=== PATIENT | female | born 1990 | race Caucasian/White ===

== ENCOUNTER 2017-09-17 16:31 | Emergency (ER) | payer OTHER, SELFPAY ==
[2017-09-17 16:32] VITALS: BP 126/78; PULSE 76; RESP 16; TEMP 36.3; O2SAT 98; BMI 23.8
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
[2017-09-17] MEDS: HYDROcodone Bitartrate/Apap 5/325 Tablet PO (17:02)
[2017-09-17] MEDS: Ketorolac 60 MG/2 ML Vial IM (17:02)
[2017-09-17] MEDS: Ondansetron ODT 4 MG Tablet PO (17:02)
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
--- NOTE | 2017-09-17 17:06 | DCINST.ED_ITS ---
ED Disposition - Plan for ED Patient: Chief Complaint: Headache Instructions: ED Cephalgia Unspecified Prescriptions: Hydrocodone Bitart/Apap 5-325 [[place] 5/325] 1 tab PO Q4H PRN PRN #7 tab PRN Reason: Pain Naproxen [Naprosyn] 500 mg PO BID PRN #20 tab Referrals: Manda Figueroa MD [Primary Care Provider] -
[2017-09-17 17:28] VITALS: PULSE 66; RESP 12; O2SAT 98
== END 2017-09-17 17:41 | disposition home or self-care (01) ==
LOC: ED 17:32
PROVIDERS: Emergency Provider Emergency Medicine; Family Provider Family Medicine; PCP Family Medicine
DX: R51 Headache (principal); Z79.899 Other long term (current) drug therapy; V43.52XA Car driver injured in collision with other type car in traffic accident, initial encounter; Y93.I9 Activity, other involving external motion; Y92.410 Unspecified street and highway as the place of occurrence of the external cause; Y99.8 Other external cause status
CPT/HCPCS: 96372; 99283

== ENCOUNTER → 2017-09-29 15:15 | Outpatient (CLI) | payer OTHER, SELFPAY ==
[2017-09-29 16:24] LABS: Absolute Lymphocyte Count 1.93 X10^3/ul (0.83-4.51); Absolute Neutrophil Count 7.8 X10^3/uL (2.0-7.7); Basophil# 0.01 X10^3/uL; Basophil% 0.1 % (0-1); Eosinophil# 0.19 X10^3/uL; Eosinophils% 1.8 % (0-5); Hematocrit 37.7 % (37-47); Hemoglobin 12.8 g/dl (12.0-15.0); Lymphocyte # 1.93 X10^3/ul (4.0); Lymphocyte % 18.1 % (19-41); Mean Corpuscular Hgb 30.1 pg (27.0-32.0); Mean Corpuscular Volume 88.7 fL (81-99); Mean Platelet Vol. 10.5 fl (6.2-12.0); Monocyte# 0.71 X10^3/uL; Monocyte% 6.7 % (0-10); Neutrophil # 7.79 X10^3/uL (2.7-7.7); Neutrophil % 73.1 % (47-70); Platelet Count 293 K/mm3 (150-450); RBC Distribution Width CV 12.2 % (11.6-14.6); RBC Distribution Width SD 39.2 fl (35.1-43.9); Red Blood Count 4.25 M/mm3 (4.2-5.4); White Blood Count 10.7 K/mm3 (4.4-11.0)
[2017-09-29 16:26] LABS: POSITIVE COUNT NO; POSITIVE DIFFERENTIAL NO; POSITIVE MORPHOLOGY NO
[2017-09-29 17:25] LABS: ALB/GLOB Ratio 1.2 RATIO (0.9-2.4); AST(SGOT) 21 U/L (15-37); Alanine Aminotransfer ALT/SGPT 18 U/L (13-56); Albumin, Serum 3.8 g/dL (3.2-5.0); Alkaline Phosphatase 50 U/L (45-117); Anion Gap 10 (5-15); BUN 11 mg/dL (7-18); Calcium,Total 8.7 mg/dL (8.5-10.1); Chloride 104 mmol/L (98-107); Creatinine, Serum 0.91 mg/dL (0.55-1.02); EST Glomerular Filtration Rate 79 mL/min (>60); Est Glom Filt Rate - Afr Amer 95 mL/min (>60); Free T3 2.8 pg/mL (2.18-3.98); Globulin 3.1 g/dL (2.2-4.2); Glucose 72 mg/dL (74-106); Protein, Total 6.9 g/dL (6.4-8.2); Sodium Level 138 mmol/L (136-145); T4 Free Direct 1.22 ng/dL (0.76-1.46)
[2017-09-30 08:28] LABS: Vitamin B12 281 pg/mL (211-911); Vitamin D,25 Hydroxy 15.8 ng/mL (29.95-100.01)
== END ==
PROVIDERS: Family Provider Family Medicine; PCP Family Medicine
DX: E88.81 Metabolic syndrome and other insulin resistance (principal); F32.9 Major depressive disorder, single episode, unspecified; R53.83 Other fatigue; Z51.81 Encounter for therapeutic drug level monitoring
CPT/HCPCS: 36415; 80053; 82306; 82607; 84439; 84443; 84481; 85025

== ENCOUNTER → 2018-12-10 | Outpatient (CLI) | payer OTHER, SELFPAY ==
[2018-12-17 15:45] LABS: HPV Reflexed? NOT INDICATED
== END | disposition home or self-care (01) ==
PROVIDERS: Family Provider Family Medicine; PCP Family Medicine; Referring Provider Family Medicine; Visit Provider Family Medicine
DX: Z01.419 Encounter for gynecological examination (general) (routine) without abnormal findings (principal)
CPT/HCPCS: 88175; G0145

== ENCOUNTER → 2018-12-28 | Outpatient (CLI) | payer OTHER, SELFPAY ==
--- NOTE | 2018-12-28 11:52 | BI_ITS ---
MAMMOGRAPHY - BILATERAL SCREENING REASON FOR EXAM: Female, 28 years old. Routine annual screening examination. PERTINENT HISTORY: Grandmother with breast cancer. Aunt with breast cancer. TECHNIQUE: Digital bilateral breast seb (3D mammographic acquisition) in the CC and MLO projections. 2-D mediolateral oblique (MLO) and craniocaudad (CC) views of both breasts were obtained. CAD: Full Field Digital Mammography with Computer Added Detection was performed. COMPARISON: None. Baseline examination. FINDINGS: Breast Composition: The breasts are extremely dense, which lowers the sensitivity of mammography. There are no dominant masses or suspicious calcifications. No other significant abnormalities are identified. BI/SCREEN MAMM (CAD) W/SEB BILAT IMPRESSION: Negative screening mammogram. Yearly followup mammogram recommended. (A) ASSESSMENT CATEGORY: BIRADS Category 1: Negative. A letter regarding these results will be sent to the patient by the facility within 30 days. Approximately 10% of breast cancers are not detected by mammography. A normal mammogram should not delay biopsy of a clinically suspicious abnormality. [id number] Electronically Signed: Anant Aguiar, at 13:23 EDT , Service support ,
== END | disposition home or self-care (01) ==
LOC: OPBI 11:49
PROVIDERS: Family Provider Family Medicine; PCP Family Medicine; Referring Provider Family Medicine; Visit Provider Family Medicine
DX: Z12.31 Encounter for screening mammogram for malignant neoplasm of breast (principal); Z80.3 Family history of malignant neoplasm of breast
CPT/HCPCS: 77063; 77067

== ENCOUNTER 2019-11-09 01:22 | Emergency (ER) | payer OTHER, SELFPAY ==
[2019-05-31 15:49] VITALS: BMI 25.9
[2019-11-09 01:23] VITALS: BP 133/88; PULSE 120; RESP 16; TEMP 36.7; O2SAT 99; BMI 29.1
--- NOTE | 2019-11-09 01:24 | ED.RN ---
CALLED FOR EKG PER RN REQUEST, NO OLD EKGS IN MUSE
--- NOTE | 2019-11-09 01:36 | RAD_ITS ---
STUDY: X-RAY CHEST REASON FOR EXAM: Female, 28 years old. intermittent cp today TECHNIQUE: Frontal and lateral views of the chest. COMPARISON: CT scan abdomen and pelvis 12/08/2016. FINDINGS: The lungs are clear and expanded. There is a calcified granuloma in the right lower lobe. There is no demonstrated pleural abnormality. Normal size heart. Normal mediastinum and nathalia. Normal visualized pulmonary arteries. Normal visualized aortic arch and descending thoracic aorta. Normal visualized thoracic spine. Normal visualized ribs, clavicles, and shoulders. There is no demonstrated abnormality of the visualized soft tissue structures of the upper abdomen. RAD/Chest PA and Lateral IMPRESSION: No evidence for acute cardiopulmonary pathology. Electronically Signed: Mauricio Nicole MD at 2:19 EDT , Service support ,
--- NOTE | 2019-11-09 01:36 | EKG12_ITS ---
Test Reason : CP Blood Pressure : / mmHG Vent. Rate : 124 BPM Atrial Rate : 124 BPM P-R Int : 174 ms QRS Dur : 076 ms QT Int : 288 ms P-R-T Axes : 058 064 047 degrees QTc Int : 413 ms Sinus tachycardia Otherwise normal ECG Confirmed by CHYNA WRIGHT [id number]), multimedia editor TISHA TURNER ([id number]) on 11/10/2019 2:17:05 PM Referred By: CONRAD Confirmed By:CHYNA WRIGHT
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
[2019-11-09 01:41] LABS: Absolute Lymphocyte Count 3.53 X10^3/uL (0.83-4.51); Absolute Neutrophil Count 8.7 X10^3/uL (2.0-7.7); Basophil# 0.06 X10^3/uL; Basophil% 0.4 % (0-1); Eosinophil# 0.37 X10^3/uL; Eosinophils% 2.7 % (0-5); Hematocrit 42.8 % (37-47); Hemoglobin 14.7 g/dL (12.0-15.0); Lymphocyte # 3.53 X10^3/ul (4.0); Lymphocyte % 25.8 % (19-41); Mean Corp Hgb Conc 34.3 g/dL (32-36); Mean Corpuscular Hgb 30.6 pg (27.0-32.0); Mean Corpuscular Volume 89.2 fL (81-99); Mean Platelet Vol. 10.3 fl (6.2-12.0); Monocyte# 0.94 X10^3/uL; Monocyte% 6.9 % (0-10); NRBC Flagged by Analyzer 0 % (0-5); Neutrophil # 8.73 X10^3/uL (2.7-7.7); Neutrophil % 63.8 % (47-70); Platelet Count 352 K/mm3 (150-450); RBC Distribution Width CV 11.9 % (11.6-14.6); RBC Distribution Width SD 38.6 fl (35.1-43.9); White Blood Count 13.7 K/mm3 (4.4-11.0)
[2019-11-09 01:51] LABS: D-Dimer Quantitative (DVT/PE) <= 0.27 FEU/ug/m (0.27-0.49)
[2019-11-09 01:56] LABS: Anion Gap 10 (5-15); BUN 8 mg/dL (7-18); BUN/Creat Ratio 9.5 RATIO (10-20); Calcium,Total 9.3 mg/dL (8.5-10.1); Chloride 105 mmol/L (98-107); Creatinine, Serum 0.85 mg/dL (0.55-1.02); EST Glomerular Filtration Rate 85 mL/min (>60); Est Glom Filt Rate - Afr Amer 102 mL/min (>60); Estimated Creatinine Clearance 85.09 ml/min; Glucose 115 mg/dL (74-106); Potassium 3.8 mmol/L (3.5-5.1); Sodium Level 142 mmol/L (136-145)
[2019-11-09 02:35] VITALS: BP 112/84; PULSE 102; RESP 25; O2SAT 98
--- OUTSIDE RECORDS SUMMARY | 2020-03-27 17:32 | XMS RPT_ITS | CCD ---
:1990 External Reference #:[id number] Author Organization [facility] Care Team Providers Name Role Phone Langford Unavailable Unavailable Allergies Reported Allergen Reaction(s) Severity Date of Onset Location CATEPILLARS Critical, Critical 11-17-2014 - [place] [facility] Translations: [ Group ([id number] ) CATEPILLARS] Penicillins Critical, [facility] 11-17-2014 - [facility] (Antibiotic) Group ([id number]) Medications Medication Name Sig Date Prescriber Location buPROPion WELLBUTRIN SR 150 10-21-2016 [place] [facility] [id number] One Group ([id number]) tablet by mouth daily BUPROPION HCL [id number] Anabelle Langford desogestrel / APRI 0.15-30 MG-MCG 11-17-2014 [facility] ethinyl estradiol TABS One tablet by Jacinto montelongo ([id number]) mouth daily DESOGESTREL-ETHINYL ESTRADIOL [id number] Jennifer Benson RN dilTIAZem DILTIAZEM HCL 60 MG 04-02-2015 - [facility] TABS One tablet by 09-24-2015 RN Group ([id number]) mouth twice daily DILTIAZEM HCL [id number] Sri Wilhelm PA-C CARDIZEM CD 120 MG 01-03-2015 - 04-02-2015 [facility] [id number] One tablet by ([id number]) mouth daily DILTIAZEM HCL COATED BEADS [id number] Jennifer Benson RN CARDIZEM CD 120 MG 01-03-2015 Jane Brown RN [facility] [id number] One tablet by ([id number]) mouth daily DILTIAZEM HCL COATED BEADS [id number] Calos Nava MD DULoxetine CYMBALTA 20 MG CPEP One 09-24-2015 - 10-21-2016 [facility] tablet by mouth daily ([id number] ) DULOXETINE HCL [id number] Calos Nava MD escitalopram ESCITALOPRAM OXALATE 10 MG 11-17-2014 [facility] TABS One tablet by mouth (44 691) daily ESCITALOPRAM OXALATE [id number] Jennifer Benson RN LEXAPRO 20 MG TABS One tablet by 11-17-2014 - 12-18-2014 [facility] ([id number]) mouth daily ESCITALOPRAM OXALATE [id number] Calos Nava MD fexofenadine / BRETT-D ALLERGY & CONGESTION 11-17-2014 [facility] pseudoephedrine 60-120 MG [id number] as directed Group ([id number]) FEXOFENADINE-PSEUDOEPHEDRINE [id number] Jennifer Benson RN BRETT-D ALLERGY & CONGESTION 60-120 MG 11-17-2014 - 12-18-2014 [facility] [id number] as directed ([id number]) FEXOFENADINE-PSEUDOEPHEDRINE [id number] Calos Nava MD metoprolol TOPROL XL 25 MG [id number] 09-24-2015 Jennifer Jackson r, [facility] One tablet by mouth daily [facility] ([id number]) METOPROLOL SUCCINATE [id number] Sri Wilhelm PA-Jomar spironolactone ALDACTONE 50 MG TABS 1 10-21-2016 [facility] 1/2 tablets by mouth Group ( 15303) daily SPIRONOLACTONE [id number] Anabelle Langford triamcinolone NASACORT AQ 55 MCG/ACT 11-20-[address] [facility] AERS Take as directed Group ([id number]) TRIAMCINOLONE ACETONIDE(NASAL) [id number] Calos Nava MD Problems Category Problem Name Status Date Location Cardiac dysrhythmias Tachycardia Completed 11-17-2014 - [facility] ([id number]) Nonspecific chest pain Chest pain, Completed 11-20-2014 - [facility] unspecified Group ([id number]) Results Result Name Value Range Unit Interpretation Flag Date Location progress on 2019-01 PROGRESS HNO ID: [id number] Normal 02-03-2019 [id number] Service: ? Author Type: Nurse Practitioner Type: Progress Notes Filed: 02/03/2019 3:44 PM Note Text: Subjective HPI Andrea IVAN is a 28 year old female who presents wi th sinus congestion, sinus pain and headaches for the past month. She was seen here 3 weeks ago and diagnosed with viral URI. LMP: current Review of Systems Constitutional: Negative. Negative for fever. HENT: Positive for congestion and sinus pain. Negative for s ore throat. Respiratory: Negative. Negative for cough. Neurological: Positive for headaches. BP 110/68 Pulse 84 Temp 36.8 ?C (98.3 ?F) (Left Tympanic ) Resp 16 Wt 69.2 kg (152 lb 9.6 oz) LMP 01/04/2019 No past medical history on file. No past surgical history on file. ALLERGIES Penicillins MEDICATIONS Desogestrel-Ethinyl Estradiol 0.15-0.03 mg per tablet desoge strel / ethinyl estradiol Desogestrel-Ethinyl Estradiol 1 TAB PO NEFTALY LY December 08, 2016 Active 12-08-2016 [facility] ([id number]) No family history on file. Social History Tobacco Use - Smoking status: Never Smoker - Smokeless tobacco: Never Used Substance Use Topics - Alcohol use: Not on file - Drug use: Not on file Objective Physical Exam Constitutional: She is well-developed, well-nourished, and i n no distress. HENT: Right Ear: Tympanic membrane, external ear and ear canal nor mal. Left Ear: Tympanic membrane, external ear and ear canal norm al. Nose: Mucosal edema, rhinorrhea and sinus tenderness present . Mouth/Throat: Uvula is midline, oropharynx is clear and mois t and mucous membranes are normal. No posterior oropharyngeal edema or po sterior oropharyngeal erythema. Eyes: Conjunctivae are normal. Neck: Neck supple. Cardiovascular: Normal rate and regular rhythm. Pulmonary/Chest: Effort normal and breath sounds normal. Lymphadenopathy: She has no cervical adenopathy. Neurological: She is alert. Skin: Skin is warm and dry. Nursing note and vitals reviewed. ASSESSMENT/PLAN: 1. Bacterial sinusitis - ICD9: 473.9, 041.9, ICD10: J32.9, B 96.89 - Will begin treatment with Doxycline - Supportive care with plenty of fluids, rest, and analgesia prn. - DOXYCYCLINE HYCLATE 100 MG CAPSULE - Follow-up with your PCP in 3-5 days if symptoms have not i mproved or sooner if symptoms worsen - Discussed red flags and need for immediate medical evaluat ion if any occur. - Discussed supportive care treatment with fluids, rest and analgesia. - Discussed expected course of illness Sarah Fernandez APRN.CNP cnjanine on 2019-02-03 CNOV Office Visit ([facility]) Normal 02-04-[address] [place] [address] Quinten ANDREA IVAN ([id number]) 1990 [facility] Date Time Provider Department ([id number]) 02/03/19 3:30 PM SARAH FERNANDEZ ([employer]) [facility] During your visit today, we recorded the following informati on about you: Temperature Pulse Respiration Blood pressure 98.3 degrees 84/minute 16/minute 110/68 Weight 69.2 kg Sarah Fernandez APRN.CNP 02/03/2019 3:44 PM Signed Subjective HPI Andrea IVAN is a 28 year old female who presents wi th sinus congestion, sinus pain and headaches for the past laine h. She was seen here 3 weeks ago and diagnosed with viral URI. LMP: current Review of Systems Constitutional: Negative. Negative for fever. HENT: Positive for congestion and sinus pain. Negative for s ore throat. Respiratory: Negative. Negative for cough. Neurological: Positive for headaches. BP 110/68 Pulse 84 Temp 36.8 ?C (98.3 ?F) (Left Tympanic ) Resp 16 Wt 69.2 kg (152 lb 9.6 oz) LMP 01/04/2019 No past medical history on file. No past surgical history on file. ALLERGIES Penicillins MEDICATIONS Desogestrel-Ethinyl Estradiol 0.15-0.03 mg per tablet deso gestrel / ethinyl estradiol Desogestrel-Ethinyl Estradiol 1 TAB PO DAILY Nov Active 12-08-2016 [facility] ([id number]) No family history on file. Social History Tobacco Use - Smoking status: Never Smoker - Smokeless tobacco: Never Used Substance Use Topics - Alcohol use: Not on file - Drug use: Not on file Objective Physical Exam Constitutional: She is well-developed, well-nourished, and i n no distress. HENT: Right Ear: Tympanic membrane, external ear and ear canal nor mal. Left Ear: Tympanic membrane, external ear and ear canal norm al. Nose: Mucosal edema, rhinorrhea and sinus tenderness present . Mouth/Throat: Uvula is midline, oropharynx is clear and mois t and mucous membranes are normal. No posterior oropharyngeal edema or po sterior oropharyngeal erythema. Eyes: Conjunctivae are normal. Neck: Neck supple. Cardiovascular: Normal rate and regular rhythm. Pulmonary/Chest: Effort normal and breath sounds normal. Lymphadenopathy: She has no cervical adenopathy. Neurological: She is alert. Skin: Skin is warm and dry. Nursing note and vitals reviewed. ASSESSMENT/PLAN: 1. Bacterial sinusitis - ICD9: 473.9, 041.9, ICD10: J32.9, B 96.89 - Will begin treatment with Doxycline - Supportive care with plenty of fluids, rest, and analgesia prn. - DOXYCYCLINE HYCLATE 100 MG CAPSULE - Follow-up with your PCP in 3-5 days if symptom s have not improved or sooner if symptoms worsen - Discussed red flags and need for immediate med ical evaluation if any occur. - Discussed supportive care treatment with fluids, rest and analgesia. - Discussed expected course of illness TWIN Trujillo APRN.CNP 02/03/2019 3:40 PM Signed ASSESSMENT/PLAN: 1. Bacterial sinusitis - ICD9: 473.9, 041.9, ICD10: J32.9, B 96.89 - Will begin treatment with Doxycline - Supportive care with plenty of fluids, rest, and analgesia prn. - DOXYCYCLINE HYCLATE 100 MG CAPSULE - Follow-up with your PCP in 3-5 days if symptom s have not improved or sooner if symptoms worsen - Discussed red flags and need for immediate med ical evaluation if any occur. - Discussed supportive care treatment with fluids, rest and analgesia. - Discussed expected course of illness Sarah Fernandez APRN.[employer] [facility] PATIENT INFO ACUTE SINUSITIS OVERVIEW Rhinosinusitis, or more commonly sinusitis, is the medical t erm for inflammation (swelling) of the lining of the sinuses and nose. The sinuses are the hollow areas within the facial bones that are connected to the nasal openings. The sinuses are lined with mucous membranes, similar to the inside of the nose. There are two main types of sinusitis: acute and chron ic. Acute sinusitis is inflammation that lasts for less than fo ur weeks while chronic sinusitis lasts for more than 12 weeks. Acute sinusitis is common, affecting approximately one million people per year in the [place]. ACUTE SINUSITIS CAUSES The most common cause of acute sinusitis is a vi ral infection associated with the common cold. Bacterial sinusitis occ urs much less commonly, in only 0.5 to 2 percent of cases, usually as a complication of viral sinus itis. Because antibiotics are effective only against bacterial, an d not viral, infections, most people do not need antibiotics for acute si nusitis. ACUTE SINUSITIS SYMPTOMS Symptoms of acute sinusitis include: ? Nasal congestion or blockage ? Thick, yellow to green discharge from the nose ? Pain in the teeth ? Pain or pressure in the face that is worse when bending fo rwards Other acute sinusitis symptoms can include fever (temperatur e greater than 100.4?F or 38?C), fatigue, cough, difficulty or inability to smell, ear pressure or fullness, headache, and bad breath. In most cases, these symptoms develop over the c ourse of one day and begin to improve within seven to 10 days. DO I NEED TO BE EXAMINED? It is difficult to know if you have a viral or bacterial sin us infection initially. However, most people with a viral infection impro ve without treatment within seven to 10 days after symptoms begin. Ba cterial sinusitis also sometimes improves without treatment, although it can a lso worsen and require treatment. If one or more of the following botherso me symptoms last more than seven days, an examination by a healthcare provider is recommended: ? Thick, yellow to green discharge from the nose ? Face or tooth pain, especially if it is only on one side ? Tenderness over the maxillary sinuses (located on the left and right side of the nose, inside the cheekbones) ? Symptoms that initially improve and then worsen When to seek immediate help ? If you have one or more of the following symptoms, you should seek medical attent ion immediately (even if symptoms have been present for less than seven days): ? High fever (>102.5? F or 39.2? C) ? Sudden, severe pain in the face or head ? Double vision or difficulty seeing ? Confusion or difficulty thinking clearly ? Swelling or redness around one or both eyes ? Stiff neck, shortness of breath ACUTE SINUSITIS TREATMENT Initial treatment of a sinus infection aims to relieve symptoms since almost everyone will improve within the first seven to 10 days. Exp erts recommend avoiding antibiotics during this time unless there is clear evidence of a severe bacterial infection. Initial treatment Pain relief ? Non-prescription pain medications, such as a cetaminophen (eg, Tylenol?) or ibuprofen (eg, Motrin?, Advil?) are recommended for pain. Nasal irrigation and saline sprays ? Rinsing the nose with a salt-water (saline) solution is called nasal irrigation or nasal lavage. Saline is also available in a standard nasa l spray, although this is not as effective as using larger amounts of water in an irrigation. Nasal irrigation is particularly useful for treating drainage down the back of the throat, sneezing, nasal dryness, and congestion. The t reatment helps by rinsing out allergens and ir ritants from the nose. Saline rinses also clean the nasal lining and can be used before appl pee sprays containing medications, to get a better effect from the medication. Nasal lavage with warmed saline can be performed as ne eded, once per day, or twice daily for increased symptoms. Nasal lavage carries few risks when performed correctly. Saline nasal sprays and irr igation kits can be purchased [id number]. Saline mix es can also be purchased or patients can make their own solution. A variety of devices, including bulb syr inges, Neti pots, and bottle sprayers, may be used to perform nasal lavage; instructions for nasal lavage are provided in the table. At least 200 mL (about 3/4 cup) of fluid is recommended for each nostril. Nasal decongestants ? Nasal decongestant sprays, including o xymetazoline (Afrin?) and phenylephrine (Pj-synephrine?) can be used to temporarily treat congestion. However, these s prays should not be used for more than two to three days due to the risk of rebound congestion (when the nose is congested constantly unless the medication is used repeatedly). Other treatments ? Other evelin atments for congestion, such as oral antihistamines (such as diphenhydramine/Benadryl?) or zinc supplements are not proven to improve symptoms of sinusitis and can have unwan zac side effects. Medications to thin secretions (such as guaifenesin) may help to clear m ucus. Secondline treatment ? If symptoms have not improved in seven to ten days, you should arrange for medical evaluation. You may need further treatment. Nasal glucocorticoids ? Nasal glucocorticoids (steroid s delivered by a nasal spray) can help to reduce sw elling inside the nose, usually within two to three days. These drugs have few side effects and dramatical ly relieve symptoms in most people. There are a number of nasal glucocorticoids available by prescription. These drugs are all effective, but differ in how frequently they must be used and how much they cost. You may need to use a nasal decongestant for a few days before starting a nasal glucocorticoid to reduce nasal swelling; this will allow the nasal glucocorticoid to reach more areas of the nasal passages Do I need an antibiotic? ? If bothersome symptom s of sinusitis persist for 10 or more days, it is possible that you have bacterial s inusitis. The need for antibiotics depends upon the severity of your symptoms. Mild symptoms ? There are two possible treatment options if you have mild sinusitis symptoms: treat with antibiotics or continue to watch and wait for one week. Watching and waiting is a reasonable opt ion because up to 75 percent of people with bacterial sinusitis improve within one laine h without antibiotics. During the watch and wait period, treatments to improve symptoms ar e recommended. If symptoms worsen or do not improve after watching and waiting, treatment with an antibiotic is usually recommended. Treatments to relieve symptoms are recommended while using antibiotics. Moderate or severe symptoms ? Most healthcare providers will prescribe an antibiotic for moderate to severe symptoms (temperature >38. 3? C or 101? F and/or severe pain that interferes with usual activities). Treatments to relieve symptoms are also recommended during a ntibiotic treatment. One of the least expensive and most effective antibiotics fo r sinusitis is amoxicillin. An alternate antibiotic shania l be prescribed if you are allergic to penicillin. Regardless of which antibiotic is prescrib ed, it is important to follow the dosing instructions carefully and to finish the entire course of treatment. Taking the medication less often than prescribe d or stopping the medication early can lead to complications, such as a recurr ent infection. What if I do not improve with treatment? ? If you do not imp rove or worsen after a course of antibiotics, you should be re-examined. In some cases, symptoms of sinusitis improve but then recur. This is usually because the infection was not completely eliminated by the a ntibiotic. An alternate antibiotic, extend ed antibiotic treatment, and/or further testing may be recommended, depending upon your individual situation. Referring Provider: SELF [[id number]] Allergies As of Date: 02/03/2019 Noted Allergy Reaction PENICILLINS 01/07/2019 4 - Hives Date Reviewed: 02/03/2019 Reviewed by: Sarah ([facility]) Rebecca - Fully Assessed Reason for Visit: Sinusitis [127] Cmt: x 1 month Reason For Visit History Recorded Primary Visit Diagnosis:Bacterial sinusitis [J32.9, B96.89] Order(s):doxycycline hyclate (VIBRAMYCIN) 100 mg capsuleTake 1 capsule by mouth twice daily for 10 days.Disp: 20 capsuleRfl: 0 Prescriptions as of 02/03/2019 Sig: DOXYCYCLINE HYCLATE 100 MG CA* Take 1 capsule by mouth twice * Problem List As Of Date: 02/03/2019 (None) Other instructions from your clinician: ASSESSMENT/PLAN: 1. Bacterial sinusitis - ICD9: 473.9, 041.9, ICD10: J32.9, B 96.89 - Will begin treatment with Doxycline - Supportive care with plenty of fluids, rest, and analgesia prn. - DOXYCYCLINE HYCLATE 100 MG CAPSULE - Follow-up with your PCP in 3-5 days if symptoms have not i mproved or sooner if symptoms worsen - Discussed red flags and need for immediate medical evaluat ion if any occur. - Discussed supportive care treatment with fluids, rest and analgesia. - Discussed expected course of illness Sarah Fernandez APRN.[employer] [facility] PATIENT INFO ACUTE SINUSITIS OVERVIEW Rhinosinusitis, or more commonly sinusitis, is the medical t erm for inflammation (swelling) of the lining of the sinuses and nos e. The sinuses are the hollow areas within the facial bones that are connec zac to the nasal openings. The sinuses are lined with mucous membranes, similar to the inside of the nose. There are two main types of sinusitis: acute and chronic. Ac mireille sinusitis is inflammation that lasts for less than four weeks while ch ronic sinusitis lasts for more than 12 weeks. Acute sinusitis is c ommon, affecting approximately one million people per year in the [facility]. ACUTE SINUSITIS CAUSES The most common cause of acute sinusitis is a viral infectio n associated with the common cold. Bacterial sinusitis occurs much less c ommonly, in only 0.5 to 2 percent of cases, usually as a complication of viral sinusitis. Because antibiotics are effective only against bacterial, an d not viral, infections, most people do not need antibiotics for acute si nusitis. ACUTE SINUSITIS SYMPTOMS Symptoms of acute sinusitis include: ? Nasal congestion or blockage ? Thick, yellow to green discharge from the nose ? Pain in the teeth ? Pain or pressure in the face that is worse when bending fo rwards Other acute sinusitis symptoms can include fever (temperatur e greater than 100.4?F or 38?C), fatigue, cough, difficulty or inability to smell, ear pressure or fullness, headache, and bad breath. In most cases, these symptoms develop over the course of one day and begin to improve within seven to 10 days. DO I NEED TO BE EXAMINED? It is difficult to know if you have a viral or bacterial sin us infection initially. However, most people with a viral infection impro ve without treatment within seven to 10 days after symptoms begin. Bact erial sinusitis also sometimes improves without treatment, althoug h it can also worsen and require treatment. If one or more of the following bothersome symptoms last mor e than seven days, an examination by a healthcare provider is recommended : ? Thick, yellow to green discharge from the nose ? Face or tooth pain, especially if it is only on one side ? Tenderness over the maxillary sinuses (located on the left and right side of the nose, inside the cheekbones) ? Symptoms that initially improve and then worsen When to seek immediate help ? If you have one or more of the following symptoms, you should seek medical attention immediately (sharron n if symptoms have been present for less than seven days): ? High fever (>102.5? F or 39.2? C) ? Sudden, severe pain in the face or head ? Double vision or difficulty seeing ? Confusion or difficulty thinking clearly ? Swelling or redness around one or both eyes ? Stiff neck, shortness of breath ACUTE SINUSITIS TREATMENT Initial treatment of a sinus infection aims to relieve sympt oms since almost everyone will improve within the first seven to 10 da ys. Experts recommend avoiding antibiotics during this time unless there is clear evidence of a severe bacterial infection. Initial treatment Pain relief ? Non-prescription pain medications, such as eloise taminophen (eg, Tylenol?) or ibuprofen (eg, Motrin?, Advil?) are recomm ended for pain. Nasal irrigation and saline sprays ? Rinsing the nose with a salt-water (saline) solution is called nasal irrigation or nasal lavage . Saline is also available in a standard nasal spray, although this is n ot as effective as using larger amounts of water in an irrigation. Nasal irrigation is particularly useful for treating drainag e down the back of the throat, sneezing, nasal dryness, and congestion. The treatment helps by rinsing out allergens and irritants from the nose. Saline rinses also clean the nasal lining and can be used before applying sprays containing medications, to get a better effect from the medi cation. Nasal lavage with warmed saline can be performed as needed, once per day, or twice daily for increased symptoms. Nasal lavage carries few risks when performed correctly. Saline nasal sprays and irrigation kits can be purchased [id number]. Saline mixes can also be purchas ed or patients can make their own solution. A variety of devices, including bulb syringes, Neti pots, an d bottle sprayers, may be used to perform nasal lavage; instructions for nasal lavage are provided in the table. At least 200 mL (about 3/4 cup) of fluid is recommended for each nostril. Nasal decongestants ? Nasal decongestant sprays, including o xymetazoline (Afrin?) and phenylephrine (Pj-synephrine?) can be used to temporarily treat congestion. However, these sprays should not be used f or more than two to three days due to the risk of rebound congestion (whe n the nose is congested constantly unless the medication is used repeatedl y). Other treatments ? Other treatments for congestion, such as oral antihistamines (such as diphenhydramine/Benadryl?) or zinc s upplements are not proven to improve symptoms of sinusitis and can have unw anted side effects. Medications to thin secretions (such as guaifenesin ) may help to clear mucus. Secondline treatment ? If symptoms have not improved in kaci n to ten days, you should arrange for medical evaluation. You may need furt her treatment. Nasal glucocorticoids ? Nasal glucocorticoids (steroids deli tiffany by a nasal spray) can help to reduce swelling inside the nose, us ually within two to three days. These drugs have few side effects and vianca matically relieve symptoms in most people. There are a number of nasal glucocorticoids available by pre scription. These drugs are all effective, but differ in how frequently they must be used and how much they cost. You may need to use a nasal decongestant for a few days befo re starting a nasal glucocorticoid to reduce nasal swelling; this will all ow the nasal glucocorticoid to reach more areas of the nasal passages Do I need an antibiotic? ? If bothersome symptoms of sinusit is persist for 10 or more days, it is possible that you have bacterial sinu sitis. The need for antibiotics depends upon the severity of your sympt oms. Mild symptoms ? There are two possible treatment options if you have mild sinusitis symptoms: treat with antibiotics or continue to wa [facility] and wait for one week. Watching and waiting is a reasonable option because up to 75 percent of people with bacterial sinusitis improve within one month wit hout antibiotics. During the watch and wait period, treatments to improve symptoms are recommended. If symptoms worsen or do not improve after watching and wait ing, treatment with an antibiotic is usually recommended. Treatments to rel ieve symptoms are recommended while using antibiotics. Moderate or severe symptoms ? Most healthcare providers will prescribe an antibiotic for moderate to severe symptoms (temperature >38. 3? C or 101? F and/or severe pain that interferes with usual activities). Treatments to relieve symptoms are also recommended during a ntibiotic treatment. One of the least expensive and most effective antibiotics fo r sinusitis is amoxicillin. An alternate antibiotic will be prescribed if y ou are allergic to penicillin. Regardless of which antibiotic is pr escribed, it is important to follow the dosing instructions carefully and to finish the entire course of treatment. Taking the medication less often than prescribed or stopping the medication early can lead to comp lications, such as a recurrent infection. What if I do not improve with treatment? ? If you do not imp rove or worsen after a course of antibiotics, you should be re-examined. In some cases, symptoms of sinusitis improve but then recur. This is usually because the infection was not completely eliminated by the antibiotic. An alternate antibiotic, extended antibiotic evelin atment, and/or further testing may be recommended, depending upon your gris vidual situation. Prescriptions ordered this encounter Disp Refills Start End DOXYCYCLINE HYCLATE 100 MG CAPSULE 20 c* 0 02/03/20192018 Route: ORAL Sig: Take 1 capsule by mouth twice daily for 10 days. Medications Discontinued During This Encounter Desogestrel-Ethinyl Estradiol 0.15-0* 11/17/2014 02/03/2019 Class: Historical Med Sig: desogestrel / ethinyl e stradiol Desogestrel-Ethinyl Estradiol 1 TAB PO DAILY December 08, 2016 Active 12-08-2016 [facility] ([id number]) Disc: Reason for discontinue is not on file. Encounter Status:Closed by SARAH FERNANDEZ on 02/03/19 progress on 2018-12 PROGRESS HNO ID: [id number] Normal 01-07-2019 [facility] Author: Jonny Vines [place] ([id number]) Service: ? Author Type: Physician Type: Progress Notes Filed: 01/07/2019 7:35 PM Note Text: Patient presents with: Sore Throat: x 3 days Rash: on abdomen and back x 2 days HPI: Feeling sick for 10 days, sore throat for the initial 3 days . is sick now also. Positive symptoms: gross throat, rash, Cough, Nasal [place] on, Post nasal drainage, Negative symptoms: Shortness of breath, Wheezing, Chest pain , Sinus pressure, Fever, Chills, Body Aches, OTC: Cold Medicine MEDICATIONS: Current Outpatient Medications: Desogestrel-Ethinyl Estradiol 0.15-0.03 mg per tablet desoge strel / ethinyl estradiol Desogestrel-Ethinyl Estradiol 1 TAB PO NEFTALY LY December 08, 2016 Active 12-08-2016 [facility] ([id number]) No current facility-administered medications for this visit. ALLERGIES: ALLERGIES Allergen Reactions - Penicillins Hives VITALS: BP 126/82 Pulse 89 Temp 37.1 ?C (98.7 ?F) (Tympanic) R irina 16 Wt 68.5 kg (151 lb) LMP 01/04/2019 SpO2 99% PHYSICAL EXAM: GEN: Pleasant, in no acute distress. HEENT: PERRL, EOMI, conjunctiva clear Ears: canals clear. TMs without erythema, bulge, or effusion Sinuses: non-tender frontal sinus, non-tender maxillary sinu ses Throat: moist mucous membranes, mild erythema, no exudate Neck: supple, no thyromegaly, no lymphadenopathy HEART: regular rate and rhythm, no murmurs LUNGS: clear to auscultation, no wheezes or crackles, no inc reased WOB SKIN: <5mm hive-like papular rash on the anterior and vascular technologist ior torso ASSESSMENT/PLAN: 1. Rash - ICD9: 782.1, ICD10: R21 (primary diagnosis) 2. Sore throat - ICD9: 462, ICD10: J02.9 - RAPID STREP TEST B/O - negeative - suspect viral URI with exanthem Rash does not appear contagious Continue supportive care. MD carolin Boyceov on 2019-01-07 CNOV Office Visit ([id number]) Normal 01-08-20 19 [place] ANDREA Musa ([id number]) 1990 [facility] Date Time Provider Department ([id number]) 01/07/19 6:30 PM JONNY VINES [facility] During your visit today, we recorded the following informati on about you: Temperature Pulse Respiration Blood pressure 98.7 degrees 89/minute 16/minute 126/82 Weight Last Period 68.5 kg 01/04/19 Jonny Vines MD 01/07/2019 7:35 PM Signed Patient presents with: Sore Throat: x 3 days Rash: on abdomen and back x 2 days HPI: Feeling sick for 10 days, sore throat for the in itial 3 days. is sick now also. Positive symptoms: gross throat, rash, Cough, Nasal [place] on, Post nasal drainage, Negative symptoms: Shortness of breath, Wheezing , Chest pain, Sinus pressure, Fever, Chills, Body Aches, OTC: Cold Medicine MEDICATIONS: Current Outpatient Medications: Desogestrel-Ethinyl Estradiol 0.15-0.03 mg per tablet deso gestrel / ethinyl estradiol Desogestrel-Ethinyl Estradiol 1 TAB PO DAILY Nov Active 12-08-2016 [facility] ([id number]) No current facility-administered medications for this visit. ALLERGIES: ALLERGIES Allergen Reactions - Penicillins Hives VITALS: BP 126/82 Pulse 89 Temp 37.1 ?C (98.7 ?F) (Tympanic) R irina 16 Wt 68.5 kg (151 lb) LMP 01/04/2019 SpO2 99% PHYSICAL EXAM: GEN: Pleasant, in no acute distress. HEENT: PERRL, EOMI, conjunctiva clear Ears: canals clear. TMs without erythema, bulge, or effusion Sinuses: non-tender frontal sinus, non-tender maxillary sinu ses Throat: moist mucous membranes, mild erythema, no exudate Neck: supple, no thyromegaly, no lymphadenopathy HEART: regular rate and rhythm, no murmurs LUNGS: clear to auscultation, no wheezes or crackles, no inc reased WOB SKIN: <5mm hive-like papular rash on the anterior and vascular technologist ior torso ASSESSMENT/PLAN: 1. Rash - ICD9: 782.1, ICD10: R21 (primary diagnosis) 2. Sore throat - ICD9: 462, ICD10: J02.9 - RAPID STREP TEST B/O - negeative - suspect viral URI with exanthem Rash does not appear contagious Continue supportive care. Jonny Vines MD Referring Provider: SELF [[id number]] Allergies As of Date: 01/07/2019 Noted Allergy Reaction PENICILLINS 01/07/2019 4 - Hives Date Reviewed: 01/07/2019 Reviewed by: Anca Arnold Housekeeper/Custodian/Laundry Worker - Fully Assessed Reason for Visit: Sore Throat [200] Cmt: x 3 days Rash [1087] Cmt: on abdomen and back x 2 days Primary Visit Diagnosis:Rash [R21] Other Visit Diagnosis:Sore throat [J02.9] Order(s):RAPID STREP TEST B/O [3730925] Order #: [id number] Prescriptions as of 01/07/2019 Sig: DESOGESTREL 0.15 MG-ETHINYL E* desogestrel / ethinyl estradi * Problem List As Of Date: 01/07/2019 (None) Encounter Status:Closed by JONNY VINES MD on 01/07/19 office visit on 12-17-08 Documentation of Done Invalid Interpretation 10-21-2016 - [facility] current medications Code 10-21-2016 Group ([id number]) (procedure) office visit on 10-22-04 Tobacco use Never smoker Invalid Interpretation - [facility] CPHS Code 03-19-2015 Group ([id number]) office visit on 10-19-07 cardiac risk group A Invalid 11-20-2014 - [facility] Interpretation Code 11-20-2014 [facility] ([id number]) General Not enough Invalid 11-20-2014 - [facility] cardiovascular information Interpretation Code [facility] disease 10Y risk (44 301) [#] Callao.D'Agosti no external other: preferred method of cont act on 2014-11-20 Patient's prefered secmsg Invalid Interpretatio n 11-20-2014 - [facility] method of contact Code 11-20-2014 Eneida garcia ([id number]) clinical lists update: preload on 2014-10-27 Alanine 18 U/L Invalid 10-27-2014 - [place] aminotransferase (ALT) Interpretation Co de 10-27-2014 [facility] ([id number]) Alkaline phosphatase 53 U/L Invalid (ALP) Interpretation Code 10-27-2014 [facility] ([id number]) Anion gap 6 mmol/L Invalid 10-27-2014 - [facility] Interpretation Code 10-27-2014 [facility] ([id number]) Aspartate 17 U/L Invalid 10-27-2014 - [facility] aminotransferase (AST) Interpretation Co de 10-27-2014 [facility] ([id number]) BUN/Creatinine Ratio 12.5 mg/mg Invalid 5 - [facility] Interpretation Code 10-27-2014 [facility] ([id number]) Calcium 8.8 mg/dL Invalid 10-27-2014 - [place] Interpretation Code 10-27-2014 [facility] ([id number]) Chloride 105 mmol/L Invalid 10-27-2014 - [facility] Interpretation Code 10-27-2014 [facility] ([id number]) CO2 27 mmol/L Invalid 10-27-2014 - [facility] Interpretation Code 10-27-2014 [facility] ([id number]) Creatinine 0.8 mg/dL Invalid 10-27-2014 - [place] Interpretation Code 10-27-2014 [facility] ([id number]) Glucose 92 mg/dL Invalid 10-27-2014 - [place] Interpretation Code 10-27-2014 [facility] ([id number]) Hematocrit (HCT) 40.1 % Invalid 10-27-2014 - [place] Interpretation Code 10-27-2014 [facility] ([id number]) Hemoglobin (HGB) 13.5 g/dL Invalid 10-27-2014 - [place] Interpretation Code 10-27-2014 [facility] ([id number]) Platelets 282 10*3/mm3 Invalid 10-27-2014 [facility] Interpretation Code 10-27-2014 [facility] ([id number]) Potassium 4.1 mmol/L Invalid 10-27-2014 [facility] Interpretation Code 10-27-2014 [facility] ([id number]) Sodium 138 mmol/L Invalid 10-27-2014 - [facility] Interpretation Code 10-27-2014 [facility] ([id number]) Thyroid stimulating 1.26 u[iU]/mL Invalid 10-27-2014 - [place] hormone (TSH) Interpretation Code 2014 [facility] ([id number]) Urea nitrogen 10 mg/dL Invalid 10-27-2014 - [facility] Interpretation Code 10-27-2014 [facility] ([id number]) WBC (Leukocytes) 10.5 10*9/L Invalid 10-27-2014 - [facility] Interpretation Code 10-27-2014 [facility] ([id number]) Vital Signs Vital Sign Description Value / Unit Date Location The following section is limited to 5 en tries per type and includes entries from the following time range: 20161021 - 9. BMI (Body Mass Index) 26.57 kg/m2 10-21-2016 - 10-21-2016 [facility] ([id number]) BP Diastolic 50 mm[Hg] 10-21-2016 - 10-21-2016 [facility] ([id number]) BP Systolic 100 mm[Hg] 10-21-2016 - 10-21-2016 [facility] ([id number]) BSA (Body Surface Area) 1.62 m2 09-24-2015 - 09-24-2015 [facility] ([id number]) Height 160.02 cm 10-21-2016 - 10-21-2016 [facility] ([id number]) Pulse (Heart Rate) 84 /min 10-21-2016 - 10-21-2016 [facility] ([id number]) Pulse Oximetry 97 % 09-24-2015 - 09-24-2015 [facility] ([id number]) Respiratory Rate 18 /min 10-21-2016 - 10-21-2016 [facility] ([id number]) Weight 68.04 kg 10-21-2016 - 10-21-2016 [facility] ([id number]) Procedures Procedure Name Date Provider Location [facility] 10-21-2016 - Cal[facility] Nava [facility] 10-21-2016 ([id number]) Follow Up Appt 1 year 10-21-2016 - Calos Nava MD [facility] 10-21-2016 ([id number]) DJN 09-24-2015 - Calos Nava [facility] 09-24-2015 ([id number]) Follow Up Appt 1 year 09-24-2015 - Calos Nava MD [facility] 09-24-2015 ([id number]) Follow Up BP Check 09-24-2015 - Calos Nava MD [facility] 09-24-2015 ([id number]) DJN 03-19-2015 - Calos Nava [facility] 03-19-2015 ([id number]) Documentation of current 03-19-2015 - Calos Nava MD [facility] medications 03-20-2015 ([id number]) Follow Up Appt 6 months 03-19-2015 - Calos Nava MD [facility] 03-19-2015 ([id number]) DJN 12-18-2014 - Calos Nava [facility] 12-18-2014 ([id number]) Documentation of current 12-18-2014 - Calos Nava MD [facility] medications 12-19-2014 ([id number]) Follow Up Appt 3 months 12-18-2014 - Calos Nava MD [facility] 12-18-2014 ([id number]) DANA 11-20-2014 - Calos Nava MD [facility] 11-20-2014 ([id number]) Documentation of current 11-20-2014 - Calos Nava MD [facility] medications 11-21-2014 ([id number]) Echocardiography 11-20-2014 - [facility] 12-05-2014 ([id number]) Follow Up Appt 1 month 11-20-2014 - Calos Nava MD [facility] 11-20-2014 ([id number]) Remote 30 day ecg rev/report 11-20-2014 - Calos Nava MD [facility] 12-13-2014 ([id number]) Plan of Treatment Plan Description Date Location Appointment Appointment 11-16-2017 - [facility] 11-16-2017 ([id number]) Appointment Appointment 10-21-2016 - [facility] 10-21-2016 ([id number]) DANA CORTEZ 10-21-2016 - [facility] 10-21-2016 ([id number]) Follow Up Appt 1 year Follow Up Appt 1 year 10-21-2016 - [facility] 10-21-2016 ([id number]) DANA CORTEZ 09-24-2015 - [facility] 09-24-2015 ([id number]) Follow Up Appt 1 year Follow Up Appt 1 year 09-24-2015 - [facility] 09-24-2015 ([id number]) Follow Up BP Check Follow Up BP Check 09-24-2015 - [facility] 09-24-2015 ([id number]) DANA CORTEZ 03-19-2015 - [facility] 03-19-2015 ([id number]) Follow Up Appt 6 months Follow Up Appt 6 months 03-19-2015 - [facility] 03-19-2015 ([id number]) DJN DJN 12-18-2014 - [facility] 12-18-2014 ([id number]) Follow Up Appt 3 months Follow Up Appt 3 months 12-18-2014 - [facility] 12-18-2014 ([id number]) DJN DJN 11-20-2014 - [facility] 11-20-2014 ([id number]) Echocardiogram (complete) Echocardiogram (complete) 11-20-2014 - [facility] 11-21-2014 ([id number]) Follow Up Appt 1 month Follow Up Appt 1 month 11-20-2014 - [facility] 11-20-2014 ([id number]) 30 Day Holter Monitor 30 Day Holter Monitor 11-20-2014 - [facility] 11-21-2014 ([id number]) Summary Purpose Family History No Family History Records Found Advance Directives No Advanced Directives Records Found Additional Source Comments FOR RECORDS PERTAINING TO PATIENTS WHO ARE OR HAVE BEEN ENROLLED IN A CHEMICAL DEPENDENCY/SUBSTANCE ABUSE PROGRAM, SOME INFORMATION MAY BE OMITTED. This clinical summary was aggregated from multiple sources. Caution should be exercised in using it in the provision of clinical care. This summary normalizes information from multiple sources, and as a consequence, information in this document may materially changethe coding, format and clinical context of patient data. In addition, data may be omittedin some cases. CLINICAL DECISIONS SHOULD BE BASED ON THE PRIMARY CLINICAL RECORDS. [facility] provides no warranty or guarantee of the accuracy or completeness of information in this document. UNRECOGNIZED CONTENT PROVIDED BELOW FOR UNRECOGNIZED SECTION INFORMATION SOURCE DATE CREATED AUTHOR AUTHOR'S ORGANIZATIO N 02/03/2019 [facility]
--- OUTSIDE RECORDS SUMMARY | 2020-03-27 17:32 | XMS RPT_ITS | CCD ---
:1990 External Reference #:[id number] Author Organization [facility] Care Team Providers Name Role Phone Langford Unavailable Unavailable Allergies Reported Allergen Reaction(s) Severity Date of Onset Location CATEPILLARS Critical, Critical 11-17-2014 - [place] [facility] Translations: [ Group ([id number] ) CATEPILLARS] Penicillins Critical, [facility] 11-17-2014 - [facility] (Antibiotic) Group ([id number]) Medications Medication Name Sig Date Prescriber Location buPROPion WELLBUTRIN SR 150 10-21-2016 [place] [facility] [id number] One Group ([id number]) tablet by mouth daily BUPROPION HCL [id number] Anabelle Langford desogestrel / APRI 0.15-30 MG-MCG 11-17-2014 [facility] ethinyl estradiol TABS One tablet by Jacinto montelongo ([id number]) mouth daily DESOGESTREL-ETHINYL ESTRADIOL [id number] Jennifer Benson RN dilTIAZem DILTIAZEM HCL 60 MG 04-02-2015 - Sri Vanegas [facility] TABS One tablet by 09-24-2015 RN Group (44 [id number]) mouth twice daily DILTIAZEM HCL [id number] Sri Wilhelm PA-C CARDIZEM CD 120 MG 01-03-2015 - 04-02-2015 [facility] [id number] One tablet by ([id number]) mouth daily DILTIAZEM HCL COATED BEADS [id number] Jennifer Benson RN CARDIZEM CD 120 MG 01-03-2015 Jane Brown RN [facility] [id number] One tablet by (23252) mouth daily DILTIAZEM HCL COATED BEADS [id number] Calos Nava MD DULoxetine CYMBALTA 20 MG CPEP One 09-24-2015 - 10-21-2016 [facility] tablet by mouth daily (18251 ) DULOXETINE HCL [id number] Calos Nava MD escitalopram ESCITALOPRAM OXALATE 10 MG 11-17-2014 [facility] TABS One tablet by mouth (44 691) daily ESCITALOPRAM OXALATE [id number] Jennifer Benson RN LEXAPRO 20 MG TABS One tablet by 11-17-2014 - 12-18-2014 [facility] ([id number]) mouth daily ESCITALOPRAM OXALATE [id number] Calos Nava MD fexofenadine / BRETT-D ALLERGY & CONGESTION 11-17-2014 [facility] pseudoephedrine 60-120 MG [id number] as directed Group ([id number]) FEXOFENADINE-PSEUDOEPHEDRINE [id number] Jennifer Benson RN BRETT-D ALLERGY & CONGESTION 60-120 MG 11-17-2014 - 12-18-2014 [facility] [id number] as directed ([id number]) FEXOFENADINE-PSEUDOEPHEDRINE [id number] Calos Nava MD metoprolol TOPROL XL 25 MG [id number] 09-24-2015 Jennifer Jackson r, [facility] One tablet by mouth daily [facility] (97723) METOPROLOL SUCCINATE [id number] Sri Wilhelm PA-Jomar spironolactone ALDACTONE 50 MG TABS 1 10-21-2016 [facility] 1/2 tablets by mouth Group ( 85194) daily SPIRONOLACTONE [id number] Anabelle Langford triamcinolone NASACORT AQ 55 MCG/ACT 11-20-[address] [facility] AERS Take as directed Group ([id number]) TRIAMCINOLONE ACETONIDE(NASAL) [id number] Calos Nava MD Problems Category Problem Name Status Date Location Cardiac dysrhythmias Tachycardia Completed 11-17-2014 - [facility] ([id number]) Nonspecific chest pain Chest pain, Completed 11-20-2014 - [facility] unspecified Group ([id number]) Results Result Name Value Range Unit Interpretation Flag Date Location progress on 2019-01 PROGRESS HNO ID: [id number] Normal 02-03-2019 [facility] ([id number] Service: ? Author Type: Nurse Practitioner Type: [...] NEFTALY LY December 08, 2016 Active 12-08-2016 [facility] ([id number]) No family history on file. Social History [...] 2019-02-03 CNOV Office Visit (UCWSTR) Normal 02-04-[address] [place] [address] Quinten ANDREA IVAN ([id number]) 1990 [facility] Date Time Provider Department ([id number]) 02/03/19 3:30 PM SARAH FERNANDEZ ([facility]) WSTR During your visit today, we recorded [...] DAILY Nov Active 12-08-2016 [facility] ([id number]) No family history on file. Social History [...] Discussed expected course of illness Sarah Fernandez APRN.[facility] PATIENT INFO ACUTE SINUSITIS OVERVIEW [...] and irr igation kits can be purchased [id number]. Saline mix es can also be purchased [...] Hives Date Reviewed: 02/03/2019 Reviewed by: Sarah ([facility]) Rebecca - Fully Assessed Reason for Visit: [...] Discussed expected course of illness Sarah Fernandez APRN.[facility] PATIENT INFO ACUTE SINUSITIS OVERVIEW [...] one million people per year in the [facility]. ACUTE SINUSITIS CAUSES The most common cause [...] sprays and irrigation kits can be purchased [id number]. Saline mixes can also be purchas ed [...] treat with antibiotics or continue to wa [facility] and wait for one week. Watching and [...] PO DAILY December 08, 2016 Active 12-08-2016 [facility] ([id number]) Disc: Reason for discontinue is not on file. Encounter Status:Closed by SARAH FERNANDEZ on 02/03/19 progress on 2018-12 PROGRESS HNO ID: [id number] Normal 01-07-2019 [facility] Author: Jonny Vines [place] ([id number]) Service: ? Author Type: Physician Type: Progress [...] NEFTALY LY December 08, 2016 Active 12-08-2016 [facility] ([id number]) No current facility-administered medications for this visit. [...] hive-like papular rash on the anterior and emergency dept tech ior torso ASSESSMENT/PLAN: 1. Rash - ICD9: 782.1, ICD10: R21 (primary diagnosis) 2. Sore throat - ICD9: 462, ICD10: J02.9 - RAPID STREP TEST B/O - negeative - suspect viral URI with exanthem Rash does not appear contagious Continue supportive care. MD carolin Boyceov on 2019-01-07 CNOV Office Visit (UCWSTR) Normal 01-08-20 19 [place] ANDREA Musa ([id number]) 1990 [facility] Date Time Provider Department ([id number]) 01/07/19 6:30 PM [facility]NY VINES [facility] During your visit today, we recorded the [...] 1 TAB PO DAILY Nov Active 12-08-2016 [facility] ([id number]) No current facility-administered medications for this visit. [...] hive-like papular rash on the anterior and emergency dept tech ior torso ASSESSMENT/PLAN: 1. Rash - ICD9: [...] Date Reviewed: 01/07/2019 Reviewed by: Anca Arnold Radiopharmacist - Fully Assessed Reason for Visit: Sore Throat [200] Cmt: x 3 days Rash [1087] Cmt: on abdomen and back x 2 days Primary Visit Diagnosis:Rash [R21] Other Visit Diagnosis:Sore throat [J02.9] Order(s):RAPID STREP TEST B/O [3191904] Order #: [id number] Prescriptions as of 01/07/2019 Sig: DESOGESTREL 0.15 MG-ETHINYL E* desogestrel / ethinyl estradi * Problem List As Of Date: 01/07/2019 (None) Encounter Status:Closed by JONNY VINES MD on 01/07/19 office visit on 12-17-08 Documentation of Done Invalid Interpretation 10-21-2016 - [facility] current medications Code 10-21-2016 Group ([id number]) (procedure) office visit on 10-22-04 Tobacco use Never smoker Invalid Interpretation - [facility] CPHS Code 03-19-2015 Group (44 691) office visit on 10-19-07 cardiac risk group A Invalid 11-20-2014 - [place] Interpretation Code 11-20-2014 [facility] ([id number]) General Not enough Invalid 11-20-2014 - [facility] [facility] cardiovascular information Interpretation Code [facility] disease 10Y risk (44 031) [#] [place] no external other: preferred method of cont act on 2014-11-20 Patient's prefered secmsg Invalid Interpretatio n 11-20-2014 - [facility] method of contact Code 11-20-2014 Eneida garcia ([id number]) clinical lists update: preload on 2014-10-27 Alanine 18 U/L Invalid 10-27-2014 - [place] aminotransferase (ALT) Interpretation Co de 10-27-2014 [facility] (52083) Alkaline phosphatase 53 U/L Invalid (ALP) Interpretation Code 10-27-2014 [facility] ([id number]) Anion gap 6 mmol/L Invalid 10-27-2014 - [facility] Interpretation Code 10-27-2014 [facility] (86414) Aspartate 17 U/L Invalid 10-27-2014 - [facility] aminotransferase (AST) Interpretation Co de 10-27-2014 [facility] (19881) BUN/Creatinine Ratio 12.5 mg/mg Invalid 5 - [facility] Interpretation Code 10-27-2014 [facility] (06915) Calcium 8.8 mg/dL Invalid 10-27-2014 - [place] Interpretation Code 10-27-2014 [facility] ([id number]) Chloride 105 mmol/L Invalid 10-27-2014 - [facility] Interpretation Code 10-27-2014 [facility] (55931) CO2 27 mmol/L Invalid 10-27-2014 - [facility] Interpretation Code 10-27-2014 [facility] ([id number]) Creatinine 0.8 mg/dL Invalid 10-27-2014 - [place] [facility] Interpretation Code 10-27-2014 [facility] (48351) Glucose 92 mg/dL Invalid 10-27-2014 - [place] Interpretation Code 10-27-2014 [facility] (57709) Hematocrit (HCT) 40.1 % Invalid 10-27-2014 - [place] Interpretation Code 10-27-2014 [facility] (53921) Hemoglobin (HGB) 13.5 g/dL Invalid 10-27-2014 - [place] Interpretation Code 10-27-2014 [facility] (13784) Platelets 282 10*3/mm3 Invalid 10-27-2014 [facility] Interpretation Code 10-27-2014 [facility] ([id number]) Potassium 4.1 mmol/L Invalid 10-27-2014 [place] Interpretation Code 10-27-2014 [facility] (20738) Sodium 138 mmol/L Invalid 10-27-2014 - [facility] Interpretation Code 10-27-2014 [facility] (87643) Thyroid stimulating 1.26 u[iU]/mL Invalid 10-27-2014 - [place] hormone (TSH) Interpretation Code 2014 [facility] (09356) Urea nitrogen 10 mg/dL Invalid 10-27-2014 - [facility] Interpretation Code 10-27-2014 [facility] ([id number]) WBC (Leukocytes) 10.5 10*9/L Invalid 10-27-2014 - [facility] Interpretation Code 10-27-2014 [facility] (02870) Vital Signs Vital Sign Description Value / Unit Date Location The following section is limited to 5 en tries per type and includes entries from the following time range: 20161021 - 9. BMI (Body Mass Index) 26.57 kg/m2 10-21-2016 - 10-21-2016 [facility] ([id number]) BP Diastolic 50 mm[Hg] 10-21-2016 - 10-21-2016 [facility] ([id number]) BP Systolic 100 mm[Hg] 10-21-2016 - 10-21-2016 [facility] (39071) BSA (Body Surface Area) 1.62 m2 09-24-2015 - 09-24-2015 [facility] (02786) Height 160.02 cm 10-21-2016 - 10-21-2016 [facility] (11732) Pulse (Heart Rate) 84 /min 10-21-2016 - 10-21-2016 [facility] (57867) Pulse Oximetry 97 % 09-24-2015 - 09-24-2015 [facility] (90325) Respiratory Rate 18 /min 10-21-2016 - 10-21-2016 [facility] (41781) Weight 68.04 kg 10-21-2016 - 10-21-2016 [facility] (74387) Procedures Procedure Name Date Provider Location [facility] 10-21-2016 - Cal[facility] Nava [facility] 10-21-2016 ([id number]) Follow Up Appt 1 year 10-21-2016 - Calos Nava MD [facility] 10-21-2016 ([id number]) DJN 09-24-2015 - Calos Nava [facility] 09-24-2015 ([id number]) Follow Up Appt 1 year 09-24-2015 - Calos Nava MD [facility] 09-24-2015 ([id number]) Follow Up BP Check 09-24-2015 - Calos Nava MD [facility] [place] 09-24-2015 ([id number]) DJN 03-19-2015 - Calos Nava MD [facility] 03-19-2015 (64394) Documentation of current 03-19-2015 - Calos Nava MD [facility] medications 03-20-2015 ([id number]) Follow Up Appt 6 months 03-19-2015 - Calos Nava [facility] 03-19-2015 (30462) DJN 12-18-2014 - Calos Nava MD [facility] 12-18-2014 (35786) Documentation of current 12-18-2014 - Calos Nava MD [facility] medications 12-19-2014 ([id number]) Follow Up Appt 3 months 12-18-2014 - Calos Nava MD [facility] 12-18-2014 (67273) DANA 11-20-2014 - Calos Nava MD [facility] 11-20-2014 (91045) Documentation of current 11-20-2014 - Calos Nava MD [facility] medications 11-21-2014 ([id number]) Echocardiography 11-20-2014 - [facility] 12-05-2014 ([id number]) Follow Up Appt 1 month 11-20-2014 - Calos Nava MD [facility] 11-20-2014 ([id number]) Remote 30 day ecg rev/report 11-20-2014 - Calos Nava MD [facility] 12-13-2014 (76156) Plan of Treatment Plan Description Date Location Appointment Appointment 11-16-2017 - [facility] 11-16-2017 ([id number]) Appointment Appointment 10-21-2016 - [facility] 10-21-2016 ([id number]) DANA CORTEZ 10-21-2016 - [facility] 10-21-2016 ([id number]) Follow Up Appt 1 year Follow Up Appt 1 year 10-21-2016 - [facility] 10-21-2016 ([id number]) DANA CORTEZ 09-24-2015 - [facility] 09-24-2015 ([id number]) Follow Up Appt 1 year Follow Up Appt 1 year 09-24-2015 - [facility] 09-24-2015 ([id number]) Follow Up BP Check Follow Up BP Check 09-24-2015 - [facility] 09-24-2015 (68758) DANA CORTEZ 03-19-2015 - [facility] 03-19-2015 ([id number]) Follow Up Appt 6 months Follow Up Appt 6 months 03-19-2015 - [facility] 03-19-2015 (38315) DJN DJN 12-18-2014 - [facility] 12-18-2014 ([id number]) Follow Up Appt 3 months Follow Up Appt 3 months 12-18-2014 - [facility] 12-18-2014 ([id number]) DJN DJN 11-20-2014 - [facility] 11-20-2014 ([id number]) Echocardiogram (complete) Echocardiogram (complete) 11-20-2014 - [facility] 11-21-2014 ([id number]) Follow Up Appt 1 month Follow Up Appt 1 month 11-20-2014 - [facility] 11-20-2014 (40247) 30 Day Holter Monitor 30 Day Holter Monitor 11-20-2014 - [facility] 11-21-2014 ([id number]) Summary Purpose Family History No Family History [...] BE BASED ON THE PRIMARY CLINICAL RECORDS. [facility] provides no warranty or guarantee of the accuracy or completeness of information in this document. UNRECOGNIZED CONTENT PROVIDED BELOW FOR UNRECOGNIZED SECTION INFORMATION SOURCE DATE CREATED AUTHOR AUTHOR'S ORGANIZATIO N 02/03/2019 [facility]
== END 2019-11-09 02:37 | disposition home or self-care (01) ==
PROVIDERS: Emergency Provider Emergency Medicine; PCP Family Medicine
DX: R07.9 Chest pain, unspecified (principal)
CPT/HCPCS: 71046; 80048; 84484; 85025; 85379; 93005; 99284; A4216

== ENCOUNTER → 2020-01-27 | Outpatient (CLI) | payer OTHER, SELFPAY ==
[2020-01-25 11:22] VITALS: BMI 28.6
== END | disposition home or self-care (01) ==
LOC: PSN 08:58
PROVIDERS: PCP Family Medicine; Referring Provider Nurse Practitioner Family; Visit Provider Nurse Practitioner Family
DX: R00.2 Palpitations (principal); R00.0 Tachycardia, unspecified
CPT/HCPCS: 93225; 93226

== ENCOUNTER → 2020-03-22 | Outpatient (CLI) | payer OTHER, SELFPAY ==
[2020-03-22 14:20] VITALS: BMI 28.6
[2020-03-22 19:40] LABS: Amphetamine Urine VISTA NEGATIVE (<1000 ng/mL); Barbiturate Urine VISTA NEGATIVE (< 200 ng/mL); Benzodiazepine Urine VISTA NEGATIVE (< 200 ng/mL); Cocaine Urine VISTA NEGATIVE (< 300 ng/mL); Ecstacy Urine VISTA NEGATIVE (< 500 ng/mL); Methadone Urine VISTA NEGATIVE (< 300 ng/mL); PCP Urine VISTA NEGATIVE (< 25 ng/mL); THC Urine VISTA NEGATIVE (< 50 ng/mL); Vista UDS pH Range 6
[2020-03-27 07:44] LABS: Chlamydia By Nucleic Acid AMP Negative (Negative)
[2020-04-02 22:11] LABS: Gonococcus By Nucleic Acid AMP Negative (Negative)
== END | disposition home or self-care (01) ==
LOC: LABSPEC 16:23
PROVIDERS: PCP Family Medicine; Referring Provider Obstetrics & Gynecology; Visit Provider Obstetrics & Gynecology
DX: Z34.00 Encounter for supervision of normal first pregnancy, unspecified trimester (principal)
CPT/HCPCS: 80307; 87086; 87491; 87591

== ENCOUNTER → 2020-04-18 15:27 | Outpatient (CLI) | payer OTHER, SELFPAY ==
[2020-04-18 14:50] VITALS: BMI 29.3
[2020-04-18 15:57] LABS: Absolute Lymphocyte Count 2.25 X10^3/uL (0.83-4.51); Absolute Neutrophil Count 10.6 X10^3/uL (2.0-7.7); Basophil# 0.03 X10^3/uL; Basophil% 0.2 % (0-1); Eosinophil# 0.18 X10^3/uL; Eosinophils% 1.3 % (0-5); Hematocrit 38.1 % (37-47); Lymphocyte # 2.25 X10^3/ul (4.0); Lymphocyte % 16.1 % (19-41); Mean Corp Hgb Conc 34.1 g/dL (32-36); Mean Corpuscular Hgb 29.8 pg (27.0-32.0); Mean Corpuscular Volume 87.4 fL (81-99); Mean Platelet Vol. 9.6 fl (6.2-12.0); Monocyte# 0.86 X10^3/uL; Monocyte% 6.1 % (0-10); NRBC Flagged by Analyzer 0 % (0-5); Neutrophil # 10.62 X10^3/uL (2.7-7.7); Neutrophil % 75.9 % (47-70); Platelet Count 283 K/mm3 (150-450); RBC Distribution Width CV 11.9 % (11.6-14.6); RBC Distribution Width SD 38.2 fl (35.1-43.9); Red Blood Count 4.36 M/mm3 (4.2-5.4)
[2020-04-19 02:11] LABS: Rapid Plasmin Reagin (RPR) NONREACTIVE (NONREACTIVE)
[2020-04-19 14:40] LABS: HIV - WCH Non-Reactive (Nonreactive); Hepatitis B Surface Antigen Non-Reactive (Nonreactive); Hepatitis C Antibody Non-Reactive (Nonreactive)
== END ==
PROVIDERS: PCP Family Medicine; Referring Provider Obstetrics & Gynecology; Visit Provider Obstetrics & Gynecology
DX: Z34.00 Encounter for supervision of normal first pregnancy, unspecified trimester (principal)
CPT/HCPCS: 36415; 85025; 86592; 86703; 86803; 86850; 86900; 86901; 87340

== ENCOUNTER → 2020-06-05 09:27 | Outpatient (CLI) | payer OTHER, SELFPAY ==
[2020-05-16 14:58] VITALS: BMI 28.8
== END ==
PROVIDERS: PCP Family Medicine; Referring Provider Nurse Practitioner Family; Visit Provider Nurse Practitioner Family
DX: R00.2 Palpitations (principal)
CPT/HCPCS: 93225; 93226

== ENCOUNTER → 2020-08-08 10:51 | Outpatient (CLI) | payer OTHER, SELFPAY ==
[2020-07-11 14:25] VITALS: BMI 30.2
[2020-08-08 11:08] LABS: Absolute Lymphocyte Count 1.55 X10^3/uL (0.83-4.51); Absolute Neutrophil Count 11.7 X10^3/uL (2.0-7.7); Basophil# 0.05 X10^3/uL; Basophil% 0.3 % (0-1); Eosinophils% 0.7 % (0-5); Hematocrit 35.5 % (37-47); Lymphocyte # 1.55 X10^3/ul (4.0); Lymphocyte % 10.8 % (19-41); Mean Corp Hgb Conc 33.8 g/dL (32-36); Mean Corpuscular Hgb 30.4 pg (27.0-32.0); Mean Corpuscular Volume 89.9 fL (81-99); Mean Platelet Vol. 9.3 fl (6.2-12.0); Monocyte# 0.64 X10^3/uL; Monocyte% 4.5 % (0-10); NRBC Flagged by Analyzer 0 % (0-5); Neutrophil # 11.71 X10^3/uL (2.7-7.7); Neutrophil % 81.4 % (47-70); Platelet Count 241 K/mm3 (150-450); RBC Distribution Width SD 42.6 fl (35.1-43.9); Red Blood Count 3.95 M/mm3 (4.2-5.4); White Blood Count 14.4 K/mm3 (4.4-11.0)
[2020-08-08 11:18] LABS: Glucose Challenge Gest 1H 50g 132 mg/dL (70-140)
== END ==
PROVIDERS: PCP Family Medicine; Referring Provider Obstetrics & Gynecology; Visit Provider Obstetrics & Gynecology
DX: O26.899 Other specified pregnancy related conditions, unspecified trimester (principal); Z67.91 Unspecified blood type, Rh negative; Z3A.00 Weeks of gestation of pregnancy not specified
CPT/HCPCS: 36415; 82950; 85025; 86850; 86900; 86901

== ENCOUNTER → 2020-10-05 16:28 | Outpatient (CLI) | payer OTHER, SELFPAY ==
[2020-10-05 13:48] VITALS: BMI 31.9
== END ==
PROVIDERS: PCP Family Medicine; Referring Provider Obstetrics & Gynecology; Visit Provider Obstetrics & Gynecology
DX: Z34.90 Encounter for supervision of normal pregnancy, unspecified, unspecified trimester (principal)
CPT/HCPCS: 87081

== ENCOUNTER 2020-10-23 16:50 | Outpatient (CLI) | payer OTHER, SELFPAY ==
[2020-10-19 14:44] VITALS: BMI 31.9
[2020-10-23 17:07] VITALS: TEMP 37.1
[2020-10-23 17:09] VITALS: BP 132/87; PULSE 129
[2020-10-23 17:12] VITALS: BMI 32.5
[2020-10-23 17:47] LABS: ROM Internal Control Test YES-OK TO RESULT pt. (Internal QC); ROM Patient Test Negative (Negative)
--- NOTE | 2020-10-26 08:14 | OB.TRI.PN ---
Progress Notes Progress Note: Patient presents for triage evaluation secondary to posible ROM FHT: 140 Moderate variability reactive no decelerations category I tracing [place]: no regular Contractions Assessment and plan: membranes intact rom plus negative Reactive NST, reassuring maternal and status patient discharged to home to follow-up as scheduled. See problem list details for additional plan information. Laboratory Studies: Laboratory Tests 10/23/20 Range/Units 17:10 Vag Amniotic Fld Detect Negative (Negative) Assessment & Plan Assessment/Plan (1) Intact amniotic membranes: QUALIFIERS: Trimester: third trimester Qualified Code(s): Z34.93 - Encounter for supervision of normal , unspecified, third trimester Procedures Urinary/Genital 52xxx-59xxx: 39911-08 non-stress test Interp
== END 2020-10-23 17:55 ==
LOC: WPOUT 16:57 → WP 16:58
PROVIDERS: PCP Family Medicine; Visit Provider Obstetrics & Gynecology
DX: Z34.93 Encounter for supervision of normal pregnancy, unspecified, third trimester (principal)
CPT/HCPCS: 59025; 59050; 84112; 99218; G0378

== ENCOUNTER 2020-10-26 15:35 | Outpatient (CLI) | payer OTHER, SELFPAY ==
[2020-10-26] VITALS (9 sets, daily range): BP systolic 120–133; BP diastolic 85–90; PULSE 106–132; TEMP 36.7; O2SAT 97; BMI 32.5
[2020-10-26] MEDS: 0.9 % NaCl (Sterile) Posiflush 10 mL IV (16:15)
[2020-10-26 17:01] LABS: Hemoglobin 11.9 g/dL (12.0-15.0); Mean Corp Hgb Conc 33.1 g/dL (32-36); Mean Corpuscular Hgb 28.5 pg (27.0-32.0); Mean Corpuscular Volume 86.1 fL (81-99); Mean Platelet Vol. 10.5 fl (6.2-12.0); Platelet Count 234 K/mm3 (150-450); RBC Distribution Width CV 14.4 % (11.6-14.6); RBC Distribution Width SD 45.1 fl (35.1-43.9); Red Blood Count 4.18 M/mm3 (4.2-5.4); White Blood Count 12.4 K/mm3 (4.4-11.0)
[2020-10-26 17:10] LABS: AST(SGOT) 14 U/L (15-37); Alanine Aminotransfer ALT/SGPT 16 U/L (13-56); Creatinine, Serum 0.59 mg/dL (0.55-1.02); EST Glomerular Filtration Rate 128 mL/min (>60); Est Glom Filt Rate - Afr Amer 155 mL/min (>60); Estimated Creatinine Clearance 121.49 ml/min; Uric Acid 3.9 mg/dL (2.6-6.0)
[2020-10-26 17:53] LABS: Protein, Urine (Random) 14.4 mg/dL (<11.9); Protein:Creat Ratio 269 mg/g CRE (0-200)
--- NOTE | 2020-10-27 01:49 | OB.TRI.PN_ITS ---
Progress Notes Date of Service: 10/26/20 Progress Note: Patient presents for triage evaluation secondary to elevate dbp in office FHT: 130 Moderate variability reactive no decelerations category I tracing [place]: no regular Contractions Assessment and plan: elevated bp repeats WNL, negative labs Reactive NST, reas suring maternal and status patient discharged to home to follow-up as scheduled reviewed precautions. See problem list details for additional plan information. Laboratory Studies: Laboratory Tests 10/26/20 10/26/20 10/26/20 Range/Units 17:10 16:15 16:15 WBC 12.4 H (4.4-11.0) K/mm3 RBC 4.18 L (4.2-5.4) M/mm3 Hgb 11.9 L (12.0-15.0) g/dL Hct 36.0 L (37-47) % MCV 86.1 (81-99) fL MCH 28.5 (27.0-32.0) pg MCHC 33.1 (32-36) g/dL RDW Std Deviation 45.1 H (35.1-43.9) fl RDW Coeff of Aly 14.4 (11.6-14.6) % Plt Count 234 (150-450) K/mm3 MPV 10.5 (6.2-12.0) fl Creatinine 0.59 (0.55-1.02) mg/dL Estim Creat Clear Calc 121.49 ml/min Est GFR (MDRD) Af Amer 155 (>60) mL/min Est GFR (MDRD) Non-Af 128 (>60) mL/min Uric Acid 3.9 (2.6-6.0) mg/dL AST 14 L (15-37) U/L ALT 16 (13-56) U/L U Random Total Protein 14.4 H (<11.9) mg/dL Urine Creatinine 53.50 (NO RANGE EST.) mg/dL Protein/Creatinin Ratio 269 H (0-200) mg/g CRE Assessment & Plan Assessment/Plan (1) Elevated blood pressure affecting in third trimester, antepartum: Procedures Urinary/Genital 52xxx-59xxx: 41267-18 non-stress test Interp
== END 2020-10-26 18:10 ==
LOC: WPOUT 15:43 → WP 15:44
PROVIDERS: PCP Family Medicine; Referring Provider Obstetrics & Gynecology; Visit Provider Obstetrics & Gynecology
DX: O99.413 Diseases of the circulatory system complicating pregnancy, third trimester (principal); R03.0 Elevated blood-pressure reading, without diagnosis of hypertension; Z3A.00 Weeks of gestation of pregnancy not specified
CPT/HCPCS: 96374; 36415; 59025; 59050; 82565; 82570; 84156; 84450; 84460; 84550; 85027; 99218; G0378

== ENCOUNTER → 2020-11-01 | Outpatient (CLI) | payer OTHER, SELFPAY ==
[2020-11-01 13:09] VITALS: BMI 32.5
== END | disposition home or self-care (01) ==
LOC: LABSPEC 16:36
PROVIDERS: PCP Family Medicine; Referring Provider Obstetrics & Gynecology; Visit Provider Obstetrics & Gynecology
DX: R35.0 Frequency of micturition (principal)
CPT/HCPCS: 87077; 87086; 87088; 87186

== ENCOUNTER 2020-11-06 07:00 | Inpatient (IN) | payer OTHER, SELFPAY ==
[2020-10-12 15:22] VITALS: BMI 31.9
[2020-11-01 13:09] VITALS: BMI 32.5
[2020-11-06] VITALS (40 sets, daily range): BP systolic 103–144; BP diastolic 53–92; PULSE 86–128; TEMP 36.6–37.2; O2SAT 92–100; BMI 32.3
--- NOTE | 2020-11-06 08:36 | HP.PCM.OB_ITS ---
HPI - General General Date of Admission: 11/06/20 HPI Narrative ANDREA IVAN, is a 29 F who presents for induction of labor for late term. Maternal Data Information JODIE Calculator Estimated Delivery Date Method Current WG Current Estimate 10/30/20 LMP (Certain) 41w 0d Other Estimates 11/02/20 Ultrasound #1 40w 4d PFSH Medical History (Updated 11/06/20 @ 08:[address] Xin Kamara MD) Anxiety Rapid palpitations Raynaud disease Tachycardia Home Medications multivitamin no.47-iron fum 27 mg-folate no.1 1 mg-dha 300 mg capsule 1 cap PO DAILY 03/14/20 [History Last Taken 11/05/20 20:00 1 TAB] diphenhydramine HCl [Benadryl] 25 mg PO Q6H PRN 10/26/20 [History Last Taken 11/05/20 22:00 1 TAB] nitrofurantoin monohyd/m-cryst [Macrobid] 100 mg PO Q12H 11/06/20 [History Last Taken 11/06/20 07:40 1 tab] Allergy/AdvReac Type Severity Reaction Status Date / Time Penicillins Allergy Hives Verified 11/01/20 13:08 wooly bear caterpillars AdvReac Intermediate Hives on Uncoded 10/23/20 17:22 contact Family History Mother Pernicious anemia Grandfather Pernicious anemia Surgical History [place] teeth extracted Social History adopted: No household members: spouse housing: house current occupational status: employed 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 pets and animals: Yes Smoking Status: Never smoker second hand exposure: No alcohol intake: current alcohol intake frequency: holidays/special occasions only substance use type: does not use seatbelt use: always do you feel safe at home: Yes additional social history: - [employer] [facility] History 1 Elective abortions Hx Para Spontaneous abortions Hx # Term Pregnancies Ectopic pregnancies Hx # Pregnancies Multiple births # of living children Visit Details Expected Delivery Route/Plan Labor Preferences- CB/BF classes: discussed labor support person: Keanu labor intervention preferences: open to standard interventions, would like to avoid IV meds for pain if possible pain management options preferred: epidural cut cord/dad catch: SQUEAMISH - cord : pumping PP control planned: OCPs discussed possible routes of delivery and associated risks: discussed possible delivery modalities and possible indications for each including R/B/A of , VAVD, FAVD, and CS. questions answered. special requests: None Plans flu vaccine:yes tdap vaccine: [] rhogam: given 08/08 LARC form signed: 09/05/2020 Problem list reviewed and updated with the most current plan of care details and appropriate orders placed. Relevant counseling for the gestational age provided. Continue routine care and follow up unless otherwise noted in visit notes/problem list details OB Flowsheet Initial Weight: Not Recorded Date -?-?-?-?-?-?-?-?-?-?-?-?- EGA Weight BP Urine Prot -?-?-?-?-?-?-?-?-?-?-?-?- Glucose FHR FuHt Pres Dilation -?-?-?-?-?-?-?-?-?-?-?-?- Effaced St Visit Note 03/22/20 -?-?-?-?-?-?-?-?-?-?-?-?- 8w 2d 168 lb 8 oz 124/82 -?-?-?-?-?-?-?-?-?-?-?-?- 160 -?-?-?-?-?-?-?-?-?-?-?-?- GP - CRL 14.4 mm consistent with LMP 04/18/20 -?-?-?-?-?-?-?-?-?-?-?-?- 12w 1d 171 lb 128/74 Negative -?-?-?-?-?-?-?-?-?-?-?-?- Negative 170 -?-?-?-?-?-?-?-?-?-?-?-?- GP - no cramping or bleeding. Anatomy ordered. Did not have NOB labs - will do today. 05/16/20 -?-?-?-?-?-?-?-?-?-?-?--?- 16w 1d 168 lb 4 oz 130/76 -?-?-?-?-?-?-?-?-?-?-?-?- 150 -?-?-?-?-?-?-?-?-?-?-?-?- GP -no cramping or bleeding. Denies complaints. 06/11/20 -?-?-?-?-?-?-?-?-?-?-?-?- 19w 6d 171 lb 6 oz 130/80 Nega tive -?-?-?-?-?-?-?-?-?-?-?-?- Negative 140 -?-?-?-?-?-?-?-?-?-?-?-?- GP - no LOF, VB, DFM, ctx. Discussed arrhythmia on anatomy scan - plan echo. Discussed COVID vaccine in . 07/11/20 -?-?-?-?-?-?-?-?-?-?-?-?- 24w 1d 176 lb 6 oz 128/84 Nega tive -?-?-?-?-?-?-?-?-?-?-?-?- Negative 145 24 -?-?-?-?-?-?-?-?-?-?-?-?- GP - no LOF, VB, DFM, ctx. echo normal. 08/08/20 -?-?-?-?-?-?-?-?-?-?-?-?- 28w 1d 182 lb 130/74 Negative -?-?-?-?-?-?-?-?-?-?-?-?- Negative 150 28 -?-?-?-?-?-?-?-?-?-?-?-?- GP - no LOF, VB, DFM, ctx. 28w labs normal. Rhogam given. Delaying TDAP as may get covid vaccine tomorrow. Rhogam given. Discussed CB classes. 08/22/20 -?-?-?-?-?-?-?-?-?-?-?-?- 30w 1d 182 lb 122/80 Negative -?-?-?-?-?-?-?-?-?-?-?-?- Negative 140 30 -?-?-?-?-?-?-?-?-?-?-?-?- GP - no LOF, VB, DFM, ctx. Did receive covid vaccine. Discussed birthing classes. 09/05/20 -?-?-?-?-?-?-?-?-?-?-?-?- 32w 1d 183 lb 130/82 Negative -?-?-?-?-?-?-?-?-?-?-?-?- Negative 150 32 -?-?-?-?-?-?-?-?-?-?-?-?- GP - no LOF, VB, DFM, ctx. Discussed labor preferences and routes of delivery. Questions answered regarding COVID vaccine and being around . 09/20/20 -?-?-?-?-?-?-?-?-?-?-?-?- 34w 2d 186 lb 6 oz 138/80 Nega tive -?-?-?-?-?-?-?-?-?-?-?-?- Negative 152 34 -?-?-?-?-?-?-?-?-?-?-?-?- MH-no VB, LOF. G ood FM. No CTX. Tdap 10/05/20 -?-?-?-?-?-?-?-?-?-?-?-?- 36w 3d 186 lb 136/86 Negative -?-?-?-?-?-?-?-?-?-?-?-?- Negative 145 36 Cephalic 0 -?-?-?-?-?-?-?-?-?-?-?-?- 40 -2 GP - no LO F, VB, DFM, ctx. Verified position on US. GBS today. 10/12/20 -?-?-?-?-?-?-?-?-?-?-?-?- 37w 3d 189 lb 142/82 -?-?-?-?-?-?-?-?-?-?-?-?- 145 37 Cephalic -?-?-?-?-?-?-?-?-?-?-?-?- GP - no LOF, VB, DFM, ctx. Denies complaints. 10/19/20 -?-?-?-?-?-?-?-?-?-?-?-?- 38w 3d 122/82 -?-?-?-?-?-?-?-?-?-?-?-?- 145 38 Cephalic 1 -?-?-?-?-?-?-?-?-?-?-?-?- 40 -2 SM- no vb lof good fm no regular ctx 10/26/20 -?-?-?-?-?-?-?-?-?-?-?-?- 39w 3d 190 lb 136/96 -?-?-?-?-?-?-?-?-?-?-?-?- 130 39 Cephalic -?-?-?-?-?-?-?-?-?-?-?-?- GP - no LOF, VB, DFM, ctx. BPs elevated in office. Asymptomatic. Sent to triage for eval. 11/01/20 -?-?-?-?-?-?-?-?-?-?-?-?- 40w 2d 186 lb 4 oz 122/88 2+ -?-?-?-?-?-?-?-?-?-?-?-?- Negative 140 40 Cephalic 1 -?-?-?-?-?-?-?-?-?-?-?-?- 60 -2 GP - no LO F, VB, DFM, ctx. IOL scheduled for 11/06 unless spontaneous labor. 11/06/20 -?-?-?-?-?-?-?-?-?-?-?-?- 41w 0d 188 lb 0.869 oz 143/ 91 133/72 -?-?-?-?-?-?-?-?-?-?-?-?- -?-?-?-?-?-?-?-?-?-?-?-?- GP - presents fo r IOL ROS Eyes Eyes: Reports systems reviewed and no addt'l complaints, except as documented ENT HEENT: Reports systems reviewed and no addt'l complaints, except as documented Cardiovascular Cardiovascular: Reports systems reviewed and no addt'l complaints, except as documented Respiratory/Chest Respiratory/Chest: Reports systems reviewed and no addt'l complaints, except as documented Gastrointestinal Gastrointestinal: Reports systems reviewed and no addt'l complaints, except as documented Genitourinary Genitourinary: Reports systems reviewed and no addt'l complaints, except as documented Musculoskeletal Musculoskeletal: Reports systems reviewed and no addt'l complaints, except as documented Integumentary Integumentary: Reports systems reviewed and no addt'l complaints, except as documented Neurologic Neurologic: Reports systems reviewed and no addt'l complaints, except as docume nted Psychiatric Psychiatric: Reports systems reviewed and no addt'l complaints, except as documented Endocrine Endocrinology: Reports systems reviewed and no addt'l complaints, except as documented Hematologic/Lymphatic Hematologic/Lymphatic: Reports systems reviewed and no addt'l complaints, except as documented Allergic/Immunologic Allergic/Immunologic: Reports systems reviewed and no addt'l complaints, except as documented Vital Signs Vital Signs Vital Signs: 11/06/20 07:34 11/06/20 07:37 11/06/20 08:12 Pulse Rate 125 H 128 H 119 H Blood Pressure 143/91 H 133/72 H BP Systolic 143 133 BP Diastolic 91 72 Pulse Ox 96 96 Weight Weight: 188 lb 0.869 oz Body Mass Index (BMI) 32.3 Physical Exam Const alert, oriented x3, no apparent distress, average body habitus, healthy appearing and well nourished HEENT normocephalic and moist oral mucous membranes Head and Scalp: atraumatic Eyes PERRL and EOMs intact bilaterally Neck full ROM Resp normal respiratory effort, no retractions and no use of accessory muscles Cardio regular rate and regular rhythm GI soft to palpation, non-tender and non-distended Extremity normal to inspection and full ROM Skin no rashes or lesions noted Neuro no focal motor deficits and no sensory deficits noted Psych mental status grossly normal, affect normal, speech normal and activity/motor behavior normal Labs Labs Labs: Blood Type A NEGATIVE Antibody Screen NEGATIVE Hct 36.0 % (37-47) L Hgb 11.9 g/dL (12.0-15.0) L Hep Bs Antigen Non-Reactive (Nonreactive) Neisseria gonorrhoeae DNA (BLADE) Negative (Negative) HIV 1&2 Antibody Non-Reactive (Nonreactive) Glucose 1 Hr 50 gm 132 mg/dL (70-140) Miscellaneous Test Assessment & Plan (1) Encounter for induction of labor: PLAN: Patient presents IOL, plan management for with cytotec Pain management: plans epidural. GBS negative. Management of any complications: none I have reviewed the [facility] and made any clinically relevant updates. (2) Elevated blood pressure affecting in third trimester, antepartum: COMMENT: Elevated in office 10/26. Sent to triage for serial BPs and labs PLAN: BP mildly elevated on admission PreE labs sent (3) Raynaud disease: QUALIFIERS: Raynaud?s-associated gangrene presence: without gangrene Qualified Code(s): I73.00 - Raynaud's syndrome without gangrene (4) Anxiety: COMMENT: previously on lexapro; currently not taking anything (5) Rh negative status during : QUALIFIERS: Trimester: third trimester Qualified Code(s): O26.893 - Other specified related conditions, third trimester COMMENT: A neg; Rhogam @ 28 weeks and PRN (6) : QUALIFIERS: Weeks of gestation: 40 weeks Qualified Code(s): Z3A.40 - 40 weeks gestation of COMMENT: declines genetic, carrier and NTD; NL echo, GBS negative (7) Supervision of normal first : QUALIFIERS: Trimester: third trimester Qualified Code(s): Z34.03 - Encounter for supervision of normal first , third trimester COMMENT: PRR JODIE 10/30/20 Girl! Anusha Spouse: Keanu (8) Tachycardia: COMMENT: Having workup with [facility]. Normal echo. No meds. No current symptoms.
[2020-11-06] MEDS: Lactated Ringers 1,000 ML 50 ML IV (08:45)
[2020-11-06] MEDS: miSOPROStol 25 MCG TABLET PO (09:02)
[2020-11-06 09:03] LABS: Absolute Lymphocyte Count 1.07 X10^3/uL (0.83-4.51); Absolute Neutrophil Count 10.6 X10^3/uL (2.0-7.7); Basophil# 0.03 X10^3/uL; Basophil% 0.2 % (0-1); Eosinophil# 0.05 X10^3/uL; Eosinophils% 0.4 % (0-5); Hematocrit 35.6 % (37-47); Hemoglobin 11.5 g/dL (12.0-15.0); Lymphocyte # 1.07 X10^3/ul (0.83-4.51); Lymphocyte % 8.5 % (19-41); Mean Corp Hgb Conc 32.3 g/dL (32-36); Mean Corpuscular Hgb 27.9 pg (27.0-32.0); Mean Corpuscular Volume 86.4 fL (81-99); Monocyte# 0.68 X10^3/uL; Monocyte% 5.4 % (0-10); NRBC Flagged by Analyzer 0 % (0-5); Neutrophil # 10.55 X10^3/uL (2.7-7.7); Neutrophil % 84.1 % (47-70); Platelet Count 240 K/mm3 (150-450); RBC Distribution Width CV 14.8 % (11.6-14.6); RBC Distribution Width SD 46.5 fl (35.1-43.9); Red Blood Count 4.12 M/mm3 (4.2-5.4); White Blood Count 12.6 K/mm3 (4.4-11.0)
[2020-11-06 09:19] LABS: Protein, Urine (Random) 12.6 mg/dL (<11.9); Protein:Creat Ratio 174 mg/g CRE (0-200)
[2020-11-06 09:51] LABS: AST(SGOT) 18 U/L (15-37); Alanine Aminotransfer ALT/SGPT 15 U/L (13-56); Creatinine, Serum 0.65 mg/dL (0.55-1.02); EST Glomerular Filtration Rate 114 mL/min (>60); Est Glom Filt Rate - Afr Amer 138 mL/min (>60); Estimated Creatinine Clearance 110.28 ml/min
[2020-11-06 09:55] LABS: Rubella IgG Reactive (Nonreactive)
[2020-11-06] MEDS: Oxytocin 30 units/NS 500 ml 30 UNITS/500 ML IV.SOLN IV (13:18)
[2020-11-06] MEDS: Ondansetron 4 MG/2 ML Vial IV (15:25)
[2020-11-06] MEDS: Lactated Ringers 500 ML 999 ML IV (18:02)
[2020-11-06] MEDS: Nitrofurantoin Macrocrystals 100 MG Capsule PO (20:35)
[2020-11-06] MEDS: Lactated Ringers 1,000 ML 200 ML IV (20:45)
[2020-11-06] MEDS: fentaNYL-bupivacaine (epidural) 100 ML BAG EPIDURAL (23:00)
--- NOTE | 2020-11-06 23:10 | NURSING ---
Anesthsia orders for the epidural were not put in on this pt therefore this nurse put the orders in, the first bag of epidural fentanyl was not scanned for this pt but was given
[2020-11-07] VITALS (34 sets, daily range): BP systolic 101–144; BP diastolic 47–99; PULSE 82–115; RESP 16–18; TEMP 36.1–37.7; O2SAT 87–99
[2020-11-07] MEDS: Ondansetron 4 MG/2 ML Vial IV (00:28)
[2020-11-07] MEDS: Acetaminophen 325 MG Tablet PO ×2 (00:31→04:48)
[2020-11-07] MEDS: Lactated Ringers 1,000 ML 200 ML IV ×2 (01:35→07:30)
[2020-11-07] MEDS: Mag Hydrox/Al Hydrox/Simeth 30 ML UDC PO (02:33)
[2020-11-07] MEDS: fentaNYL-bupivacaine (epidural) 100 ML BAG EPIDURAL ×2 (04:11→08:57)
[2020-11-07] MEDS: Lactated Ringers 500 ML 999 ML IV (04:44)
[2020-11-07] MEDS: Methylergonovine 0.2 MG/ML Ampul IM (09:49)
[2020-11-07] MEDS: Oxytocin 30 units/NS 500 ml 30 UNITS/500 ML IV.SOLN 167 UNITS IV (11:02)
[2020-11-07] MEDS: Ketorolac 30 MG/ML Syringe IV ×2 (11:07→17:22)
[2020-11-07] MEDS: Acetaminophen 500 MG Tablet 1000 MG PO ×2 (11:44→18:04)
--- NOTE | 2020-11-07 12:32 | NURSING ---
Dr. Kamara aware of patient's pulse ox status. Continue to monitor. If it stays below 90, contact Dr. Kamara as a chest xray may be ordered. Patient asymptomatic and denies SOB
--- NOTE | 2020-11-07 12:52 | NURSING ---
Gordy Dudley from anesthesia notified of patient's pulse ox and that patient has had to use oxygen nasal cannula 2 L on and off. Continue to closely monitor patient.
--- NOTE | 2020-11-07 13:04 | EX.PCM.OBRPT ---
Maternal Data Information JODIE Calculator Estimated Delivery Date Method Current WG Current Estimate 10/30/20 LMP (Certain) 41w 1d Other Estimates 11/02/20 Ultrasound #1 40w 5d Details Operative Information Date of Procedure: 11/07/20 Pre-Operative Diagnosis: Term , induction for late term, arrest of descent, category 2 heart rate tracing Post-Operative Diagnosis: Same, cephalopelvic disproportion Indications for : Distress and Arrrest of Descent Indications Narrative: Patient is a 29-year-old G1, P0 at 41 weeks gestation who was admitted for induction of labor for late term. She was induced with Cytotec and Pitocin. Patient made cervical change to complete dilation. Was initially found to be 0 station and was therefore allowed to labor down for 1 hour from 4 to 5 AM. Patient began pushing at approximately 5:20 AM and pushed with excellent maternal effort until 9 AM. At this time, she had begun to have recurrent late and variable decelerations with pushing that were taking longer to return to baseline and the head was noted to remain at the 0 station. There was discussed with patient that given she that she had made no descent and the heart rate tracing showed evidence of distress, the recommendation was made to proceed with a primary section. Classification: ALONSO Procedure Type: low transverse deportation examiner #1: Miguelangel Clark Type of Anesthesia: Epidural Antibiotic Given: Clindamycin 600mg IV x1 and Gentamicin 1.5mg/kg IV x1 Drain: Chapman to straight drain Estimated Blood Loss: 500 cc Fluids Replaced: 1000 cc Findings Description of Procedure: The patient is a G1, P0 at 41 weeks gestation who presented for primary . Spinal anesthesia was placed without difficulty. Chapman catheter was placed. The patient was placed in the dorsal supine position with leftward tilt. Patient was prepped and draped in the normal sterile fashion. Pfannenstiel skin incision was made with the scalpel and carried through to the underlying layer of fascia with the scalpel. Fascia was nicked in the midline and the incision extended laterally. The rectus bellies were dissected off superiorly and inferiorly with out complication both sharply and bluntly. The peritoneum was entered digitally. The incision was stretched and a low transverse uterine incision was made with the scalpel. The 's head was delivered atraumatically followed by the anterior and posterior shoulders without complication the rest of the delivered. The cord was clamped and cut and the infant was handed off to awaiting nurse. The placenta was delivered spontaneously immediately following and was noted to be intact and have a three-vessel cord. The uterus was exteriorized cleared of all clots and debris, and the incision was closed in a double layer closure using #1 Monocryl. The ovaries and fallopian tubes were noted to be within normal limits. The uterus was returned to the maternal abdomen and gutters were cleared of all clots and debris. The peritoneum was closed with 3-0 Monocryl in a running fashion. Gloves were changed prior to fascial closure. Fascia was closed with 0 PDS in a running fashion. Subcutaneous tissue was copiously irrigated and the skin was closed with 3-0 Monocryl in a subcuticular fashion. Mepilex dressing was applied without complication. Patient was taken to recovery in stable condition. It was discussed with the patient that based on the clinical information obtained during this encounter, combined with her history, at this time I would recommend repeat C-sections for future deliveries if further pregnancies are desired unless baby is significantly smaller. Presentation: Positive for Vertex and ROMY Amniotic Membrane Rupture Type: Spontaneous Amniotic Fluid Description: Lightly stained meconium Placental Delivery Description: Expressed Placenta Disposition: [facility] Cord Vessel Description: 3 Vessels Cord Entanglement: None A Gender: Female Delayed Cord Clamping: Yes Complications Risks of Surgery Discussed w/Patient: Bleeding, Anesthesia Risks, Infection and Injury to surrounding structure(s) including bowel and bladder Complications: None apparent Procedures Urinary/Genital [id number]: [id number] Delivery [facility]
--- NOTE | 2020-11-07 13:09 | PCM.DC ---
Discharge Instructions Diet Discharge Diet: No restrictions Activity Discharge Activity: May Not Drive (for 2 weeks or while taking narcotic pain meds.), May Shower and May Take a Tub Bath (in 7 days.) May resume sexual activity in: 4-6 weeks Lifting Restrictions: 20 pounds Additional Activity Instructions:: Nothing in the vagina for 4-6 weeks. You may return to work/school in 6 weeks. Dressing / Incision Call your doctor if your incision/area has: Continuous Slow Oozing, Sudden Increased Bleeding, Increased Pain/ Swelling, Increased Redness and Foul Smelling Discharge Call your doctor if you observe: Fever of 101 or Higher Suture Line Care: Avoid Pulling/Pushing and Avoid Pinching/Bending Follow Up Care Test Results: Test results from this visit will be discussed in further detail at your follow-up appointment, if applicable. Discharge Plan Admission Admit Date/Time: 11/06/20 07:00 Attending Provider: Xin Kamara Primary Care Provider: Manda Figueroa Discharge Orders/Prescriptions Prescriptions: No Action PNV-DHA 27 mg iron-1 mg -300 mg capsule 1 cap PO DAILY RF: 0 nitrofurantoin monohyd/m-cryst [Macrobid] 100 mg capsule 100 mg PO Q12H RF: 0 diphenhydramine HCl [Benadryl] 25 mg Capsule 25 mg PO Q6H PRN (Reason: allergies) RF: 0
[2020-11-07] MEDS: Lactated Ringers 1,000 ML 100 ML IV (14:06)
--- NOTE | 2020-11-07 14:19 | NURSING ---
Dr. Kamara's office notified that patient is still on nasal cannula 2 L oxygen - unable to maintain oxygenation of 92% without oxygen. Orders received from Dr. Kamara for CBC, chest xray, and EKG.
--- NOTE | 2020-11-07 14:30 | RAD_ITS ---
STUDY: X-RAY CHEST REASON FOR EXAM: Female, 29 years old. Hypoxia, hot flashes. TECHNIQUE: Single AP portable view of the chest. COMPARISON: Comparison is made with prior examination of 11/09/2019. FINDINGS: The lungs are clear and expanded. There is no demonstrated pleural abnormality. Normal size heart. Normal mediastinum and nathalia. Normal visualized pulmonary arteries. Normal visualized aortic arch and descending thoracic aorta. Normal visualized thoracic spine. Normal visualized ribs, clavicles, and shoulders. There is no demonstrated abnormality of the visualized soft tissue structures of the upper abdomen. RAD/Chest 1 View (Portable) IMPRESSION: Normal x-ray examination of the chest. Electronically Signed: Anant Aguiar MD at 14:48 EDT , Service support ,
[2020-11-07 15:07] LABS: Absolute Lymphocyte Count 1.16 X10^3/uL (0.83-4.51); Absolute Neutrophil Count 19.3 X10^3/uL (2.0-7.7); Basophil# 0.05 X10^3/uL; Basophil% 0.2 % (0-1); Eosinophil# 0.06 X10^3/uL; Eosinophils% 0.3 % (0-5); Hematocrit 32.6 % (37-47); Hemoglobin 10.5 g/dL (12.0-15.0); Lymphocyte # 1.16 X10^3/ul (0.83-4.51); Lymphocyte % 5.4 % (19-41); Mean Corp Hgb Conc 32.2 g/dL (32-36); Mean Corpuscular Hgb 27.9 pg (27.0-32.0); Mean Corpuscular Volume 86.5 fL (81-99); Mean Platelet Vol. 10.2 fl (6.2-12.0); Monocyte# 0.98 X10^3/uL; Monocyte% 4.5 % (0-10); NRBC Flagged by Analyzer 0 % (0-5); Neutrophil # 19.28 X10^3/uL (2.7-7.7); Platelet Count 220 K/mm3 (150-450); RBC Distribution Width CV 14.9 % (11.6-14.6); RBC Distribution Width SD 46.5 fl (35.1-43.9); Red Blood Count 3.77 M/mm3 (4.2-5.4); White Blood Count 21.7 K/mm3 (4.4-11.0)
--- NOTE | 2020-11-07 15:18 | NURSING ---
Dr. Kamara notified of patient's EKG, CBC, and chest x ray results. Notified that patient has been diaphoretic today. Pale face. Reports pain in right shoulder and in rib area. Order for CT scan.
--- NOTE | 2020-11-07 15:18 | CT_ITS ---
STUDY: CTA CHEST REASON FOR EXAM: Female, 29 years old. hypoxia RADIATION DOSAGE (If Supplied By Facility): CTDIvol = ( 7.28 ) mGy, DLP = ( 205.36 ) mGycm TECHNIQUE: The examination was performed with the intravenous administration of IV 100ML ISOVUE 370. Post-processing of the angiographic images was performed, with multiplanar reformation and 3D reconstruction. Individualized dose optimization techniques were used for this CT. COMPARISON: None. FINDINGS: Normal enhancement of the main pulmonary artery and right and left pulmonary arteries. Suboptimal enhancement of the bilateral peripheral pulmonary arteries. There is no demonstrated pulmonary embolism. Normal thoracic aorta and visualized great vessels. There is no demonstrated aortic dissection. Normal heart and pericardium. Normal mediastinum. Normal hilar regions. Normal visualized trachea and bronchi. The lungs are under expanded. Mild diffuse hazy densities suggest throughout both lungs, possibly related to incomplete expansion, but diffuse pneumonitis and/or mild pulmonary edema not excluded. No effusions. Normal chest wall structures. Normal osseous structures. Normal visualized upper abdomen. CT/CTA Chest W/WO Contrast IMPRESSION: Normal CTA chest examination, without a demonstrated pulmonary embolism or arterial dissection, although evaluation of the segmental and subsegmental pulmonary arteries is limited. Incomplete expansion of the lungs with mild diffuse bilateral hazy density. Electronically Signed: Jg Espinal MD at 16:46 EDT , Service support ,
--- NOTE | 2020-11-07 16:15 | NURSING ---
Patient reports that she can't catch her breath when on room air. Pulse ox 87. Nasal cannula 2L reapplied.
[2020-11-07] MEDS: Furosemide 20 MG/2 ML VIAL IV (17:23)
--- NOTE | 2020-11-07 17:29 | NURSING ---
Dr. Kamara in room to assess patient. CT results reviewed with Dr. Kamara. Lasix given as ordered by Dr. Kamara. Per Dr. Kamara, leave servin catheter in for now and hold off on getting patient out of bed for now.
[2020-11-07] MEDS: 0.9% Saline Lock 10 ML Syringe IV (18:31)
[2020-11-07] MEDS: Nitrofurantoin Macrocrystals 100 MG Capsule PO (21:51)
--- NOTE | 2020-11-07 22:18 | NURSING ---
Pt did not ambulate sooner due to being on O2 and having pulmonary edema via CT scan. Pt up without )2 on. Spo2 is 95% after ambulation and patient sitting in recliner. Gait steady, denies SOB or chest pain with ambulation.
[2020-11-08] MEDS: Acetaminophen 500 MG Tablet 1000 MG PO ×5 (00:03→23:46)
[2020-11-08] MEDS: 0.9% Saline Lock 10 ML Syringe IV (00:09)
[2020-11-08 04:52] VITALS: BP 98/61; PULSE 95; RESP 18; TEMP 36.3; O2SAT 95
[2020-11-08] MEDS: Ketorolac 30 MG/ML Syringe IV ×2 (06:34)
[2020-11-08 07:43] LABS: Hematocrit 31.6 % (37-47); Hemoglobin 10.1 g/dL (12.0-15.0); Mean Corpuscular Hgb 28.7 pg (27.0-32.0); Mean Corpuscular Volume 89.8 fL (81-99); Mean Platelet Vol. 9.7 fl (6.2-12.0); Platelet Count 241 K/mm3 (150-450); RBC Distribution Width CV 15.7 % (11.6-14.6); RBC Distribution Width SD 50.5 fl (35.1-43.9); Red Blood Count 3.52 M/mm3 (4.2-5.4); White Blood Count 20.7 K/mm3 (4.4-11.0)
[2020-11-08 08:00] VITALS: BP 131/77; PULSE 105; RESP 18; TEMP 36.1; O2SAT 93
--- NOTE | 2020-11-08 10:12 | PN.OBGYN_ITS ---
Subjective Subjective Patient doing well without complaints. Tolerating PO. Ambulating and voiding without difficulty. Breast feeding well. Denies chest pain, shortness of breath, calf pain/swelling, fevers, chills, lightheadedness. Objective Data Objective Data Vital Signs: Vital Signs Temp Pulse Resp BP Pulse Ox 97.0 F L 105 H 18 131/77 H 93 11/08/20 08:00 11/08/20 08:00 11/08/20 08:00 11/08/20 08:00 11/08/20 08:00 Oxygen Flow Rate (L/min) 2 Oxygen Delivery Method Room Air Weight: 188 lb 0.869 oz Body Mass Index (BMI) 32.3 Intake & Output: Intake and Output for Last 24 Hours 11/06/20 11/07/20 11/08/20 23:59 23:59 23:59 Intake Total 1475.13 / 1475.13 6727.09 / 6727.09 300 / 300 Output Total 4100 / 4100 700 / 700 Balance 1475.13 / 775.13 2627.09 / 2627.09 -400 / -400 Lab / Micro Data Result Diagrams: 11/08/20 07:30 11/06/20 08:00 Labs: Laboratory Results - last 24 hr 11/07/20 11/07/20 11/07/20 09:46 11:45 14:50 WBC Cancelled 21.7 H Corrected WBC Cancelled RBC Cancelled 3.77 L Hgb Cancelled 10.5 L Hct Cancelled 32.6 L MCV Cancelled 86.5 MCH Cancelled 27.9 MCHC Cancelled 32.2 RDW Std Deviation Cancelled 46.5 H RDW Coeff of Aly Cancelled 14.9 H Plt Count Cancelled 220 MPV Cancelled 10.2 Immature Gran % (Auto) Cancelled 0.600 Neut % (Auto) Cancelled 89.0 H Lymph % (Auto) Cancelled 5.4 L [place] % (Auto) Cancelled 4.5 Eos % (Auto) Cancelled 0.3 Baso % (Auto) Cancelled 0.2 Absolute Neuts (auto) Cancelled 19.3 H Absolute Lymphs (auto) Cancelled 1.16 Total Counted Cancelled Neutrophils % (Manual) Cancelled Band Neutrophils % Cancelled Lymphocytes % (Manual) Cancelled Monocytes % (Manual) Cancelled Eosinophils % (Manual) Cancelled Basophils % (Manual) Cancelled Metamyelocytes % Cancelled Myelocytes % Cancelled Promyelocytes % Cancelled Blast Cells % Cancelled Plasma Cell % (Manual) Cancelled Other Cells % Cancelled Nucleated RBC % Cancelled 0 Nucleated RBCs/100 WBC Cancelled Differential Comment Cancelled Diff Path Review Cancelled Hypersegmented Neuts Cancelled Atypical Lymphocytes Cancelled Reactive Lymphocytes Cancelled Smudge Cells Cancelled Toxic Granulation Cancelled Toxic Vacuolation Cancelled Dohle Bodies Cancelled Vargas Rods Cancelled Platelet Estimate Cancelled Plt Morphology Comment Cancelled RBC Morphology Cancelled Polychromasia Cancelled Hypochromasia Cancelled Poikilocytosis Cancelled Basophilic Stippling Cancelled Anisocytosis Cancelled Microcytosis Cancelled Macrocytosis Cancelled Spherocytes Cancelled Sickle Cells Cancelled Target Cells Cancelled Tear Drop Cells Cancelled Ovalocytes Cancelled Stomatocytes Cancelled [place] Bodies Cancelled Mcclellan Cells Cancelled Bite Cells Cancelled Crenated Cell Cancelled Acanthocytes (Spur) Cancelled Rouleaux Cancelled Schistocytes Cancelled Screen Cancelled Baby's Blood Type Cancelled Baby's ZEINA Cancelled 11/08/20 07:30 WBC 20.7 H Corrected WBC RBC 3.52 L Hgb 10.1 L Hct 31.6 L MCV 89.8 MCH 28.7 MCHC 32.0 RDW Std Deviation 50.5 H RDW Coeff of Aly 15.7 H Plt Count 241 MPV 9.7 Immature Gran % (Auto) Neut % (Auto) Lymph % (Auto) [place] % (Auto) Eos % (Auto) Baso % (Auto) Absolute Neuts (auto) Absolute Lymphs (auto) Total Counted Neutrophils % (Manual) Band Neutrophils % Lymphocytes % (Manual) Monocytes % (Manual) Eosinophils % (Manual) Basophils % (Manual) Metamyelocytes % Myelocytes % Promyelocytes % Blast Cells % Plasma Cell % (Manual) Other Cells % Nucleated RBC % Nucleated RBCs/100 WBC Differential Comment Diff Path Review Hypersegmented Neuts Atypical Lymphocytes Reactive Lymphocytes Smudge Cells Toxic Granulation Toxic Vacuolation Dohle Bodies Vargas Rods Platelet Estimate Plt Morphology Comment RBC Morphology Polychromasia Hypochromasia Poikilocytosis Basophilic Stippling Anisocytosis Microcytosis Macrocytosis Spherocytes Sickle Cells Target Cells Tear Drop Cells Ovalocytes Stomatocytes Sau[place] Bodies Mcclellan Cells Bite Cells Crenated Cell Acanthocytes (Spur) Rouleaux Schistocytes Screen Baby's Blood Type Baby's ZEINA Micro: Microbiology 11/06/20 08:00 Mucosa - Nose SARS-CoV-2 Antigen (Rapid) - Final Radiography Diagnostic Testing: Radiology Impression Chest X-Ray 11/07/20 14:30 IMPRESSION: Normal x-ray examination of the chest. Electronically Signed: Anant Aguiar MD at 14:48 EDT , Service support , Chest CTA 11/07/20 15:18 IMPRESSION: Normal CTA chest examination, without a demonstrated pulmonary embolism or arterial dissection, although evaluation of the segmental and subsegmental pulmonary arteries is limited. Incomplete expansion of the lungs with mild diffuse bilateral hazy density. Electronically Signed: Jg Espinal MD at 16:46 EDT , Service support , ROS Constitutional Constitutional: Denies fever(s) Cardiovascular Cardiovascular: Denies chest pain, dyspnea or lightheadedness Gastrointestinal Gastrointestinal: Reports abdominal pain; Denies constipation or diarrhea Neurologic Neurologic: Denies dizziness or headache(s) Physical Exam Const alert, oriented x3, no apparent distress, average body habitus, healthy appearing and well nourished HEENT normocephalic Head and Scalp: atraumatic Eyes PERRL and EOMs intact bilaterally Neck full ROM Lymph Lymphatic: no lymphadenopathy noted Resp normal respiratory effort, no retractions and no use of accessory muscles Cardio regular rate GI soft to palpation, non-tender and non-distended Inspection: incision intact and other (dressing in place) Palpation: other Other Details: fundus firm Extremity normal to inspection and no clubbing, cyanosis or edema Skin no rashes or lesions noted Neuro no focal motor deficits and no sensory deficits noted Psych mental status grossly normal, affect normal and speech normal Assessment & Plan (1) S/P section: COMMENT: pushed for 3.5 hrs with no descent. found to have CPD PLAN: s/p LTCS PPD # 1 1. routine post care 2. breast feeding- support given 3. rh negative 4. rubella immune 5. Hypoxia - had hypoxia immediately post-op with sats as low as the 80% off of O2, EKG nl, CTA negative aside from evidence of pulmonary vascular congestion, Hb normal, given dose of IV lasix and has now resolved
[2020-11-08] MEDS: Nitrofurantoin Macrocrystals 100 MG Capsule PO ×2 (10:48→22:02)
[2020-11-08] MEDS: Senna/Docusate Sodium 1 Tablet PO (10:48)
[2020-11-08] MEDS: Naproxen 250 MG Tablet 500 MG PO ×2 (11:01→19:25)
[2020-11-08 14:22] VITALS: BP 95/54; PULSE 98; RESP 18; TEMP 36.6
[2020-11-08 16:51] VITALS: BP 137/87; PULSE 114; RESP 18; TEMP 36.3; O2SAT 95
[2020-11-08 20:50] VITALS: BP 109/56; PULSE 87; RESP 18; TEMP 36.5; O2SAT 95
[2020-11-09 02:00] VITALS: BP 107/60; PULSE 96; RESP 18; TEMP 37.2; O2SAT 95
[2020-11-09] MEDS: Naproxen 250 MG Tablet 500 MG PO (02:20)
[2020-11-09] MEDS: Acetaminophen 500 MG Tablet 1000 MG PO (06:07)
[2020-11-09 08:00] VITALS: BP 113/72
--- NOTE | 2020-11-09 08:42 | PCM.PN.OB ---
Subjective Subjective Patient doing well without complaints. Tolerating PO. Ambulating and voiding without difficulty. Breast feeding well. Denies chest pain, shortness of breath, calf pain/swelling, fevers, chills, lightheadedness. Objective Data Objective Data Vital Signs: Vital Signs Temp Pulse Resp BP Pulse Ox 98.9 F 96 18 113/72 95 11/09/20 02:00 11/09/20 02:00 11/09/20 02:00 11/09/20 08:00 11/09/20 02:00 Oxygen Flow Rate (L/min) 2 Oxygen Delivery Method Room Air Weight: 188 lb 0.869 oz Body Mass Index (BMI) 32.3 Intake & Output: Intake and Output for Last 24 Hours 11/07/20 11/08/20 11/09/20 23:59 23:59 23:59 Intake Total 6727.09 / 6727.09 300 / 300 Output Total 4100 / 4100 1500 / 1500 Balance 2627.09 / 2627.09 -1200 / -1200 Lab / Micro Data Result Diagrams: 11/08/20 07:30 11/06/20 08:00 Micro: Microbiology 11/06/20 08:00 Mucosa - Nose SARS-CoV-2 Antigen (Rapid) - Final ROS Constitutional Constitutional: Denies fever(s) Cardiovascular Cardiovascular: Denies chest pain, dyspnea or lightheadedness Gastrointestinal Gastrointestinal: Reports abdominal pain; Denies constipation or diarrhea Neurologic Neurologic: Denies dizziness or headache(s) Physical Exam Const alert, oriented x3, no apparent distress, average body habitus, healthy appearing and well nourished HEENT normocephalic Head and Scalp: atraumatic Eyes PERRL and EOMs intact bilaterally Neck full ROM Lymph Lymphatic: no lymphadenopathy noted Resp normal respiratory effort, no retractions and no use of accessory muscles Cardio regular rate GI soft to palpation, non-tender and non-distended Inspection: incision intact and other (dressing in place) Palpation: other Other Details: fundus firm Extremity normal to inspection and no clubbing, cyanosis or edema Skin no rashes or lesions noted Neuro no focal motor deficits and no sensory deficits noted Psych mental status grossly normal, affect normal and speech normal Assessment & Plan (1) S/P section: COMMENT: pushed for 3.5 hrs with no descent. found to have CPD PLAN: s/p LTCS PPD # 2 1. routine post care 2. breast feeding- support given 3. rh positive 4. rubella immune
[2020-11-09] MEDS: Senna/Docusate Sodium 1 Tablet PO (10:15)
[2020-11-09] MEDS: Nitrofurantoin Macrocrystals 100 MG Capsule PO (10:18)
--- NOTE | 2020-11-11 22:20 | DS.PCM_ITS ---
Providers Date of Admission: 11/06/20 Primary Care Physician: Dr. Manda Figueroa MD Reason For Visit: PRIMARY C SECTION Diagnosis Discharge Diagnosis (1) S/P section: Status: Acute Code(s): Z98.891 - History of uterine scar from previous surgery Medications at Discharge Home Medications multivitamin no.47-iron fum 27 mg-folate no.1 1 mg-dha 300 mg capsule 1 cap PO DAILY 03/14/20 diphenhydramine HCl [Benadryl] 25 mg PO Q6H PRN 10/26/20 nitrofurantoin monohyd/m-cryst [Macrobid] 100 mg PO Q12H 11/06/20 naproxen 250 - 500 mg PO Q8H PRN PRN #30 tab 11/07/20 oxycodone 5 mg PO Q6H PRN 7 Days #15 cap 11/07/20 Hospital Course Operations - ( section) Procedures None Summary of Care Provided Hospital Course: 29-year-old G1, P0 at 41 weeks who was admitted for induction of labor for late term. Labor course uncomplicated. Patient pushed for 3-1/2 hours with no descent and underwent a primary . Following delivery, she had difficulty maintaining her oxygen saturation. She underwent EKG and a CTA both of which were normal aside from showing evidence of mild pulmonary venous congestion. She was given a dose of Lasix and hypoxia res olved. course otherwise uncomplicated and she was discharged home on day 2 ABG / Lab / Microbiology Data Result Diagrams: 11/08/20 07:30 11/06/20 08:00 Microbiology: Microbiology 11/06/20 08:00 Mucosa - Nose SARS-CoV-2 Antigen (Rapid) - Final D/C Instructions Discharge Diet: No restrictions Discharge Activity: May Not Drive (for 2 weeks or while taking narcotic pain meds.), May Shower and May Take a Tub Bath (in 7 days.) May resume sexual activity in: 4-6 weeks Additional Activity Instructions: Nothing in the vagina for 4-6 weeks. You may return to work/school in 6 weeks. Call your doctor if your incision/area has: Continuous Slow Oozing, Sudden Increased Bleeding, Increased Pain/ Swelling, Increased Redness and Foul Smelling Discharge Call your doctor if you observe: Fever of 101 or Higher Suture Line Care: Avoid Pulling/Pushing and Avoid Pinching/Bending Meaningful Use Info Meaningful Use Diagnoses (Choose all that apply): None applicable Discharge Plan Admission Admit Date/Time: 11/06/20 07:00 Primary Reason for Your Visit: Induction of labor Attending Provider: Xin Kamara Primary Care Provider: Manda Figueroa Instructions Forms: Information Patient Instructions: After a Discharge Orders/Prescriptions Prescriptions: New naproxen 250 MG tablet 250 - 500 mg PO Q8H PRN PRN (Reason: MILD PAIN) Qty: 30 RF: 1 oxycodone 5 mg capsule 5 mg PO Q6H PRN (Reason: pain) 7 Days Qty: 15 RF: 0 Continued PNV-DHA 27 mg iron-1 mg -300 mg capsule 1 cap PO DAILY RF: 0 nitrofurantoin monohyd/m-cryst [Macrobid] 100 mg capsule 100 mg PO Q12H RF: 0 diphenhydramine HCl [Benadryl] 25 mg Capsule 25 mg PO Q6H PRN (Reason: allergies) RF: 0 Referrals / Follow Up: Manda Figueroa MD [Primary Care Provider] - Xin Kamara MD [STAFF PHYSICIAN] - Disposition Disposition (needs filled in before D/C Order can be placed): Home, self care
== END 2020-11-09 11:00 | disposition home or self-care (01) | DRG 788 ==
PROVIDERS: Admitting Provider Obstetrics & Gynecology; PCP Family Medicine; Visit Provider Obstetrics & Gynecology
DX: O61.0 Failed medical induction of labor (principal); O76 Abnormality in fetal heart rate and rhythm complicating labor and delivery; O77.0 Labor and delivery complicated by meconium in amniotic fluid; Z3A.41 41 weeks gestation of pregnancy; Z37.0 Single live birth; O99.53 Diseases of the respiratory system complicating the puerperium; R09.02 Hypoxemia
CPT/HCPCS: 59025; 59050; 71045; 71275; 82565; 82570; 84156; 84450; 84460; 84550; 85025; 85027; 86762; 86850; 86900; 86901; 87426; 93005; 99218; J7120; Q9967; A4216; G0378; J1940; J2405

== ENCOUNTER → 2020-11-23 16:00 | Outpatient (CLI) | payer OTHER, SELFPAY ==
[2020-11-22 14:02] VITALS: BMI 32.3
== END ==
PROVIDERS: PCP Family Medicine; Referring Provider Obstetrics & Gynecology; Visit Provider Obstetrics & Gynecology
DX: O92.79 Other disorders of lactation (principal)
CPT/HCPCS: 96158; 96159

== ENCOUNTER → 2021-02-19 | Outpatient (CLI) | payer OTHER, SELFPAY | END | disposition home or self-care (01) | PROVIDERS: PCP Family Medicine; Visit Provider Physician Assistant Surgical | DX: R05 Cough (principal); Z11.52 Encounter for screening for COVID-19 | CPT/HCPCS: 87633; 87635; U0005; U0003 ==

== ENCOUNTER 2021-08-23 16:48 | Outpatient (CLI) | payer OTHER, SELFPAY ==
--- NOTE | 2021-08-23 16:51 | US_ITS ---
STUDY: RENAL ULTRASOUND - COMPLETE REASON FOR EXAM: Female, 30 years old. UTI TECHNIQUE: Ultrasound evaluation of the kidneys was performed with real-time and static sin-scale imaging. COMPARISON: None. FINDINGS: RIGHT KIDNEY: Normal location of the right kidney, which is normal in size. The right kidney measures 11.2 cm. There is a normal cortex of the right kidney. The renal cortex measures 1.0 cm. There is no right renal mass or cyst. There are no right renal calculi. There is mild hydronephrosis of the right kidney. DISTAL RIGHT URETER: There is non-visualization of the distal right ureter. There is no demonstrated right ureterovesical junction calculus. There is a visualized right ureteral jet. LEFT KIDNEY: Normal location of the left kidney, which is normal in size. The left kidney measures 10.2 cm. There is a normal cortex of the left kidney. The renal cortex measures 1.3 cm. There is no left renal mass or cyst. There are no left renal calculi. There is no left hydronephrosis. DISTAL LEFT URETER: There is non-visualization of the distal left ureter. There is no demonstrated left ureterovesical junction calculus. There is a visualized left ureteral jet. BLADDER: The distended urinary bladder has a volume of 210 ml. Diffuse wall thickening. There is no demonstrated mass within the urinary bladder. There are no demonstrated bladder calculi. US/Kidney and Bladder IMPRESSION: Subtle right-sided hydronephrosis. Diffuse wall thickening of the urinary bladder. Otherwise, unremarkable exam. Electronically Signed: Isidoro Abbott DO at 3:34 EST ,
== END 2021-08-23 23:59 | disposition home or self-care (01) ==
LOC: US 16:49
PROVIDERS: PCP Family Medicine; Referring Provider Urology; Visit Provider Urology
DX: N39.0 Urinary tract infection, site not specified (principal)
CPT/HCPCS: 76770

== ENCOUNTER → 2021-11-21 | Outpatient (CLI) | payer OTHER, SELFPAY ==
--- NOTE | 2021-11-21 16:51 | US_ITS ---
STUDY: RENAL ULTRASOUND - COMPLETE REASON FOR EXAM: Female, 30 years old. R HYDRONEPHROSIS TECHNIQUE: Ultrasound evaluation of the kidneys was performed with real-time and static sin-scale imaging. COMPARISON: None. FINDINGS: RIGHT KIDNEY: Normal location of the right kidney, which is normal in size. The right kidney measures 10.7 x 5.7 x 4.1 cm. There is a normal cortex of the right kidney. The renal cortex measures 1.0 cm. There is no right renal mass or cyst. There are no right renal calculi. There is no right hydronephrosis. DISTAL RIGHT URETER: There is non-visualization of the distal right ureter. There is no demonstrated right ureterovesical junction calculus. There is a visualized right ureteral jet. LEFT KIDNEY: Normal location of the left kidney, which is normal in size. The left kidney measures 10.3 x 5.5 x 3.8 cm. There is a normal cortex of the left kidney. The renal cortex measures 1.1 cm. There is no left renal mass or cyst. There are no left renal calculi. There is no left hydronephrosis. DISTAL LEFT URETER: There is non-visualization of the distal left ureter. There is no demonstrated left ureterovesical junction calculus. There is a visualized left ureteral jet. AORTA: Not imaged. BLADDER: The distended urinary bladder has a volume of 608 ml. . There is a normal wall thickness of the distended urinary bladder. There is no demonstrated mass within the urinary bladder. There are no demonstrated bladder calculi. US/Kidney and Bladder IMPRESSION: Normal ultrasound of the kidneys and urinary bladder. No hydronephrosis. Electronically Signed: Brynn Painter MD at 3:57 EDT ,
== END | disposition home or self-care (01) ==
LOC: US 16:50
PROVIDERS: PCP Family Medicine; Referring Provider Urology; Visit Provider Urology
DX: N13.30 Unspecified hydronephrosis (principal)
CPT/HCPCS: 76770

== ENCOUNTER → 2022-02-18 | Outpatient (CLI) | payer OTHER, SELFPAY ==
[2022-02-18 17:45] LABS: Amphetamine Urine VISTA NEGATIVE (<1000 ng/mL); Barbiturate Urine VISTA NEGATIVE (< 200 ng/mL); Benzodiazepine Urine VISTA NEGATIVE (< 200 ng/mL); Cocaine Urine VISTA NEGATIVE (< 300 ng/mL); Ecstacy Urine VISTA NEGATIVE (< 500 ng/mL); Methadone Urine VISTA NEGATIVE (< 300 ng/mL); PCP Urine VISTA NEGATIVE (< 25 ng/mL); THC Urine VISTA NEGATIVE (< 50 ng/mL); Vista UDS pH Range 5
[2022-02-20 22:07] LABS: Chlamydia By Nucleic Acid AMP Negative (Negative)
[2022-02-23 15:59] LABS: Gonococcus By Nucleic Acid AMP Negative (Negative)
== END | disposition home or self-care (01) ==
LOC: LABSPEC 16:57
PROVIDERS: PCP Family Medicine; Referring Provider Obstetrics & Gynecology; Visit Provider Obstetrics & Gynecology
DX: O09.90 Supervision of high risk pregnancy, unspecified, unspecified trimester (principal)
CPT/HCPCS: 80307; 87086; 87088; 87491; 87591

== ENCOUNTER → 2022-04-28 | Outpatient (CLI) | payer OTHER, SELFPAY ==
--- NOTE | 2022-04-28 13:30 | US_ITS ---
STUDY: SECOND AND THIRD TRIMESTER OBSTETRICAL ULTRASOUND REASON FOR EXAM: Female, 31 years old anatomy ultrasound LMP: 12/11/2021. TECHNIQUE: Transabdominal and Transvaginal TECHNICAL QUALITY: Adequate. PRIOR ULTRASOUND: None. FINDINGS: There is a single intrauterine fetus. The fetus is in a breech presentation. There is demonstrated cardiac activity with a heart rate of 144 bpm. There is a normal amniotic fluid volume. The largest amniotic fluid pocket measures 3.2 cm x 4.6 cm. The amniotic fluid index (DOMINGO) is within normal limits. The placenta is anterior and fundal in location and is not low lying. There are Grade 1 placental changes. The cervix measures 5.8 cm in length. The adnexal regions are not visualized. BIOMETRY: BPD: 4.55 cm: 19 weeks, 5 days HC: 17.46 cm: 20 weeks, 0 days AC: 15.62 cm: 20 weeks, 5 days FL: 2.92 cm: 19 weeks, 0 days CI: 76.7% FL/BPD: 64.2% FL/HC: FL/AC: 18.7% HC/AC: 1.12 age by current US: 19 weeks, 5 days. JODIE by current US: 09/17/2022. Estimated weight: 325 grams, +/- 49 grams, 60.7 %. Age by LMP: 19 weeks, 5 days. JODIE by LMP: 09/17/2022. ANATOMY: Gender: Male Cranium: Normal lateral ventricles. Normal choroid plexus. Normal cerebellum. Normal cisterna magna. Normal face, nose and lips. Chest: Normal 4-chamber heart. Abdomen/Pelvis: Normal diaphragm. Normal stomach. Normal abdominal wall. Normal cord insertion. Normal 3 vessel cord. Normal kidneys. Normal bladder. Spine: Normal cervical spine. Normal thoracic spine. Normal lumbar spine. Normal sacrum. Extremities: Normal bilateral upper extremities. Normal bilateral lower extremities. US/OB Anatomy Scan IMPRESSION: Single live intrauterine gestation with a mean gestational age of 19 weeks and 5 days. Electronically Signed: Anant Aguiar MD at 10:18 EST ,
== END | disposition home or self-care (01) ==
LOC: OPUS 13:27
PROVIDERS: PCP Family Medicine; Referring Provider Obstetrics & Gynecology; Visit Provider Obstetrics & Gynecology
DX: Z36.9 Encounter for antenatal screening, unspecified (principal); Z3A.19 19 weeks gestation of pregnancy
CPT/HCPCS: 76805; 76817

== ENCOUNTER 2022-06-23 06:38 | Outpatient (CLI) | payer OTHER, SELFPAY ==
[2022-06-23 08:19] LABS: Glucose Challenge Gest 1H 50g 155 mg/dL (70-140)
== END 2022-06-23 23:59 | disposition home or self-care (01) ==
LOC: LAB 06:40
PROVIDERS: PCP Family Medicine; Referring Provider Obstetrics & Gynecology; Visit Provider Obstetrics & Gynecology
DX: Z34.92 Encounter for supervision of normal pregnancy, unspecified, second trimester (principal)
CPT/HCPCS: 82950

== ENCOUNTER → 2022-06-30 | Outpatient (CLI) | payer OTHER, SELFPAY ==
[2022-06-30 10:30] LABS: Absolute Lymphocyte Count 1.94 X10^3/uL (0.83-4.51); Absolute Neutrophil Count 7.9 X10^3/uL (2.0-7.7); Basophil# 0.06 X10^3/uL; Basophil% 0.5 % (0-1); Eosinophil# 0.09 X10^3/uL; Eosinophils% 0.8 % (0-5); Hematocrit 36.3 % (37-47); Hemoglobin 12.3 g/dL (12.0-15.0); Lymphocyte # 1.94 X10^3/ul (0.83-4.51); Lymphocyte % 17.6 % (19-41); Mean Corp Hgb Conc 33.9 g/dL (32-36); Mean Corpuscular Volume 91.4 fL (81-99); Mean Platelet Vol. 9.8 fl (6.2-12.0); Monocyte% 6.4 % (0-10); NRBC Flagged by Analyzer 0 % (0-5); Neutrophil # 7.85 X10^3/uL (2.7-7.7); Neutrophil % 71.4 % (47-70); Platelet Count 213 K/mm3 (150-450); RBC Distribution Width CV 13.7 % (11.6-14.6); RBC Distribution Width SD 45.1 fl (35.1-43.9); Red Blood Count 3.97 M/mm3 (4.2-5.4)
[2022-06-30 10:50] LABS: Glucose GTT-Gestation. Fasting 84 mg/dL (<105)
[2022-06-30 11:35] LABS: HIV - WCH Non-Reactive (Nonreactive); Hepatitis B Surface Antigen Non-Reactive (Nonreactive); Hepatitis C Antibody Non-Reactive (Nonreactive); Rubella IgG Reactive (Nonreactive); Syphilis Antibodies Non-reactive
[2022-06-30 11:55] LABS: Glucose GTT-Gestational 1 Hr 136 mg/dL (<190)
[2022-06-30 12:49] LABS: Glucose GTT-Gestational 2 Hr 101 mg/dL (<165)
[2022-06-30 14:06] LABS: Glucose GTT-Gestational 3 Hr 86 L (<145)
== END | disposition home or self-care (01) ==
LOC: LAB 09:42
PROVIDERS: Obstetrics & Gynecology; PCP Family Medicine; Referring Provider Obstetrics & Gynecology; Visit Provider Obstetrics & Gynecology
DX: O09.90 Supervision of high risk pregnancy, unspecified, unspecified trimester (principal)
CPT/HCPCS: 36415; 82951; 82952; 85025; 86703; 86762; 86780; 86803; 86850; 86900; 86901; 87340

== ENCOUNTER → 2022-08-25 | Outpatient (CLI) | payer OTHER, SELFPAY | END | disposition home or self-care (01) | PROVIDERS: PCP Family Medicine; Visit Provider Obstetrics & Gynecology | DX: O09.90 Supervision of high risk pregnancy, unspecified, unspecified trimester (principal) | CPT/HCPCS: 87081 ==

== ENCOUNTER 2022-09-11 09:55 | Inpatient (IN) | payer OTHER, SELFPAY ==
[2022-09-11] VITALS (17 sets, daily range): BP systolic 94–122; BP diastolic 42–81; PULSE 59–111; RESP 14–20; TEMP 36.2–36.9; O2SAT 92–98; BMI 32.8
[2022-09-11] MEDS: Lactated Ringers 1,000 ML 999 ML IV (10:45)
[2022-09-11 11:10] LABS: Basophil# 0.03 X10^3/uL; Basophil% 0.3 % (0-1); Eosinophil# 0.05 X10^3/uL; Eosinophils% 0.5 % (0-5); Hematocrit 35.9 % (37-47); Hemoglobin 11.5 g/dL (12.0-15.0); Lymphocyte % 11.8 % (19-41); Mean Corpuscular Hgb 27.1 pg (27.0-32.0); Mean Corpuscular Volume 84.5 fL (81-99); Mean Platelet Vol. 11.2 fl (6.2-12.0); Monocyte# 0.74 X10^3/uL; Monocyte% 7.3 % (0-10); NRBC Flagged by Analyzer 0 % (0-5); Neutrophil # 8.02 X10^3/uL (2.7-7.7); Neutrophil % 78.5 % (47-70); Platelet Count 198 K/mm3 (150-450); RBC Distribution Width CV 14.4 % (11.6-14.6); RBC Distribution Width SD 43.9 fl (35.1-43.9); Red Blood Count 4.25 M/mm3 (4.2-5.4); White Blood Count 10.2 K/mm3 (4.4-11.0)
[2022-09-11] MEDS: Lactated Ringers 1,000 ML 150 ML IV (11:46)
[2022-09-11] MEDS: Sodium Citrate/Citric Acid 30 ML UDC PO (11:48)
[2022-09-11] MEDS: Acetaminophen 500 MG Tablet 1000 MG PO ×2 (11:48→17:46)
[2022-09-11 11:51] LABS: Syphilis Antibodies Non-reactive
--- NOTE | 2022-09-11 12:06 | HP.PCM.OB_ITS ---
HPI - General General Date of Admission: 09/11/22 HPI Narrative ANDREA IVAN, is a 31 F who presents for RLTCS Maternal Data Information JODIE Calculator Estimated Delivery Date Method Current WG Current Estimate 09/17/22 LMP (Certain) 39w 1d Other Estimates 09/14/22 Ultrasound #1 39w 4d PFSH PFSH Medical History (Updated 09/11/22 @ 10:44 by Frank Calero) Acute upper respiratory infection Anxiety Rapid palpitations Raynaud disease Tachycardia Home Medications multivitamin no.47-iron fum 27 mg-folate no.1 1 mg-dha 300 mg capsule (PNV-DHA) 1 cap PO DAILY 02/11/22 [History Last Taken 09/10/22 22:00 1 tab] Allergy/AdvReac Type Severity Reaction Status Date / Time Penicillins Allergy Hives Verified 09/11/22 10:15 Environmental Allergies: AdvReac Intermediate Hives Verified 09/11/22 10:15 Uncoded Family History Mother Pernicious anemia Breast cancer Grandfather Pernicious anemia Grandmother Breast cancer Surgical History S/P section [place] teeth extracted Social History adopted: No household members: spouse and children housing: house number of children: 1 current occupational status: employed 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 current occupational exposures/hazards: No pets and animals: Yes (Not managing the litterbox) pets and animals: cat(s) and dog(s) history of recent travel: Yes (- January 03) out of country: Yes sexually active: Yes Smoking Status: Never smoker second hand exposure: No alcohol intake: former details: socially substance use type: does not use well-balanced diet: daily or most days caffeine: No eating out: 1-3 times/week during the past year weight has: remained stable what type of physical activity do you participate in: walking frequency: 1-2 times per week duration: 45-60 minutes/day rachid/anabaptist: Islam seatbelt use: always do you feel safe at home: Yes additional social history: - Keanu [employer] [place] group History 2 Elective abortions Hx Para 1 Spontaneous abortions Hx # Term Pregnancies Ectopic pregnancies Hx # Pregnancies Multiple births # of living children 1 Past Pregnancies Del. Date Name GA/Weeks Outcome Route Bth Weight Gen Labor Lgth Anesthesia Del Locatn Provider FOB 11/07/20 Anusha 41 live - full term Female [facility] Asad Delivery Date: 11/07/20 Last Updated by: Sri Sinha IOL for late term. pushed for 3.5 hrs with no descent and had csection. found to have CPD Visit Details Expected Delivery Route/Plan RLTCS Labor Preferences- CB/BF classes: no labor support person: Keanu labor intervention preferences: [] pain management options preferred: [] cut cord/dad catch: [] : no PP control planned: discussed discussed possible routes of delivery and associated risks: [] special requests: [] Plans Covid status: discussed Flu vaccine: discussed Tdap vaccine: given Rhogam: given LARC form signed: yes Problem list reviewed and updated with the most current plan of care details and appropriate orders placed. Relevant counseling for the gestational age provided. Continue routine care and follow up unless otherwise noted in visit notes/problem list details OB Flowsheet Initial Weight: Not Recorded Date -?-?-?-?-?-?-?-?-?-?-?-?- EGA Weight BP Urine Prot -?-?-?-?-?-?-?-?-?-?-?-?- Glucose FHR FuHt Pres Dilation -?-?-?-?-?-?-?-?-?-?-?-?- Effaced St Visit Note 02/18/22 -?-?-?-?-?-?-?-?-?-?-?-?- 9w 6d 163 lb 8 oz 140/84 -?-?-?-?-?-?-?-?-?-?-?-?- 180 -?-?-?-?-?-?-?-?-?-?-?-?- JV- CRL consiste nt with LMP. 03/24/22 -?-?-?-?-?-?-?-?-?-?-?-?- 14w 5d 160 lb 120/62 -?-?-?-?-?-?-?-?-?-?-?-?- 150 -?-?-?-?-?-?--?-?-?-?-?-?- SM- no vb dirki ng 04/28/22 -?-?-?-?-?-?-?-?-?-?-?-?- 19w 5d 166 lb 124/78 Negative -?-?-?-?-?-?-?-?-?-?-?-?- Negative 163 -?-?-?-?-?-?-?-?-?-?-?-?- - no VB, lof. Anatomy US today. Denies concerns 05/26/22 -?-?-?-?-?-?-?-?-?-?-?-?- 23w 5d 169 lb 109/77 Negative -?-?-?-?-?-?-?-?-?-?-?-?- Negative 140 -?-?-?-?-?-?-?-?-?-?-?-?- SM- no vb lof go od fm no regular ctx schedule cs per patient request on the 06/23/22 -?-?-?-?-?-?-?-?-?-?-?-?- 27w 5d 178 lb 115/79 Negative -?-?-?-?-?-?-?-?-?-?-?-?- Negative 140 -?-?-?-?-?-?-?-?-?-?-?-?- SM- discussed gc t no vb lof good f, no reuglar ctx 07/14/22 -?-?-?-?-?-?-?-?-?-?-?-?- 30w 5d 178 lb 117/75 Negative -?-?-?-?-?-?-?-?-?-?-?-?- Negative 135 32 -?-?-?-?-?-?-?-?-?-?-?-?- SM- no vb lof go od fm nor egular ctx 07/28/22 -?-?-?-?-?-?-?-?-?-?-?-?- 32w 5d 180 lb 2 oz 118/68 Nega tive -?-?-?-?-?-?-?-?-?-?-?-?- Negative 136 33 -?-?-?-?-?-?-?-?-?-?-?-?- MH-No Vb, LOF. G ood FM. No CTX 08/11/22 -?-?-?-?-?-?-?-?-?-?-?-?- 34w 5d 181 lb 2 oz 115/79 Nega tive -?-?-?-?-?-?-?-?-?-?-?-?- Negative 135 34 -?-?-?-?-?-?-?-?-?-?-?-?- SM- no vb lof go od fm no regular ctx 08/25/22 -?-?-?-?-?-?-?-?-?-?-?-?- 36w 5d 182 lb 6 oz 111/79 Nega tive -?-?-?-?-?-?-?-?-?-?-?-?- Negative 135 36 Cephalic -?-?-?-?-?-?-?-?-?-?-?-?- SM- no vb lof go od fm no regular ctx 09/01/22 -?-?-?-?-?-?-?-?-?-?-?-?- 37w 5d 183 lb 124/83 Negative -?-?-?-?-?-?-?-?-?-?-?-?- Negative 135 39 Cephalic -?-?-?-?-?-?-?-?-?-?-?-?- SM- no vb lof go od fm no regular ctx 09/08/22 -?-?-?-?-?-?-?-?-?-?-?-?- 38w 5d 183 lb 112/73 Negative -?-?-?-?-?-?-?-?-?-?-?-?- Negative 140 39 Cephalic -?-?-?-?-?-?-?-?-?-?-?-?- SM- no vb lof go od fm no regular ctx 09/11/22 -?-?-?-?-?-?-?-?-?-?--?-?- 39w 1d 185 lb 3.013 oz 122/81 -?-?-?-?-?-?-?-?-?-?-?-?- -?-?-?-?-?-?-?-?-?-?-?-?- NST FHR Rate Baby A Baseline: 130 Variability:: Moderate Accelerations:: 15 x 15 Decelerations:: None NST Reactive:: Yes FHR Category:: Category I Uterine Activity:: irregular ROS Constitutional Constitutional: Reports systems reviewed and no addt'l complaints, except as documented Eyes Eyes: Denies change in vision ENT HEENT: Reports systems reviewed and no addt'l complaints, except as documented; Denies headache(s) Cardiovascular Cardiovascular: Reports systems reviewed and no addt'l complaints, except as documented; Denies chest pain or dyspnea Respiratory/Chest Respiratory/Chest: Reports systems reviewed and no addt'l complaints, except as documented Gastrointestinal Gastrointestinal: Reports systems reviewed and no addt'l complaints, except as documented; Denies abdominal pain Genitourinary Genitourinary: Reports systems reviewed and no addt'l complaints, except as documented, contractions Details: present (irregular) and movement Details: present; Denies dysuria or genital lesions Musculoskeletal Musculoskeletal: Reports systems reviewed and no addt'l complaints, except as documented Neurologic Neurologic: Reports systems reviewed and no addt'l complaints, except as documented Endocrine Endocrinology: Reports systems reviewed and no addt'l complaints, except as documented Vital Signs Vital Signs Vital Signs: 09/11/22 10:47 Temperature 98.2 F Temperature Source Temporal Pulse Rate 111 H Respiratory Rate 18 Blood Pressure 122/81 H Blood Pressure Mean 94 Blood Pressure Source Monitor Blood Pressure Position Semi-Fowlers Blood Pressure Location Left Arm Pulse Ox 96 Oxygen Delivery Method Room Air Weight Weight: 185 lb 3.013 oz Body Mass Index (BMI) 32.8 Physical Exam Const alert, oriented x3, no apparent distress and healthy appearing HEENT normocephalic and moist oral mucous membranes Head and Scalp: atraumatic Neck full ROM, no lymphadenopathy, supple and thyroid normal General: trachea midline Lymph Lymphatic: no lymphadenopathy noted Chest inspection of chest normal Resp normal respiratory effort Cardio regular rate GI normal to inspection, nondistended, normoactive bowel sounds, soft to palpation and non-tender Inspection: gravid external exam normal Manual OB Exam: estimated gestational size appropriate, presentation cephalic, dilated, effaced and station Extremity normal to inspection General Extremity: Negative for edema Skin no rashes or lesions noted Neuro no focal motor deficits and deep tendon reflexes 2+ bilaterally Motor Exam: strength 5/5 throughout and clonus absent Psych mental status grossly normal Labs Labs Labs: Blood Type A NEGATIVE Antibody Screen NEGATIVE Hct 35.9 % (37-47) L Hgb 11.5 g/dL (12.0-15.0) L Obstetrics US Syphilis Total Ab Non-reactive Rubella IgG Antibody Reactive (Nonreactive) Hep Bs Antigen Non-Reactive (Nonreactive) Chlamydia DNA (BLADE) Negative (Negative) Neisseria gonorrhoeae DNA (BLADE) Negative (Negative) HIV 1&2 Antibody Non-Reactive (Nonreactive) Glucose 1 Hr 50 gm 155 mg/dL (70-140) H Rhogam given: No Miscellaneous Test Assessment & Plan (1) Anxiety: COMMENT: previously on lexapro; currently not taking anything; stable (2) : QUALIFIERS: Weeks of gestation: 38 weeks Qualified Code(s): Z3A.38 - 38 weeks gestation of COMMENT: GBS neg, declined ntd genetic & carrier testing, nl anatomy (3) Supervision of high-risk : COMMENT: PRR , JODIE 09/17/22 boy Yoko Tavares, Keanu (4) Rh negative state in antepartum period: COMMENT: rhogam @ 28 weeks (5) Previous delivery affecting : COMMENT: plan RLTCS due to FTP, scheduled for 09/11 @ 12 with SM (6) Abnormal glucose in , antepartum: COMMENT: 3 HR GTT WNL PLAN: Plan schedule RLTCS
--- NOTE | 2022-09-11 12:07 | EX.PCM.OBRPT ---
Assessment & Plan (1) delivery delivered: COMMENT: RLTCS 39 boy [place] (2) Rh negative state in antepartum period: COMMENT: rhogam @ 28 weeks Maternal Data Information JODIE Calculator Estimated Delivery Date Method Current WG Current Estimate 09/17/22 LMP (Certain) 39w 5d Other Estimates 09/14/22 Ultrasound #1 40w 1d Final JODIE Source: LMP Details Operative Information Date of Procedure: 09/11/22 Pre-Operative Diagnosis: Previous Post-Operative Diagnosis: same Indications for : Repeat Elective Indications Narrative: Surgeon: Amee Pérez MD Classification: Scheduled Procedure Type: low transverse Type of Anesthesia: Spinal Special Medications: none Antibiotic Given: Ancef 2 grams IV x1 Drain: Chapman to straight drain Estimated Blood Loss: 900 Fluids Replaced: crystalloid Findings Description of Procedure: Spinal anesthesia was placed without difficulty. Chapman catheter was placed. The patient was placed in the dorsal supine position with leftward tilt. Patient was prepped and draped in the normal sterile fashion. Pfannenstiel skin incision was made with the scalpel and carried through to the underlying layer of fascia with the scalpel. Fascia was nicked in the midline and the incision extended laterally. The rectus bellies were dissected off superiorly and inferiorly with out complication both sharply and bluntly. The peritoneum was entered digitally. The incision was stretched and a low transverse uterine incision was made with the scalpel. The 's head was delivered atraumatically followed by the anterior and posterior shoulders without complication the rest of the infant delivered. The cord was clamped and cut and the infant was handed off to awaiting nurse. The placenta was delivered spontaneously immediately following and was noted to be intact and have a three-vessel cord. The uterus was exteriorized cleared of all clots and debris, and the incision was closed in a double layer closure using #1 Monocryl. The ovaries and fallopian tubes were noted to be within normal limits. The uterus was returned to the maternal abdomen and gutters were cleared of all clots and debris. The peritoneum was closed with 3-0 Monocryl in a running fashion. Gloves were changed prior to fascial closure. Fascia was closed with 0 PDS in a running fashion. Subcutaneous tissue was copiously irrigated and the skin was closed with 3-0 Monocryl in a subcuticular fashion. Mepilex dressing was applied without complication. Patient was taken to recovery in stable condition. It was discussed with the patient that based on the clinical information obtained during this encounter, combined with her history, at this time I would recommend cesareans for future deliveries if further pregnancies are desired. Amniotic Membrane Rupture Type: Artificial Amniotic Fluid Description: Clear Placenta Disposition: [facility] Cord Vessel Description: 3 Vessels Delayed Cord Clamping: Yes Complications Risks of Surgery Discussed w/Patient: Bleeding, Infection, Need for Future C-Sections and Injury to surrounding structure(s) including bowel and bladder Vaginal Delivery Complication Complications: None Admit VTE Documentation VTE Present on Admission: No VTE Mechan Device Prophylaxis: SCD's Procedures Urinary/Genital [id number]: [id number] Delivery [facility]
[2022-09-11] MEDS: Oxytocin 15 Units/NS 250ml 15 UNITS/250 ML IV.SOLN 83 UNITS IV (13:00)
[2022-09-11] MEDS: Ketorolac 30 MG/ML Syringe IV ×2 (13:32→20:01)
[2022-09-11] MEDS: Clindamycin 900 MG/50 ML BAG 75 MG IV (13:36)
[2022-09-11] MEDS: Lactated Ringers 1,000 ML 100 ML IV (17:52)
--- NOTE | 2022-09-11 21:14 | NURSING ---
pt stated during her last c section, her pulse ox dropped to around 80% and she needed oxygen. When egtting pt up her pulse ox dropped to around 85% and then when getting back in bed, pulse ox was 77% with decent wave form but recovered and went up to 93%. Pt denies any symptoms besides slight lightheadedness, but thinks she is just tired due to lack of sleep.
--- NOTE | 2022-09-11 22:10 | NURSING ---
Nasal Cannula put on pt at 2208 for pulse ox dropping to 88%. When in room and NC put on a 2 L, pulse ox went up to 97%.
[2022-09-11 23:02] LABS: Absolute Lymphocyte Count 2.19 X10^3/uL (0.83-4.51); Absolute Neutrophil Count 9.3 X10^3/uL (2.0-7.7); Basophil# 0.04 X10^3/uL; Basophil% 0.3 % (0-1); Eosinophil# 0.12 X10^3/uL; Eosinophils% 0.9 % (0-5); Hematocrit 31.7 % (37-47); Hemoglobin 10.2 g/dL (12.0-15.0); Lymphocyte # 2.19 X10^3/ul (0.83-4.51); Lymphocyte % 17.2 % (19-41); Mean Corp Hgb Conc 32.2 g/dL (32-36); Mean Corpuscular Hgb 27.7 pg (27.0-32.0); Mean Corpuscular Volume 86.1 fL (81-99); Mean Platelet Vol. 10.8 fl (6.2-12.0); Monocyte# 0.97 X10^3/uL; Monocyte% 7.6 % (0-10); NRBC Flagged by Analyzer 0 % (0-5); Neutrophil # 9.31 X10^3/uL (2.7-7.7); Neutrophil % 73.1 % (47-70); Platelet Count 184 K/mm3 (150-450); RBC Distribution Width CV 14.3 % (11.6-14.6); RBC Distribution Width SD 44.6 fl (35.1-43.9); Red Blood Count 3.68 M/mm3 (4.2-5.4); White Blood Count 12.7 K/mm3 (4.4-11.0)
[2022-09-12] VITALS (11 sets, daily range): BP systolic 93–113; BP diastolic 58–71; PULSE 59–95; RESP 16–17; TEMP 36.4–36.8; O2SAT 88–98
[2022-09-12] MEDS: Acetaminophen 500 MG Tablet 1000 MG PO ×4 (00:02→17:58)
[2022-09-12] MEDS: Enoxaparin 40 MG/0.4 ML Syringe SC (00:02)
[2022-09-12] MEDS: Ketorolac 30 MG/ML Syringe IV ×2 (02:07→08:06)
[2022-09-12] MEDS: 0.9% Saline Lock 10 ML Syringe IV ×2 (02:07→08:09)
[2022-09-12 04:37] LABS: Hemoglobin 10.3 g/dL (12.0-15.0); Mean Corp Hgb Conc 32.2 g/dL (32-36); Mean Corpuscular Hgb 27.8 pg (27.0-32.0); Mean Corpuscular Volume 86.3 fL (81-99); Mean Platelet Vol. 10.8 fl (6.2-12.0); Platelet Count 180 K/mm3 (150-450); RBC Distribution Width CV 14.4 % (11.6-14.6); RBC Distribution Width SD 45.1 fl (35.1-43.9); Red Blood Count 3.71 M/mm3 (4.2-5.4)
--- NOTE | 2022-09-12 06:50 | NURSING ---
This RN helped pt up to chair at 0615. When sitting in chair, pulse ox dropped to 80% on 1L NC. Pulse ox recovered and went up to 94-95% in less then 1 minute. Pt denies any symptoms besides surgical site pain.
--- NOTE | 2022-09-12 07:49 | PCM.PN.OB ---
Subjective Subjective Patient doing well without complaints. Tolerating PO. Ambulating without difficulty and servin removed, yet to void. Feeding well. Denies chest pain, shortness of breath, calf pain/swelling, fevers, chills, lightheadedness. Objective Data Objective Data Vital Signs: Vital Signs Temp Pulse Resp BP Pulse Ox O2 Del Method O2 Flow Rate 98.2 F 66 16 99/58 L 95 Nasal Cannula 1 09/12/22 04:15 09/12/22 04:15 09/12/22 04:15 09/12/22 04:15 09/12/22 05:28 09/12/22 05:28 09/12/22 05:28 Oxygen Flow Rate (L/min) 1 Oxygen Delivery Method Nasal Cannula Weight: 185 lb 3.013 oz Body Mass Index (BMI) 32.8 Intake & Output: Intake and Output for Last 24 Hours 09/10/22 09/11/22 09/12/22 23:59 23:59 23:59 Intake Total 1775.67 / 1775.67 Output Total 1450 / 1850 500 / 500 Balance 325.67 / -74.33 -500 / -500 Lab / Micro Data Attestation: I reviewed the patient's lab results. Result Diagrams: 09/12/22 04:25 Labs: Laboratory Results - last 24 hr 09/11/22 10:45: WBC 10.2, RBC 4.25, Hgb 11.5 L, Hct 35.9 L, MCV 84.5, MCH 27.1, MCHC 32.0, RDW Std Deviation 43.9, RDW Coeff of Aly 14.4, Plt Count 198, MPV 11.2, Immature Gran % (Auto) 1.600 H, Neut % (Auto) 78.5 H, Lymph % (Auto) 11.8 L, [place] % (Auto) 7.3, Eos % (Auto) 0.5, Baso % (Auto) 0.3, Absolute Neuts (auto) 8.0 H, Absolute Lymphs (auto) 1.20, Nucleated RBC % 0 09/11/22 10:45: Blood Type A NEGATIVE, Antibody Screen NEGATIVE 09/11/22 10:45: Syphilis Total Ab Non-reactive 09/11/22 17:10: Screen NEGATIVE, Baby's Blood Type A POSITIVE, Baby's ZEINA NEGATIVE 09/11/22 22:52: WBC 12.7 H, RBC 3.68 L, Hgb 10.2 L, Hct 31.7 L, MCV 86.1, MCH 27.7, MCHC 32.2, RDW Std Deviation 44.6 H, RDW Coeff of Aly 14.3, Plt Count 184, MPV 10.8, Immature Gran % (Auto) 0.900, Neut % (Auto) 73.1 H, Lymph % (Auto) 17.2 L, [place] % (Auto) 7.6, Eos % (Auto) 0.9, Baso % (Auto) 0.3, Absolute Neuts (auto) 9.3 H, Absolute Lymphs (auto) 2.19, Nucleated RBC % 0 09/12/22 04:25: WBC 12.0 H, RBC 3.71 L, Hgb 10.3 L, Hct 32.0 L, MCV 86.3, MCH 27.8, MCHC 32.2, RDW Std Deviation 45.1 H, RDW Coeff of Aly 14.4, Plt Count 180, MPV 10.8 ROS Constitutional Constitutional: Reports systems reviewed and no addt'l complaints, except as documented; Denies anorexia or headache(s) Cardiovascular Cardiovascular: Reports systems reviewed and no addt'l complaints, except as documented and other Details: on O2- stats dropping to low 90s/ high 80s while not on O2. no complaint with o2 on. stating 98% on 2L ; Denies dyspnea, nausea or tachypnea Respiratory/Chest Respiratory/Chest: Denies change in mental status, cough, dyspnea, shortness of breath at rest or tachypnea Gastrointestinal Gastrointestinal: Reports systems reviewed and no addt'l complaints, except as documented; Denies abdominal pain, constipation or nausea Genitourinary Genitourinary: Reports systems reviewed and no addt'l complaints, except as documented; Denies burning urination, difficulty urinating, dysuria, urinary frequency or urinary incontinence Musculoskeletal Musculoskeletal: Reports systems reviewed and no addt'l complaints, except as documented Integumentary Integumentary: Reports systems reviewed and no addt'l complaints, except as documented Neurologic Neurologic: Reports systems reviewed and no addt'l complaints, except as documented; Denies abnormal speech, dizziness or headache(s) Psychiatric Psychiatric: Reports systems reviewed and no addt'l complaints, except as documented Endocrine Endocrinology: Reports systems reviewed and no addt'l complaints, except as documented Hematologic/Lymphatic Hematologic/Lymphatic: Reports systems reviewed and no addt'l complaints, except as documented Physical Exam Const alert, oriented x3 and no apparent distress Neck full ROM Chest inspection of chest normal and inspection of breasts normal Resp normal respiratory effort, normal air movement, no retractions, no use of accessory muscles and clear to auscultation bilaterally Effort and Inspection: able to speak in complete sentences and symmetric chest movement Cardio regular rate and regular rhythm GI soft to palpation Bladder / Kidney Exam: bladder normal to palpation Uterus Palpation: uterus fundus firm (U1) Extremity normal to inspection and full ROM Psych mental status grossly normal, thought process normal and cooperative Assessment & Plan (1) Supervision of high-risk : COMMENT: PRR , JODIE 09/17/22 boy Jennyquinn AILYN Tavares, Keanu PLAN: s/p PPD # 1 1. routine post delivery care 2. breast feeding- support given 3. rh negative 4. rubella immune Charges/Coding Multi Select Codes Urinary/Genital Urinary/Genital CPT Codes: No Charge
[2022-09-12] MEDS: Senna/Docusate Sodium 1 Tablet PO (11:25)
[2022-09-12] MEDS: Naproxen 500 MG Tablet PO ×2 (14:05→22:05)
[2022-09-12] MEDS: oxyCODONE 5 MG Tablet PO (19:08)
[2022-09-13] MEDS: Enoxaparin 40 MG/0.4 ML Syringe SC (00:02)
[2022-09-13] MEDS: Acetaminophen 500 MG Tablet 1000 MG PO ×3 (00:03→12:18)
[2022-09-13 02:00] VITALS: BP 101/49; PULSE 71; RESP 16; TEMP 36.6; O2SAT 93
[2022-09-13] MEDS: Naproxen 500 MG Tablet PO ×2 (05:54→12:19)
--- NOTE | 2022-09-13 07:49 | PN.OBGYN_ITS ---
Subjective Subjective Patient doing well without complaints. Tolerating PO. Ambulating and voiding without difficulty. Feeding well. Denies chest pain, shortness of breath, calf pain/swelling, fevers, chills, lightheadedness. Objective Data Objective Data Vital Signs: Vital Signs Temp Pulse Resp BP Pulse Ox O2 Del Method O2 Flow Rate 97.9 F 71 16 101/49 L 93 Room Air 1 09/13/22 02:00 09/13/22 02:00 09/13/22 02:00 09/13/22 02:00 09/13/22 02:00 09/13/22 02:00 09/12/22 08:02 Oxygen Flow Rate (L/min) 1 Oxygen Delivery Method Room Air Weight: 185 lb 3.013 oz Body Mass Index (BMI) 32.8 Intake & Output: Intake and Output for Last 24 Hours 09/11/22 09/12/22 09/13/22 23:59 23:59 23:59 Intake Total 1775.67 / 1775.67 Output Total 1450 / 1850 1275 / 1275 Balance 325.67 / -74.33 -1275 / -1275 Lab / Micro Data Attestation: I reviewed the patient's lab results. Result Diagrams: 09/12/22 04:25 ROS Constitutional Constitutional: Reports systems reviewed and no addt'l complaints, except as doc umented; Denies anorexia or headache(s) Cardiovascular Cardiovascular: Reports systems reviewed and no addt'l complaints, except as documented; Denies dizziness, dyspnea, nausea or tachypnea Respiratory/Chest Respiratory/Chest: Reports systems reviewed and no addt'l complaints, except as documented; Denies cough, dyspnea, shortness of breath at rest or tachypnea Gastrointestinal Gastrointestinal: Reports systems reviewed and no addt'l complaints, except as documented; Denies abdominal pain, constipation or nausea Genitourinary Genitourinary: Reports systems reviewed and no addt'l complaints, except as documented; Denies burning urination, difficulty urinating, dysuria, urinary frequency or urinary incontinence Musculoskeletal Musculoskeletal: Reports systems reviewed and no addt'l complaints, except as documented Integumentary Integumentary: Reports systems reviewed and no addt'l complaints, except as documented Neurologic Neurologic: Reports systems reviewed and no addt'l complaints, except as documented; Denies abnormal speech, dizziness or headache(s) Psychiatric Psychiatric: Reports systems reviewed and no addt'l complaints, except as documented Endocrine Endocrinology: Reports systems reviewed and no addt'l complaints, except as documented Hematologic/Lymphatic Hematologic/Lymphatic: Reports systems reviewed and no addt'l complaints, except as documented Physical Exam Const alert, oriented x3 and no apparent distress Neck full ROM Resp normal respiratory effort, normal air movement and no retractions Effort and Inspection: able to speak in complete sentences and symmetric chest movement GI soft to palpation Bladder / Kidney Exam: bladder normal to palpation Uterus Palpation: uterus fundus firm (U1) Extremity normal to inspection and full ROM Psych mental status grossly normal, thought process normal and cooperative Assessment & Plan (1) delivery delivered: COMMENT: RLTCS 39 boy [place] SM PLAN: s/p LTCS PPD # 2 1. routine post care 2. breast/formula feeding- support given 3. rh positive 4. rubella immune 5. Discharge home (2) Anxiety: COMMENT: previously on lexapro; currently not taking anything; stable (3) Rh negative state in antepartum period: COMMENT: rhogam @ 28 weeks Charges/Coding Multi Select Codes Urinary/Genital Urinary/Genital CPT Codes: No Charge
--- NOTE | 2022-09-13 07:52 | DCINST_ITS ---
Discharge Instructions Diet Discharge Diet: No restrictions Activity Discharge Activity: Return to Normal Activity, May Not Drive and May Shower May resume sexual activity in: 6 weeks Dressing / Incision Call your doctor if your incision/area has: Continuous Slow Oozing, Sudden Increased Bleeding, Increased Pain/ Swelling, Increased Redness, Foul Smelling Discharge and Swelling at the incision site Call your doctor if you observe: Fever of 101 or Higher, Coldness, Increased Pain, Change in Color, Inability to urinate, Inability to have a bowel movement, Using more than 1 pad per hour, Shortness of breath, Dizziness, Fainting spells, Chest pain, Calf discomfort and Uncontrolled pain Remove Dressing in: 1 week Follow Up Care Please Follow Up With: Amee Pérez MD When: 2 weeks for incision check 6 weeks visit Test Results: Test results from this visit will be discussed in further detail at your follow- up appointment, if applicable. Discharge Plan Admission Admit Date/Time: 09/11/22 09:55 Primary Reason for Your Visit: of Attending Provider: Amee Pérez Primary Care Provider: Manda Figueroa Instructions Patient Instructions: After a Discharge Orders/Prescriptions Prescriptions: New oxycodone-acetaminophen [Percocet] 5-325 mg tablet 1 tab PO Q6H PRN (Reason: pain) 7 Days Qty: 14 0RF No Action PNV-DHA 27 mg iron-1 mg -300 mg capsule 1 cap PO DAILY Referrals / Follow Up: Manda Figueroa MD [Primary Care Provider] - Disposition Disposition (needs filled in before D/C Order can be placed): Home, Self Care
[2022-09-13 08:22] VITALS: BP 106/70; PULSE 74; RESP 16; TEMP 36.3; O2SAT 97
[2022-09-13] MEDS: oxyCODONE 5 MG Tablet PO ×2 (09:22→13:56)
--- NOTE | 2022-09-13 11:30 | CASEMGMT ---
Social Work Assessment Labor and Delivery Unit Reason for Referral: hx of PP Anxiety History obtained from: medical records, mother of baby (MOB) and father of baby (FOB) Household composition: MOB reports she and FOB own their own home, have one other child Anusha, 2 year old, and pets at home. Patient's parent/guardian status: MOB reports she and FOB have been together since 2015 and since 2018. FOB is actively involved with MOB?s care, NB needs and other child. FOB Is employed at [employer] timekeeper supervisor and will have some time off to assist with NB. MOB reports no concerns with DV, AOD but history of anxiety. FOB prescribed Lexapro for anxiety. ? Medical History: MOB reports this is her second , so MOB now has two children. MOB was engaged in care [facility] beginning around 9 weeks . MOB reports their control abbasi is to use control and condoms but discussing vasectomy. NB is Yoko, born 09/11/22. NB?s ventilated rib fitter will be Dr. Figueroa and MOB plans to use a combination of formula and breast milk in bottles. 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 MOB reports she will be on maternity leave until January of 2023. 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 Supplies: MOB reports having all the supplies needed including a car seat, bassinet in their bedroom, clothes and diapers/wipes. MOB reports NB will transition to their own room after a year old into a crib. Childcare/Caregiver(s): MOB reports she will be home with NB until January of 2023. NB will then transition to a day care where NB's sister attends. FOB explained he will have next week off to assist with NB and then has the ability to stucco worker as needed. MOB explained they also have their parents, siblings and friends who will also assist as needed. Transportation: MOB report they have vehicles, no concerns. ?? Programs/Agencies Involved: ???MOB reports no community agency involvement and declined for referrals. Children Services/Legal Issues: None reported??? Behavioral Health Issues: ??Mental Health History:? 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 MOB explained she discontinued Lexapro during but will likely resume if she resumes her BC as that increases her anxiety. MOB report her PCP MD Figueroa prescribes the Lexapro. MOB denies AOD use or history and reports not being engaged in counseling services. Family/Social Stressors:? No stressors identified. Support Systems: MOB reports she is supported by FOB, their parents, siblings and friends. Depression/Shaken Baby/Safe Sleeping: SW educated MOB on depression/anxiety as well as shaken baby. MOB report NB will be sleeping in a bassinet beside their bed. SW also educated MOB on safe sleep. SW also provided MOB with further information on the topics. MOB report understanding and voice no other needs. SW encouraged MOB to contact OB or PCP if she is concerned with symptoms. MOB voiced understanding and explained FOB will help keep her accountable as he noticed her symptoms after her first . ?? ASSESSMENT:? SW met with MOB and introduced herself and role as [facility] Ergonomic Specialist. MOB in agreement to speak with SW with FOB present. SW utilized open and close ended questions to gather information needed for an assessment. MOB report having supplies needed, identified supports and reports no current community agency involvement. MOB reports history of PPA, was previously prescribed lexapro by her PCP and plans to resume Lexapro if needed. SW educated MOB on safe sleep, shaken baby and PPD/A. SW also provided local resources for [facility]. During assessment, MOB interacted appropriately with , no concerns at this time. MOB declined referrals. TAY updated RN of resources provided, no concerns. PLAN:? ?No other services requested or indicated. Serena Sanchez MSW, MICHELE
[2022-09-13 11:38] VITALS: BP 100/55; PULSE 76; RESP 16; TEMP 36.7; O2SAT 95
[2022-09-13] MEDS: Senna/Docusate Sodium 1 Tablet PO (12:18)
== END 2022-09-13 14:42 | disposition home or self-care (01) | DRG 788 ==
PROVIDERS: Admitting Provider Obstetrics & Gynecology; PCP Family Medicine; Referring Provider Obstetrics & Gynecology; Visit Provider Obstetrics & Gynecology
PROC: 10D00Z1 Extraction of Products of Conception, Low, Open Approach (ICD-10-PCS; CPT 59514; principal; 2022-09-11 11:45)
DX: O34.211 Maternal care for low transverse scar from previous cesarean delivery (principal); F41.9 Anxiety disorder, unspecified; O99.344 Other mental disorders complicating childbirth; Z37.0 Single live birth; Z3A.38 38 weeks gestation of pregnancy
CPT/HCPCS: 59025; 59050; 85025; 85027; 85461; 86780; 86850; 86900; 86901; 99221; 99252; J7120; A4216; G0378; G0463; J2405; J2790

== ENCOUNTER → 2022-10-24 | Outpatient (CLI) | payer OTHER, SELFPAY ==
[2022-11-02 13:07] LABS: HPV APTIMA, High Risk Negative (Negative)
== END | disposition home or self-care (01) ==
LOC: LABSPEC 16:35
PROVIDERS: PCP Family Medicine; Referring Provider Obstetrics & Gynecology; Visit Provider Obstetrics & Gynecology
DX: Z12.4 Encounter for screening for malignant neoplasm of cervix (principal)
CPT/HCPCS: 87624; 88175; G0145

== ENCOUNTER → 2022-11-04 | Outpatient (CLI) | payer OTHER, SELFPAY ==
--- NOTE | 2022-11-04 16:46 | US_ITS ---
STUDY: THYROID ULTRASOUND REASON FOR EXAM: Female, 31 years old. thyromegaly TECHNIQUE: Ultrasound evaluation of the thyroid was performed with real-time and static law-scale imaging. COMPARISON: None. FINDINGS: RIGHT LOBE: The right lobe of the thyroid gland measures 5 x 1.5 x 1.3 cm. There is a heterogeneous echotexture. There are no demonstrated solid, cystic or complex lesions. LEFT LOBE: The left lobe of the thyroid gland measures 5.4 x 1.6 x 1.4 cm. There is a heterogeneous echotexture. Small solid nodule with regular margins measuring 6 x 4 x 3 mm with perinodular vascularity ISTHMUS: The isthmus measures 1.3 mm . The regional lymph nodes are normal. US/Thyroid IMPRESSION: Diffusely heterogeneous thyroid with small solid nodule measuring 6 x 4 x 3 mm likely benign... Six-month follow-up recommended.. Electronically Signed: Zhao Bray MD at 16:32 EDT ,
== END | disposition home or self-care (01) ==
PROVIDERS: PCP Family Medicine; Referring Provider Obstetrics & Gynecology; Visit Provider Obstetrics & Gynecology
DX: E01.0 Iodine-deficiency related diffuse (endemic) goiter (principal)
CPT/HCPCS: 76536

== ENCOUNTER → 2023-01-01 | Outpatient (CLI) | payer OTHER, SELFPAY ==
[2023-01-01 16:02] LABS: Absolute Lymphocyte Count 2.18 X10^3/uL (0.83-4.51); Absolute Neutrophil Count 6.9 X10^3/uL (2.0-7.7); Basophil# 0.05 X10^3/uL; Basophil% 0.5 % (0-1); Eosinophil# 0.18 X10^3/uL; Eosinophils% 1.8 % (0-5); Hematocrit 45.8 % (37-47); Lymphocyte # 2.18 X10^3/ul (0.83-4.51); Lymphocyte % 21.9 % (19-41); Mean Corp Hgb Conc 32.8 g/dL (32-36); Mean Corpuscular Hgb 28.2 pg (27.0-32.0); Mean Corpuscular Volume 86.1 fL (81-99); Mean Platelet Vol. 11.2 fl (6.2-12.0); Monocyte# 0.55 X10^3/uL; Monocyte% 5.5 % (0-10); NRBC Flagged by Analyzer 0 % (0-5); Neutrophil # 6.94 X10^3/uL (2.7-7.7); Neutrophil % 69.8 % (47-70); Platelet Count 330 K/mm3 (150-450); RBC Distribution Width CV 13.6 % (11.6-14.6); RBC Distribution Width SD 41.8 fl (35.1-43.9); Red Blood Count 5.32 M/mm3 (4.2-5.4)
[2023-01-01 16:24] LABS: BNP,B-Type NATRIURETIC PEPTIDE 196.1 pg/mL (0-100)
[2023-01-01 16:27] LABS: Vitamin B12 402 pg/mL (211-911); Vitamin D,25 Hydroxy 27.2 ng/mL
[2023-01-01 16:49] LABS: ALB/GLOB Ratio 1.1 RATIO (0.9-2.4); AST(SGOT) 32 U/L (15-37); Alanine Aminotransfer ALT/SGPT 55 U/L (13-56); Albumin, Serum 3.9 g/dL (3.2-5.0); Alkaline Phosphatase 74 U/L (45-117); Anion Gap 6 (5-15); BUN 12 mg/dL (7-18); Calcium,Total 8.9 mg/dL (8.5-10.1); Chloride 109 mmol/L (98-107); Creatinine, Serum 1.09 mg/dL (0.55-1.02); EST Glomerular Filtration Rate 62 mL/min (>60); Est Glom Filt Rate - Afr Amer 75 mL/min (>60); Ferritin 30 ng/mL (8-252); Globulin 3.4 g/dL (2.2-4.2); Glucose 106 mg/dL (74-106); Iron Binding Capacity,Total 406 ug/dL (250-450); Magnesium 2.2 mg/dL (1.6-2.6); Protein, Total 7.3 g/dL (6.4-8.2); Sodium Level 137 mmol/L (136-145)
[2023-01-05 15:13] LABS: Thyroglobulin Antibody 1.8 IU/mL (0.0-0.9); Thyroid Peroxidase AB 15 IU/mL (0-34)
== END | disposition home or self-care (01) ==
LOC: LAB 15:16
PROVIDERS: Obstetrics & Gynecology; PCP Family Medicine; Referring Provider Nurse Practitioner Family; Visit Provider Nurse Practitioner Family
DX: R00.2 Palpitations (principal); R06.02 Shortness of breath
CPT/HCPCS: 36415; 80053; 82306; 82607; 82728; 83550; 83735; 83880; 85025; 86376; 86800

== ENCOUNTER → 2023-01-06 | Outpatient (CLI) | payer OTHER, SELFPAY ==
[2023-01-06 10:56] LABS: T4 Free Direct 1.11 ng/dL (0.76-1.46); Thyroid Stim Hormone (TSH) 2.16 uIU/mL (0.358-3.74)
== END | disposition home or self-care (01) ==
LOC: LAB 09:51
PROVIDERS: PCP Family Medicine; Referring Provider Nurse Practitioner Women's Health; Visit Provider Nurse Practitioner Women's Health
DX: R06.02 Shortness of breath (principal); R00.2 Palpitations; E01.0 Iodine-deficiency related diffuse (endemic) goiter
CPT/HCPCS: 36415; 84439; 84443

== ENCOUNTER 2023-01-07 14:15 | Emergency (ER) | payer OTHER, SELFPAY ==
[2023-01-07 14:17] VITALS: BP 132/94; PULSE 108; RESP 18; TEMP 36.6; O2SAT 99; BMI 28.2
[2023-01-07 14:48] VITALS: O2SAT 98
--- NOTE | 2023-01-07 15:12 | EDS_ITS ---
HPI History of Present Illness Chief Complaint: Shortness of Breath PFSH PFSH Medical History Acute upper respiratory infection Anxiety delivery delivered Rapid palpitations Raynaud disease Tachycardia Allergy/AdvReac Type Severity Reaction Status Date / Time Penicillins Allergy Hives Verified 01/07/23 14:16 Environmental Allergies: AdvReac Intermediate Hives Verified 01/07/23 14:16 Uncoded Family History Mother Pernicious anemia Breast cancer Grandfather Pernicious anemia Grandmother Breast cancer Surgical History S/P section Schneider teeth extracted Social History adopted: No household members: spouse and children housing: house number of children: 1 current occupational status: employed 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 current occupational exposures/hazards: No pets and animals: Yes (Not managing the litterbox) pets and animals: cat(s) and dog(s) history of recent travel: Yes (- January 03) out of country: Yes sexually active: Yes Smoking Status: Never smoker second hand exposure: No alcohol intake: former details: socially substance use type: does not use well-balanced diet: daily or most days caffeine: No eating out: 1-3 times/week during the past year weight has: remained stable what type of physical activity do you participate in: walking frequency: 1-2 times per week duration: 45-60 minutes/day rachid/yazidism: Druze seatbelt use: always do you feel safe at home: Yes additional social history: - [facility] EXAM Physical Exam Const Vital Signs: 01/07/23 14:17 01/07/23 14:48 01/07/23 18:16 Temperature 97.9 F Temperature Source Temporal Pulse Rate 108 H 85 Respiratory Rate 18 16 Respiratory Effort Short of Breath Blood Pressure 132/94 H 122/77 H Blood Pressure Mean 106 92 Pulse Ox 99 98 Oxygen Delivery Method Room Air Room Air Room Air MDM MDM MDM Narrative Medical decision making narrative: HISTORY OF PRESENT ILLNESS: 32-year-old female here for shortness of breath. States had a 4 months ago. The patient denies recent surgery in the last 4 weeks or immobilization in the last 3 days, denies previous diagnosis of DVT or PE, hemoptysis, unilateral leg swelling or malignancy with treatment the last 6 months. No estrogen use noted. REVIEW OF SYSTEMS: Pertinent positives: Shortness of breath Pertinent negatives: Syncope, hemoptysis PHYSICAL EXAM: Nursing triage notes reviewed, Vital signs reviewed Constitutional: please see [facility] HENT: MMM Eyes: Pupils equal round and reactive to light, Extraocular muscles intact Neck: No stridor, no JVD, full neck ROM Lungs: Clear to auscultation, No wheezing or rales. No increased work of breathing, no conversational dyspnea, no accessory muscle use, no nasal flaring. No respiratory distress noted Heart: Regular rate and rhythm, No murmurs, No rubs and No gallops, 2+ distal pulses (radial, femoral, posterior tibial) in all extremities Abdomen: Soft, there is no tenderness, rigidity, rebound or guarding, no obvious peritoneal signs, no palpable pulsatile abdominal masses, no auscultated abdominal bruit : No CVAT Extremities: No edema Neuro: No focal neurological deficits, cranial nerves II through XII intact, 5/5 strength in all extremities. Intact sensation to light touch in all extremities, 2+ reflexes bilateral patella tendons. Normal gait. No ataxia. Skin: No rash or lesions noted MEDICAL DECISION MAKING: Chief Complaint: Shortness of breath External records reviewed: No significant events found on Holter monitor from 2019 Factors affecting care: 4 months ago Social determinants of health: none History obtained from others: The patient's family Consults: Cardiology, Dr. Cerda ALL IMAGES (IF OBTAINED) HAVE BEEN PERSONALLY REVIEWED AND INTERPRETED BY MYSELF. EKG with normal sinus rhythm, right axis deviation, no S1Q3T3, noted T wave inversions inferiorly, anteriorly and laterally, New axis deviation compared to EKG from 11/09/2019 [facility] Narrative: Patient was initially mildly tachycardic but hemodynamically stable. Patient does not PERC out however she had a low risk Wells score. I considered the following differential diagnosis: PE, ACS, arrhythmia, anemia, electro normality, COVID Patient's initial evaluation was unremarkable for stigmata of VTE. Patient is low risk Wells score. Her only risk factor was elevated heart rate. The patient was very anxious my initial evaluation this is likely anxiety related. Initial EKG showed signs of right heart strain that is new from prior EKG. Her BNP was also elevated concerning for increased myocardial stretch however this is downtrending from prior study. Given her low risk Wells score I performed a restratification study in the form of a D-dimer which was negative making VTE less likely. Troponin is also negative making significantly large pulmonary embolism unlikely. Chest x-ray showed no evidence of pneumonia, heart failure or pulmonary edema. COVID and flu test was negative. I had a shared decision- making discussion about the patient's work-up. I offered a CTA despite negative D-dimer patient initially was okay going home with her low risk of clinically significant PE. I did speak to the patient's social services manager) Dr. Moreno. He recommended CTA given signs of right heart strain on echocardiogram. CTA was obtained and was negative for acute PE. Patient appropriate discharge home with close cardiology follow-up and further outpatient evaluation. The patient and/or family, caregivers express understanding. The patient and/or family, caregivers agrees with the plan. Shared decision making: I will have a discussion with the patient and or visitors regarding risk/benefits of further testing or admission. They will be made aware of of the risk/benefits inherent in this decision they will be given the opportunity to voice understanding. Total critical care time today provided was at least 0 minutes. This excludes separately billable procedures. Critical care time (if documented) is secondary to the patient having high probability of clinically significant/life threatening deterioration in the patient's condition which required my urgent intervention. Lab Data Attestation: I reviewed the patient's lab results. Lab results narrative: CBC with leukocytosis, hemoconcentration suggestive of dehydration, no thrombocytopenia Labs: Laboratory Results - last 24 hr 01/07/23 14:45 WBC 12.8 H RBC 5.48 H Hgb 15.9 H Hct 47.3 H MCV 86.3 MCH 29.0 MCHC 33.6 RDW Std Deviation 40.7 RDW Coeff of Aly 13.2 Plt Count 324 MPV 11.0 Immature Gran % (Auto) 0.800 Neut % (Auto) 78.3 H Lymph % (Auto) 13.8 L [place] % (Auto) 5.6 Eos % (Auto) 1.0 Baso % (Auto) 0.5 Absolute Neuts (auto) 10.0 H Absolute Lymphs (auto) 1.76 Nucleated RBC % 0 D-Dimer Quant (PE/DVT) < 0.27 L Sodium 140 Potassium 3.7 Chloride 109 H Carbon Dioxide 24.0 Anion Gap 7 BUN 12 Creatinine 1.06 H Estim Creat Clear Calc 65.79 Est GFR (MDRD) Af Amer 77 Est GFR (MDRD) Non-Af 64 BUN/Creatinine Ratio 11.3 Glucose 95 Calcium 9.2 Troponin I High Sens 14 B-Natriuretic Peptide 125.7 H Radiography Diagnostic Testing: Clinical Impression(s) from Imaging Studies Chest X-Ray 01/07/23 15:14 IMPRESSION: Normal x-ray examination of the chest. Electronically Signed: Anant Aguiar MD at 15:32 EDT , Chest CTA 01/07/23 18:00 IMPRESSION: Normal CTA chest examination, without a demonstrated pulmonary embolism or arterial dissection. No acute abnormal finding in the chest. Electronically Signed: Herbert Hilliard MD at 18:53 EDT , Discharge Plan Triage Chief Complaint: Shortness of Breath ED Provider: Mauricio Wright Dx/Rx/DC Orders Clinical Impression: Shortness of breath, Palpitations Instructions: ED Dyspnea, ED Palpitations Stand Alone Forms: ED Work / School Excuse Primary Care Provider: Manda Figueroa Referrals: Jamey Moreno MD [Med Staff - Active Staff] - Activity Restrictions/Additional Instructions: Thank you for trusting us with your care today! Please take Tylenol (2 pills, 650 mg), ibuprofen (2 pills, 400 mg) every 6 hours as needed for pain and fever control. Please return to the emergency department if your symptoms change or worsen. Specifically if you lose consciousness, develop worsening chest pain, if you feel your heart beating irregularly, if you are short of breath. Please follow with your social services manager (Dr. Moreno) for further outpatient evaluation and management. Disposition Disposition: Home, Self Care
--- NOTE | 2023-01-07 15:14 | RAD_ITS ---
STUDY: X-RAY CHEST REASON FOR EXAM: Female, 32 years old. Shortness of breath TECHNIQUE: Single AP portable view of the chest. COMPARISON: Comparison is made with prior study November 07, 2020. FINDINGS: The lungs are clear and expanded. There is no demonstrated pleural abnormality. Normal size heart. Stable appearance of the right hilum. Normal visualized pulmonary arteries. Normal visualized aortic arch and descending thoracic aorta. Normal visualized thoracic spine. Normal visualized ribs, clavicles, and shoulders. There is no demonstrated abnormality of the visualized soft tissue structures of the upper abdomen. RAD/Chest 1 View (Portable) IMPRESSION: Normal x-ray examination of the chest. Electronically Signed: Anant Aguiar MD at 15:32 EDT ,
--- NOTE | 2023-01-07 15:30 | EKG12_ITS ---
Test Reason : TACHYCARDIA/SOB Blood Pressure : / mmHG Vent. Rate : 093 BPM Atrial Rate : 093 BPM P-R Int : 176 ms QRS Dur : 064 ms QT Int : 354 ms P-R-T Axes : 046 113 -13 degrees QTc Int : 440 ms Normal sinus rhythm Right axis deviation T wave abnormality, consider inferior ischemia T wave abnormality, consider anterolateral ischemia Abnormal ECG Confirmed by HUSAM COLLIER, JAZMYN ([id number]), assistant editor MALINDA BAPTISTE ([id number]) on 01/09/2023 9:29:24 AM Referred By: Devaughn Cohen Confirmed By:JAZMYN WEINER MD
[2023-01-07 15:36] LABS: Absolute Lymphocyte Count 1.76 X10^3/uL (0.83-4.51); Basophil# 0.07 X10^3/uL; Basophil% 0.5 % (0-1); Eosinophil# 0.13 X10^3/uL; Hematocrit 47.3 % (37-47); Hemoglobin 15.9 g/dL (12.0-15.0); Lymphocyte # 1.76 X10^3/ul (0.83-4.51); Lymphocyte % 13.8 % (19-41); Mean Corp Hgb Conc 33.6 g/dL (32-36); Mean Corpuscular Volume 86.3 fL (81-99); Monocyte# 0.72 X10^3/uL; Monocyte% 5.6 % (0-10); NRBC Flagged by Analyzer 0 % (0-5); Neutrophil # 10.01 X10^3/uL (2.7-7.7); Neutrophil % 78.3 % (47-70); Platelet Count 324 K/mm3 (150-450); RBC Distribution Width CV 13.2 % (11.6-14.6); RBC Distribution Width SD 40.7 fl (35.1-43.9); Red Blood Count 5.48 M/mm3 (4.2-5.4); White Blood Count 12.8 K/mm3 (4.4-11.0)
[2023-01-07 15:57] LABS: Anion Gap 7 (5-15); BUN 12 mg/dL (7-18); BUN/Creat Ratio 11.3 RATIO (10-20); Calcium,Total 9.2 mg/dL (8.5-10.1); Chloride 109 mmol/L (98-107); Creatinine, Serum 1.06 mg/dL (0.55-1.02); EST Glomerular Filtration Rate 64 mL/min (>60); Est Glom Filt Rate - Afr Amer 77 mL/min (>60); Estimated Creatinine Clearance 65.79 ml/min; Glucose 95 mg/dL (74-106); Potassium 3.7 mmol/L (3.5-5.1); Sodium Level 140 mmol/L (136-145); Troponin-I HS 14 pg/mL (3.0-54.0)
[2023-01-07 16:02] LABS: BNP,B-Type NATRIURETIC PEPTIDE 125.7 pg/mL (0-100)
[2023-01-07 16:16] LABS: D-Dimer Quantitative (DVT/PE) < 0.27 FEU/ug/m (0.27-0.49)
--- NOTE | 2023-01-07 18:00 | CT_ITS ---
STUDY: CTA CHEST REASON FOR EXAM: Female, 32 years old. Chest pain RADIATION DOSAGE (If Supplied By Facility): CTDIvol = ( 4.74 ) mGy, DLP = ( 160.87 ) mGycm TECHNIQUE: The examination was performed with the intravenous administration of IV 100mL Isovue-370. Post-processing of the angiographic images was performed, with multiplanar reformation and 3D reconstruction. Individualized dose optimization techniques were used for this CT. COMPARISON: 11/09/2020; 01/07/2023 chest x-ray FINDINGS: Normal enhancement of the main pulmonary artery and right and left pulmonary arteries. Normal enhancement of the bilateral peripheral pulmonary arteries. There is no demonstrated pulmonary embolism. Normal thoracic aorta and visualized great vessels. There is no demonstrated aortic dissection. Normal heart and pericardium. Normal mediastinum. Normal hilar regions. Normal visualized trachea and bronchi. The lungs are well expanded. Normal pulmonary parenchyma. Normal pleura. Normal chest wall structures. Normal thoracic vertebral alignment. No acute abnormal finding in the partially visualized upper abdomen. CT/CTA Chest W/WO Contrast IMPRESSION: Normal CTA chest examination, without a demonstrated pulmonary embolism or arterial dissection. No acute abnormal finding in the chest. Electronically Signed: Herbert Hilliard MD at 18:53 EDT ,
[2023-01-07 18:16] VITALS: BP 122/77; PULSE 85; RESP 16; O2SAT 98
== END 2023-01-07 19:42 | disposition home or self-care (01) ==
PROVIDERS: Emergency Provider Emergency Medicine; PCP Family Medicine; Visit Provider Emergency Medicine
DX: R06.02 Shortness of breath (principal); R00.2 Palpitations
CPT/HCPCS: 71045; 71275; 80048; 83880; 84484; 85025; 85379; 87428; 93005; 99284; Q9967

== ENCOUNTER → 2023-01-07 | Outpatient (CLI) | payer OTHER, SELFPAY ==
--- NOTE | 2023-01-07 12:52 | ECHOD_ITS ---
Reason For Study: SHORTNESS OF BREATH Procedure This was a 2D Doppler, Color Flow transthoracic echocardiogram. The study was technically difficult. Exam performed in department. Left Ventricle Normal LV size. D shaped septum in systole and diastole. Left ventricular systolic function is lower limits of normal. The estimated ejection fraction is 53 %. No regional wall motion abnormalities noted. Right Ventricle Moderately dilated right ventricle. Mild global right ventricular systolic dysfunction. TAPSE is 0.7. The RV free wall longitudinal strain was -12 % . Apical sparing of contractility is noted. Atria Normal left atrium. Normal right atrium. Mitral Valve Normal mitral valve. Tricuspid Valve Normal tricuspid valve. Mild (1+) tricuspid valve insufficiency. Unable to estimate RV systolic pressure due to insufficient tricuspid regurgitant envelope. Aortic Valve Trisinus/trileaflet aortic valve. Pulmonic Valve Normal pulmonic valve. Great Vessels Normal aortic root. The pulmonary artery is normal size. Normal inferior vena cava. Pericardium/Pleural No pericardial effusion. MMode/2D Measurements & Calculations LVIDd: 4.0 cm IVSd: 0.98 cm Ao root diam: 2.7 cm LVIDs: 2.6 cm LVPWd: 0.73 cm RVDd: 3.7 cm FS: 33.6 % LAV(MOD-bp): 17.6 ml LVAd ap4: 20.0 cm2 LVAd ap2: 16.3 cm2 LAV(MOD-bp) Indexed: 9.8 ml/m2 LVLd ap4: 7.0 cm LVLd ap2: 6.7 cm LAV(MOD-sp2): 19.8 ml EDV(MOD-sp4): 48.0 ml EDV(MOD-sp2): 32.5 ml LAV(MOD-sp4): 14.7 ml EDV(sp4-el): 47.9 ml EDV(sp2-el): 33.4 ml LVAs ap4: 12.2 cm2 LVAs ap2: 10.4 cm2 LVLs ap4: 5.9 cm LVLs ap2: 6.5 cm ESV(MOD-sp4): 21.3 ml ESV(MOD-sp2): 14.4 ml ESV(sp4-el): 21.3 ml ESV(sp2-el): 14.3 ml EF(MOD-sp4): 55.6 % EF(MOD-sp2): 55.8 % EF(sp4-el): 55.6 % SV(MOD-sp4): 26.7 ml SV(MOD-sp2): 18.1 ml SV(sp4-el): 26.6 ml LA dimension(2D): 2.5 cm LA A4 area: 8.8 cm2 RA A4 area: 10.4 cm2 TAPSE: 1.8 cm Time Measurements MV dec time: 0.07 sec Doppler Measurements & Calculations MV E max adelso: 50.1 cm/sec Lat Peak E' Adelso: 10.4 cm/sec Med Peak E' Adelso: 8.2 cm/sec MV A max adelso: 68.3 cm/sec E/E' lat: 4.8 E/E' med: 6.1 MV E/A: 0.73 MV dec slope: 720.3 cm/sec2 Ao V2 max: 77.6 cm/sec LV V1 max: 74.0 cm/sec Ao max P.4 mmHg LV V1 max P.2 mmHg PA V2 max: 68.7 cm/sec ECHO/Echo Complete Interpretation Summary Left ventricular systolic function is lower limits of normal. The estimated ejection fraction is 53 %. Normal LV size. D shaped septum in systole and diastole. Apical sparing of contractility is noted Moderately dilated right ventricle. Ordering Physician: Devaughn Cohen Referring Physician: Devaughn Cohen Performed By: Gladys Dennis RDCS
== END | disposition home or self-care (01) ==
LOC: CVS 12:51
PROVIDERS: PCP Family Medicine; Referring Provider Nurse Practitioner Family; Visit Provider Nurse Practitioner Family
DX: R06.02 Shortness of breath (principal)
CPT/HCPCS: 93306

== ENCOUNTER 2023-01-26 18:28 | Emergency (ER) | payer OTHER, SELFPAY ==
[2023-01-26 18:32] VITALS: BP 140/109; PULSE 116; RESP 16; TEMP 36.7; O2SAT 90
--- NOTE | 2023-01-26 18:40 | EKG12_ITS ---
Test Reason : CP Blood Pressure : / mmHG Vent. Rate : 083 BPM Atrial Rate : 083 BPM P-R Int : 184 ms QRS Dur : 078 ms QT Int : 364 ms P-R-T Axes : 054 101 -03 degrees QTc Int : 427 ms Normal sinus rhythm Rightward axis T wave abnormality, consider inferior ischemia T wave abnormality, consider anterior ischemia Abnormal ECG Confirmed by TANGELA ESTES ([id number]), photograph editor SAWYER MORALES ([id number]) on 01/31/2023 9:36:35 AM Referred By: SONJA Confirmed By:TANGELA ESTES
--- NOTE | 2023-01-26 18:42 | EDS_ITS ---
HPI History of Present Illness Chief Complaint: Chest Pain Detail of Chief Complaint: Chest pain pain in this of breath and palpitations Informant: patient Narrative Narrative: Patient presents to the emergency department complaint of palpitations and shortness of breath. Patient states that the palpitations make her cough. She was recently diagnosed with arrhythmogenic right ventricular cardiomyopathy. Patient will be following up with [facility]. She has worn a Holter monitor and states that all her rhythms have been sinus but she has had some tachycardia. Patient was started on Toprol and she called her sensory scientist of jose alfredo and the physician on-call told her to double the Toprol. Patient also states that she recently had a PE study that was negative. Patient had recent echocardiogram. [facility] Medical History (Updated 01/26/23 @ 20:[address] Lillian Chacon DO) Acute upper respiratory infection Anxiety Arrhythmogenic right ventricular cardiomyopathy delivery delivered Rapid palpitations Raynaud disease Tachycardia Home Medications lorazepam 1 mg tablet (Ativan) 1 mg PO TID PRN anxiety #10 tabs 01/26/23 [Rx Last Taken Unknown] metoprolol succinate 25 mg tablet,extended release 24 hr 12.5 mg (1/2 x 25 mg) PO DAILY #90 tabs 01/26/23 [Rx Last Taken Unknown] Allergy/AdvReac Type Severity Reaction Status Date / Time Penicillins Allergy Hives Verified 01/26/23 18:32 Environmental Allergies: AdvReac Intermediate Hives Verified 01/26/23 18:32 Uncoded Family History Mother Pernicious anemia Breast cancer Grandfather Pernicious anemia Grandmother Breast cancer Surgical History S/P section [place] teeth extracted Social History adopted: No household members: spouse and children housing: house number of children: 1 current occupational status: employed 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 current occupational exposures/hazards: No pets and animals: Yes (Not managing the litterbox) pets and animals: cat(s) and dog(s) history of recent travel: Yes (- January 03) out of country: Yes sexually active: Yes Smoking Status: Never smoker second hand exposure: No alcohol intake: former details: socially substance use type: does not use well-balanced diet: daily or most days caffeine: No eating out: 1-3 times/week during the past year weight has: remained stable what type of physical activity do you participate in: walking frequency: 1-2 times per week duration: 45-60 minutes/day rachid/church: [employer] seatbelt use: always do you feel safe at home: Yes additional social history: - [employer] ROS ROS ED Review of Systems ROS Unobtainable: other Constitutional Constitutional ED: Reports lethargy; Denies chills, fever(s), sweats or weight loss Eyes Eyes: Denies blurry vision, change in vision or diplopia ENT ENT ED: Denies rhinorrhea or sore throat Cardiovascular Cardiovascular: Reports chest pain, palpitations and racing heartbeat; Denies orthopnea Respiratory/Chest Respiratory/Chest: Reports dyspnea and dyspnea on exertion; Denies cough, orthopnea or sputum Gastrointestinal Gastrointestinal: Denies abdominal pain, diarrhea, nausea or vomiting Genitourinary Genitourinary ED: Denies dysuria, hematuria or urinary frequency Musculoskeletal Musculoskeletal: Denies arthralgias, back pain, myalgias or neck pain Integumentary Denies abscess, Abrasions or rash Neurologic Neurologic: Denies headache(s) or weakness Psychiatric Psychiatric: Denies anxiety, depression or suicidal thoughts Endocrine Endocrinology: Denies polydipsia, polyphagia or polyuria Hematologic/Lymphatic Hematologic/Lymphatic: Denies easy bleeding, easy bruising or lymphadenopathy Allergic/Immunologic Allergic/Immunologic ED: Denies mouth swelling, tongue swelling or urticaria EXAM Physical Exam Const Vital Signs: 01/26/23 18:32 01/26/23 18:40 Temperature 98.1 F Temperature Source Temporal Pulse Rate 116 H Respiratory Rate 16 Respiratory Effort Normal Blood Pressure 140/109 H Blood Pressure Mean 119 Pulse Ox 90 Oxygen Delivery Method Room Air Positive well nourished and well developed General Appearance ED: well developed and NAD HEENT Reports TM's clear and moist mucous membranes normocephalic and atraumatic; Negative for trauma or tenderness Tympanic Membrane ED: Yes TM's clear Eyes PERRL and EOMs intact bilaterally General Eye ED: Negative for pale conjunctiva or scleral icterus Neck no lymphadenopathy, supple and no JVD General: Negative for tenderness Chest Wall inspection of chest normal and palpation of chest normal Chest: Negative for tenderness Resp normal respiratory effort and clear to auscultation bilaterally Effort and Inspection: Negative for respiratory distress or pain with movement Auscultation: Negative for rhonchi, wheezes or diminished lung sounds Cardio regular rate, regular rhythm, S1 normal heart sound, S2 normal heart sound and no murmurs Peripheral Pulses: pulses 2+ throughout GI normal to inspection, nondistended, normoactive bowel sounds, soft to palpation, non-tender, non-distended and no masses Back/Spine no CVA tenderness and no thoracic nor lumbar tenderness Extremity normal to inspection General Extremety ED: Negative for edema General Extremity: Negative for edema Neuro oriented x3, CN's II-XII intact bilaterally, no sensory deficits noted and gait normal Sensorium / Orientation: awake, alert, oriented to person, oriented to place and oriented to time Motor Exam: strength 5/5 throughout and strength abnormal Psych mental status grossly normal Skin no rashes or lesions noted and no wounds MDM MDM MDM Narrative Medical decision making narrative: Patient presents with palpitations and dyspnea with significant work-up recently including echo and CTA of the chest. In the differential would be PVCs or PACs or acute coronary syndrome versus anxiety. Patient had an IV line established. She was placed on a wildlife conservation officer. EKG obtained showed sinus rhythm with a rate of 83 bpm with nonspecific T wave inversions inferiorly and anteriorly which appear to be chronic. CBC with differential showed a white count of 12 with hemoglobin of 15 and platelet count 275. Chemistries unremarkable. Troponin was normal at 7. Magnesium was normal. I did review her recent testing including CTA of the chest which was negative for PE. I do not feel any further testing is indicated as she has no real risk factors. Patient also had an echo that showed a dilated right ventricle with a normal EF of 53%. Patient case was discussed with sensory scientist on-call who recommended patient take her metoprolol and divided doses of 12.5 mg twice a day versus taking the 25 mg once a day. Patient also does have history of anxiety and I will write her prescription for some Ativan as she feels that this may be contributing to her symptomatology. Clinically patient looks well. I feel she can be safely discharged to home. Lab Data Attestation: I reviewed the patient's lab results. Labs: Laboratory Results - last 24 hr 01/26/23 18:51 WBC 12.0 H RBC 5.28 Hgb 15.4 H Hct 45.4 MCV 86.0 MCH 29.2 MCHC 33.9 RDW Std Deviation 39.7 RDW Coeff of Aly 12.9 Plt Count 275 MPV 10.9 Immature Gran % (Auto) 0.400 Neut % (Auto) 66.1 Lymph % (Auto) 24.0 [place] % (Auto) 7.2 Eos % (Auto) 1.9 Baso % (Auto) 0.4 Absolute Neuts (auto) 8.0 H Absolute Lymphs (auto) 2.89 Nucleated RBC % 0 Sodium 138 Potassium 3.6 Chloride 108 H Carbon Dioxide 23.0 Anion Gap 7 BUN 14 Creatinine 1.06 H Est GFR (MDRD) Af Amer 77 Est GFR (MDRD) Non-Af 64 BUN/Creatinine Ratio 13.2 Glucose 92 Calcium 9.1 Magnesium 2.2 Troponin I High Sens 7 EKG Initial EKG: Attestation: I personally reviewed and interpreted this EKG as follows: Comments: Sinus rhythm with a rate of [address] changes Prior EKG tracings: available for review Prior: Unchanged Discharge Plan Triage Chief Complaint: Chest Pain ED Provider: Lillian Chacon Dx/Rx/DC Orders Clinical Impression: Chest pain, Anxiety, Palpitations Instructions: ED Anxiety Reaction, ED Chest Pain, Uncertain Cause, ED Palpitations Prescriptions: New lorazepam [Ativan] 1 mg tablet 1 mg PO TID PRN (Reason: anxiety) Qty: 10 0RF No Action metoprolol succinate 25 mg tablet extended release 24 hr 12.5 mg PO DAILY Qty: 90 3RF Primary Care Provider: Manda Figueroa Referrals: Manda Figueroa MD [Primary Care Provider] - 3-5 Days Activity Restrictions/Additional Instructions: Take your metoprolol in 2 divided doses of 12.5 mg twice a day. Take the Ativan as needed. Disposition Disposition: Home, Self Care
[2023-01-26 19:04] LABS: Absolute Lymphocyte Count 2.89 X10^3/uL (0.83-4.51); Basophil# 0.05 X10^3/uL; Basophil% 0.4 % (0-1); Eosinophil# 0.23 X10^3/uL; Eosinophils% 1.9 % (0-5); Hematocrit 45.4 % (37-47); Hemoglobin 15.4 g/dL (12.0-15.0); Lymphocyte # 2.89 X10^3/ul (0.83-4.51); Mean Corp Hgb Conc 33.9 g/dL (32-36); Mean Corpuscular Hgb 29.2 pg (27.0-32.0); Mean Platelet Vol. 10.9 fl (6.2-12.0); Monocyte# 0.87 X10^3/uL; Monocyte% 7.2 % (0-10); NRBC Flagged by Analyzer 0 % (0-5); Neutrophil # 7.95 X10^3/uL (2.7-7.7); Neutrophil % 66.1 % (47-70); Platelet Count 275 K/mm3 (150-450); RBC Distribution Width CV 12.9 % (11.6-14.6); RBC Distribution Width SD 39.7 fl (35.1-43.9); Red Blood Count 5.28 M/mm3 (4.2-5.4)
[2023-01-26] MEDS: 0.9% Normal Saline 1,000 ML 150 ML IV (19:10)
[2023-01-26 19:28] LABS: Anion Gap 7 (5-15); BUN 14 mg/dL (7-18); BUN/Creat Ratio 13.2 RATIO (10-20); Calcium,Total 9.1 mg/dL (8.5-10.1); Chloride 108 mmol/L (98-107); Creatinine, Serum 1.06 mg/dL (0.55-1.02); EST Glomerular Filtration Rate 64 mL/min (>60); Est Glom Filt Rate - Afr Amer 77 mL/min (>60); Glucose 92 mg/dL (74-106); Magnesium 2.2 mg/dL (1.6-2.6); Potassium 3.6 mmol/L (3.5-5.1); Sodium Level 138 mmol/L (136-145); Troponin-I HS 7 pg/mL (3.0-54.0)
[2023-01-26 20:30] VITALS: BP 107/62; PULSE 71; RESP 16; O2SAT 98
== END 2023-01-26 20:32 | disposition home or self-care (01) ==
PROVIDERS: Emergency Provider Emergency Medicine; PCP Family Medicine; Visit Provider Emergency Medicine
DX: R07.9 Chest pain, unspecified (principal); F41.9 Anxiety disorder, unspecified; R06.02 Shortness of breath; Z79.899 Other long term (current) drug therapy
CPT/HCPCS: 80048; 83735; 84484; 85025; 93005; 96360; 99284; J7030

== ENCOUNTER → 2023-04-02 | Outpatient (CLI) | payer OTHER, SELFPAY ==
[2023-04-02 15:59] LABS: BNP,B-Type NATRIURETIC PEPTIDE 491.5 pg/mL (0-100)
[2023-04-02 16:22] LABS: Anion Gap 7 (5-15); BUN 18 mg/dL (7-18); BUN/Creat Ratio 16.8 RATIO (10-20); Calcium,Total 8.8 mg/dL (8.5-10.1); Chloride 111 mmol/L (98-107); Creatinine, Serum 1.07 mg/dL (0.55-1.02); EST Glomerular Filtration Rate 63 mL/min (>60); Est Glom Filt Rate - Afr Amer 76 mL/min (>60); Glucose 100 mg/dL (74-106); Potassium 3.6 mmol/L (3.5-5.1); Sodium Level 139 mmol/L (136-145)
== END | disposition home or self-care (01) ==
LOC: LAB 15:18
PROVIDERS: PCP Family Medicine; Referring Provider Nurse Practitioner Family; Visit Provider Nurse Practitioner Family
DX: R06.02 Shortness of breath (principal)
CPT/HCPCS: 36415; 80048; 83880

== ENCOUNTER → 2023-04-07 | Outpatient (CLI) | payer OTHER, SELFPAY ==
[2023-04-07 17:05] LABS: Anion Gap 6 (5-15); BUN 15 mg/dL (7-18); BUN/Creat Ratio 13.6 RATIO (10-20); Calcium,Total 8.8 mg/dL (8.5-10.1); Chloride 104 mmol/L (98-107); EST Glomerular Filtration Rate 61 mL/min (>60); Est Glom Filt Rate - Afr Amer 74 mL/min (>60); Glucose 132 mg/dL (74-106); Potassium 3.4 mmol/L (3.5-5.1); Sodium Level 137 mmol/L (136-145)
== END | disposition home or self-care (01) ==
LOC: LAB 15:07
PROVIDERS: PCP Family Medicine; Referring Provider Nurse Practitioner Family; Visit Provider Nurse Practitioner Family
DX: R06.02 Shortness of breath (principal)
CPT/HCPCS: 36415; 80048

== ENCOUNTER 2023-05-11 17:42 | Emergency (ER) | payer OTHER, SELFPAY ==
[2023-05-11 17:43] VITALS: BP 102/83; PULSE 94; RESP 18; TEMP 37; O2SAT 97; BMI 26.4
--- NOTE | 2023-05-11 17:47 | EKG12_ITS ---
Test Reason : SOB Blood Pressure : / mmHG Vent. Rate : 098 BPM Atrial Rate : 098 BPM P-R Int : 188 ms QRS Dur : 074 ms QT Int : 380 ms P-R-T Axes : 053 125 058 degrees QTc Int : 485 ms Normal sinus rhythm Possible Left atrial enlargement Right axis deviation Pulmonary disease pattern Right ventricular hypertrophy with repolarization abnormality Septal infarct , age undetermined Abnormal ECG Confirmed by HUSAM COLLIER, JAZMYN ([id number]), editorial clerk MALINDA BAPTISTE ([id number]) on 05/12/2023 7:54:30 AM Referred By: Job/amanda Confirmed By:JAZMYN WEINER MD
--- NOTE | 2023-05-11 18:39 | EDS_ITS ---
HPI History of Present Illness Chief Complaint: Shortness of Breath Informant: patient Onset/Context/Timing Onset: Month(s) Context: gradual Timing: Intermittent Quality: Positive for Dyspnea on exertion Current Severity: Mild Maximum Severity: Moderate Worsened by: Exertion Relieved by: Rest Associated Symptoms Chest Pain: Positive for None Narrative Narrative: 32-year-old female history of ARVD which is a form of cardiomyopathy. She has right-sided EF around 35% left side 60%. She is been short of breath last several months worse with exertion. She is currently on Lasix and spironolacto ne which she does not believe are helping. She denies any swelling of her legs. She denies any nausea, vomiting or diarrhea. No melena. No dysuria. She did have a low-grade fever recently and her daughter had URI symptoms. No significant cough. No prior DVT or PE. No risk factors. No leg swelling or calf pain. PE Risk Factors: Negative for Cancer, OCP + Smoking + > 35, Prior DVT or PE, Recent immobilization, Recent surgery or Recent travel Prior similar symptoms: Yes Recent Illness/Hospitalization: No PFSH PFS Medical History Acute upper respiratory infection Anxiety Arrhythmogenic right ventricular cardiomyopathy delivery delivered Rapid palpitations Raynaud disease Tachycardia Home Medications lorazepam 1 mg tablet (Ativan) 1 mg PO TID PRN anxiety #10 tabs 01/26/23 [Rx Last Taken Unknown] furosemide 40 mg tablet (Lasix) 40 mg PO DAILY PRN edema #30 tabs 04/22/23 [Rx Last Taken Unknown] metoprolol succinate 25 mg tablet,extended release 24 hr 12.5 mg (1/2 x 25 mg) PO DAILY #90 tabs 04/27/23 [Rx Last Taken Unknown] spironolactone 25 mg tablet 25 mg PO Q12H 05/11/23 [History Last Taken Unknown] Allergy/AdvReac Type Severity Reaction Status Date / Time Penicillins Allergy Hives Verified 05/11/23 17:43 Environmental Allergies: AdvReac Intermediate Hives Verified 05/11/23 17:43 Uncoded Family History Mother Pernicious anemia Breast cancer Grandfather Pernicious anemia Grandmother Breast cancer Surgical History S/P section [place] teeth extracted Social History adopted: No household members: spouse and children housing: house number of children: 1 current occupational status: employed 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 current occupational exposures/hazards: No pets and animals: Yes (Not managing the litterbox) pets and animals: cat(s) and dog(s) history of recent travel: Yes (- January 03) out of country: Yes sexually active: Yes Smoking Status: Never smoker second hand exposure: No alcohol intake: former details: socially substance use type: does not use well-balanced diet: daily or most days caffeine: No eating out: 1-3 times/week during the past year weight has: remained stable what type of physical activity do you participate in: walking frequency: 1-2 times per week duration: 45-60 minutes/day rachid/sabianist: Mormonism seatbelt use: always do you feel safe at home: Yes additional social history: - [employer] ROS ROS ED ROS Narrative Shortness of breath primarily with exertion. Review of Systems ROS Unobtainable: Denies due to encephalopathy Constitutional Constitutional ED: Reports fever(s); Denies chills Eyes Eyes: Denies blurry vision ENT ENT ED: Denies ear pain Cardiovascular Cardiovascular: Denies chest pain or palpitations Respiratory/Chest Respiratory/Chest: Reports dyspnea and dyspnea on exertion; Denies cough Gastrointestinal Gastrointestinal: Denies abdominal pain Genitourinary Genitourinary ED: Denies dysuria or hematuria Musculoskeletal Musculoskeletal: Denies arthralgias Integumentary Denies abscess or Abrasions Neurologic Neurologic: Denies headache(s) Psychiatric Psychiatric: Denies anxiety Endocrine Endocrinology: Denies cold intolerance Hematologic/Lymphatic Hematologic/Lymphatic: Denies easy bleeding, easy bruising or lymphadenopathy Allergic/Immunologic Allergic/Immunologic ED: Denies mouth swelling, tongue swelling or urticaria EXAM Physical Exam Narrative Exam Narrative: Well-appearing 32-year-old female. Vital signs stable afebrile. Pulse ox is 97% on room air no signs hypoxia. H EENT exam unremarkable. Neck nontender no JVD. Lungs clear to auscultation bilateral. Heart regular rhythm rate about 95 no murmur. Chest wall nontender. Abdomen soft nontender. Moving all 4 extremities. Nontender no edema. No cords. Neurologically she is awake and alert with no focal motor deficits. Const Vital Signs: 05/11/23 17:43 05/11/23 18:41 05/11/23 20:19 Temperature 98.6 F Temperature Source Temporal Pulse Rate 94 Respiratory Rate 18 16 Respiratory Effort Short of Breath Blood Pressure 102/83 H Blood Pressure Mean 89 Pulse Ox 97 Oxygen Delivery Method Room Air 05/11/23 23:00 Temperature Temperature Source Pulse Rate 90 Respiratory Rate 18 Respiratory Effort Blood Pressure Blood Pressure Mean Pulse Ox 97 Oxygen Delivery Method Room Air Positive well nourished and well developed; Negative for obese, cachectic, contractures or unkempt General Appearance ED: well developed and NAD; Negative for unkempt, cachectic, contractures or pallor Nutritional Appearance: Negative for cachectic or obese HEENT Reports moist mucous membranes; Denies dry mucous membranes atraumatic; Negative for trauma or tenderness Mouth ED: No dry mucous membranes Mouth: No dry mucous membranes Eyes PERRL and EOMs intact bilaterally General Eye ED: Negative for pale conjunctiva, scleral icterus or other Neck no lymphadenopathy, supple, no meningeal signs and no JVD General: Negative for tenderness Lymph Lymphatic: Negative for other Chest Wall Chest: Negative for other Resp normal respiratory effort and clear to auscultation bilaterally Effort and Inspection: Negative for pain with movement Auscultation: Negative for rales, rhonchi or wheezes Cardio regular rate, regular rhythm, S1 normal heart sound, S2 normal heart sound and no murmurs Rate: Negative for bradycardia or tachycardic Rhythm: Negative for abnormal rhythm GI non-tender, non-distended and no masses Inspection: Negative for other Auscultation: normoactive bowel sounds Palpation: soft; Negative for tender or guarding Back/Spine no CVA tenderness and normal to inspection General Back: Negative for CVA tenderness or tenderness Extremity General Extremety ED: Negative for edema or tenderness General Extremity: Negative for edema Neuro oriented x3 and CN's II-XII intact bilaterally Sensorium / Orientation: alert, oriented to person, oriented to place and oriented to time; Negative for orientation impaired, confused, lethargic or stuporous Speech: speech normal Gait (Neuro): Negative for normal gait Sensory Exam: sensory level loss detected Motor Exam: strength 5/5 throughout Psych mental status grossly normal Appearance: Negative for unkempt Attitude: No agitated Mood & Affect: Negative for depressed, anxious or tearful Thought Process: normal thought process Skin no wounds and skin turgor normal General Skin Exam: Negative for jaundice or pallor Lesions: no lesions Rashes: no rashes Trauma: Negative for abrasion or laceration MDM MDM MDM Narrative Medical decision making narrative: 32-year-old female with a known cardiomyopathy with exertional dyspnea. Exam is normal. There is no edema. She will undergo cardiac workup. Repeat exam patient is doing well at 11:25 PM. I did speak to her economic development coordinator Dr. Jamey Moreno. Working to increase her Lasix to 80 mg a day from her current 40 mg a day. She has appointment at the cardiology office in 2 days on Thursday. Both she and her mom are comfortable with the plan. I did instruct her to check her blood pressure while she is on increased Lasix so it does not drop her blood pressure too much. History & Record Review Discussion w/independent historian: Patient Additional record(s) reviewed:: Prior inpatient record, Prior outpatient record, Prior ED visit and Prior labs Lab Data Attestation: I reviewed the patient's lab results. Lab results narrative: CBC shows a white count of 9.8. H&H is 17 and 49. Platelets 278. Chemistries show potassium of 3.3. Gap 7. BUN and creatinine are 13 and 1.3. Glucose 108. Troponin normal at 43. BNP elevated 881. Rapid COVID test negative. Labs: Laboratory Results - last 24 hr 05/11/23 18:30 WBC 9.8 RBC 5.71 H Hgb 17.0 H Hct 49.9 H MCV 87.4 MCH 29.8 MCHC 34.1 RDW Std Deviation 42.6 RDW Coeff of Aly 13.4 Plt Count 278 MPV 11.1 Immature Gran % (Auto) 0.400 Neut % (Auto) 72.8 H Lymph % (Auto) 20.7 [place] % (Auto) 4.9 Eos % (Auto) 0.9 Baso % (Auto) 0.3 Absolute Neuts (auto) 7.1 Absolute Lymphs (auto) 2.02 Nucleated RBC % 0 Sodium 139 Potassium 3.3 L Chloride 107 Carbon Dioxide 25.0 Anion Gap 7 BUN 13 Creatinine 1.31 H Estim Creat Clear Calc 53.24 Est GFR (MDRD) Af Amer 60 Est GFR (MDRD) Non-Af 50 L BUN/Creatinine Ratio 9.9 L Glucose 108 H Calcium 8.3 L Troponin I High Sens 43 B-Natriuretic Peptide 881.4 H Radiography Chest X-Ray - ED: 1 View, Read by ED Physician, Heart, Lungs, Mediastinum, Bony Structures and No Acute Disease Diagnostic Testing: Clinical Impression(s) from Imaging Studies Chest X-Ray 05/11/23 22:10 IMPRESSION: Normal x-ray examination of the chest. Electronically Signed: Christopher Park MD at 22:47 EST , Chest x-ray, portable, single view, interpreted by myself shows Rhythm Strip Rhythm Strip: Sinus Rhythm Rate: 98 Ectopy: None EKG Initial EKG: Attestation: I personally reviewed and interpreted this EKG as follows: Interpretation: Sinus Rhythm and No Acute Injury Pattern Comments: Normal sinus rhythm rate of [address] elevation. Patient does have diffuse inverted T waves in leads II, III, aVF and also V1 through 4. This was seen on prior EKG from January of this year. Is unchanged. Prior EKG tracings: available for review Prior: Unchanged Discharge Plan Triage Chief Complaint: Shortness of Breath ED Provider: Bob Ward Dx/Rx/DC Orders Clinical Impression: Shortness of breath, Arrhythmogenic right ventricular cardiomyopathy Instructions: ED Dyspnea Prescriptions: No Action lorazepam [Ativan] 1 mg tablet 1 mg PO TID PRN (Reason: anxiety) Qty: 10 0RF spironolactone 25 mg tablet 25 mg PO Q12H furosemide [Lasix] 40 mg tablet 40 mg PO DAILY PRN (Reason: edema) Qty: 30 0RF Hold Instructions: CHECK WITH PCP metoprolol succinate 25 mg tablet extended release 24 hr 12.5 mg PO DAILY Qty: 90 3RF Hold Instructions: SOB- 03/02/2023 Primary Care Provider: Manda Figueroa Referrals: Manda Figueroa MD [Primary Care Provider] - Jamey Moreno MD [Med Staff - Active Staff] - 2 Days Activity Restrictions/Additional Instructions: Keep your scheduled appointment on Thursday with Dr. Ding's office. Starting tomorrow, May 12 increase your Lasix to 80 mg either once a day or 40 mg twice a day. Check your blood pressure to make sure it is not dropping below 100 if it is drink more fluids and go back to your normal Lasix dose. Disposition Disposition: Home, Self Care
[2023-05-11 18:42] LABS: Absolute Lymphocyte Count 2.02 X10^3/uL (0.83-4.51); Absolute Neutrophil Count 7.1 X10^3/uL (2.0-7.7); Basophil# 0.03 X10^3/uL; Basophil% 0.3 % (0-1); Eosinophil# 0.09 X10^3/uL; Eosinophils% 0.9 % (0-5); Hematocrit 49.9 % (37-47); Lymphocyte # 2.02 X10^3/ul (0.83-4.51); Lymphocyte % 20.7 % (19-41); Mean Corp Hgb Conc 34.1 g/dL (32-36); Mean Corpuscular Hgb 29.8 pg (27.0-32.0); Mean Corpuscular Volume 87.4 fL (81-99); Mean Platelet Vol. 11.1 fl (6.2-12.0); Monocyte# 0.48 X10^3/uL; Monocyte% 4.9 % (0-10); NRBC Flagged by Analyzer 0 % (0-5); Neutrophil # 7.12 X10^3/uL (2.7-7.7); Neutrophil % 72.8 % (47-70); Platelet Count 278 K/mm3 (150-450); RBC Distribution Width CV 13.4 % (11.6-14.6); RBC Distribution Width SD 42.6 fl (35.1-43.9); Red Blood Count 5.71 M/mm3 (4.2-5.4); White Blood Count 9.8 K/mm3 (4.4-11.0)
[2023-05-11 18:58] LABS: Anion Gap 7 (5-15); BUN 13 mg/dL (7-18); BUN/Creat Ratio 9.9 RATIO (10-20); Calcium,Total 8.3 mg/dL (8.5-10.1); Chloride 107 mmol/L (98-107); Creatinine, Serum 1.31 mg/dL (0.55-1.02); EST Glomerular Filtration Rate 50 mL/min (>60); Est Glom Filt Rate - Afr Amer 60 mL/min (>60); Estimated Creatinine Clearance 53.24 ml/min; Glucose 108 mg/dL (74-106); Potassium 3.3 mmol/L (3.5-5.1); Sodium Level 139 mmol/L (136-145)
[2023-05-11 19:01] LABS: BNP,B-Type NATRIURETIC PEPTIDE 881.4 pg/mL (0-100)
[2023-05-11 19:05] LABS: Troponin-I HS 43 pg/mL (3.0-54.0)
[2023-05-11 20:19] VITALS: RESP 16
[2023-05-11] MEDS: Ondansetron 4 MG/2 ML Vial IV (21:44)
--- NOTE | 2023-05-11 22:10 | RAD_ITS ---
STUDY: X-RAY CHEST REASON FOR EXAM: Female, 32 years old. dyspnea TECHNIQUE: Single AP portable view of the chest. COMPARISON: 01/07/2023 FINDINGS: The lungs are clear and expanded. There is no demonstrated pleural abnormality. Normal size heart. Normal mediastinum and nathalia. Normal visualized pulmonary arteries. Normal visualized aortic arch and descending thoracic aorta. Normal visualized thoracic spine. Normal visualized ribs, clavicles, and shoulders. There is no demonstrated abnormality of the visualized soft tissue structures of the upper abdomen. RAD/Chest 1 View (Portable) IMPRESSION: Normal x-ray examination of the chest. Electronically Signed: Christopher Park MD at 22:47 EST ,
[2023-05-11 23:00] VITALS: PULSE 90; RESP 18; O2SAT 97
== END 2023-05-11 23:34 | disposition home or self-care (01) ==
PROVIDERS: Emergency Provider Emergency Medicine; PCP Family Medicine; Visit Provider Emergency Medicine
DX: R06.02 Shortness of breath (principal); I42.9 Cardiomyopathy, unspecified; Z79.899 Other long term (current) drug therapy
CPT/HCPCS: 71045; 80048; 83880; 84484; 85025; 87811; 93005; 96374; 99283; A4216; J2405

== ENCOUNTER → 2023-05-11 | Outpatient (CLI) | payer OTHER, SELFPAY ==
--- NOTE | 2023-05-11 17:04 | US_ITS ---
INDICATION: thyroid nodule EXAMINATION: Ultrasound US Thyroid (eg thyroid, parathyroid, parotid) TECHNIQUE: Wylie scale and color doppler imaging was performed of the thyroid gland. COMPARISON: November 04, 2022 FINDINGS: RIGHT THYROID LOBE: 4.8 x 1.4 x 1.6 cm. Heterogeneous echotexture with normal vascularity. [No thyroid nodules are present. LEFT THYROID LOBE: 4.5 x 1.7 x 1.4 cm. Heterogeneous echotexture with normal vascularity. [There is a 5 x 4 x 3 mm relatively stable hypoechoic nodule. ISTHMUS: 1.4 mm. No thyroid nodules are present. US/Thyroid IMPRESSION: Relatively stable left thyroid nodule. Electronically Signed: Maikel Dimas DO at 16:01 EST ,
== END | disposition home or self-care (01) ==
PROVIDERS: PCP Family Medicine; Visit Provider Nurse Practitioner Women's Health
DX: E04.1 Nontoxic single thyroid nodule (principal)
CPT/HCPCS: 76536

== ENCOUNTER → 2023-05-13 | Outpatient (CLI) | payer OTHER, SELFPAY ==
[2023-05-13 17:36] LABS: Absolute Lymphocyte Count 3.02 X10^3/uL (0.83-4.51); Absolute Neutrophil Count 11.2 X10^3/uL (2.0-7.7); Basophil# 0.02 X10^3/uL; Basophil% 0.1 % (0-1); Eosinophil# 0.09 X10^3/uL; Eosinophils% 0.6 % (0-5); Hematocrit 50.2 % (37-47); Hemoglobin 16.9 g/dL (12.0-15.0); Lymphocyte # 3.02 X10^3/ul (0.83-4.51); Lymphocyte % 19.7 % (19-41); Mean Corp Hgb Conc 33.7 g/dL (32-36); Mean Corpuscular Hgb 29.3 pg (27.0-32.0); Mean Platelet Vol. 11.3 fl (6.2-12.0); Monocyte# 0.92 X10^3/uL; NRBC Flagged by Analyzer 0 % (0-5); Neutrophil # 11.23 X10^3/uL (2.7-7.7); Neutrophil % 73.2 % (47-70); Platelet Count 289 K/mm3 (150-450); RBC Distribution Width CV 13.5 % (11.6-14.6); RBC Distribution Width SD 42.1 fl (35.1-43.9); Red Blood Count 5.77 M/mm3 (4.2-5.4); White Blood Count 15.3 K/mm3 (4.4-11.0)
[2023-05-13 18:05] LABS: BNP,B-Type NATRIURETIC PEPTIDE 1184.1 pg/mL (0-100)
[2023-05-13 18:35] LABS: ALB/GLOB Ratio 1.2 RATIO (0.9-2.4); AST(SGOT) 62 U/L (15-37); Alanine Aminotransfer ALT/SGPT 102 U/L (13-56); Albumin, Serum 4.1 g/dL (3.2-5.0); Alkaline Phosphatase 88 U/L (45-117); Amylase 38 U/L (25-115); Anion Gap 12 (5-15); BUN 16 mg/dL (7-18); BUN/Creat Ratio 10.7 RATIO (10-20); CRP, High Sensitivity Cardiac 4.63 mg/L; Calcium,Total 8.9 mg/dL (8.5-10.1); Chloride 103 mmol/L (98-107); Creatinine, Serum 1.49 mg/dL (0.55-1.02); EST Glomerular Filtration Rate 43 mL/min (>60); Est Glom Filt Rate - Afr Amer 52 mL/min (>60); Ferritin 47 ng/mL (8-252); Globulin 3.3 g/dL (2.2-4.2); Glucose 120 mg/dL (74-106); Iron 126 ug/dL (50-170); Iron Binding Capacity,Total 414 ug/dL (250-450); Lipase 64 U/L (13-75); Magnesium 2.3 mg/dL (1.6-2.6); PERCENT IRON SATURATION 30.4 % (15.0-55.0); Potassium 3.6 mmol/L (3.5-5.1); Protein, Total 7.4 g/dL (6.4-8.2); Sodium Level 137 mmol/L (136-145); T4 Free Direct 1.36 ng/dL (0.76-1.46); Thyroid Stim Hormone (TSH) 4.59 uIU/mL (0.358-3.74)
[2023-05-17 15:11] LABS: Anti-Nuclear Antibody Test Positive (.)
[2023-05-28 00:07] LABS: Anti-Thyroglobulin AB 2.9 IU/mL (0.0-0.9); Intrinsic Factor Ab 0.9 AU/mL (0.0-1.1); Thyroglobulin RIA 4.2 ng/mL (.)
== END | disposition home or self-care (01) ==
LOC: LAB 17:22
PROVIDERS: PCP Family Medicine; Visit Provider Nurse Practitioner Family
DX: R06.02 Shortness of breath (principal); I42.8 Other cardiomyopathies; R00.2 Palpitations; E01.0 Iodine-deficiency related diffuse (endemic) goiter
CPT/HCPCS: 36415; 80053; 82150; 82728; 83516; 83540; 83550; 83690; 83735; 83880; 84432; 84439; 84443; 84481; 85025; 86038; 86141; 86340; 86800

== ENCOUNTER → 2023-05-18 | Outpatient (CLI) | payer OTHER, SELFPAY ==
--- NOTE | 2023-05-18 11:57 | ECHOD_ITS ---
Version 2 Reason For Study: CM Procedure This was a 2D Doppler, Color Flow transthoracic echocardiogram. Myocardial strain analysis was performed in this exam to aid in the assessment of cardiac function. Exam performed in department. Left Ventricle Normal LV size. D shaped septum in systole and diastole. Left ventricular systolic function is lower limits of normal. The estimated ejection fraction is 50 %. Stage 1 diastolic dysfunction. No regional wall motion abnormalities noted. Right Ventricle Severely dilated right ventricle. Moderately severe global right ventricular systolic dysfunction. Atria Normal left atrium. Normal right atrium. Tricuspid Valve Normal tricuspid valve. Moderately severe (3+) tricuspid valve insufficiency. Pulmonary artery systolic pressure is 90 mmHg. Severe pulmonary hypertension. Pulmonic Valve Normal pulmonic valve. Great Vessels Normal aortic root. The pulmonary artery is normal size. Inferior vena cava collapse with sniff. Pericardium/Pleural Smal to moderate pericardial effusion. There are no echocardiographic indications of cardiac tamponade. MMode/2D Measurements & Calculations LVIDd: 2.9 cm IVSd: 1.0 cm Ao root diam: 2.5 cm LVIDs: 1.6 cm LVPWd: 1.0 cm RVDd: 4.3 cm FS: 43.2 % LAV(MOD-bp): 12.8 ml LA dimension(2D): 3.6 cm LA A4 area: 6.4 cm2 LAV(MOD-bp) Indexed: 7.4 ml/m2 LAV(MOD-sp2): 18.9 ml LAV(MOD-sp4): 7.4 ml RA A4 area: 13.7 cm2 Doppler Measurements & Calculations MV E max adelso: 66.8 cm/sec Lat Peak E' Adelso: 6.4 cm/sec Med Peak E' Adelso: 4.2 cm/sec MV A max adelso: 107.9 cm/sec E/E' lat: 10.4 E/E' med: 15.9 MV E/A: 0.62 Ao V2 max: 87.5 cm/sec LV V1 max: 73.2 cm/sec PA V2 max: 50.6 cm/sec Ao max P.1 mmHg LV V1 max P.1 mmHg Ao V2 mean: 63.9 cm/sec LV V1 mean P.2 mmHg Ao mean P.8 mmHg LV V1 mean: 52.6 cm/sec Ao V2 VTI: 12.9 cm LV V1 VTI: 11.0 cm AV (velocity ratio): 0.85 TR max adelso: 456.4 cm/sec TR max P.3 mmHg ECHO/Echo Complete Interpretation Summary Normal LV size. Left ventricular systolic function is lower limits of normal. The estimated ejection fraction is 50 %. Stage 1 diastolic dysfunction. Smal to moderate pericardial effusion Pulmonary artery systolic pressure is 90 mmHg. Severe pulmonary hypertension. D shaped septum in systole and diastole. Severely dilated right ventricle. Moderately severe global right ventricular systolic dysfunction. Ordering Physician: Devaughn Cohen Referring Physician: Manda Figueroa Performed By: Jacquie Cohen, ÁLVARO, RVT
== END | disposition home or self-care (01) ==
LOC: CVS 11:54
PROVIDERS: PCP Family Medicine; Referring Provider Nurse Practitioner Family; Visit Provider Nurse Practitioner Family
DX: I42.8 Other cardiomyopathies (principal); R93.1 Abnormal findings on diagnostic imaging of heart and coronary circulation; R06.02 Shortness of breath; E01.0 Iodine-deficiency related diffuse (endemic) goiter; R89.9 Unspecified abnormal finding in specimens from other organs, systems and tissues
CPT/HCPCS: 93306

== ENCOUNTER → 2023-05-20 | Outpatient (CLI) | payer OTHER, SELFPAY ==
--- NOTE | 2023-05-20 14:24 | CT_ITS ---
STUDY: CT CHEST, ABDOMEN T PELVIS WITH CONTRAST REASON FOR EXAM: Female, 32 years old. Evaluate for abnormalities such as nodules WEAKNESS,SHORTNESS OF BREATH,FATIGUE RADIATION DOSAGE (If Supplied By Facility): CTDIvol = ( 10.83 ) mGy, DLP = ( 769.87 ) mGycm TECHNIQUE: Transaxial imaging was performed following intravenous administration of Oral and amp; IV Readi-CAT and amp; 100mL Isovue-300. Individualized dose optimization techniques were used for this CT. COMPARISON: CTA of the chest dated January 07, 2023. FINDINGS: CHEST Mild tree-in-bud nodularity is present throughout both lungs with slight groundglass and interstitial edema consistent with nonspecified interstitial process or pneumonitis. No focal consolidation is present. No suspicious lung nodules are seen. No spiculated lesions are present. No pleural effusion is seen. Redemonstration of a calcified 1 cm granuloma in the anterior aspect of the right lower lobe seen on image #81/124 series 2. Slight mosaic attenuation pattern of both lungs. Both lungs also mildly hyperinflated. There is no demonstrated pleural abnormality. Normal heart and pericardium. There are no demonstrated calcifications of the coronary arteries. Normal mediastinum. Normal hilar regions. Right subcarinal cluster of calcified lymph nodes noted. Normal unenhanced pulmonary arteries. Normal aorta arch and descending thoracic aorta. There are multi-level degenerative changes of the thoracic spine. ABDOMEN Normal liver. Normal gallbladder and extrahepatic biliary system. There are multiple benign calcified granulomata of the spleen. Normal pancreas. Normal bilateral adrenal glands. Normal right kidney. Normal left kidney. The bowel loops are opacified with oral contrast. No bowel dilatation or free air or free fluid is seen. There is no evidence of bowel obstruction. Normal visualized stomach. Normal small intestine. Normal colon. The appendix is visualized and appears normal. Normal abdominal aorta. Normal inferior vena cava. Normal retroperitoneum. Normal abdominal wall. There are diffuse degenerative changes of the visualized lumbar spine. PELVIS Normal urinary bladder. Normal visualized small intestine. Normal visualized colon. There is no pelvic fluid. There is no pelvic lymphadenopathy or mass lesion. Unremarkable uterus and right ovary. A large 4.61 cm benign-appearing left ovarian cyst is present. Normal visualized pelvic arteries. Normal abdominal wall. There are diffuse degenerative changes of the visualized lumbar spine. CT/CT Chest, Abd, Pel w/Contrast IMPRESSION: 1. Chest: Mild tree-in-bud nodularity is present throughout both lungs with slight groundglass and interstitial edema consistent with nonspecified interstitial process or pneumonitis. No focal consolidation is present. No suspicious lung nodules are seen. No spiculated lesions are present. No pleural effusion is seen. Redemonstration of a calcified 1 cm granuloma in the anterior aspect of the right lower lobe seen on image #81/124 series 2. Slight mosaic attenuation pattern of both lungs. Both lungs are also mildly hyperinflated. 2. Abdomen and pelvis: The bowel loops are opacified with oral contrast. No bowel dilatation or free air or free fluid is seen. There is no evidence of bowel obstruction. 3. A large 4.61 cm benign-appearing left ovarian cyst is present. Electronically Signed: Viral Parra MD at 16:03 EST ,
== END | disposition home or self-care (01) ==
LOC: CT 14:23
PROVIDERS: PCP Family Medicine; Referring Provider Nurse Practitioner Family; Visit Provider Nurse Practitioner Family
DX: R91.1 Solitary pulmonary nodule (principal); N83.202 Unspecified ovarian cyst, left side
CPT/HCPCS: 71260; 74177; Q9967

== ENCOUNTER → 2023-06-01 | Outpatient (CLI) | payer OTHER, SELFPAY ==
[2023-06-01 18:22] LABS: Erythrocyte Sedimentation Rate 1 mm/hr (0-30)
[2023-06-01 18:28] LABS: CRP < 2.90 mg/L (0.0-3.0)
[2023-06-03 13:07] LABS: Angiotensin Convert Enzyme 56 U/L (14-82)
== END | disposition home or self-care (01) ==
LOC: MTLAB 15:13
PROVIDERS: PCP Family Medicine; Referring Provider Internal Medicine Pulmonary Disease; Visit Provider Internal Medicine Pulmonary Disease
DX: R06.02 Shortness of breath (principal)
CPT/HCPCS: 36415; 82164; 85652; 86140

== ENCOUNTER → 2023-06-30 | Outpatient (CLI) | payer OTHER, SELFPAY ==
--- NOTE | 2023-06-30 16:25 | RAD_ITS ---
STUDY: X-RAY CHEST REASON FOR EXAM: Female, 32 years old. DYSPNEA TECHNIQUE: PA and lateral views of the chest. COMPARISON: None. FINDINGS: Right basilar calcified granuloma measuring 4.5 mm. Otherwise the lungs are clear and expanded. There is no demonstrated pleural abnormality. Normal size heart. Normal mediastinum and nathalia. Normal visualized pulmonary arteries. Normal visualized aortic arch and descending thoracic aorta. Normal visualized thoracic spine. Normal visualized ribs, clavicles, and shoulders. There is no demonstrated abnormality of the visualized soft tissue structures of the upper abdomen. RAD/Chest PA and Lateral IMPRESSION: No acute cardiopulmonary disease. Electronically Signed: Michelle Love MD at 16:52 EST ,
--- OUTSIDE RECORDS SUMMARY | 2023-06-30 17:48 | XMS RPT_ITS | CCD ---
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 Name Role Phone Anabelle Langford Unavailable Unavailable Jolliff, Manda Janene Primary Care Provider [phone] Jamey Moreno S Unavailable Jamey Moreno MD S Unavailable JOLLIFF, MANDA JANENE Primary Care Unavailable JOLLIFF, MANDA JANENE Referring Unavailable NELSON ROTHMAN Attending Unavailabl e JOLLIFF, MANDA JANENE Primary Care Unavailable SANTANGELI, BOOKER Referring Unavailable JOLLIFF, MANDA JANENE Primary Care Unavailable SANTANGELI, BOOKER Referring Unavailable JOLLIFF, MANDA JANENE Primary Care Unavailable SANTANGELI, BOOKER Attending Unavailable JOLLIFF, MANDA JANENE Primary Care Unavailable JOLLIFF, MANDA JANENE Primary Care Unavailable SANTANGELI, BOOKER Referring Unavailable DUSTIN BENITEZ Attending Unavailabl e JOLLIFF, MANDA JANENE Primary Care Unavailable DUSTIN BENITEZ Referring Unavailabl e JOLLIFF, MANDA JANENE Primary Care Unavailable DUSTIN BENITEZ Referring Unavailabl e JOLLIFF, MANDA JANENE Primary Care Unavailable DUSTIN BENITEZ Referring Unavailabl e JOLLIFF, MANDA JANENE Primary Care Unavailable DUSTIN BENITEZ Referring Unavailabl e JOLLIFF, MANDA JANENE Primary Care Unavailable DUSTIN BENITEZ Referring Unavailabl e JOLLIFF, MANDA JANENE Primary Care Unavailable DUSTIN BENIETZ Referring Unavailabl e JOLLIFF, MANDA JANENE Primary Care Unavailable JOSE RAMON CAMPBELL Attending Unavailable DUSTIN BENITEZ Referring Unavailabl e JOLLIFF, MANDA JANENE Primary Care Unavailable JOLLIFF, MANDA JANENE Primary Care Unavailable SANTANGELI, BOOKER Admitting Unavailable SANTANGELI, BOOKER Attending Unavailable NELSON ROTHMAN Admitting Unavailpayal e NELSON ROTHMAN Attending UnavailMANDA Pinedo Primary Care Unavailable Allergies Allergy Classification Reported Allergen(s) Allergy Type Date of Onset Reaction(s) Facility (1 source) Penicillins (Antibiotic) drug allergy 11-17-2014 [facility] Work Phone: (1 source) CATEPILLARS; Translations: [CATEPILLARS] allergy to substance 11-17-2014 [facility] Work Phone: (13 sources) Penicillins; Translations: [PENICILLINS] Drug Allergy 01-07-2019 [facility] Medications Completed/Discontinued Medications Medication Drug Class(es) Dates Sig (Normalized) Sig (Original) BUPROPION HCL (1 source) Aminoketone Start: 10-21-2016 take 1 tablet by mouth once daily WELLBUTRIN SR 150 MG [id number] One tablet by mouth daily BUPROPION HCL [id number] Anabelle Langford dapagliflozin 10 mg oral tablet (2 sources) Sodium-Glucose Cotransporter 2 Inhibitor Start: 05-18-2023 FARXIGA 10 mg tablet 10 mg once daily. 0 05/18/2023 Suspended Problems Active Problems Problem Classification Problem Date Documented Da te Episodic/Chronic Cardiac dysrhythmias (1 source) Ventricular tachycardia; Translations: [VT (ventricular tachycardia) (HCC)] 04-20-2023 Chronic Congestive heart failure; nonhypertensive (5 sources) Right ventricular failure; Translations: [Right heart failure, unspecified] Onset: 06-02-2023 06-03-2023 Chronic Other lower respiratory disease (2 sources) Dyspnea; Translations: [Shortness of breath] 06-03-2023 Episodic Other lower respiratory disease (1 source) Shortness of breath; Translations: [Shortness of breath] Onset: 06-02-2023 Episodic Jessica-; endo-; and myocarditis; cardiomyopathy (except that caused by tuberculosis or sexually transmitted disease) (2 sources) Arrhythmogenic right ventricular dysplasia; Translations: [Other cardiomyopathies] Onset: 04-10-2023 04-10-2023 Chronic Pulmonary heart disease (4 sources) Pulmonary hypertension; Translations: [Pulmonary hypertension, unspecified] Onset: 06-02-2023 06-03-2023 Chronic Unclassified (1 source) VT (ventricular tachycardia) (HCC); Translations: [VT (ventricular tachycardia) (HCC)] Onset: 04-09-2023 Past or Other Problems Problem Classification Problem Date Documented Da te Episodic/Chronic Cardiac dysrhythmias (6 sources) Tachycardia; Translations: [Palpitations] Onset: 11-17-2014 09-24-2015 Episodic Nonspecific chest pain (1 source) Chest pain, unspecified; Translations: [Chest pain, unspecified] Onset: 11-20-2014 11-20-2014 Episodic Results Test Name Value Interpretation Reference Range Facil ity Vital Signs Date Time Vital Sign Value Performing Clinician Faci lity 02-09-2023 08:19-0400 Body height 162.6 cm Booker Gong MD Work Phone: [facility] 02-09-2023 08:19-0400 Body weight 73.94 kg Booker Gong MD Work Phone: [facility] 02-09-2023 08:19-0400 Diastolic blood pressure 76 mm[Hg] Booker Gong MD Work Phone: [facility] 02-09-2023 08:19-0400 Heart rate 89 /min Booker Gong MD Work Phone: [facility] 02-09-2023 08:19-0400 Systolic blood pressure 112 mm[Hg] Booker Gong MD Work Phone: [facility] 10-21-2016 12:42-0400 BMI (Body Mass Index) 26.57 kg/m2 Anabelle Primitivo [facility] Work Phone: 10-21-2016 12:42-0400 BP Diastolic 50 mm[Hg] [facility] Work Phone: 10-21-2016 12:42-0400 BP Systolic 100 mm[Hg] Anabelle Langford [facility] Work Phone: 10-21-2016 12:42-0400 Height 160.02 cm Anabelle Langford [facility] Work Phone: 10-21-2016 12:42-0400 Pulse (Heart Rate) 84 /min [facility] Work Phone: 10-21-2016 12:42-0400 Respiratory Rate 18 /min [facility] Work Phone: 10-21-2016 12:42-0400 Weight 68.04 kg Anabelle [facility] Work Phone: 09-24-2015 16:06-0400 BSA (Body Surface Area) 1.62 m2 [facility] Work Phone: 09-24-2015 16:06-0400 Pulse Oximetry 97 % Anabelle [facility] Work Phone: Encounters Encounter Date Encounter Type Care Provider Facility Start: 06-24-2023 End: 06-24-2023 [facility] Start: 06-03-2023 End: 06-04-2023 ambulatory JOSE RAMON ADRIAN Facility:[facility] Start: 06-03-2023 End: 06-07-2023 Evaluation and management of inpatient [facility] Facility:[facility] Start: 06-03-2023 End: 06-03-2023 ambulatory DUSTIN BENITEZ Facility:[facility] Start: 06-03-2023 End: 06-03-2023 ambulatory Pulm Fct Lab Main 7 Pulmonary Medicine Procedures Date Procedure Procedure Detail Performing Clinician Start: 06-03-2023 Spmtry w/vc expirato ry pravin w/wo mxml vol vntj Dustin Benitez MD Work Phone: Start: 04-09-2023 Antibody screen MANDA BETANCUR Plan of Treatment Date Care Activity Detail Author Start: 06-30-2032 Urine microalbumin profile [facility] lainey Start: 02-13-2023 Covid-19 Vaccine () Covid-19 Vaccine () [facility] Start: 02-13-2023 Influenza vaccination [facility] Start: 06-15-2022 DEPRESSION ASSESSMENT DEPRESSION ASSESSMENT [facility] Start: 2020 HPV TESTING HPV TESTING [facility] Start: 2020 Screening for malignant neoplasm of cervix HPV Testing [facility] Start: 11-16-2017 End: 11-16-2017 Appointment Appointment [facility] Work Phone: Start: 10-21-2016 End: 10-21-2016 Appointment Appointment [facility] Work Phone: Start: 10-21-2016 End: 10-21-2016 DJN DJN [facility] Work Phone: Start: 10-21-2016 End: 10-21-2016 Follow Up Appt 1 year Follow Up Appt 1 year [facility] Work Phone: Start: 09-24-2015 End: 09-24-2015 GENNAN DJN [facility] Work Phone: Start: 09-24-2015 End: 09-24-2015 Follow Up Appt 1 year Follow Up Appt 1 year [facility] Work Phone: Start: 09-24-2015 End: 09-24-2015 Follow Up BP Check Follow Up BP Check [facility] Work Phone: Start: 03-19-2015 End: 03-19-2015 DANA DJN [facility] Work Phone: Start: 03-19-2015 End: 03-19-2015 Follow Up Appt 6 months Follow Up Appt 6 months [facility] Work Phone: Start: 12-18-2014 End: 12-18-2014 DJN DJN [facility] Work Phone: Start: 12-18-2014 End: 12-18-2014 Follow Up Appt 3 months Follow Up Appt 3 months [facility] Work Phone: Start: 11-20-2014 End: 11-20-2014 DJN DJN [facility] Work Phone: Start: 11-20-2014 End: 11-21-2014 Echocardiography Echocardiogram (complete) [facility] Work Phone: Start: 11-20-2014 End: 11-20-2014 Follow Up Appt 1 month Follow Up Appt 1 month [facility] Work Phone: Start: 11-20-2014 End: 11-21-2014 Remote 30 day ecg rev/report 30 Day Holter Monitor [facility] Work Phone: Start: 12-24-2011 PAP TESTING PAP TESTING [facility] Start: 12-24-2011 Screening for malignant neoplasm of cervix Pap Testing [facility] Start: 2009 Urine microalbumin profile DTAP,TDAP,TD (1 - Tdap) [facility] Start: 2008 HEPATITIS C SCREENING HEPATITIS C SCREENING [facility] Start: 2008 Hepatitis C screening Hepatitis C Screening [facility] Start: 2008 HIV SCREENING HIV SCREENING [facility] Start: 2008 HIV screening HIV Screening [facility] Start: 1990 HEPATITIS B (1 of 3 - 3-dose series) HEPATITIS B (1 of 3 - 3-dose series) [facility] Start: 1990 Hepatitis B Vaccine (1 of 3 - 3-dose series) Hepatitis B Vaccine (1 of 3 - 3-dose series) [facility] End: 01-27-2024 ECG COMPLETE ECG COMPLETE ECG Routine Palpitations 1 Occurrences starting 01/26/2023 until 01/27/2024 [facility] Work Phone: Immunizations Immunization Date Immunization Notes Care Provider Fa cili 05-24-2021 influenza virus vaccine, unspecified formulation Booker Gong MD Work Phone: [facility] Payers Date Payer Category Payer Unknown MMO MMO [employer] PPO [id number] 2015-Present [phone] [address] [place] [address] PPO [id number] 2015 Unknown [id number] Social History Date Type Detail Facility [facility]: [facility] Start: 01-07-2019 Tobacco use and exposure Smoke less tobacco non-user [facility] Start: 02-03-2019 End: 02-09-2023 History of Social function [facility] Start: 02-03-2019 End: 02-09-2023 Tobacco use panel [facility] National Score (1-10 0), lower number is lower risk Not on file [facility] Start: 1990 Sex Assigned At Female [facility] Start: 01-15-2023 Gender identity Identifies as female gender (finding) [facility] Start: 01-15-2023 Sexual orientation Heterosexual (fin ding) [facility] Start: 02-09-2023 End: 06-02-2023 Alcohol intake Ex-drinker (finding) [facility] Start: 02-09-2023 [facility] Clinical Notes 01-20-2023 to 06-24-2023 Bill Rivero, SAWDUST MACHINE OPERATOR - 06/03/2023 11:01 AM ESTTelephone [place] - Estrellita Melendez - 05/21/2023 12:49 PM Cesar Gandhi LGC - 04/10/2023 2:00 PM Millie Mistry RN - 04/08/2023 3:06 PM EDT Note Date & Type Note Facility 06-24-2023 Note HNO ID: [id number] Author: NELSON ROTHMAN MD Service: ? Author Type: Physician Type: Progress Notes Filed: 06/24/2023 13:53 Note Text: Heart and Vascular [facility] SECTION OF HEART FAILURE and CARDIAC TRANSPLANT MEDICINE OUTPATIENT VISIT DATE June 24, 2023 OUTPATIENT VISIT TYPE Established Patient PRIMARY CARE PHYSICIAN: Manda Figueroa MD ([facility]) [address] [place] [id number] CHIEF COMPLAINT: Feeling some improvement. NURSING INTAKE (Patient?s concerns and/or recent hospitalizations/ER visits): HF Nursing Assessment: Interim Hospitalizations and/or ER visits:06/03/2023 [facility] Chest Pain: no Skipping or irregular heartbeats: no Shortness of breath at rest: no Shortness of breath with activity: yes Cough: yes Waking up in the middle of the night gasping for air: no Lightheadedness or dizziness: no Feeling like you are going to pass out: no Actually passing out: no Poor energy level: yes Unintentional weight gain: no Unintentional weight loss: no Swelling in your legs,feet, abdomen: no Filling up quickly when you eat: no HISTORY OF PRESENT ILLNESS: Since her hospitalization, she has felt stable. She felt improvement with sildenafil. She denies any edema, orthopnea or PND. Still has dyspnea up 1 flight of stairs. PAST MEDICAL HISTORY Diagnosis Date Arrhythmogenic right ventricular dysplasia (HCC) Generalized anxiety disorder PAST SURGICAL HISTORY Procedure Laterality Date SNGL x2 SOCIAL HISTORY Social History Tobacco Use Smoking status: Never Smokeless tobacco: Never Vaping Use Vaping Use: Never used Substance Use Topics Alcohol use: Not Currently Comment: rare Drug use: Never FAMILY HISTORY Problem Relation Age of Onset Alcohol abuse Father Dementia Maternal Grandmother Cancer Maternal Grandfather Coronary Artery Disease Maternal Grandfather Heart Attack Maternal Grandfather other (pacemaker) Maternal Grandfather other (atrial fibrillation) Maternal Grandfather ALLERGIES: ALLERGIES Allergen Reactions Penicillins Hives CURRENT MEDICATIONS: sildenafil (REVATIO) 20 mg tablet Take 4 tablets by mouth three times a day. escitalopram oxalate (LEXAPRO) 20 mg tablet Take 20 mg by mouth once daily. dapagliflozin propanediol (FARXIGA) 10 mg tablet Take 1 tablet by mouth daily with breakfast. spironolactone (ALDACTONE) 50 mg tablet Take 50 mg by mouth two times a day. levothyroxine (SYNTHROID) 50 mcg tablet Take 50 mcg by mouth once daily. LORazepam (ATIVAN) 1 mg tablet Take 1 mg by mouth once daily as needed for anxiety. ambrisentan (LETAIRIS) 5 mg tablet Take 1 tablet by mouth once daily. REVIEW OF SYSTEMS: CONSTITUTION: Negative for: Weight loss or gain, Fever. Chills, Night sweats HEENT: Negative for: Hearing loss, Nosebleeds, Mouth sores, Trouble swallowing, Dry mouth RESPIRATORY: Positive for: Difficulty breathing Negative for: Cough GASTROINTESTINAL: Negative for: Melena, Diarrhea, Nausea, Abdominal distension, Early satiety MUSCULOSKELETAL: Negative for: Arthralgias, Myalgias NEUROLOGICAL: Negative for: Headaches, Dizziness SKIN: Negative for: Rash EYES: Negative for: Vision disturbance CARDIOVASCULAR: Negative for: Chest pain, Leg swelling, Arrhythmia, Presyncope GENITOURINARY: Negative for: Difficulty urinatiing PATIENT ENTERED DATA: KCCQ-12 Scores 05/29/2023 Physical Limitation Score 16.67 (Class IIIb / IV Heart Failure ) Symptom Frequency Score 58.33 (Class III Heart Failure ) Quality of Life Score 12.5 (Class IIIb / IV Heart Failure ) Social Limitation Score 0 (Class IIIb / IV Heart Failure ) Overall Summary Score 21.88 (Class IIIb / IV Heart Failure ) PHQ-9 05/29/2023 Score 4 PROMIS Global Health - (T-Scores - the mean of general population = 50. Five points is a clinically meaningful difference.) 02/07/2023 05/29/2023 Physical T-Score 42.3 39.8 Mental T-Score 36.3 33.8 PHYSICAL EXAMINATION: BP 124/73 (BP Site: Left Arm) Pulse 90 Ht 162.6 cm (5' 4 ) Wt 64.8 kg (142 lb 14.4 oz) LMP 05/27/2023 SpO2 96% BMI 24.53 kg/m? General: Well appearing, in no acute distress. Skin: No clubbing, no cyanosis. Eyes: Extra ocular movements intact Oropharynx: Teeth in good repair. Neck: No jugular venous distention, no carotid bruits, carotids have a normal upstroke, no palpable thyromegaly. Lungs: Clear to auscultation bilaterally, no wheezing or rhonchi. Heart: Regular rhythm, PMI not displaced, S1, S2 normal, no S3, no S4, no heaves, no rub and no murmur. Abdomen: Soft, nontender, bowel sounds normal, no palpable organomegaly, no bruits. Extremities: No peripheral edema . Grade 2/4 distal pulses bilaterally. Neuro: Oriented to person, place and time, alert, cooperative, gait coordinated. CARDIOVASCULAR MEDICINE TESTING: There were no tests performed for review (more content not included)... [facility] 06-07-2023 Note HNO ID: [id number] Author: Sherwin Patel CPhT Service: Pharmacy Author Type: Door Clamp Operator Type: Plan of Care Filed: 06/07/2023 4:16 PM Note Text: PHARMACY BEDSIDE DELIVERY SERVICE Patient Name: Andrea IVAN The marked outpatient medications were Filled at: [facility] and delivered to the patient's bedside to Medication List START taking these medications sildenafil 20 mg tablet Commonly known as: REVATIO Take 4 tablets by mouth three times a day. Delivered CHANGE how you take these medications dapagliflozin propanediol 10 mg tablet Commonly known as: FARXIGA Take 1 tablet by mouth daily with breakfast. What changed: how to take this when to take this Refill too soon CONTINUE taking these medications ATIVAN 1 mg tablet Generic drug: LORazepam levothyroxine 50 mcg tablet Commonly known as: SYNTHROID LEXAPRO 10 mg tablet Generic drug: escitalopram oxalate spironolactone 50 mg tablet Commonly known as: ALDACTONE You might also be taking other medications not listed above. If you have questions about any of your other medications, talk to the person who prescribed them or your Primary Care Provider. STOP taking these medications furosemide 40 mg tablet Commonly known as: MARIUM Patel CPhT PAGER: [phone] June 07, 2023 3:24 PM [facility] 06-07-2023 Note HNO ID: [id number] Author: Preston Rios RPh Service: Pharmacy Author Type: Pharmacist Type: Plan of Care Filed: 06/07/2023 11:24 AM Note Text: HEART FAILURE DISCHARGE MEDICATION REVIEW BY PHARMACY Patient Name: Andrea IVAN Account #: Data Unavailable Admission Date: 06/03/2023 Date of Contact: June 07, 2023 Time of Contact: 11:22 AM Medication list was reviewed by a Pharmacist for drug interactions or drug related problems:Yes Below is a summary of pharmacist recommendations discussed with LIP: No Recommendations at this time from Discharge Medication List. Medication reconciliation completed: Off hours Other comments: N/A Preston Rios RPh June 07, 2023 11:22 AM Pager: [phone] Medication List START taking these medications sildenafil 20 mg tablet Commonly known as: REVATIO Take 4 tablets by mouth three times a day. CHANGE how you take these medications dapagliflozin propanediol 10 mg tablet Commonly known as: FARXIGA Take 1 tablet by mouth daily with breakfast. What changed: how to take this when to take this CONTINUE taking these medications ATIVAN 1 mg tablet Generic drug: LORazepam levothyroxine 50 mcg tablet Commonly known as: SYNTHROID LEXAPRO 10 mg tablet Generic drug: escitalopram oxalate spironolactone 50 mg tablet Commonly known as: ALDACTONE STOP taking these medications furosemide 40 mg tablet Commonly known as: LASIX Where to Get Your Medications These medications were sent to [facility] [address] [place] [address] Hours: Thursday-Thursday 7am-8pm, Thursday, Thursday and Holidays 9am-5pm dapagliflozin propanediol 10 mg tablet These medications [place] [address] [address] [facility] [phone] [address] [address] sildenafil 20 mg tablet [facility] 06-07-2023 Note HNO ID: [id number] Author: Feliberto Garcia MD Service: Cardiovascular Medicine Author Type: Fellow Type: Progress Notes Filed: 06/07/2023 8:39 AM Note Text: Attestation signed by Nelson Rothman MD at 06/07/2023 11:10 AM [facility] STAFF PHYSICIAN NOTE OF PERSONAL INVOLVEMENT IN CARE IMPRESSION: Patient is a 32 year old female who presents with new diagnosis of pre-capillary pulmonary hypertension. Severe pre cap PH with normal RA pressure. Will trial her on oral sildenafil and reassess symptoms. V/Q negative for CTEPH and echocardiogram shows RV dysfunction with pericardial effusion. Will monitor on orals with plan to switch to dual therapy. Low threshold to start IV therapy with any signs of deterioration. Autoimmune are unrevealing. Tolerating 80mg of sildenafil TID. Plan for discharge with intensifying therapy as outpatient. I have reviewed the documentation obtained and documented by the Fellow and I have personally performed a face to face assessment of the patient and have personally participated in the sheppard components of the visit which includes medical decision making.. I have discussed the case and management of the patient's care. [facility] CARDIOVASCULAR MEDICINE PROGRESS NOTE Andrea IVAN [id number] PRIMARY SERVICE: Derrick Whiting Heart Failure HOSPITAL DAY: # June 07, 2023 7:21 AM INTERVAL HISTORY - No acute overnight events - Afebrile, vitals stable - Lab updates:- wnl - Imaging updates-none PHYSICAL EXAM BP 100/60 Pulse 92 Temp 36.7 ?C (98 ?F) (Oral) Resp 18 Ht 162.6 cm (5' 4 ) Wt 65.7 kg (144 lb 13.5 oz) LMP 01/04/2019 SpO2 94% BMI 24.86 kg/m? Intake/Output Summary (Last 24 hours) at 06/07/2023 0721 Last data filed at 06/06/2023 0912 Gross per 24 hour Intake -- Output 700 ml Net -700 ml GEN: well appearing and in NAD HEENT: OP clear, MMM, sclera anicteric, no conj pallor CV: RRR, S1/2 wo MRG Lungs: CTAB w/ normal respiratory effort no crackles or wheezes Abd: BS+, NTND Ext: warm to touch Neuro: Alert, conversant, moving all limbs MEDICATIONS Current Facility-Administered Medications Medication Dose Route Frequency spironolactone 50 mg tab(s) (ALDACTONE) 50 mg ORAL BID escitalopram oxalate 5 mg tab(s) (LEXAPRO) 5 mg ORAL DAILY levothyroxine 50 mcg tab(s) (SYNTHROID) 50 mcg ORAL DAILY (6 AM) LORazepam 0.5 mg tab(s) (ATIVAN) 0.5 mg ORAL q 6 H PRN acetaminophen 650 mg tab(s) (TYLENOL) 650 mg ORAL q 4 H PRN docusate sodium 100 mg cap(s) (COLACE) 100 mg ORAL BID PRN heparin 5,000 Units injection 5,000 Units SUBCUTANEOUS q 12 H sodium chloride 0.9 % (flush) 2-10 mL (BD POSIFLUSH) 2-10 mL INTRAVENOUS DIRECTED PRN And perflutren lipid microspheres 1.1 mg/mL 1.3 mL injection (DEFINITY) 1.3 mL INTRAVENOUS DIRECTED PRN benzocaine-menthol 1 Lozenge (CHLORASEPTIC) 1 Lozenge MUCOUS MEMBRANE (TOPICAL MOUTH AND THROAT) q 2 H PRN potassium chloride ER 10-60 mEq tab(s) (KLOR-CON M10) 10-60 mEq ORAL PRN dapagliflozin propanediol 10 mg tab(s) (FARXIGA) 10 mg ORAL DAILY AT 9 PM benzonatate 100 mg cap(s) (TESSALON PERLE) 100 mg ORAL TID guaiFENesin-dextromethorphan 100-10 mg/5 mL 10 mL oral liquid (ROBITUSSIN DM) 10 mL ORAL q 6 H PRN sildenafil 80 mg tab(s) (REVATIO) 80 mg ORAL TID DATA Recent Labs 06/07/23 0518 06/06/23 0604 06/05/23 0740 WBC 7.24 6.91 8.16 HB 15.1 14.9 15.6* HCT 43.2 41.9 44.1 PLT 146* 177 171 Recent Labs 06/06/23 0604 06/05/23 0740 06/04/23 1514 NA 136 137 -- K 4.4 4.5 4.5 CO2 21* 21* -- BUN 13 13 -- CREAT 1.09* 1.19* -- GLUC 91 90 -- MG 2.4* 2.5* -- ASSESSMENT AND PLAN This is a 32-year-old female who presented for work up of precapillary pulmonary hypertension after an outpatient RHC. Her RHC showed evidence of group 1 PH with PA pressures of 100/47 and PVR of 17 suggesting significant precapillary pulmonary hypertension. She was subsequently admitted to heart failure service for evaluation of the etiology for her precapillary pulmonary hypertension and fur further management. Her evaluation involved VQ scan, autoimmune workup, HIV panel, all of which were negative. An ECHO showed preserved EF with RV dysfunction. She was started on trial of sildenafil which she tolerated well and acknowledged improvement in her symptoms. She has been uptitrated to 80mg tid and we believe she is stable for discharge, with instructions to follow up with us as an outpatient. #Group 1 PH PLAN -cont Sildenafil to 80 mg tid -Continue aldactone and dapafliflozin -plan for discharge This patient was seen and discussed with the Cardiovascular Medicine: HF staff, Dr. Rothman. No recommendations are final until the staff attestation is complete. Feliberto Garcia MD Fellow (more content not included)... [facility] 06-06-2023 Note HNO ID: [id number] Author: Feliberto Garcia MD Service: Cardiovascular Medicine Author Type: Fellow Type: Progress Notes Filed: 06/06/2023 10:09 AM Note Text: Attestation signed by Nelson Rothman MD at 06/06/2023 11:33 AM [facility] STAFF PHYSICIAN NOTE OF PERSONAL INVOLVEMENT IN CARE IMPRESSION: Patient is a 32 year old female who presents with new diagnosis of pre-capillary pulmonary hypertension. Severe pre cap PH with normal RA pressure. Will trial her on oral sildenafil and reassess symptoms. V/Q negative for CTEPH and echocardiogram shows RV dysfunction with pericardial effusion. Will monitor on orals with plan to switch to dual therapy. Low threshold to start IV therapy with any signs of deterioration. Autoimmune are unrevealing. Titrate to sildenafil 80mg Tid. Plan for discharge tomorrow if stable with close outpatient follow up. I have reviewed the documentation obtained and documented by the Fellow and I have personally performed a face to face assessment of the patient and have personally participated in the sheppard components of the visit which includes medical decision making.. I have discussed the case and management of the patient's care. STAFF PHYSICIAN: Nelson Rothman MD [facility] CARDIOVASCULAR MEDICINE PROGRESS NOTE Andrea IVAN [id number] PRIMARY SERVICE: Derrick Whiting Heart Failure HOSPITAL DAY: # 3 June 06, 2023 7:05 AM INTERVAL HISTORY - No acute overnight events - Afebrile, vitals stable - Lab updates:- none - Imaging updates-none recently PHYSICAL EXAM BP 97/62 Pulse 92 Temp 36.7 ?C (98.1 ?F) (Oral) Resp 16 Ht 162.6 cm (5' 4 ) Wt 65.7 kg (144 lb 13.5 oz) LMP 01/04/2019 SpO2 92% BMI 24.86 kg/m? Intake/Output Summary (Last 24 hours) at 06/06/2023 0705 Last data filed at 06/06/2023 0120 Gross per 24 hour Intake 120 ml Output 2800 ml Net -2680 ml GEN: well appearing and in NAD HEENT: OP clear, MMM, sclera anicteric, no conj pallor CV: RRR, S1/2 wo MRG Lungs: CTAB w/ normal respiratory effort no crackles or wheezes Abd: BS+, NTND Ext: warm to touch Neuro: Alert, conversant, moving all limbs MEDICATIONS Current Facility-Administered Medications Medication Dose Route Frequency spironolactone 50 mg tab(s) (ALDACTONE) 50 mg ORAL BID escitalopram oxalate 5 mg tab(s) (LEXAPRO) 5 mg ORAL DAILY levothyroxine 50 mcg tab(s) (SYNTHROID) 50 mcg ORAL DAILY (6 AM) LORazepam 0.5 mg tab(s) (ATIVAN) 0.5 mg ORAL q 6 H PRN acetaminophen 650 mg tab(s) (TYLENOL) 650 mg ORAL q 4 H PRN docusate sodium 100 mg cap(s) (COLACE) 100 mg ORAL BID PRN heparin 5,000 Units injection 5,000 Units SUBCUTANEOUS q 12 H sodium chloride 0.9 % (flush) 2-10 mL (BD POSIFLUSH) 2-10 mL INTRAVENOUS DIRECTED PRN And perflutren lipid microspheres 1.1 mg/mL 1.3 mL injection (DEFINITY) 1.3 mL INTRAVENOUS DIRECTED PRN guaiFENesin 600 mg ER tab(s) (MUCINEX) 600 mg ORAL q 12 H PRN benzocaine-menthol 1 Lozenge (CHLORASEPTIC) 1 Lozenge MUCOUS MEMBRANE (TOPICAL MOUTH AND THROAT) q 2 H PRN potassium chloride ER 10-60 mEq tab(s) (KLOR-CON M10) 10-60 mEq ORAL PRN dapagliflozin propanediol 10 mg tab(s) (FARXIGA) 10 mg ORAL DAILY AT 9 PM sildenafil 60 mg tab(s) (REVATIO) 60 mg ORAL TID DATA Recent Labs 06/06/23 0604 06/05/23 0740 06/04/23 0425 WBC 6.91 8.16 6.62 HB 14.9 15.6* 15.0 HCT 41.9 44.1 42.4 PLT 177 171 164 Recent Labs 06/05/23 0740 06/04/23 1514 06/04/23 0425 06/03/23 1809 NA 137 -- 134* 137 K 4.5 4.5 3.5* 3.8 CO2 21* -- 16* 21* BUN 13 -- 18 20 CREAT 1.19* -- 1.17* 1.22* GLUC 90 -- 108* 123* MG 2.5* -- 2.3 -- ASSESSMENT AND PLAN This is a 32-year-old female who has had history of palpitations, was being followed by Dr. Gong. Underwent an EP study which showed no inducible arrhythmias. She had a cardiac MRI done in January 2023 which showed a dilated right ventricle with moderately reduced systolic function and dyssynchronous RV free wall motion. The findings were thought to be consistent with ARVC. The LVEF is normal in function and size. Although, she fulfills the criteria for ARVC, her echo and symptoms raised concern for pulmonary vascular disease. She subsequently underwent a right heart cath on 06/03/2023 which showed evidence of Group 1 pulmonary hypertension. She has significant precapillary pulmonary hypertension with PA pressure of 100/47. Her RA mean was 5 mmHg suggesting that she has been adequately diuresed on GDMT. Her PVR is 17 suggesting significant precapillary pulmonary hypertension. #Group 1 PH PLAN -Increase the dose of Sildenafil to 80 mg tid -Continue aldactone and dapafliflozin -Do Walking pulse-ox today This patient was seen and discussed with the Cardiovascular Medicine: HF (more content not included)... [facility] 06-05-2023 Note HNO ID: [id number] Author: Consuelo Murrieta MD Service: Cardiovascular Medicine Author Type: Fellow Type: Progress Notes Filed: 06/05/2023 12:18 PM Note Text: Documentation Query Based on your medical judgment of the clinical indicators outlined below, please clarify the condition: (Please type X next to your response and sign) Clinical Indicators: 06/04/2023: Nutrition: Tiffany Hutchins: RD: .. Nutrition assessment: Recommended malnutrition diagnosis: Severe protein-calorie malnutrition ..In the context of: Chronic illness or injury .. Based on: Unintentional weight Loss, .. Weight change percentage over time: 12.1% x 4 months .. Weight change: Clinically signficant weight loss .. Insufficient energy intake .. Related to: Inability to consume sufficient nutrients .. As evidenced by: Anorexia, nausea, patient/family self-report .. Nutrition intake prior to admission: Less than 75% estimated energy needs greater than or equal to 1 month .. poor po intake for at least 1 month .. nausea r/t frequent episodes of SOB .. History of: 06/03/2023 HANDP: Dr. Consuelo Murrieta: Cardiovascular Medicine / Dr. Nelson Torres: Attending: .. 32 year old female who is being admitted for severe precapillary pulmonary hypertension. First in 2014, she had experienced palpitations. Had an extensive workup with normal echo and exercise stress testing. She was placed on metoprolol which was stopped during her in 2021. She developed recurrent symptoms while continued into about 3 to 4 months . Had a cafeteria monitor placed which showed couple of episodes of SVT. Cardiac MRI was performed in January 2023 which showed dilated RV with moderately reduced systolic function. RV dilatation and and dyssynchronous RV free wall motion. Subtle midmycoardial delayed enhancement is suspected in the basal anteroseptum. Findings concerning for ARVC. .. Treatment: 06/04/2023: Nutrition: Tiffany Hutchins: RD: .. Care plan: Change diet to: liberalize to regular to optimize intakes .. Supplements: Zone perfect bar (trial) Medications: Anti-emetics (PRN) .. Monitor intakes, recommend consistent intake documentation of meals, snacks, and supplements in order for RD to accurately assess nutritional adequacy .. Please clarify the Patient's Nutritional Status: X Severe Protein Calorie Malnutrition based on the above assessment, plan, and treatment Other, please specify [facility] 06-05-2023 Note HNO ID: [id number] Author: Consuelo Murrieta MD Service: Cardiovascular Medicine Author Type: Fellow Type: Progress Notes Filed: 06/05/2023 12:11 PM Note Text: Attestation signed by Nelson Rothman MD at 06/05/2023 1:48 PM [facility] STAFF PHYSICIAN NOTE OF PERSONAL INVOLVEMENT IN CARE IMPRESSION: Patient is a 32 year old female who presents with new diagnosis of pre-capillary pulmonary hypertension. Severe pre cap PH with normal RA pressure. Will trial her on oral sildenafil and reassess symptoms. V/Q negative for CTEPH and echocardiogram shows RV dysfunction with pericardial effusion. Will monitor on orals with plan to switch to dual therapy. Low threshold to start IV therapy with any signs of deterioration. Autoimmune are unrevealing. Continue titration of sildenafil as tolerated. Plan to start prior authorization for ERA. I have reviewed the documentation obtained and documented by the Fellow and I have personally performed a face to face assessment of the patient and have personally participated in the sheppard components of the visit which includes medical decision making.. I have discussed the case and management of the patient's care. STAFF PHYSICIAN: Nelson Rothman MD [facility] PROGRESS NOTE Andrea IVAN [id number] PRIMARY SERVICE: Cardiology: Heart Failure ASSESSMENT AND PLAN: This is a 32-year-old female who has had history of palpitations, was being followed by Dr. Gong. Underwent an EP study which showed no inducible arrhythmias. She had a cardiac MRI done in January 2023 which showed a dilated right ventricle with moderately reduced systolic function and dyssynchronous RV free wall motion. The findings were thought to be consistent with ARVC. The LVEF is normal in function and size. Although, she fulfills the criteria for ARVC, her echo and symptoms raise concern for pulmonary vascular disease. She underwent a right heart cath on 06/03/2023 which showed evidence of Group 1 pulmonary hypertension. She has significant precapillary pulmonary hypertension with PA pressure of 100/47. Her RA mean was 5 mmHg suggesting that she has been adequately diuresed on GDMT. Her PVR is 17 suggesting significant precapillary pulmonary hypertension. PLAN -Increase the dose of Sildenafil to 60 mg tid -Continue aldactone and dapafliflozin SUBJECTIVE: INTERVAL HISTORY: -Doing better on increased dose of sildenafil and is tolerating it well -V/Q scan negative -ECHO showing evidence of large pericardial effusion -HIV and SUSAN testing have been negative PERTINENT REVIEW OF SYSTEMS: Reviewed See HPI: Remaining ROS reviewed and negative OBJECTIVE: MEDICATIONS: Current Facility-Administered Medications Medication Dose Route Frequency spironolactone 50 mg tab(s) (ALDACTONE) 50 mg ORAL BID escitalopram oxalate 5 mg tab(s) (LEXAPRO) 5 mg ORAL DAILY levothyroxine 50 mcg tab(s) (SYNTHROID) 50 mcg ORAL DAILY (6 AM) LORazepam 0.5 mg tab(s) (ATIVAN) 0.5 mg ORAL q 6 H PRN acetaminophen 650 mg tab(s) (TYLENOL) 650 mg ORAL q 4 H PRN docusate sodium 100 mg cap(s) (COLACE) 100 mg ORAL BID PRN heparin 5,000 Units injection 5,000 Units SUBCUTANEOUS q 12 H sodium chloride 0.9 % (flush) 2-10 mL (BD POSIFLUSH) 2-10 mL INTRAVENOUS DIRECTED PRN And perflutren lipid microspheres 1.1 mg/mL 1.3 mL injection (DEFINITY) 1.3 mL INTRAVENOUS DIRECTED PRN guaiFENesin 600 mg ER tab(s) (MUCINEX) 600 mg ORAL q 12 H PRN benzocaine-menthol 1 Lozenge (CHLORASEPTIC) 1 Lozenge MUCOUS MEMBRANE (TOPICAL MOUTH AND THROAT) q 2 H PRN potassium chloride ER 10-60 mEq tab(s) (KLOR-CON M10) 10-60 mEq ORAL PRN dapagliflozin propanediol 10 mg tab(s) (FARXIGA) 10 mg ORAL DAILY AT 9 PM sildenafil 60 mg tab(s) (REVATIO) 60 mg ORAL TID PHYSICAL EXAM: 06/05/23 0732 06/05/23 0733 06/05/23 0843 06/05/23 0952 BP: 92/65 Pulse: 88 88 95 Resp: 18 Temp: 36.4 ?C (97.5 ?F) TempSrc: Axillary SpO2: 95% Weight: 65.7 kg (144 lb 13.5 oz) Height: General: Well developed and well nourished appearance. No acute distress. Skin: No rash on chest, arms or legs. Warm, dry. Head/Eyes: Sclera clear, normal conjunctiva. EOMI. Mouth/Pharynx: Teeth: Fair dentition. No lesions. Neck: No JVD. Supple. Lungs: Normal respiratory effort. Clear lungs without rhonchi, rales, wheezing. Breasts: Deferred Heart: Normal PMI. No lifts or thrills. Regular rate and rhythm. Normal S1, S2. No S3. No S4. No murmurs. No rubs. Peripheral Vascular/Arteries: Carotid pulse normal without bruit. No abdominal bruits. No femoral bruits or hematoma. DP/Radial pulses normal. Abdomen: Soft abdomen, nontender, nondistended without mass. No hepatosplenomegaly. Normal bowel sounds. Musculoskeletal: No kyphoscoliosis. N (more content not included)... [facility] 06-04-2023 Note HNO ID: [id number] Author: Temo Huynh RPh Service: Pharmacy Author Type: Pharmacist Type: Plan of Care Filed: 06/04/2023 10:49 AM Note Text: PHARMACY MEDICATION REVIEW Patient Name: Andrea IVAN : 1990 The following medications were updated within the MEDIA CENTER ASSISTANT medication list: Medications ADDED to MEDIA CENTER ASSISTANT medication list none Medications CHANGED on [facility]IA CENTER ASSISTANT medication list Lorazepam 1 mg - take 1 tablet by mouth ONCE daily as needed; changed from q6h Medications REMOVED from MEDIA CENTER ASSISTANT medication list none Additional comments: patient was a great historian The below information represents the best possible medication history: Yes Medication history completed by: student accounts coordinator: Sherwin Patel CPhT and Dowel Pointer: Sherwin Patel CPhT Source of history: Patient: Reliability of source: Appears reliable, clearly identified: Medication name, Medication dose, Medication route, and Medication frequency, Pharmacy records: [facility], and [facility] records Medication nonadherence identified: No barriers noted Reconciliation completed: Yes Completed by: Temo Huynh All MEDIA CENTER ASSISTANT medications addressed by LIP Patient interested in Bedside Delivery Services or using [facility] Pharmacy at discharge? Yes. Discharge Pharmacy Updated Preferred outpatient pharmacy: [id number] [place] [address] - [address] [facility] [phone] [address] [facility] [place], [place] [id number] - [address] [facility] [phone] [id number] Allergies: Penicillins Hives Prior to Admission Medications Prescriptions Last Dose Informant Patient Reported? Taking? FARXIGA 10 mg tablet 06/03/2023 Yes Yes Si mg once daily. LORazepam (ATIVAN) 1 mg tablet 06/03/2023 Yes Yes Sig: Take 1 mg by mouth once daily as needed for anxiety. escitalopram oxalate (LEXAPRO) 10 mg tablet 06/03/2023 Yes Yes Sig: Take 5 mg by mouth once daily. furosemide (LASIX) 40 mg tablet 06/03/2023 Yes Yes Si mg once daily. levothyroxine (SYNTHROID) 50 mcg tablet 06/03/2023 Yes Yes Si mcg once daily. spironolactone (ALDACTONE) 50 mg tablet 06/03/2023 Yes Yes Si mg two times a day. Facility-Administered Medications: None Sherwin Patel CPhT 06/04/2023 [facility] 06-04-2023 Note HNO ID: [id number] Author: Sherwin Patel CPhT Service: Pharmacy Author Type: Door Clamp Operator Type: Plan of Care Filed: 06/04/2023 8:55 AM Note Text: Insurance investigation completed Patient has active prescription insurance: Yes - Patient's insurance is in-network with [facility] Insurance loaded into [employer]: Already loaded Test claim was completed to verify insurance is active: Successful Any questions, please contact your medication access nurse. Pager #: [phone] [facility] 06-03-2023 Note HNO ID: [id number] Author: Ronda Acosta RT(R) Service: ? Author Type: Technologist Type: Progress Notes Filed: 06/03/2023 5:08 PM Note Text: RADIOLOGY SERVICE PROGRESS NOTE SERVICE DATE: 06/03/2023 SERVICE TIME: 4:46 PM PATIENT IDENTITY VERIFICATION COMPLETED USING TWO (2) STANDARD IDENTIFIERS: Name and Date of confirmed by patient verbally and Name and Date of confirmed by identification band FALL SCREENING: Has the patient had 2 falls in the last year or 1 fall with injury or currently using an Ambulatory Assistive Device (Walker, Cane, Wheelchair, Crutches, etc.)? Inpatient: Screened on floor PATIENT GENDER DATA: .female : No ALLERGIES: Reviewed and unchanged MEDICATIONS REVIEWED: Yes PATIENT RELEVANT IMPLANT DATA REVIEWED: Not Applicable CREATININE: Creatinine Date Value Ref Range Status 06/02/2023 1.23 (H) 0.58 - 0.96 mg/dL Final 04/09/2023 1.07 (H) 0.58 - 0.96 mg/dL Final Estimated Glomerular Filtration Rate Date Value Ref Range Status 06/02/2023 60 >=60 mL/min/1.73m? Final Comment: Estimated Glomerular Filtration Rate (eGFR) is calculated using the 2020 CKD-EPI creatinine equation. This equation utilizes serum creatinine, sex, and age as parameters. The creatinine assay has traceable calibration to isotope dilution-mass spectrometry. Refer to KDIGO guidelines for clinical interpretation. In patients with unstable renal function, e.g. those with acute kidney injury, the eGFR may not accurately reflect actual GFR. P.O.C.T. RESULTS: N/A June 03, [address] PERFORMED: No IV SITE: Inpatient - refer to LDA documentation POST EXAM PIV STATUS: Inpatient see LDA documentation PROCEDURE TYPE: VQ Scan: 0.8 mCi of Tc99m DTPA was inhaled. 4.4 mCi of Tc99m MAA was administered IV. ADMINISTRATION TIME: 1652/1707 PATIENT DISCHARGED TO: Patient taken to IP transport area for return to RNF/ICU/ED. A Diagnostic radioactive procedure has taken place, with no further precautions necessary other than routine body substance precautions. More information regarding radiation safety can be found using this link: [email or web address] SIGNATURE: RT Faith(R) PATIENT NAME: Andrea IVAN DATE: June 03, 2023 TIME: 4:46 PM PAGER/CONTACT #: [facility] 06-03-2023 Note HNO ID: [id number] Author: Troy Mir MD Service: ? Author Type: Fellow Type: Progress Notes Filed: 06/03/2023 2:09 PM Note Text: HEART FAILURE PROCEDURAL CONSENT NOTE Surgery/Procedure Date: 06/03/23 Procedure: RHC Informed Consent: The risks including radiation skin injury, benefits, and anticipated outcomes of the procedure, the risk and benefits of the alternatives to the procedure,and the roles and tasks of the personnel to be involved, were discussed with the patient, and the patient consents to the procedure and agrees to proceed. Consented by: Troy Mir MD See separate Procedural Sedation Consent form if sedation is to be administered. UNIVERSAL PROTOCOL / SAFETY CHECKLIST Procedure to be Performed: RHC Sign In: A Moment of CARE was completed. Personnel directly involved with the procedure wore the appropriate PPE (Personal Protective Equipment). Patient/Surrogate Stated/Verified: PATIENT VERIFIED(optional for EMERGENT procedures): Patient name, Date of , Relevant allergies, and The intended procedure Time Out Communication: Intended patient and procedure match the source documents. Consent documented and matches the intended procedure. Sign Out: SIGN OUT (optional for EMERGENT procedures): All specimen containers correctly labeled. All instruments, equipment, possible retained foreign bodies accounted for. Troy Mir MD History and Physical: Andrea IVAN is a 32 year old year-old patient here for Right Heart Catheterization for the indication of pulmonary hypertension. Last seen 06/03/23 with documented HANDP verified. Post Procedural Plan: Admit to inpatient SIGNATURE: Troy Mir MD PATIENT NAME: Andrea IVAN DATE: June 03, 2023 TIME: 12:52 PM [facility] 06-03-2023 Note HNO ID: [id number] Author: Bill Rivero RRT Service: ? Author Type: Registered Resp Therapist Type: Progress Notes Filed: 06/03/2023 11:01 AM Note Text: PULM FUNCTION SMARTBLOCK: Provider: Dustin Benitez MD Spirometry: 1 DLCO: 1 LV - Box: 1 System: MC9 - [id number] [facility] 06-03-2023 History of Presen t illness Narrative PULM FUNCTION SMARTBLOCK: Provider: Dustin Benitez MD Spirometry: 1 DLCO: 1 LV - Box: 1 System: MC9 - [id number] documented in this encounter [facility] 06-02-2023 Note HNO ID: [id number] Author: Dustin Benitez MD Service: ? Author Type: Physician Type: Progress Notes Filed: 06/02/2023 4:38 PM Note Text: Heart and Vascular [facility] SECTION OF HEART FAILURE and CARDIAC TRANSPLANT MEDICINE OUTPATIENT VISIT DATE June 02, 2023 OUTPATIENT VISIT TYPE Consultation PRIMARY CARE PHYSICIAN: Manda Figueroa MD ([facility]) [address] [facility] [address] [place] [address] CHIEF COMPLAINT: Evaluation for shortness of breath NURSING INTAKE (Patient?s concerns and/or recent hospitalizations/ER visits): Andrea IVAN is a 32 year old female from [place], [place] referred by Dr. Gong for cardiac evaluation of ARVC. The italicized HPI below was copied from her clinic visit with Dr. Gong on 02/09/23 Ms. 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 She was initially seen by cardiology in 2014 for palpitations with some suspicion of pre-excitation on EKG. She had extensive workup with monitoring, echo, and exercise stress testing which were unremarkable. She was placed on toprol, stopped during 2021. She developed recurrent symptoms while , continued into about 3-4 months post-. She was re-evaluated in December 2022. Recent cafeteria monitor December-January 2023 showed two episodes of SVT, both on 01/19/23 with average HR 155 and 159. Duration of episodes is unclear but she reports that they lasted for about a minute. She reports she experienced her typical symptoms of fluttering palpitations and SOB while wearing the monitor.cMRI 01/20/23 showed dilated RV with moderately reduced systolic function, RV dilatation and and dyssynchronous RV free wall motion. Subtle midmycoardial delayed enhancement is suspected in the basal anteroseptum. Findings concerning for ARVC. Normal LV size and function, however subtle midmyocardial enhancement is suspected in basal anteroseptum. She was placed on toprol following MRI results. She denies any personal history of syncope, but did report near-syncopal episodes in 2014. Family history negative for SCD. She has two young children. She reports palpitations occurring daily, multiple times per day. She describes them as a fast heartbeat or skipping. They typically last seconds to a minute, can often be triggered with activity. They are associated with SOB but no significant lightheadedness or near-syncope. She has periodic chest pain. She denies near-syncope or syncope. At her visit with Dr. Gong she reported frequent palpitations so she was taken for an EP study with no inducible arrhythmias. He recommended continuing her beta marci and avoiding strenuous exericse. She was referred to a genetic counselor and underwent testing which has not resulted yet. There was RV dyskinesia on MRI and anterior T wave inversions. Genetic testing is pending. Interim Hospitalizations and/or ER visits: Chest Pain: no Skipping or irregular heartbeats: yes Shortness of breath at rest: no Shortness of breath with activity: yes Cough: yes Waking up in the middle of the night gasping for air: no Lightheadedness or dizziness: no Feeling like you are going to pass out: no Actually passing out: no Poor energy level: very low Unintentional weight gain: no Unintentional weight loss: yes 20 lbs in 6 weeks Swelling in your legs,feet, abdomen: no Filling up quickly when you eat: yes Currently she has NYHA class 3 symptoms with VERDE on minimal exertion. Denies orthopnea, PND, dizziness, syncope, but has palpitations and fluid retention that resolved with lasix 80 mg/d and farxiga. Recent echo had concerning features of RVSP of 80 mmHg with plerual effusion PAST MEDICAL HISTORY Diagnosis Date Arrhythmogenic right ventricular dysplasia (HCC) Generalized anxiety disorder PAST SURGICAL HISTORY Procedure Laterality Date SNGL x2 SOCIAL HISTORY Social History Tobacco Use Smoking status: Never Smokeless tobacco: Never Vaping Use Vaping Use: Never used Substance Use Topics Alcohol use: Not Currently Comment: rare Drug use: Never FAMILY HISTORY Problem Relation Age of Onset Alcohol abuse Father Dementia Maternal Grandmother Cancer Maternal Grandfather Coronary Artery Disease Maternal Grandfather Heart Attack Maternal Grandfather other (pacemaker) Maternal Grandfather other (atrial fibrillation) Maternal Grandfather ALLERGIES: ALLERGIES Allergen Reactions Penicillins Hives CURRENT MEDICATIONS: FARXIGA 10 mg tablet 10 mg once daily. furosemide (LASIX) 40 mg tablet 80 mg once daily. spironolactone (ALDACTONE) 50 mg tablet 50 mg two times a day. levothyroxine (SYNTHROID) 50 mcg tablet 50 mcg once daily. escitalopram oxalate (LEXAPRO) 10 mg tablet Take 5 mg by mouth once daily. LORazepam (ATIVAN) 1 mg tablet Take 1 mg by mouth e (more content not included)... [facility] 05-21-2023 Miscellaneous Notes Outside medical records scanned into [employer] [facility]. documented in this encounter [facility] 04-10-2023 Note HNO ID: [id number] Author: Cesar Gillette LGC Service: ? Author Type: Genetic Counselor Type: Progress Notes Filed: 05/15/2023 12:46 AM Note Text: GENETIC COUNSELING CONSULTATION Andrea IVAN is a 32 year old female with a history of possible ARVC referred for genetic counseling by Dr. Booker Gong. This visit was conducted by video visit. I have communicated my name and active licensure. The patient's identity and physical location were verified at the time of this visit. Either the patient or their legal technical services representative has been informed of the risks and benefits of -- and alternatives to -- treatment through a remote evaluation and consents to proceed with the evaluation remotely. 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 She was initially seen by cardiology in 2014 for palpitations. ECG showed possible pre-excitation and an echocardiogram and exercise stress test were done which were normal. She presented again with palpitations in . Echocardiogram was done in December 2022 which showed RV dilation. CT-PE was done to rule-out a PE. She had a Holter monitor in January 2023 which showed SVT. Due to concern for ARVC a cardiac MRI was done showing RV dilation with moderately reduced RV dilation, RV dyssynchrony, and midmyocardial delayed enhancement in the basal anteroseptum. She is referred today for genetic counselign and evaluation for possible ARVC. 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 She has two young children. Cardiovascular Testin01/20/2023 Cardiac MRI IMPRESSION: - The right ventricle is dilated (RV EDVi = 108 ml/m?) with moderately reduced systolic function and has dysynchronous RV free wall motion (seen in 4-CH view). In the given context, these findings are suggestive of arrhythmogenic cardiomyopathy. In addition, subtle midmycoardial delayed enhancement is suspected in the basal anteroseptum, seen in the LVOT 0view. Correlation with other clinical/genetic parameters for arrhythmogenic cardiomyopathy is suggested. - The left ventricle is normal in size (LV EDVi = 53 ml/m?). The left ventricular systolic function is normal (LV EF = 63 %). No regional wall motion abnormality. Subtle midmycoardial delayed enhancement is suspected in the basal anteroseptum, seen in the LVOT view - while this could be due to other causes such as myocarditis and sarcoidosis, in the given context, is likely related to arrhythmogenic cardiomyopathy. No definite evidence of prior ischemic damage. -No significant valvular abnormality. - The patient has not had a prior CC cardiac MR exam for comparison. 04/09/2023 ECG Diagnosis: NORMAL SINUS RHYTHM RIGHT AXIS DEVIATION RIGHT VENTRICULAR HYPERTROPHY ANTEROLATERAL T WAVE ABNORMALITY PROLONGED QT INTERVAL OR TU FUSION, CONSIDER HYPOKALEMIA ABNORMAL ECG MEDICAL HISTORY: PAST MEDICAL HISTORY Diagnosis Date Arrhythmogenic right ventricular dysplasia (HCC) Generalized anxiety disorder SURGICAL HISTORY: PAST SURGICAL HISTORY Procedure Laterality Date SNGL x2 FAMILY HISTORY: A detailed, 4-generation family history was obtained, details are available on request. Significant diagnoses are listed below: FAMILY HISTORY Problem Relation Age of Onset Alcohol abuse Father Emphysema Father No Known Problems Sister No Known Problems Brother Heart Attack Maternal Grandfather other (pacemaker) Maternal Grandfather other (atrial fibrillation) Maternal Grandfather Cancer Paternal Grandmother Hypertension Paternal Grandmother Son - 7 months, a/w Daughter - 2.5 years, a/w Father - no details Paternal half-brother - a/w Paternal half-brother - no detils Paternal half-sister /w Paternal grandparents - limited details, lived to be old Mother - 56y, anxiety, HTN Maternal half-sister - psoriatic arthritis Maternal aunts (2) / uncle (1) - a/w Maternal grandfather - d.77, COVID, esophgeal cancer Maternal grandmother - 77y, dementia The remainder of the reported family history is negative for hereditary cardiovascular disease, sudden , and consanguinity. IMPRESSION: Andrea IVAN is a 32 year old female with - Suspected ARVC - No known family history of cardiomyopathy, SCD, arrhythmia The patient's personal history is suggestive of ARVC. We discussed the utility of genetic testing to confirm her diagnosis, aid in risk stratification, and also guide management. We also discussed the inheritance pattern and up to a 50% recurrence risk for close relatives. Given her children are young we would not expect them to be phenotypically affected but identifying the genetic cause would aid in future screening. Genetic testing for ARVC has limited sensitivity a normal result cannot rule out a diagnosis and we would recommen (more content not included)... [facility] 04-10-2023 History of Presen t illness Narrative GENETIC COUNSELING CONSULTATION Andrea IVAN is a 32 year old female with a history of possible ARVC referred for genetic counseling by Dr. Booker Gong. This visit was conducted by video visit. I have communicated my name and active licensure. The patient's identity and physical location were verified at the time of this visit. Either the patient or their legal technical services representative has been informed of the risks and benefits of -- and alternatives to -- treatment through a remote evaluation and consents to proceed with the evaluation remotely. 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 She was initially seen by cardiology in 2014 for palpitations. ECG showed possible pre-excitation and an echocardiogram and exercise stress test were done which were normal. She presented again with palpitations in . Echocardiogram was done in December 2022 which showed RV dilation. CT-PE was done to rule-out a PE. She had a Holter monitor in January 2023 which showed SVT. Due to concern for ARVC a cardiac MRI was done showing RV dilation with moderately reduced RV dilation, RV dyssynchrony, and midmyocardial delayed enhancement in the basal anteroseptum. She is referred today for genetic counselign and evaluation for possible ARVC. 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 She has two young children. Cardiovascular Testin01/20/2023 Cardiac MRI IMPRESSION: - The right ventricle is dilated (RV EDVi = 108 ml/m ) with moderately reduced systolic function and has dysynchronous RV free wall motion (seen in 4-CH view). In the given context, these findings are suggestive of arrhythmogenic cardiomyopathy. In addition, subtle midmycoardial delayed enhancement is suspected in the basal anteroseptum, seen in the LVOT 0view. Correlation with other clinical/genetic parameters for arrhythmogenic cardiomyopathy is suggested. - The left ventricle is normal in size (LV EDVi = 53 ml/m ). The left ventricular systolic function is normal (LV EF = 63 %). No regional wall motion abnormality. Subtle midmycoardial delayed enhancement is suspected in the basal anteroseptum, seen in the LVOT view - while this could be due to other causes such as myocarditis and sarcoidosis, in the given context, is likely related to arrhythmogenic cardiomyopathy. No definite evidence of prior ischemic damage. -No significant valvular abnormality. - The patient has not had a prior CC cardiac MR exam for comparison. 04/09/2023 ECG Diagnosis: NORMAL SINUS RHYTHM RIGHT AXIS DEVIATION RIGHT VENTRICULAR HYPERTROPHY ANTEROLATERAL T WAVE ABNORMALITY PROLONGED QT INTERVAL OR TU FUSION, CONSIDER HYPOKALEMIA ABNORMAL ECG MEDICAL HISTORY: PAST MEDICAL HISTORY Diagnosis Date Arrhythmogenic right ventricular dysplasia (HCC) Generalized anxiety disorder SURGICAL HISTORY: PAST SURGICAL HISTORY Procedure Laterality Date SNGL x2 FAMILY HISTORY: A detailed, 4-generation family history was obtained, details are available on request. Significant diagnoses are listed below: FAMILY HISTORY Problem Relation Age of Onset Alcohol abuse Father Emphysema Father No Known Problems Sister No Known Problems Brother Heart Attack Maternal Grandfather other (pacemaker) Maternal Grandfather other (atrial fibrillation) Maternal Grandfather Cancer Paternal Grandmother Hypertension Paternal Grandmother Son - 7 months, a/w Daughter - 2.5 years, a/w Father - no details Paternal half-brother - a/w Paternal half-brother - no detils Paternal half-sister /w Paternal grandparents - limited details, lived to be old Mother - 56y, anxiety, HTN Maternal half-sister - psoriatic arthritis Maternal aunts (2) / uncle (1) - a/w Maternal grandfather - d.77, COVID, esophgeal cancer Maternal grandmother - 77y, dementia The remainder of the reported family history is negative for hereditary cardiovascular disease, sudden , and consanguinity. IMPRESSION: Andrea IVAN is a 32 year old female with - Suspected ARVC - No known family history of cardiomyopathy, SCD, arrhythmia The patient's personal history is suggestive of ARVC. We discussed the utility of genetic testing to confirm her diagnosis, aid in risk stratification, and also guide management. We also discussed the inheritance pattern and up to a 50% recurrence risk for close relatives. Given her children are young we would not expect them to be phenotypically affected but identifying the genetic cause would aid in future screening. Genetic testing for ARVC has limited sensitivity a normal result cannot rule out a diagnosis and we would recommend clinical screening of first-degree relatives instead of genetic testing. According to the guidelines of multiple professional societies (AHA, ACC, HFSA, and HRS), genetic testing is recommended for patients diagnosed with cardiomyopathy, including arrhythmogenic cardiomyopathy (PMID: 28595388, [id number], [id number]). A multigene ARVC panel is recommended. While we did consider sending a panel to an in-network laboratory ([facility]), this laboratory does not offer testing of CDH2 which is a newly described ARVC gene also listed in the 2021 HRS/EHRS genetic testing guidelines. Therefore we elected to send the testing to [facility] which includes all necessary ARVC genes and she was agreeable. PLAN: - Arrhythmogenic cardiomyopathy panel through [facility]. Results are expected in approximately 2-3 weeks from the time the sample is received by the lab. The patient will be contacted by telephone and/or MyChart to discuss these results. - If genetic testing is positive, recommend genetic counseling and testing for relatives - If genetic testing is negative/normal, recommend cardiac screening of all first-degree relatives, starting no later than age 10, every 1-3 years if normal. - Results can be released directly by [facility] and/or [employer]. If the patient reviews the results before I am able to provide a summary of the results over the phone or through [employer], she can call me to discuss further at [phone], A follow up genetic counseling visit will be scheduled if indicated GENETIC COUNSELING: Arrhythmogenic cardiomyopathy (ACM) is a heart muscle condition which initially presents with heart rhythm problems. ACM can be caused by an acquired cause, such as cardiac sarcoidosis or viral infection, or an underlying genetic cause. Identifying the underlying cause of your heart problems can help guide your medical management and determine if your family members may also be at increased risk to develop ACM. The most common genetic cause of ACM affects the right chamber of the heart, and is called arrhythmogenic right ventricular cardiomyopathy (ARVC). ARVC is caused by spelling changes in a person's genetic code that cause their heart muscle to function abnormally over time. These spelling changes, or pathogenic variants, can be present in other family members as well. Genetic arrhythmogenic cardiomyopathies are treated with standard heart failure therapy, and in some cases, exercise restriction or placement of an internal defibrillator. We reviewed the risks, benefits, and limitations of genetic testing for ACM as recommended by the HFSA, ACMG, HRS, and additional professional organizations. Genetic testing is able to identify a disease-causing variant in most, but not all individuals with a genetic or familial cardiomyopathy. Therefore a negative result would reduce the likelihood of a genetic cause to your heart problems, but would not necessarily rule it out. If your heart issues are unexplained, or there is a concerning family history of heart problems, regular heart screening may still be recommended for your close relatives. Clinical cardiac screening is recommended for close relatives of a person diagnosed with ACM to ensure early management and treatment. First-degree relatives (siblings, parents, children) should receive a baseline clinical evaluation by a cinetechnician familiar with ACM, followed by periodic screening. The 2019 Heart Rhythm Society guidelines recommend a clinical exam, cardiac imaging, and ECG; periodic evaluation should occur beginning at age 10-12 every 1-3 years, or sooner based on clinical findings. The 2022 Society of Cardiology also recommends that first-degree relatives of an individual diagnosed with cardiomyopathy undergo baseline clinical screening including ECG and cardiac imaging, including in families where genetic testing was negative or not completed. If a harmful genetic variant is identified, we will recommend your close relatives undergo genetic testing to determine if they need regular heart screening. Typically, there is a 50% chance that each child or sibling will also be at increased risk for ACM. Family members who do have the familial variant will need regular cardiac screening to ensure early diagnosis and treatment. Family members who do not have the familial variant are not at increased risk and typically do not require further heart screening. Often times, a rare variant may be identified which is not well-studied or understood. These are called variants of uncertain significance. If a variant of unknown significance is identified, these results are typically not used for medical care or family screening. In rare cases, family testing may be recommended on a research basis to clarify the significance of the variant. Reference: 1. 2019 HRS expert consensus statement on evaluation, risk stratification, and management of arrhythmogenic cardiomyopathy. Dinh, et al. 2019, Heart Rhythm 2. Genetic Evaluation of Cardiomyopathy--A Heart Failure Society of [place] Practice Guideline. Max, et al. 2018. J Card Failure 3. 2022 ESC Guidelines for the Management of Cardiomyopathies. Brandy et al. 2022. Eur Heart J. RESOURCES: ARVC Family Support: arvcfamilysupport.org SADS Foundation: sads.org -------- The patient was seen for a total of 30 minutes in [id number] video counseling. This plan is being carried out under oversight of Dr. Shawna Allen, Clinical Pre Algebra Teacher. This note is available to the patient through [employer] and will be sent to the referring provider through [facility] or the [place] Mail as necessary. Cesar Gillette MS, [facility] Licensed, Certified Genetic Counselor [facility] CC: Dr. Booker Allen documented in this encounter [facility] 04-08-2023 Note HNO ID: [id number] Author: Millie Glez RN Service: ? Author Type: Registered Nurse Type: Progress Notes Filed: 04/08/2023 3:07 PM Note Text: THE FOLLOWING WAS EVALUATED Motivation To Learn: Interested Family/Significant Other Support: Unable to assess - Family not present Cognitive Ability: Alert and oriented Patient Learns Best By: Individual Instruction The Following Influencing Factors Were Barriers To This Education Session: None The Following Physical Limitations Were Barriers To This Education Session: None Instruction Provided To: Patient Procedure: Electrophysiology Study Pre-procedure information reviewed: Patient ID verified Procedure verified Physician verified Explanation of procedure Sedation level during procedure MD medication instructions from EP lab request Stop Beta Marci/ Calcium Channel Marci: Yes, 2 days Travel instructions/restrictions Scheduling information Possible same day discharge versus overnight hospital stay Check out time Family waiting area Physician contact with family after procedure Post Procedure Expectations reviewed: Inpatient hospital stay Post procedure antiarrhythmics and anticoagulation will be discussed with Physician, nurse practitioner or Physician trust administrative assistant upon discharge Instructions for transmitting EKG to Monitoring Center 3 month follow up instructions Contact number for information and questions Patient Evaluation: Verbalizes understanding Follow Up Plan: Follow up as directed by MD. Supplemental Material Given: Written Material Patient education regarding radiation exposure. Instructed By Millie Glez RN, RN. In Department of CARDIOLOGY. [facility] 04-08-2023 History of Presen t illness Narrative THE FOLLOWING WAS EVALUATED Motivation To Learn: Interested Family/Significant Other Support: Unable to assess - Family not present Cognitive Ability: Alert and oriented Patient Learns Best By: Individual Instruction The Following Influencing Factors Were Barriers To This Education Session: None The Following Physical Limitations Were Barriers To This Education Session: None Instruction Provided To: Patient Procedure: Electrophysiology Study Pre-procedure information reviewed: Patient ID verified Procedure verified Physician verified Explanation of procedure Sedation level during procedure medication instructions from EP lab request Stop Beta Marci/ Calcium Channel Marci: Yes, 2 days Travel instructions/restrictions Scheduling information Possible same day discharge versus overnight hospital stay Check out time Family waiting area Physician contact with family after procedure Post Procedure Expectations reviewed: Inpatient hospital stay Post procedure antiarrhythmics and anticoagulation will be discussed with Physician, nurse practitioner or Physician trust administrative assistant upon discharge Instructions for transmitting EKG to Monitoring Center 3 month follow up instructions Contact number for information and questions Patient Evaluation: Verbalizes understanding Follow Up Plan: Follow up as directed by MD. Supplemental Material Given: Written Material Patient education regarding radiation exposure. Instructed By Millie Glez RN, RN. In Department of CARDIOLOGY. documented in this encounter [facility] 04-08-2023 Note Education (EPSMN) ANDREA IVAN ([id number]) 1990 F Date Time Provider Department 04/08/23 BOOKER GONG EPSMN Reason for Visit: Patient Education [91] Cmt: EP: EPS During your visit today, we recorded the following information about you: Allergies As of Date: 04/08/2023 Noted Allergy Reaction PENICILLINS 01/07/2019 4 - Hives Date Reviewed: 02/09/2023 Reviewed by: Qing Sibley, WES - Fully Assessed Prescriptions as of 04/08/2023 - metoprolol succinate ER (TOPROL XL) 25 mg 24 hr tablet Take 12.5 mg by mouth twice daily. - escitalopram oxalate (LEXAPRO) 10 mg tablet Take 10 mg by mouth once daily. - LORazepam (ATIVAN) 1 mg tablet Take 1 mg by mouth every 6 hours as needed for anxiety. Encounter Status:Closed by MILLIE GLEZ on 04/08/23 [facility] 02-12-2023 Miscellaneous Notes The date of 04-09-[address] Gong offered & accepted by patient. ----- Message from Booker Gong MD sent at 02/09/2023 11:54 AM EDT ----- Patient: Andrea IVAN EP Lab Procedure requested: Other Procedures Other EPS Anticoagulation Status: Not anticoagulated Requesting Physician: Booker Gong MD Procedural Physician: Booker Gong MD Date of last H&P or Date of upcoming H&P: 02/09/23 Indications for procedure: VT RVOT Procedure time frame: 1st Available Current Meds: Current Outpatient Medications: metoprolol succinate ER (TOPROL XL) 25 mg 24 hr tablet escitalopram oxalate (LEXAPRO) 10 mg tablet LORazepam (ATIVAN) 1 mg tablet input Section Potential Research Patient: No General anesthesia needed: No Moderate anesthesia needed: Yes Patient a candidate of same day discharge: No Mapping Ablation:Biosense [place] (CARTO) CT Scan needed pre-procedure: No ECHO needed pre-procedure:None Anticoagulation: N/A Stop Antiarrhythmic: No Stop Beta Marci/ Calcium Channel Marci: Yes, 2 days ASA: N/A Additional instructions:None Booker Gong MD February 09, 2023 11:55 AM documented in this encounter [facility] 02-09-2023 Miscellaneous Notes Outside medical records scanned into shared [address]. Patient scheduled to see Dr. Booker Gong on February 09, 2023. documented in this encounter [facility] 02-09-2023 Note HNO ID: [id number] Author: Booker Gong MD Service: ? Author Type: Physician Type: Progress Notes Filed: 02/09/2023 11:57 AM Note Text: [facility] [place] [facility] Department of Cardiovascular Medicine SECTION OF CARDIAC PACING and ELECTROPHYSIOLOGY OUTPATIENT VISIT DATE February 09, 2023 OUTPATIENT VISIT TYPE NEW PRIMARY CARE PHYSICIAN: Manda Figueroa MD ([facility]) [address] [address] CHIEF COMPLAINT: Palpitations HISTORY OF PRESENT ILLNESS/ NURSING INTAKE HISTORY: Ms. 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 She was initially seen by cardiology in 2014 for palpitations with some suspicion of pre-excitation on EKG. She had extensive workup with monitoring, echo, and exercise stress testing which were unremarkable. She was placed on toprol, stopped during 2021. She developed recurrent symptoms while , continued into about 3-4 months post-. She was re-evaluated in December 2022. Recent cafeteria monitor December-January 2023 showed two episodes of SVT, both on 01/19/23 with average HR 155 and 159. Duration of episodes is unclear but she reports that they lasted for about a minute. She reports she experienced her typical symptoms of fluttering palpitations and SOB while wearing the monitor. cMRI 01/20/23 showed dilated RV with moderately reduced systolic function, RV dilatation and and dyssynchronous RV free wall motion. Subtle midmycoardial delayed enhancement is suspected in the basal anteroseptum. Findings concerning for ARVC. Normal LV size and function, however subtle midmyocardial enhancement is suspected in basal anteroseptum. She was placed on toprol following MRI results. She denies any personal history of syncope, but did report near-syncopal episodes in 2014. Family history negative for SCD. She has two young children. She reports palpitations occurring daily, multiple times per day. She describes them as a fast heartbeat or skipping. They typically last seconds to a minute, can often be triggered with activity. They are associated with SOB but no significant lightheadedness or near-syncope. She has periodic chest pain. She denies near-syncope or syncope. PAST MEDICAL HISTORY Diagnosis Date Arrhythmogenic right ventricular dysplasia (HCC) Generalized anxiety disorder PAST SURGICAL HISTORY Procedure Laterality Date SNGL x2 SOCIAL HISTORY Social History Tobacco Use Smoking status: Never Smokeless tobacco: Never Vaping Use Vaping Use: Never used Substance Use Topics Alcohol use: Not Currently Comment: rare Drug use: Never FAMILY HISTORY Problem Relation Age of Onset Alcohol abuse Father Emphysema Father No Known Problems Sister No Known Problems Brother Heart Attack Maternal Grandfather other (pacemaker) Maternal Grandfather other (atrial fibrillation) Maternal Grandfather Cancer Paternal Grandmother Hypertension Paternal Grandmother ALLERGIES: ALLERGIES Allergen Reactions Penicillins Hives MEDICATIONS: metoprolol succinate ER (TOPROL XL) 25 mg 24 hr tablet Take 12.5 mg by mouth twice daily. escitalopram oxalate (LEXAPRO) 10 mg tablet Take 10 mg by mouth once daily. LORazepam (ATIVAN) 1 mg tablet Take 1 mg by mouth every 6 hours as needed for anxiety. REVIEW OF SYSTEMS: General, constitutional: Weight loss or gain - n, Fever or chills - n, Weakness - n, Trouble sleeping -y. Head, Eyes, Ears, Mouth: Headache, head injury - n, Glasses or contact lenses - y, Pain -n, Impaired vision -n, Decreased hearing -n, Ringing in ears -nn, Nose bleeds - n, Dental difficulties -n, Bleeding gums -n, Dentures -n. Neck: Swelling -n, Pain -n, Stiffness -n. Respiratory: Cough -y, Spitting up blood - n, Shortness of breath -y, Wheezing or asthma -n. Musculoskeletal: Muscle or joint pain or stiffness -n, Joint swelling -n. Gastrointestinal: Difficulty swallowing -n, Heartburn -n, Change in bowel habits -y, Blood in stool - n, Dark black stools -n. Neurological/Psychiatric: Weakness, paralysis -n, Numbness -n, Tingling -n, Tremor -n, Nervousness or anxiety -y, Depressed mood -y, Memory loss -n. Skin: Rash -n, Itching -n. Hematological: Easy bruising -n, Easy bleeding -n. Endocrine: Heat or cold intolerance -n, Excessive sweating -n, Frequent urination -n, Frequent thirst-n. Qing Sibley RN PHYSICAL EXAMINATION: BP 112/76 Pulse 89 Ht 162.6 cm (5' 4 ) Wt 73.9 kg (163 lb) LMP 01/04/2019 BMI 27.98 kg/m? General: Well appearing, in no acute distress. Skin: No clubbing, no cyanosis. Eyes: Extra ocular movements intact Oropharynx: Teeth in good repair. Neck: No jugular venous distention, no carotid bruits, carotids have a normal upstroke, no palpable thyromegaly. Lungs: Clear to auscultation bilaterally, no wheezing or rhon (more content not included)... [facility] 02-09-2023 Note HNO ID: [id number] Author: Booker Gong MD Service: ? Author Type: Physician Type: Procedures Filed: 03/16/2023 4:47 PM Note Text: Patient Name: Andrea Ivan : 1990 Ordering Provider: BOOKER GONG Indication: R00.2 Palpitations Type of Monitor: Extended Monitoring-Zio Patch Enrollment Dates: 02/18/2023-03/04/2023 Patient had a min HR of 42 bpm, max HR of 164 bpm, and avg HR of 89 bpm. Predominant underlying rhythm was Sinus Rhythm. First Degree AV Block was present. 1 run of Ventricular Tachycardia occurred lasting 5 beats with a max rate of 113 bpm (avg 101 bpm). Isolated SVEs were rare (<1.0%), SVE Couplets were rare (<1.0%), and SVE Triplets were rare (<1.0%). Isolated VEs were rare (<1.0%), and no VE Couplets or VE Triplets were present. [facility] 02-09-2023 History of Presen t illness Narrative Images from the original note were not included. [facility] [place] [facility] Department of Cardiovascular Medicine SECTION OF CARDIAC PACING and ELECTROPHYSIOLOGY OUTPATIENT VISIT DATE February 09, 2023 OUTPATIENT VISIT TYPE NEW PRIMARY CARE PHYSICIAN: Manda Figueroa MD ([facility]) [address] [place] [address] CHIEF COMPLAINT: Palpitations HISTORY OF PRESENT ILLNESS/ NURSING INTAKE HISTORY: Ms. 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 She was initially seen by cardiology in 2014 for palpitations with some suspicion of pre-excitation on EKG. She had extensive workup with monitoring, echo, and exercise stress testing which were unremarkable. She was placed on toprol, stopped during 2021. She developed recurrent symptoms while , continued into about 3-4 months post-. She was re-evaluated in December 2022. Recent cafeteria monitor December-January 2023 showed two episodes of SVT, both on 01/19/23 with average HR 155 and 159. Duration of episodes is unclear but she reports that they lasted for about a minute. She reports she experienced her typical symptoms of fluttering palpitations and SOB while wearing the monitor. cMRI 01/20/23 showed dilated RV with moderately reduced systolic function, RV dilatation and and dyssynchronous RV free wall motion. Subtle midmycoardial delayed enhancement is suspected in the basal anteroseptum. Findings concerning for ARVC. Normal LV size and function, however subtle midmyocardial enhancement is suspected in basal anteroseptum. She was placed on toprol following MRI results. She denies any personal history of syncope, but did report near-syncopal episodes in 2014. Family history negative for SCD. She has two young children. She reports palpitations occurring daily, multiple times per day. She describes them as a fast heartbeat or skipping. They typically last seconds to a minute, can often be triggered with activity. They are associated with SOB but no significant lightheadedness or near-syncope. She has periodic chest pain. She denies near-syncope or syncope. PAST MEDICAL HISTORY Diagnosis Date Arrhythmogenic right ventricular dysplasia (HCC) Generalized anxiety disorder PAST SURGICAL HISTORY Procedure Laterality Date SNGL x2 SOCIAL HISTORY Social History Tobacco Use Smoking status: Never Smokeless tobacco: Never Vaping Use Vaping Use: Never used Substance Use Topics Alcohol use: Not Currently Comment: rare Drug use: Never FAMILY HISTORY Problem Relation Age of Onset Alcohol abuse Father Emphysema Father No Known Problems Sister No Known Problems Brother Heart Attack Maternal Grandfather other (pacemaker) Maternal Grandfather other (atrial fibrillation) Maternal Grandfather Cancer Paternal Grandmother Hypertension Paternal Grandmother ALLERGIES: ALLERGIES Allergen Reactions Penicillins Hives MEDICATIONS: metoprolol succinate ER (TOPROL XL) 25 mg 24 hr tablet Take 12.5 mg by mouth twice daily. escitalopram oxalate (LEXAPRO) 10 mg tablet Take 10 mg by mouth once daily. LORazepam (ATIVAN) 1 mg tablet Take 1 mg by mouth every 6 hours as needed for anxiety. REVIEW OF SYSTEMS: General, constitutional: Weight loss or gain - n, Fever or chills - n, Weakness - n, Trouble sleeping -y. Head, Eyes, Ears, Mouth: Headache, head injury - n, Glasses or contact lenses - y, Pain -n, Impaired vision -n, Decreased hearing -n, Ringing in ears -nn, Nose bleeds - n, Dental difficulties -n, Bleeding gums -n, Dentures -n. Neck: Swelling -n, Pain -n, Stiffness -n. Respiratory: Cough -y, Spitting up blood - n, Shortness of breath -y, Wheezing or asthma -n. Musculoskeletal: Muscle or joint pain or stiffness -n, Joint swelling -n. Gastrointestinal: Difficulty swallowing -n, Heartburn -n, Change in bowel habits -y, Blood in stool - n, Dark black stools -n. Neurological/Psychiatric: Weakness, paralysis -n, Numbness -n, Tingling -n, Tremor -n, Nervousness or anxiety -y, Depressed mood -y, Memory loss -n. Skin: Rash -n, Itching -n. Hematological: Easy bruising -n, Easy bleeding -n. Endocrine: Heat or cold intolerance -n, Excessive sweating -n, Frequent urination -n, Frequent thirst-n. Qing Sibley RN PHYSICAL EXAMINATION: BP 112/76 Pulse 89 Ht 162.6 cm (5' 4 ) Wt 73.9 kg (163 lb) LMP 01/04/2019 BMI 27.98 kg/m General: Well appearing, in no acute distress. Skin: No clubbing, no cyanosis. Eyes: Extra ocular movements intact Oropharynx: Teeth in good repair. Neck: No jugular venous distention, no carotid bruits, carotids have a normal upstroke, no palpable thyromegaly. Lungs: Clear to auscultation bilaterally, no wheezing or rhonchi. Heart: Regular rhythm, PMI not displaced, S1, S2 normal, no S3, no S4, no heaves, no rub and no murmur. Abdomen: Soft, nontender, bowel sounds normal, no palpable organomegaly, no bruits. Extremities: No peripheral edema . Grade 2/4 distal pulses bilaterally. Neuro: Oriented to person, place and time, alert, cooperative, gait coordinated. CARDIOVASCULAR MEDICINE TESTING: EKG today: cMRI 01/20/23: IMPRESSION: - The right ventricle is dilated (RV EDVi = 108 ml/m ) with moderately reduced systolic function and has dysynchronous RV free wall motion (seen in 4-CH view). In the given context, these findings are suggestive of arrhythmogenic cardiomyopathy. In addition, subtle midmycoardial delayed enhancement is suspected in the basal anteroseptum, seen in the LVOT view. Correlation with other clinical/genetic parameters for arrhythmogenic cardiomyopathy is suggested. - The left ventricle is normal in size (LV EDVi = 53 ml/m ). The left ventricular systolic function is normal (LV EF = 63 %). No regional wall motion abnormality. Subtle midmycoardial delayed enhancement is suspected in the basal anteroseptum, seen in the LVOT view - while this could be due to other causes such as myocarditis and sarcoidosis, in the given context, is likely related to arrhythmogenic cardiomyopathy. No definite evidence of prior ischemic damage. -No significant valvular abnormality. - The patient has not had a prior CC cardiac MR exam for comparison. Monitor 12/2022: EKGs: IMPRESSION: Ms. IVAN is a 32 year old female with probable ARVC (T wave inversion in the anterior precordial leads associate with regional RV free wall dyskinesis and RV dilatation), no family history of SCD/arrhythmias, occasional palpitations who presents to our clinic to discuss additional options. Based on available ECG and MRI it is likely that Ms. Ivna does indeed have ARVC and we had a prolonged discussion of the implications of this diagnosis - in particular, given mild symptoms and no documented ventricular arrhythmias to this point we have discussed that most patients with her clinical features have a benign prognosis. She has been experiencing some new palpitations lately with HR increasing up to 150 bpm - we will re-investigate underlying presence of ventricular arrhythmias with a repeat extended ECG monitor. In addition, we referred her to our genetic counselor for genetic testing. In the meantime, we recommend continuation of BB therapy and avoidance of strenuous exercise. For additional risk stratification, we discussed role of EPS to determine VT inducibility. In addition, EPS will give an opportunity to evaluate RV scar burden with voltage mapping. PLAN AND RECOMMENDATIONS: Continue BB therapy, avoid strenuous exercise Genetic testing/genetic counselor referral Repeat ECG monitoring Schedule EPS I personally interviewed, confirmed and edited the above information as obtained by others. CONTACT INFORMATION: Booker Gong MD documented in this encounter [facility] 01-30-2023 Miscellaneous Notes Outside medical records scanned into shared EP drive. Patient scheduled with Dr. Booker Gong on February 09, 2023. documented in this encounter [facility] 01-22-2023 Miscellaneous Notes Referral and outside medical records scanned into shared EP drive. Referral routed to appointment secretaries for appropriate scheduling. documented in this encounter [facility] 01-20-2023 Note HNO ID: [id number] Author: Syed Gamboa RN Service: Nursing Author Type: Registered Nurse Type: Progress Notes Filed: 01/20/2023 1:02 PM Note Text: Radiology Service Progress Note DATE OF SERVICE: January 20, 2023 TIME: 12:59 PM PATIENT WEIGHT: 152 LBS PATIENT IDENTITY VERIFICATION COMPLETED USING TWO (2) STANDARD IDENTIFIERS: Name and Date of confirmed by patient verbally. FALL SCREENING: Has the patient had 2 falls in the last year or 1 fall with injury or currently using an Ambulatory Assistive Device (Walker, Cane, Wheelchair, Crutches, etc.)? No PATIENT GENDER DATA: Female. status: : No status: NO. ALLERGIES: Reviewed and unchanged CONTRAST ALLERGY: No EXAM: MRI - CONTRAST TYPE: GROUP II IV SITE: Ambulatory: A peripheral IV was started in the Right antecubital site with a Angio cath: 20 gauge. and A Saline lock was inserted per protocol IV SITE APPEARANCE: Clean,Dry and Intact SIGNATURE: Syed Gamboa RN PATIENT NAME: Andrea IVAN DATE: January 20, 2023 TIME: 12:59 PM [facility] 01-20-2023 Note HNO ID: [id number] Author: Cynthia Burns RT(R) Service: ? Author Type: Technologist Type: Progress Notes Filed: 01/20/2023 1:44 PM Note Text: Radiology Service Progress Note PATIENT NAME: Andrea IVAN DATE OF SERVICE: January 20, 2023 TIME: 1:43 PM PATIENT IDENTITY VERIFICATION COMPLETED USING TWO (2) IDENTIFIERS: Name and Date of confirmed by patient verbally and Name and Date of confirmed by identification band. FALL SCREENING: Has the patient had 2 falls in the last year or 1 fall with injury or currently using an Ambulatory Assistive Device (Walker, Cane, Wheelchair, Crutches, etc.)? No PATIENT GENDER DATA: Female. status: : No status: NO. PATIENT RELEVANT IMPLANT DATA REVIEWED: Yes RADIOLOGY DEPARTMENT: MR; Exam(s) Completed: Cardiac: Cardiac PERIPHERAL IV DATA: Site assessment: Clean,Dry and Intact, Site disposition Discontinued SIGNED BY: Kirsten Villafana RT, RT Yesy(R) January 20, 2023 1:43 PM [facility] documented in this encounter [facility] note* Diagnosis VT (ventricular tachycardia) (HCC)- Primary Paroxysmal ventricular tachycardia Palpitations documented in this encounter [facility] note* Diagnosis Arrhythmogenic right ventricular cardiomyopathy (HCC)- Primary Other primary cardiomyopathies documented in this encounter [facility] note* Diagnosis Shortness of breath- Primary Pulmonary hypertension, unspecified (HCC) Right-sided heart failure, unspecified HF chronicity (HCC) documented in this encounter [facility] note* Diagnosis Shortness of breath- Primary Pulmonary hypertension, unspecified (HCC) Right-sided heart failure, unspecified HF chronicity (HCC) documented in this encounter [facility] for referral (narrative)* Outpatient Procedure (Routine) - Authorized Specialty Diagnoses / Procedures Referred By Shannan whitehead Referred To Contact [facility] Diagnoses Palpitations Procedures ECG COMPLETE ECG ROUTINE ECG W/LEAST 12 LDS W/I&R Booker Gong MD [address] [place] [address] [facility] [address] [address] Referral ID Status Reason Start Date Expiration Date Visits Requested Visits Authorized [id number] Authorized Auto-Generat ed Referral 01/26/2023 01/26/2024 1 1 [facility] Outpatient Procedure (Routine) - Authorized Specialty Diagnoses / Procedures Referred By Shannan whitehead Referred To [facility] Diagnoses VT (ventricular tachycardia) (HCC) Procedures ECG COMPLETE ECG ROUTINE ECG W/LEAST 12 LDS W/I&R Booker Gong MD [address] [place] [address] [facility] [address] [address] Referral ID Status Reason Start Date Expiration Date Visits Requested Visits Authorized [id number] Authorized Auto-Generat ed Referral 04/20/2023 04/19/2024 1 1 [facility] Reason for Referral Specialty Diagnoses / Procedures Referred By Shannan whitehead Referred To Contact Diagnoses Palpitations Procedures CONSULT TO MEDICAL GENETICS - CARDIOVASCULAR OFFICE/OUTPATIENT [facility] 60-74 MINUTES MEDICAL GENETICS COUNSELING EACH 30 [place] [address] [place] [address] [facility] [place] [place] [address] Referral ID Status Reason Start Date Expiration Date Visits Requested Visits Authorized [id number] Authorized PCP Requested Referral Auto-Generate d Referral 02/09/2023 02/09/2024 1 1 Summary Purpose Family History No Family History Records Found Advance Directives No Advanced Directives Records Found Additional Source Comments Source Comments (unrecognize d section and content) In the event this informatio n is protected by the Federal Confidentiality of Alcohol and Drug Abuse Patient Records regulations: The Federal rules restrict any use of the information to criminally investigate or prosecute any alcohol or drug abuse [facility] event this information is protected by the Federal Confidentiality of Alcohol and Drug Abuse Patient Records regulations: The Federal rules restrict any use of the information to criminally investigate or prosecute any alcohol or drug abuse patient.[facility] the event this information is protected by the Federal Confidentiality of Alcohol and Drug Abuse Patient Records regulations: The Federal rules restrict any use of the information to criminally investigate or prosecute any alcohol or drug abuse patient.[facility] the event this information is protected by the Federal Confidentiality of Alcohol and Drug Abuse Patient Records regulations: The Federal rules restrict any use of the information to criminally investigate or prosecute any alcohol or drug abuse patient.[facility] the event this information is protected by the Federal Confidentiality of Alcohol and Drug Abuse Patient Records regulations: The Federal rules restrict any use of the information to criminally investigate or prosecute any alcohol or drug abuse patient.[facility] the event this information is protected by the Federal Confidentiality of Alcohol and Drug Abuse Patient Records regulations: The Federal rules restrict any use of the information to criminally investigate or prosecute any alcohol or drug abuse patient.[facility] the event this information is protected by the Federal Confidentiality of Alcohol and Drug Abuse Patient Records regulations: The Federal rules restrict any use of the information to criminally investigate or prosecute any alcohol or drug abuse patient.[facility] the event this information is protected by the Federal Confidentiality of Alcohol and Drug Abuse Patient Records regulations: The Federal rules restrict any use of the information to criminally investigate or prosecute any alcohol or drug abuse patient.[facility] the event this information is protected by the Federal Confidentiality of Alcohol and Drug Abuse Patient Records regulations: The Federal rules restrict any use of the information to criminally investigate or prosecute any alcohol or drug abuse patient.[facility] the event this information is protected by the Federal Confidentiality of Alcohol and Drug Abuse Patient Records regulations: The Federal rules restrict any use of the information to criminally investigate or prosecute any alcohol or drug abuse patient.[facility] the event this information is protected by the Federal Confidentiality of Alcohol and Drug Abuse Patient Records regulations: The Federal rules restrict any use of the information to criminally investigate or prosecute any alcohol or drug abuse patient.[facility] the event this information is protected by the Federal Confidentiality of Alcohol and Drug Abuse Patient Records regulations: The Federal rules restrict any use of the information to criminally investigate or prosecute any alcohol or drug abuse patient.[facility] Reason for Visit (unrecogniz ed section and content) Reason Comments Received Outside Medical Records Appoint ment 02/09/2023 Reason Comments Received Outside Medical Records Reason Comments Schedule Surgery EPS only Reason Comments Patient Education EP: EPS Reason Comments Consult Specialty Diagnoses / Procedures Referred By Shannan t Referred To Contact Diagnoses Palpitations Procedures CONSULT TO MEDICAL GENETICS - CARDIOVASCULAR OFFICE/OUTPATIENT NEW HIGH MDM 60-74 MINUTES MEDICAL GENETICS COUNSELING EACH 30 MINUTES Booker Gong MD [address] [place] [address] [place] [address] Referral ID Status Reason Start Date Expiration Date V isits Requested Visits Authorized [id number] Closed PCP Requested Referral Auto-Generated Referral 02/09/2023 02/09/2024 1 1 Reason Comments Spirometry Specialty Diagnoses / Procedures Referred By Contac t Referred To Contact [facility] Diagnoses Shortness of breath Pulmonary hypertension, unspecified (HCC) Right-sided heart failure, unspecified HF chronicity (HCC) Procedures SPIROMETRY BASELINE ONLY SPMTRY W/VC EXPIRATORY PRAVIN W/WO MXML VOL VNTJ Dustin Benitez MD [address] [place] [address] [place] [address] Referral ID Status Reason Start Date Expiration Date V isits Requested Visits Authorized [id number] Closed Auto-Generate d Referral 06/03/2023 07/01/2024 1 1 Specialty Diagnoses / Procedures Referred By Contac t Referred To Contact RESPIRATORY [facility] Diagnoses Shortness of breath Pulmonary hypertension, unspecified (HCC) Right-sided heart failure, unspecified HF chronicity (HCC) Procedures LUNG VOLUMES Dustin Benitez MD [address] [place] [address] [place] [address] Referral ID Status Reason Start Date Expiration Date V isits Requested Visits Authorized [id number] Closed Auto-Generate d Referral 06/02/2023 06/14/2023 1 1 Care Teams (unrecognized sec tion and content) 7Th Grade Teacher Relationship Specialty Start Date End Date Manda Figueroa [address] [place] [address] PCP - General 04/26/04 7Th Grade Teacher Relationship Specialty Start Date End Date Manda Figueroa [address] [place], [place] [address] PCP - General 04/26/04 7Th Grade Teacher Relationship Specialty Start Date End Date Manda Figueroa [address] [place] [address] PCP - General 04/26/04 Jamey Moreno [address] [place] [address] Referring Cardiology 02/09/23 7Th Grade Teacher Relationship Specialty Start Date End Date Manda Figueroa [address] [place] [address] PCP - General 04/26/04 Jamey Moreno [address] [place] [address] Referring Cardiology 02/09/23 7Th Grade Teacher Relationship Specialty Start Date End Date Manda Figueroa [address] [place] [address] PCP - General 04/26/04 Jamey Moreno [address] [place] [address] Referring Cardiology 02/09/23 7Th Grade Teacher Relationship Specialty Start Date End Date Manda Figueroa [address] [place] [address] PCP - General 04/26/04 Jamey Moreno MD [address] [place] [address] Referring Cardiology 02/09/23 7Th Grade Teacher Relationship Specialty Start Date End Date Manda Figueroa [address] [place] [address] PCP - General 04/26/04 Jamey Moreno MD [address] [place] [address] Referring Cardiology 02/09/23 7Th Grade Teacher Relationship Specialty Start Date End Date Manda Figueroa [address] [place] [address] PCP - General 04/26/04 Jamey Moreno MD [address] [place] [address] Referring Cardiology 02/09/23 7Th Grade Teacher Relationship Specialty Start Date End Date Manda Figueroa [address] [place] [address] PCP - General 04/26/04 Jamey Moreno MD [address] [place] [address] Referring Cardiology 02/09/23 7Th Grade Teacher Relationship Specialty Start Date End Date [facility]anda [facility]eroa [address] [facility] [address] [place] [address] PCP - General 04/26/04 Jamey Moreno MD [address] [place] [address] Referring Cardiology 02/09/23 7Th Grade Teacher Relationship Specialty Start Date End Date Manda Figueroa [address] [place] [address] PCP - General 04/26/04 Jamey Moreno MD [address] [place], [place] [address] Referring Cardiology 02/09/23 INFORMATION SOURCE (unrecogn ized section and content) FOR RECORDS PERTAINING TO PATIENTS WHO ARE OR HAVE BEEN ENROLLED IN A CHEMICAL DEPENDENCY/SUBSTANCEABUSE PROGRAM, SOME INFORMATION MAY BE OMITTED. This clinical summary was aggregated from multiple sources. Caution should be exercised in using it in the provision of clinical care. This summary normalizes information from multiple sources, and as a consequence, information in this document may materially change the coding, format and clinical context of patient data. In addition, data may be omitted in some cases. CLINICAL DECISIONS SHOULD BE BASED ON THE PRIMARY CLINICAL RECORDS. [employer] provides no warranty or guarantee of the accuracy or completeness of information in this document.
== END | disposition home or self-care (01) ==
LOC: MTRAD 16:23
PROVIDERS: PCP Family Medicine; Referring Provider Internal Medicine Pulmonary Disease; Visit Provider Internal Medicine Pulmonary Disease
DX: R06.00 Dyspnea, unspecified (principal)
CPT/HCPCS: 71046

== ENCOUNTER → 2023-07-13 | Outpatient (CLI) | payer OTHER, SELFPAY ==
--- NOTE | 2023-07-13 07:59 | CT_ITS ---
STUDY: CT SOFT TISSUE NECK WITH CONTRAST REASON FOR EXAM: Female, 32 years old. [place] VOCAL CORD PARALYSIS RADIATION DOSAGE (If Supplied By Facility): CTDIvol = ( 15.00 ) mGy, DLP = ( 408.56 ) mGycm TECHNIQUE: The patient was scanned in a multi-detector CT scanner. High resolution transaxial imaging was performed following intravenous administration of IV 75mL Isovue-[id number]. Sagittal and coronal images were reconstructed. Individualized dose optimization techniques were used for this CT. COMPARISON: None. FINDINGS: Normal bilateral parotid glands. Normal bilateral trailer mechanic spaces. Normal bilateral parapharyngeal spaces. Normal bilateral carotid spaces. Normal bilateral sublingual and submandibular glands and spaces. Normal visualized nasopharynx. Normal retropharyngeal space. Normal perivertebral space. Normal visualized bilateral faucial tonsils. The visualized tongue, tongue base and oropharynx are normal. The visualized cervical lymph nodes (levels I-) are within normal size limits, and maintain normal morphology. There is no demonstrated solid or cystic mass lesion. There is no abnormal contrast enhancement. Normal epiglottis, bilateral vallecula and hypopharynx. The pre-epiglottic and paraglottic adipose spaces are normal. Normal visualized bilateral piriform sinuses, aryepiglottic folds, vocal cords, and arytenoid-cricoid articulations. Normal subglottic trachea. Normal bilateral lobes of the thyroid gland. Normal visualized pulmonary apices. Calcified pretracheal lymph node. Normal visualized paranasal sinuses. Normal visualized cervical spine. CT/Soft Tissue Neck WITH Contrast IMPRESSION: Normal enhanced CT examination of the soft tissues of the neck. Electronically Signed: Anant Aguiar MD at 14:32 EST ,
--- OUTSIDE RECORDS SUMMARY | 2023-07-13 08:13 | XMS RPT_ITS | CCD ---
Author Name Unknown Address [address] [place] [address] Organization [facility] Care Team Providers Care Rotary Drier Name Role Phone Anabelle Langford Unavailable Unavailable Jolliff, Manda Janene Primary Care Provider [phone] Jamey Moreno S Unavailable Jamey Moreno MD S Unavailable Marcial COLLIER, Nelson Unavailable [phone] Josh Gallegos Unavailable SANTALIZZY BOOKER Attending Unavailable JOLLIFF, MANDA JANENE Primary Care Unavailable SANTANGELI, BOOKER Referring Unavailable JOLLIFF, MANDA JANENE Primary Care Unavailable DUSTIN BENITEZ Attending Unavailabl e JOLLIFF, MANDA JANENE Primary Care Unavailable DUSTIN BENITEZ Referring Unavailabl e JOLLIFF, MANDA JANENE Primary Care Unavailable DUSTIN BENITEZ Referring Unavailabl e JOLLIFF, MANDA JANENE Primary Care Unavailable DUSTIN BENITEZ Referring Unavailabl e JOLLIFF, MANDA JANENE Primary Care Unavailable DUSTIN BENITEZ Referring Unavailabl e JOLLIFF, MANDA JANENE Primary Care Unavailable DUSTIN BENITEZ Referring Unavailabl e JOLLIFF, MANDA JANEEN Primary Care Unavailable DUSTIN BENITEZ Referring Unavailabl e JOLLIFF, MANDA JANENE Primary Care Unavailable JOSE RAMON CAMPBELL Attending Unavailable DUSTIN BENITEZ Referring Unavailabl e JOLLIFF, MANDA JANENE Primary Care Unavailable NELSON ROTHMAN Attending Unavailabl e JOLLIFF, MANDA JANENE Primary Care Unavailable SANTANGELI, BOOKER Referring Unavailable JOLLIFF, MANDA JANENE Primary Care Unavailable DANA MONAHAN Attending Unavailable DUSTIN BENITEZ Referring Unavailabl e JOLLIFF, MANDA JANENE Primary Care Unavailable SANTANGELI, BOOKER Attending Unavailable BOOKER GONG Admitting Unavailable MANDA HARGROVE Primary Care Unavailable NELSON ROTHMAN Attending Unavailabl e NELSON ROTHMAN Admitting Unavailabl e MANDA HARGROVE Primary Care Unavailable MANDA HARGROVE Referring Unavailable MANDA HARGROVE Primary Care Unavailable BOOKER GONG Referring Unavailable MANDA HARGROVE Primary Care Unavailable Allergies Allergy Classification Reported Allergen(s) Allergy Type Date of Onset Reaction(s) Facility (1 source) Penicillins (Antibiotic) drug allergy 11-17-2014 [facility] Work Phone: (1 source) CATEPILLARS; Translations: [CATEPILLARS] allergy to substance 11-17-2014 [facility] Work Phone: (14 sources) Penicillins; Translations: [PENICILLINS] Drug Allergy 01-07-2019 [facility] Medications Completed/Discontinued Medications Medication Drug Class(es) Dates Sig (Normalized) Sig (Original) ambrisentan 5 mg oral tablet (1 source) Endothelin Receptor Antagonist Start: 06-29-2023 take 1 tablet by mouth once daily ambrisentan (LETAIRIS) 5 mg tablet Take 1 tablet by mouth once daily. 30 tablet 0 06/29/2023 Active Problems Active Problems Problem Classification Problem Date Documented Da te Episodic/Chronic Cardiac dysrhythmias (1 source) Ventricular tachycardia; Translations: [VT (ventricular tachycardia) (HCC)] 04-20-2023 Chronic Congestive heart failure; nonhypertensive (6 sources) Right ventricular failure; Translations: [Right heart failure, unspecified] Onset: 06-02-2023 06-03-2023 Chronic Nutritional deficiencies (1 source) Deficiency of macronutrients; Translations: [Unspecified severe protein-calorie malnutrition] Onset: 06-04-2023 06-04-2023 Chronic Other lower respiratory disease (2 sources) Dyspnea; Translations: [Shortness of breath] 06-03-2023 Episodic Other lower respiratory disease (1 source) Shortness of breath; Translations: [Shortness of breath] Onset: 06-02-2023 Episodic Jessica-; endo-; and myocarditis; cardiomyopathy (except that caused by tuberculosis or sexually transmitted disease) (2 sources) Arrhythmogenic right ventricular dysplasia; Translations: [Other cardiomyopathies] Onset: 04-10-2023 04-10-2023 Chronic Pulmonary heart disease (5 sources) Pulmonary hypertension; Translations: [Pulmonary hypertension, unspecified] [...] 162.6 cm Booker Gong MD Work Phone: [facility] 02-09-2023 08:19-0400 Body weight 73.94 kg Booker Gong MD Work Phone: [facility] 02-09-2023 08:19-0400 Diastolic blood pressure 76 mm[Hg] Booker Gong MD Work Phone: [facility] 02-09-2023 08:19-0400 Heart rate 89 /min Booker Gong MD Work Phone: [facility] 02-09-2023 08:19-0400 Systolic blood pressure 112 mm[Hg] Booker Gong MD Work Phone: [facility] 10-21-2016 12:42-0400 BMI (Body Mass Index) 26.57 kg/m2 [facility] Work Phone: 10-21-2016 12:42-0400 BP Diastolic 50 mm[Hg] [facility] Work Phone: 10-21-2016 12:42-0400 BP Systolic 100 mm[Hg] [facility] Work Phone: 10-21-2016 12:42-0400 Height 160.02 cm [facility] Work Phone: 10-21-2016 12:42-0400 Pulse (Heart Rate) 84 /min [facility] Work Phone: 10-21-2016 12:42-0400 Respiratory Rate 18 /min [facility] Work Phone: 10-21-2016 12:42-0400 Weight 68.04 kg Anabelle [facility] Work Phone: 09-24-2015 16:06-0400 BSA (Body Surface Area) 1.62 m2 Anabelle Bre[facility] Work Phone: 09-24-2015 16:06-0400 Pulse Oximetry 97 % [facility] Work Phone: Encounters Encounter Date Encounter Type Care Provider Facility Start: 07-08-2023 Refcade melo MD Work Phone: Cardiology Procedures Date Procedure Procedure Detail Performing Clinician Start: 06-03-2023 Spmtry w/vc expirato ry pravin w/wo mxml vol vntj Dustin Benitez MD Work Phone: Start: 04-09-2023 Antibody screen NELLY GONG Plan of Treatment Date Care Activity Detail Author Start: 06-30-2032 Urine microalbumin profile [facility] Start: 06-15-2023 Depression Assessment Depression Assessment [facility] Start: 02-13-2023 Covid-19 Vaccine () Covid-19 Vaccine () [facility] Start: 02-13-2023 Influenza vaccination [facility] Start: 06-15-2022 DEPRESSION ASSESSMENT DEPRESSION ASSESSMENT [facility] Start: 2020 HPV TESTING HPV TESTING [facility] Start: 2020 Screening for malignant neoplasm of cervix HPV Testing [facility] Start: 11-16-2017 End: 11-16-2017 Appointment Appointment [facility] Work Phone: Start: 10-21-2016 End: 10-21-2016 Appointment Appointment [facility] Work Phone: Start: 10-21-2016 End: 10-21-2016 DJN DJN [facility] Work Phone: Start: 10-21-2016 End: 10-21-2016 Follow Up Appt 1 year Follow Up Appt 1 year [facility] Work Phone: Start: 09-24-2015 End: 09-24-2015 DJN DJN [facility] Work Phone: Start: 09-24-2015 End: 09-24-2015 Follow Up Appt 1 year Follow Up Appt 1 year [facility] Work Phone: Start: 09-24-2015 End: 09-24-2015 Follow Up BP Check Follow Up BP Check [facility] Work Phone: Start: 03-19-2015 End: 03-19-2015 DJN DJN [facility] Work Phone: Start: 03-19-2015 End: 03-19-2015 Follow Up Appt 6 months Follow Up Appt 6 months [facility] Work Phone: Start: 12-18-2014 End: 12-18-2014 DJN DJN [facility] Work Phone: Start: 12-18-2014 End: 12-18-2014 Follow Up Appt 3 months Follow Up Appt 3 months [facility] Work Phone: Start: 11-20-2014 End: 11-20-2014 DJN DJN [facility] Work Phone: Start: 11-20-2014 End: 11-21-2014 Echocardiography Echocardiogram (complete) [facility] Work Phone: Start: 11-20-2014 End: 11-20-2014 Follow Up Appt 1 month Follow Up Appt 1 month [facility] Work Phone: Start: 11-20-2014 End: 11-21-2014 Remote 30 day ecg rev/report 30 Day Holter Monitor [facility] Work Phone: Start: 12-24-2011 PAP TESTING PAP TESTING [facility] Start: 12-24-2011 Screening for malignant neoplasm of cervix Pap Testing [facility] Start: 2009 Urine microalbumin profile DTAP,TDAP,TD (1 - Tdap) [facility] Start: 2008 HEPATITIS C SCREENING HEPATITIS C SCREENING [facility] Start: 2008 Hepatitis C screening Hepatitis C Screening [facility] Start: 2008 HIV SCREENING HIV SCREENING [facility] Start: 2008 HIV screening HIV Screening [facility] Start: 1990 HEPATITIS B (1 of 3 - 3-dose series) HEPATITIS B (1 of 3 - 3-dose series) [facility] Start: 1990 Hepatitis B Vaccine (1 of 3 - 3-dose series) Hepatitis B Vaccine (1 of 3 - 3-dose series) [facility] End: 01-27-2024 ECG COMPLETE ECG COMPLETE ECG Routine Palpitations 1 Occurrences starting 01/26/2023 until 01/27/2024 [facility] Work Phone: Immunizations Immunization Date Immunization Notes Care Provider Rodrigo wei 05-24-2021 influenza virus vaccine, unspecified formulation Booker Gong MD Work Phone: [facility] Payers Date Payer Category Payer Unknown MMO MMO [employer] PPO [id number] 2015-Present [phone] [address] [place] [address] PPO [id number] 2015 Unknown [id number] Social History Date Type Detail Facility Start: 01-07-2019 End: 06-24-2023 Tobacco smoking status NHIS Never smoked tobacco [facility] Start: 01-07-2019 End: 06-24-2023 Tobacco use and exposure Smokeless tobacco non-user [facility] Start: 02-03-2019 End: 02-09-2023 History of Social function [facility] Start: 02-03-2019 End: 02-09-2023 Tobacco use panel [facility] National Score (1-10 0), lower number is lower risk Not on file [facility] Start: 1990 Sex Assigned At Female [facility] Start: 01-15-2023 Gender identity Identifies as female gender (finding) [facility] Start: 01-15-2023 Sexual orientation Heterosexual (fin ding) [facility] Start: 02-09-2023 End: 07-03-2023 Alcohol intake Ex-drinker (finding) [facility] Start: 02-09-2023 Alcohol Comment rare [facility] Clinical Notes 01-20-2023 to 07-08-2023 Telephone Encounter - Jonny Brumfield - 07/08/2023 12:42 PM Bill Fritz RRT - 06/03/2023 11:01 AM ESTTelephone Encounter - Estrellita Melendez - 05/21/2023 12:49 PM EST Note Date & Type Note Facility 07-08-2023 Miscellaneous Notes Call from pharmacy requesting refill. Requested Prescriptions Pending Prescriptions Disp Refills spironolactone (ALDACTONE) 50 mg tablet 90 tablet 3 Sig: Take 1 tablet by mouth two times a day. Patient last seen 06/24/23 Jonny Brumfield documented in this encounter [facility] 07-03-2023 Note HNO ID: [id number] Author: DANA MONAHAN APRN.CORDUROY BRUSHER OPERATOR Service: ? Author Type: Nurse Practitioner Type: Progress Notes Filed: 07/03/2023 11:20 Note Text: Heart and Vascular [facility] SECTION OF HEART FAILURE and CARDIAC TRANSPLANT MEDICINE OUTPATIENT VISIT DATE 07/03/2023 PRIMARY CARE PHYSICIAN: Manda Hargrove MD ([facility]) [address] [place] [address] PRIMARY HEART FAILURE SALES REPRESENTATIVE PUBLICATIONS: Dr. Benitez CHIEF COMPLAINT: Follow-up HISTORY OF PRESENT ILLNESS: Andrea IVAN is a 32 year old female seen today by me for follow-up. She was last seen in heart failure clinic with Dr. Benitez on 04/02/2023 and the following recommendations were made: RHC with Dr. Campbell tomorrow. Schedule for labs including NT-proBNP and EKG now. Continue current medications. Schedule PFTs here if able to accommodate. Also schedule VQ Scan to r/o distal PE. Return in a month or to PH clinic if PAH is confirmed. Case discussed with Dr. Jamey Moreno at [facility]. Also discussed with Dr. Rothman and Jamaal (PH team). Since the last visit: -She was ordered ambrisentan and it was just approved. SOB: with activity; improving Fatigue: improving Orthopnea: no PND: no Bendopnea: no Edema: no Chest Pain: no Palpitations: with exertion Dizziness/Lightheadedness: no Syncope: no Appetite: improving, denies nausea, denies early satiety Dietary restrictions: under 2,000 mg sodium Fluid Restriction: may be a little over 64 ounces Regular Exercise/ Activity: walking Performs daily weights: yes PAST MEDICAL HISTORY Diagnosis Date Arrhythmogenic right [...] ALLERGIES Allergen Reactions Penicillins Hives CURRENT MEDICATIONS: ambrisentan (LETAIRIS) 5 mg tablet Take 1 tablet by mouth once daily. sildenafil (REVATIO) 20 mg tablet Take 4 [...] mouth once daily as needed for anxiety. REVIEW OF SYSTEMS: See HPI PHYSICAL EXAMINATION: BP 100/68 Pulse 91 Ht 162.6 cm (5' 4 ) Wt 65.7 kg (144 lb 12.8 oz) LMP 05/27/2023 SpO2 96% BMI 24.85 kg/m? Last weight on home scale: 142.9 lbs (stable) Last 10 Encounter Wt Readings: Date: Wt: 06/24/2023 64.8 kg (142 lb 14.4 oz) 06/02/2023 66 kg (145 lb 8.1 oz) 06/02/2023 66.2 kg (146 lb) 02/09/2023 73.9 kg (163 lb) 01/20/2023 74.8 kg (165 lb) 02/03/2019 69.2 kg (152 lb 9.6 oz) 01/07/2019 68.5 kg (151 lb) General appearance: No acute distress, conversant Neurologic/Psychiatric: Alert and oriented to time, place and person; mood pleasant. Gait grossly normal HEENT: PERRLA and EOM's intact, neck supple, no carotid bruits, grossly normal thyroid, normal hearing, +VC hoarseness Neck: JVP normal. Trachea midline, full range of motion Heart: Rate regular. S1, S2 present. No gallop. No Rub. No murmur. Lungs: clear bilaterally. Normal work of breathing, speaking in full sentences without difficulty. Abdomen: soft, non-distended, non-tender, normal bowel sounds, no organomegaly noted Extremities: Nails no clubbing or cyanosis. Warm, peripheral pulses palpable, no BLE edema Skin: Warm and dry. No rash or ulcers CARDIOVASCULAR MEDICINE TESTING: I have personally reviewed the Electrocardiogram, Chest X-ray, Laboratory Testing, and Echocardiogram. Echocardiogram: CONCLUSIONS: - Technically difficult exam due to body habitus. - Exam indication: Initial evaluation of Heart Failure - The left ventricle is small. Left ventricular systolic function is normal. EF = 56 ? 5% (2D 4-ch.) Indeterminate left ventricular diastolic dysfunction. - The right ventricle is dilated. Right ventricular systolic function is moderately to severely decreased. - There is a large pericardial effusion adjacent to the right ventricle measuring 2.5 cm, a moderate pericardial effusion adjacent to the left jeremy (more content not included)... [facility] 06-24-2023 Note HNO ID: [id number] Author: NELSON ROTHMAN MD Service: ? Author Type: Physician Type: Progress Notes Filed: 06/24/2023 13:53 Note Text: Heart and Vascular [facility] SECTION OF HEART FAILURE and CARDIAC TRANSPLANT MEDICINE OUTPATIENT VISIT DATE June 24, 2023 OUTPATIENT VISIT TYPE Established Patient PRIMARY CARE PHYSICIAN: Manda Hargrove MD ([facility]) [address] [place] [id number] CHIEF COMPLAINT: Feeling some improvement. NURSING INTAKE (Patient?s concerns and/or recent hospitalizations/ER visits): HF Nursing Assessment: Interim Hospitalizations and/or ER visits:06/03/2023 [facility] Chest Pain: no Skipping or irregular heartbeats: [...] performed for review (more content not included)... [facility] 06-07-2023 Note HNO ID: [id number] Author: Sherwin Patel CPhT Service: Pharmacy Author Type: Human Services Manager Type: Plan of Care Filed: 06/07/2023 4:16 PM Note Text: PHARMACY BEDSIDE DELIVERY SERVICE Patient Name: Andrea IVAN The marked outpatient medications were Filled at: [facility] and delivered to the patient's bedside [...] 40 mg tablet Commonly known as: LASIX Sherwin Patel CPhT PAGER: [phone] June 07, 2023 3:[address] [facility] 06-07-2023 Note HNO ID: [id number] Author: Preston Rios RPh Service: Pharmacy Author [...] Off hours Other comments: N/A Preston Rios [facility] June 07, 2023 11:22 AM Pager: [phone] Medication List START taking these medications sildenafil [...] Your Medications These medications were sent to [facility] [address] [place] [address] Hours: Thursday-Thursday 7am-8pm, Thursday, Thursday and Holidays 9am-5pm dapagliflozin propanediol 10 mg tablet These medications were sent [place] [facility] [place] [address] [phone] [place] [phone] sild[address] [facility] 06-07-2023 Note HNO ID: [id number] Author: Feliberto Garcia MD Service: Cardiovascular Medicine Author Type: Fellow Type: Progress Notes Filed: 06/07/2023 8:39 AM Note Text: Attestation signed by Nelson Rothman MD at 06/07/2023 11:10 AM [facility] STAFF PHYSICIAN NOTE OF PERSONAL INVOLVEMENT IN [...] INSTITUTE CARDIOVASCULAR MEDICINE PROGRESS NOTE Andrea IVAN [id number] PRIMARY SERVICE: Henok jeannette Heart Failure HOSPITAL DAY: # June 07, [...] Garcia MD Fellow (more content not included)... [facility] 06-06-2023 Note HNO ID: [id number] Author: Feliberto Garcia MD Service: Cardiovascular Medicine Author Type: Fellow Type: Progress Notes Filed: 06/06/2023 10:09 AM Note Text: Attestation signed by Nelson Rothman MD at 06/06/2023 11:33 AM [facility] STAFF PHYSICIAN NOTE OF PERSONAL INVOLVEMENT IN [...] INSTITUTE CARDIOVASCULAR MEDICINE PROGRESS NOTE Andrea IVAN [id number] PRIMARY SERVICE: [facility] Heart Failure HOSPITAL DAY: # 3 June [...] Cardiovascular Medicine: HF (more content not included)... [facility] 06-05-2023 Note HNO ID: [id number] Author: Consuelo Murrieta MD Service: Cardiovascular Medicine [...] 3 to 4 months . Had a teletypesetter monitor placed which showed couple of episodes [...] assessment, plan, and treatment Other, please specify [facility] 06-05-2023 Note HNO ID: [id number] Author: Consuelo Murrieta MD Service: Cardiovascular Medicine Author Type: Fellow Type: Progress Notes Filed: 06/05/2023 12:11 PM Note Text: Attestation signed by Nelson Rothman MD at 06/05/2023 1:48 PM [facility] STAFF PHYSICIAN NOTE OF PERSONAL INVOLVEMENT IN [...] [facility] PROGRESS NOTE Andrea IVAN [id number] PRIMARY SERVICE: Cardiology: Heart Failure ASSESSMENT AND [...] No kyphoscoliosis. N (more content not included)... [facility] 06-04-2023 Note HNO ID: [id number] Author: Temo Huynh RPh Service: Pharmacy Author Type: Pharmacist Type: Plan of Care Filed: 06/04/2023 10:49 AM Note Text: PHARMACY MEDICATION REVIEW Patient Name: Andrea IVAN : 1990 The following medications were updated within the DIRECT[employer] OF PEOPLE medication list: Medications ADDED to [employer] PEOPLE medication list none Medications CHANGED on [employer] PEOPLE medication list Lorazepam 1 mg - take 1 tablet by mouth ONCE daily as needed; changed from q6h Medications REMOVED from [employer] medication list none Additional comments: patient was a great historian The below information represents the best possible medication history: Yes Medication history completed by: exceptional student education teacher: Sherwin Patel CPhT and Training Mgr: Sherwin Patel CPhT Source of history: Patient: Reliability of source: Appears reliable, clearly identified: Medication name, Medication dose, Medication route, and Medication frequency, Pharmacy records: [facility], and [facility] records Medication nonadherence identified: No barriers noted Reconciliation completed: Yes Completed by: Temo Huynh All DIRECTOR OF PEOPLE medications addressed by LIP Patient interested in Bedside Delivery Services or using OP Pharmacy at discharge? Yes. Discharge Pharmacy Updated Preferred outpatient pharmacy: [id number] [place] [address] - [address] [facility] [phone] [facility] [place] [address] [phone] [facility] [phone] [id number] Allergies: Penicillins Hives Prior to Admission [...] Facility-Administered Medications: None Sherwin Patel CPhT 06/04/2023 [facility] 06-04-2023 Note HNO ID: [id number] Author: Sherwin Patel CPhT Service: Pharmacy Author Type: Human Services Manager Type: Plan of Care Filed: 06/04/2023 8:55 AM Note Text: Insurance investigation completed Patient has active prescription insurance: Yes - Patient's insurance is in-network with [facility] Insurance loaded into [facility]: Already loaded Test claim was completed to verify insurance is active: Successful Any questions, please contact your medication product safety coordinator. Pager #: [phone] [facility] 06-03-2023 Note HNO ID: [id number] Author: Ronda Acosta RT(R) Service: ? Author [...] Tc99m MAA was administered IV. ADMINISTRATION TIME: 1651/7 PATIENT DISCHARGED TO: Patient taken to IP transport area for return to RNF/ICU/ED. A Diagnostic radioactive procedure has taken place, with no further precautions necessary other than routine body substance precautions. More information regarding radiation safety can be found using this link: [email or web address] SIGNATURE: RT Faith(R) PATIENT NAME: Andrea IVAN DATE: June 03, 2023 TIME: 4:46 PM PAGER/CONTACT #: [facility] 06-03-2023 Note HNO ID: [id number] Author: Troy Mir MD Service: ? Author [...] DATE: June 03, 2023 TIME: 12:[address] [facility] 06-03-2023 Note HNO ID: [id number] Author: Bill Rivero RRT Service: ? Author Type: Registered Resp Therapist Type: Progress Notes Filed: 06/03/2023 11:01 AM Note Text: PULM FUNCTION SMARTBLOCK: Provider: Dustin Benitez MD Spirometry: 1 DLCO: 1 LV - Box: 1 System: MC9 - [id number] [facility] 06-03-2023 History of Presen t illness Narrative PULM FUNCTION SMARTBLOCK: Provider: Dustin Benitez MD Spirometry: 1 DLCO: 1 LV - Box: 1 System: MC9 - [id number] documented in this encounter [facility] 06-02-2023 Note HNO ID: [id number] Author: Dustin Benitez MD Service: ? Author Type: Physician Type: Progress Notes Filed: 06/02/2023 4:38 PM Note Text: Heart and Vascular [facility] SECTION OF HEART FAILURE and CARDIAC TRANSPLANT MEDICINE OUTPATIENT VISIT DATE June 02, 2023 OUTPATIENT VISIT TYPE Consultation PRIMARY CARE PHYSICIAN: Manda Hargrove MD ([facility]) [address] [place] [address] CHIEF COMPLAINT: Evaluation for shortness of breath NURSING INTAKE (Patient?s concerns and/or recent hospitalizations/ER visits): Andera IVAN is a 32 year old female from [place], [place] referred by Dr. Gong for cardiac [...] She was re-evaluated in December 2022. Recent teletypesetter monitor December-January 2023 showed two episodes of [...] by mouth e (more content not included)... [facility] 05-21-2023 Miscellaneous Notes Outside medical records scanned into shared EP drive. documented in this encounter [facility] 04-10-2023 Note HNO ID: [id number] Author: CESAR GILLETTE LGC Service: ? 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 Booker Gong. This visit was conducted by video visit. I have communicated my name and active licensure. The patient's identity and physical location were verified at the time of this visit. Either the patient or their legal paper sales representative has been informed of the risks [...] disease, sudden , and consanguinity. IMPRESSION: Andrea IAVN is a 32 year old female with [...] a diagnosis and we would recommend clinical s (more content not included)... [facility] 04-10-2023 History of Presen t illness [...] visit. Either the patient or their legal paper sales representative has been informed of the risks [...] diagnosed with cardiomyopathy, including arrhythmogenic cardiomyopathy (PMID: [id number], [id number], [id number]). A multigene ARVC panel is recommended. While we did consider sending a panel to an in-network laboratory ([facility]), this laboratory does not offer testing of CDH2 which is a newly described ARVC gene also listed in the 2021 HRS/EHRS genetic testing guidelines. Therefore we elected to send the testing to [facility] which includes all necessary ARVC genes and she was agreeable. PLAN: - Arrhythmogenic cardiomyopathy panel through [facility]. Results are expected in approximately 2-3 weeks from the time the sample is received by the lab. The patient will be contacted by telephone and/or [facility] to discuss these results. - If genetic testing is positive, recommend genetic counseling and testing for relatives - If genetic testing is negative/normal, recommend cardiac screening of all first-degree relatives, starting no later than age 10, every 1-3 years if normal. - Results can be released directly by [facility] and/or [facility]. If the patient reviews the results before I am able to provide a summary of the results over the phone or through [facility], she can call me to discuss further at [phone], A follow up genetic counseling visit will [...] receive a baseline clinical evaluation by a barrel endshake adjuster familiar with ACM, followed by periodic screening. [...] risk stratification, and management of arrhythmogenic cardiomyopathy. Dinh et al. 2019, Heart Rhythm 2. Genetic Evaluation of Cardiomyopathy--A Heart Failure Society of [place] Practice Guideline. Max et al. 2018. J Card Failure 3. 2022 ESC Guidelines for the Management of Cardiomyopathies. Brandy et al. 2022. Eur Heart J. RESOURCES: ARVC Family Support: arvcfamilysupport.org SAD Foundation: sads.org -------- The patient was seen for a total of 30 minutes in wfht-kk-ewai video counseling. This plan is being carried out under oversight of Dr. Shawna Allen, Clinical Indoor Landscape Architect. This note is available to the patient through [facility] and will be sent to the referring provider through [employer] or the [place] Mail as necessary. Cesar Gillette MS, [facility] [place], Certified Genetic Counselor [facility] CC: Dr. Booker Allen documented in this encounter [facility] 04-08-2023 Note HNO ID: [id number] Author: Millie Glez RN Service: ? Author [...] discussed with Physician, nurse practitioner or Physician assistant case manager upon discharge Instructions for transmitting EKG to Monitoring Center 3 month follow up instructions Contact number for information and questions Patient Evaluation: Verbalizes understanding Follow Up Plan: Follow up as directed by MD. Supplemental Material Given: Written Material Patient education regarding radiation exposure. Instructed By Millie Glez RN, RN. In Department of CARDIOLOGY. [facility] 04-08-2023 History of Presen t illness [...] discussed with Physician, nurse practitioner or Physician assistant case manager upon discharge Instructions for transmitting EKG to Monitoring Center 3 month follow up instructions Contact number for information and questions Patient Evaluation: Verbalizes understanding Follow Up Plan: Follow up as directed by MD. Supplemental Material Given: Written Material Patient education regarding radiation exposure. Instructed By Millie Glez RN, RN. In Department of CARDIOLOGY. documented in this encounter [facility] 04-08-2023 Note Education (EPSMN) ANDREA IVAN ([id number]) 1990 F Date Time Provider Department 04/08/23 BOOKER GONG EPSMN Reason for Visit: Patient Education [91] Cmt: EP: EPS During your visit today, we recorded the following information about you: Allergies As of Date: 04/08/2023 Noted Allergy Reaction PENICILLINS 01/07/2019 4 - Hives Date Reviewed: 02/09/2023 Reviewed by: Qing Sibley RN - Fully Assessed Prescriptions as of 04/08/2023 [...] Encounter Status:Closed by MILLIE GLEZ on 04/08/23 [facility] 02-12-2023 Miscellaneous Notes The date of [...] 2023 11:55 AM documented in this encounter [facility] 02-09-2023 Miscellaneous Notes Outside medical records scanned into shared EP drive. Patient scheduled to see Dr. Booker Gong on February 09, 2023. documented in this encounter [facility] 02-09-2023 Note HNO ID: [id number] Author: Booker Gong MD Service: ? Author Type: Physician Type: Progress Notes Filed: 02/09/2023 11:57 AM Note Text: [facility] Sunil Kamara Department of Cardiovascular Medicine SECTION OF CARDIAC PACING and ELECTROPHYSIOLOGY OUTPATIENT VISIT DATE February 09, 2023 OUTPATIENT VISIT TYPE NEW PRIMARY CARE PHYSICIAN: Manda Hargrove MD ([facility]) [address] [place] [address] CHIEF COMPLAINT: Palpitations HISTORY OF PRESENT ILLNESS/ [...] She was re-evaluated in December 2022. Recent teletypesetter monitor December-January 2023 showed two episodes of [...] syncope, but did report near-syncopal episodes in 2015. Family history negative for SCD. She has [...] wheezing or rhon (more content not included)... [facility] 02-09-2023 Note HNO ID: [id number] Author: Booker Gong MD Service: ? Author [...] VE Couplets or VE Triplets were present. [facility] 08-28-2023 History of Presen t illness Narrative Images from the original note were not included. [facility] Department of Cardiovascular Medicine SECTION OF CARDIAC PACING and ELECTROPHYSIOLOGY OUTPATIENT VISIT DATE February 09, 2023 OUTPATIENT VISIT TYPE NEW PRIMARY CARE PHYSICIAN: Manda Hargrove MD ([facility]) [address] [place] [address] CHIEF COMPLAINT: Palpitations HISTORY OF PRESENT ILLNESS/ [...] She was re-evaluated in December 2022. 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 Patient scheduled with Dr. Booker Gong on February 09, 2023. documented in this encounter [facility] 01-22-2023 Miscellaneous Notes Referral and outside medical records scanned into shared EP drive. Referral routed to appointment secretaries for appropriate scheduling. documented in this encounter [facility] 01-20-2023 Note HNO ID: [id number] Author: Syed Gamboa RN Service: Nursing Author [...] DATE: January 20, 2023 TIME: 12:[address] [facility] 01-20-2023 Note HNO ID: [id number] Author: Cynthia Burns RT(R) Service: ? Author [...] and Intact, Site disposition Discontinued SIGNED BY: Cynthia Klein RT(R) January 20, 2023 1:[address] [facility] documented in this encounter [facility] note* Diagnosis VT (ventricular tachycardia) (HCC)- Primary Paroxysmal ventricular tachycardia Palpitations documented in this encounter [facility] note* Diagnosis Arrhythmogenic right ventricular cardiomyopathy (HCC)- Primary Other primary cardiomyopathies documented in this encounter [facility] note* Diagnosis Shortness of breath- Primary Pulmonary hypertension, unspecified (HCC) Right-sided heart failure, unspecified HF chronicity ([facility]) documented in this encounter [facility] note* Diagnosis Shortness of breath- Primary Pulmonary hypertension, unspecified (HCC) Right-sided heart failure, unspecified HF chronicity (HCC) documented in this encounter [facility] for referral (narrative)* Outpatient Procedure (Routine) - Authorized Specialty Diagnoses / Procedures Referred By Shannan whitehead Referred To Contact [facility] [place] Diagnoses Palpitations Procedures ECG COMPLETE ECG ROUTINE ECG W/LEAST 12 LDS W/I&R Booker Gong MD [address] [place] [address] [address] Referral ID Status Reason Start Date Expiration Date Visits Requested Visits Authorized [id number] Authorized Auto-Generat ed Referral 01/26/2023 01/26/2024 1 1 [facility] for referral (narrative)* Outpatient Procedure (Routine) - Authorized Specialty Diagnoses / Procedures Referred By Shannan whitehead Referred To Contact [facility] [place] Diagnoses VT (ventricular tachycardia) ([facility]) Procedures ECG COMPLETE ECG ROUTINE ECG W/LEAST 12 LDS W/I&R Booker Gong MD [address] [place] [address] [address] Referral ID Status Reason Start Date Expiration Date Visits Requested Visits Authorized [id number] Authorized Auto-Generat ed Referral 04/20/2023 04/19/2024 1 1 [facility] Reason for Referral Specialty Diagnoses / Procedures Referred By Shannan whitehead Referred To Contact Diagnoses Palpitations Procedures CONSULT TO MEDICAL GENETICS - CARDIOVASCULAR OFFICE/[facility]IENT [facility] 60-74 MINUTES MEDICAL GENETICS COUNSELING EACH 30 MINUTES Booker Gong MD [address] [place] [address] [facility] [address] [place], [place] [address] [address] Referral ID Status Reason Start Date Expiration Date Visits Requested Visits Authorized [id number] Authorized PCP Requested Referral Auto-Generate d Referral [...] or prosecute any alcohol or drug abuse patient.[facility] the event this information is protected by the Federal Confidentiality of Alcohol and Drug Abuse Patient Records regulations: The Federal rules restrict any use of the information to criminally investigate or prosecute any alcohol or drug abuse patient.[facility] the event this information is protected by the Federal Confidentiality of Alcohol and Drug Abuse Patient Records regulations: The Federal rules restrict any use of the information to criminally investigate or prosecute any alcohol or drug abuse patient.[facility] the event this information is protected by the Federal Confidentiality of Alcohol and Drug Abuse Patient Records regulations: The Federal rules restrict any use of the information to criminally investigate or prosecute any alcohol or drug abuse patient.[facility] the event this information is protected by the Federal Confidentiality of Alcohol and Drug Abuse Patient Records regulations: The Federal rules restrict any use of the information to criminally investigate or prosecute any alcohol or drug abuse patient.[facility] the event this information is protected by the Federal Confidentiality of Alcohol and Drug Abuse Patient Records regulations: The Federal rules restrict any use of the information to criminally investigate or prosecute any alcohol or drug abuse patient.[facility] Center[facility] the event this information is protected by the Federal Confidentiality of Alcohol and Drug Abuse Patient Records regulations: The Federal rules restrict any use of the information to criminally investigate or prosecute any alcohol or drug abuse patient.[facility] Center[facility] the event this information is protected by the Federal Confidentiality of Alcohol and Drug Abuse Patient Records regulations: The Federal rules restrict any use of the information to criminally investigate or prosecute any alcohol or drug abuse patient.[facility] Center[facility] the event this information is protected by the Federal Confidentiality of Alcohol and Drug Abuse Patient Records regulations: The Federal rules restrict any use of the information to criminally investigate or prosecute any alcohol or drug abuse patient.[facility] Center[facility] the event this information is protected by the Federal Confidentiality of Alcohol and Drug Abuse Patient Records regulations: The Federal rules restrict any use of the information to criminally investigate or prosecute any alcohol or drug abuse patient.[facility] Center[facility] the event this information is protected by the Federal Confidentiality of Alcohol and Drug Abuse Patient Records regulations: The Federal rules restrict any use of the information to criminally investigate or prosecute any alcohol or drug abuse patient.[facility] Center[facility] the event this information is protected by the Federal Confidentiality of Alcohol and Drug Abuse Patient Records regulations: The Federal rules restrict any use of the information to criminally investigate or prosecute any alcohol or drug abuse patient.[facility] Center[facility] the event this information is protected by the Federal Confidentiality of Alcohol and Drug Abuse Patient Records regulations: The Federal rules restrict any use of the information to criminally investigate or prosecute any alcohol or drug abuse patient.[facility] Reason for Visit (unrecogniz ed section and content) Reason Comments Received Outside Medical Records Appoint ment 02/09/2023 Reason Comments Received Outside Medical Records Reason Comments Schedule Surgery EPS only Reason Comments Patient Education EP: EPS Reason Comments Consult Specialty Diagnoses / Procedures Referred By Shannan whitehead Referred To Contact Diagnoses Palpitations Procedures CONSULT TO MEDICAL GENETICS - CARDIOVASCULAR OFFICE[facility] 60-74 MINUTES MEDICAL GENETICS COUNSELING EACH 30 MINUTES Booker Gong MD [address] [place] [address] [address] Referral ID Status Reason Start Date Expiration Date V isits Requested Visits Authorized [id number] Closed PCP Requested Referral Auto-Generated Referral 02/09/2023 02/09/2024 1 1 Reason Comments Spirometry Specialty Diagnoses / Procedures Referred By Shannan whitehead Referred [facility] Diagnoses Shortness of breath Pulmonary hypertension, unspecified (HCC) Right-sided heart failure, unspecified HF chronicity (HCC) Procedures SPIROMETRY BASELINE ONLY SPMTRY W/VC EXPIRATORY PRAVIN W/WO MXML VOL VNTJ Dustin Benitez MD [address] [address] Referral ID Status Reason Start Date Expiration Date V isits Requested Visits Authorized [id number] Closed Auto-Generate d Referral 06/03/2023 07/01/2024 1 1 Specialty Diagnoses / Procedures Referred By Contac t Referred To Contact [facility] Diagnoses Shortness of breath Pulmonary hypertension, unspecified (HCC) Right-sided heart failure, unspecified HF chronicity (HCC) Procedures LUNG VOLUMES Dustin Benitez MD [address] [address] Referral ID Status Reason Start Date Expiration Date V isits Requested Visits Authorized [id number] Closed Auto-Generate d Referral 06/02/2023 06/14/2023 1 1 Reason Comments Rx Refills Care Teams (unrecognized sec tion and content) Rotary Drier Relationship Specialty Start Date End Date Manda Hargrove [address] [facility] [address] [place] [address] PCP - General 04/26/04 Rotary Drier Relationship Specialty Start Date End Date Manda Hargrove [address] [facility] [address] [place] [address] PCP - General 04/26/04 Rotary Drier Relationship Specialty Start Date End Date Manda Hargrove [address] [facility] [address] [place] [address] PCP - General 04/26/04 Jamey Moreno [address] [place] [address] Referring Cardiology 02/09/23 Rotary Drier Relationship Specialty Start Date End Date Manda Hargrove [address] [place] [address] PCP - General 04/26/04 Jamey Moreno [address] [place] [address] Referring Cardiology 02/09/23 Rotary Drier Relationship Specialty Start Date End Date Manda Hargrove [address] [place] [address] PCP - General 04/26/04 Jamey Moreno [address] [place] [address] Referring Cardiology 02/09/23 Rotary Drier Relationship Specialty Start Date End Date Manda Hargrove [address] [place] [address] PCP - General 04/26/04 Jamey Moreno MD [address] [place] [address] Referring Cardiology 02/09/23 Rotary Drier Relationship Specialty Start Date End Date Manda Hargrove [address] [place] [address] PCP - General 04/26/04 Jamey Moreno MD [address] [place] [address] Referring Cardiology 02/09/23 Rotary Drier Relationship Specialty Start Date End Date Manda Hargrove [address] [place] [address] PCP - General 04/26/04 Jamey Moreno MD [address] [place] [address] Referring Cardiology 02/09/23 Rotary Drier Relationship Specialty Start Date End Date Manda Hargrove [address] [place] [address] PCP - General 04/26/04 Jamey Moreno MD [address] [place] [address] Referring Cardiology 02/09/23 Rotary Drier Relationship Specialty Start Date End Date Manda Hargrove [address] [place] [address] PCP - General 04/26/04 Jamey Moreno MD [address] [place] [address] Referring Cardiology 02/09/23 Rotary Drier Relationship Specialty Start Date End Date Manda Hargrove [address] [place] [address] PCP - General 04/26/04 Jamey Moreno MD [address] [place] [address] Referring Cardiology 02/09/23 Rotary Drier Relationship Specialty Start Date End Date Manda Hargrove [address] [place] [address] PCP - General 04/26/04 Nelson Rothman MD [address] [place] [address] Editor Greeting Card Pulmonary Disease 06/10/23 Josh Pritchard V [address] [place] [address] Internal Medicine 06/24/23 INFORMATION SOURCE (unrecogn ized section and content) [...] BE BASED ON THE PRIMARY CLINICAL RECORDS. [employer] provides no warranty or guarantee of the accuracy or completeness of information in this document.
== END | disposition home or self-care (01) ==
LOC: CT 07:58
PROVIDERS: PCP Family Medicine; Referring Provider Otolaryngology; Visit Provider Otolaryngology
DX: J38.01 Paralysis of vocal cords and larynx, unilateral (principal)
CPT/HCPCS: 70491; Q9967

== ENCOUNTER → 2023-11-27 | Outpatient (CLI) | payer OTHER, SELFPAY ==
[2023-11-27 10:22] LABS: Thyroid Stim Hormone (TSH) 1.49 uIU/mL (0.358-3.74)
== END | disposition home or self-care (01) ==
LOC: LAB 09:21
PROVIDERS: PCP Family Medicine; Referring Provider Internal Medicine Endocrinology, Diabetes & Metabolism; Visit Provider Internal Medicine Endocrinology, Diabetes & Metabolism
DX: E03.8 Other specified hypothyroidism (principal); E06.3 Autoimmune thyroiditis
CPT/HCPCS: 36415; 84439; 84443

== ENCOUNTER → 2023-12-14 | Outpatient (CLI) | payer OTHER, SELFPAY ==
--- NOTE | 2023-12-14 10:01 | PR.HP_ITS ---
History of Present Illness General Arrival date:: 12/14/23 Arrival time:: 10:01 Date of Referral:: 12/03/23 Date of Evaluation: 12/14/23 Referring Physician: Dr. Nelson Ceja Primary Diagnosis: Pulmonary arterial hypertension History of Present Pulmonary Event mMRC Breathless Scale: When is the patient short of breath? Y/N Grade: Description of Breathlessness: 0 I only get breathless with strenuous exercise. 1 I get short of breath when hurrying on level ground or walking up a slight hill. 2 On level ground, I walk slower than people of the same age because of breathless, or have to stop for breath when walking at my own pace. 3 I stop for breath after walking 100 yards or after a few minutes on level ground. 4 I am too breathless to leave the house or I am breathless when dressing. Respiratory Problems: Yes Fatigue, Able to Speak in Full Sentences, Anxiety, Panic and Dyspnea with Activity; No Retain Secretions, Limited Range of Motion, Chest Pain, Wheezing, Dizziness, Ankle Swelling, Hoarseness, Dyspnea at Rest, Dyspnea Lying Down Flat or Cough with Secretions Medications Home Medications lorazepam 1 mg tablet (Ativan) 1 mg PO TID PRN anxiety #10 tabs 01/26/23 dapagliflozin propanediol 10 mg tablet (Farxiga) 10 mg PO DAILY #90 tabs 05/18/23 lorazepam 1 mg tablet 1 mg PO DAILY PRN anxiety #15 tabs 05/21/23 spironolactone 50 mg tablet 50 mg PO BID #180 tabs 05/25/23 levothyroxine 50 mcg tablet 50 mcg PO DAILY #90 tabs 05/29/23 sildenafil 50 mg tablet 80 mg (1.6 x 50 mg) PO TID #90 tabs 06/10/23 ambrisentan 5 mg tablet 10 mg PO DAILY 08/24/23 levothyroxine 75 mcg tablet 75 mcg PO DAILY #90 tabs 08/24/23 escitalopram oxalate 20 mg tablet 20 mg PO DAILY #90 tabs 08/27/23 Allergies Allergies Penicillins Allergy (Verified 08/27/23 15:31) Hives Environmental Allergies: Uncoded Adverse Reaction (Intermediate, Verified 08/27/23 15:31) Hives [employer] Sleep Disorder Evaluation Hx of Sleep Apnea: No Do you snore loudly (louder than talking or can be heard through closed doors)?: No Do you often feel tired/ fatigued/ sleepy during daytime?: Yes Has anyone observed you stop breathing during sleep?: No History of Hypertension (for STOP score): No STOP Results: Negative Medical Utilization Medical Devices Do you use a peak flow meter at home?: No Do you use a spacer device with your inhalers?: No Medical Utilization Number of hospital visits in the last year?: 1 Number of emergency room visits in the last year?: 4 Do you see your physician on a regular schedule?: Yes How often?: every 3 months Advanced Directives Advanced Directives Power of Tunnel El[employer] Lockstitch: No Living Will: No Advance Directives Information Provided: No Advance Directives on File: No DNR Order?:: No Past Medical History Covid-19 Screening Physicial Symptoms Other Clinical Concerns Exposure Risk Pertinent Comorbidities Has a chronic lung disease or moderate to severe asthma:: Yes Medical History Medical History Acute upper respiratory infection Adjustment disorder Anxiety Arrhythmogenic right ventricular cardiomyopathy delivery delivered Cough, unspecified Dysphonia Dyspnea, unspecified 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 Pulmonary hypertension Rapid palpitations Raynaud disease Tachycardia Surgical History Surgical History S/P section [place] teeth extracted Significant Family History Family History Mother Pernicious anemia Breast cancer Grandfather Pernicious anemia Grandmother Breast cancer Social History Smoking History Smoking Status: Never smoker Alcohol Use Alcohol Usage: Yes (socially) Occupation Occupation (List type of work in comments):: 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) Hobbies, Recreation, Social Activities Hobbies: Reading and Other (friends and family ) Recreational Activities: I am able to engage in all my recreational activities Functioning ADL/IADL Current Ability Current Ability: Independent: Self-Care (e.g.,grooming, dressing, & bathing), Independent: Ambulation, Independent: Transfer and Independent: Household tasks (e.g., light meal prep, laundry, shopping) Pt Functioning Prior to Problem Prior Functioning: Self-Care (e.g.,grooming, dressing, & bathing): Independent, Ambulation: Independent, Transfer: Independent and Household tasks (e.g., light meal prep, laundry, shopping): Independent Social Environment Status Marital Status: Current Living Arrangements Living Environment:: Family Children How many children do you have?: 2 Do any of your children live nearby?: Yes Safety Do you feel safe in your surroundings?: Yes Assistance Do you need any assistance at home?: with kids Review of Systems Review of Systems Review of Systems Respiratory: Reports SOB upon Exertion, Appetite, Normal, Fatigue and Sleep, Normal; Denies Cough, SOB at Rest or PVD Pain Is Patient Pain Free?: Yes Risk Factor Assessment Vital Signs Pulse Rate: 102 Pulse Rhythm: Regular Pulse Ox: 96 Blood Pressure: 106/70 Obesity Height: 5 ft 4 in Weight:: 148 lb Weight in Pounds: 148.0 lbs Body Mass Index (BMI): 25.4 Physical Activity Physical Inactivity: Recreational activity (walking 15 minutes a day) Risk Stratification Risk Guidelines: Lowest Risk: Risk Factor for Smoking, Risk Factor for Dyslipidemia, Risk Factor for Diabetes, Risk Factor for Obesity, Risk Factor for Hypertension and Risk Factor for Sedentary Lifestyle and Highest Risk: Risk Factor for Depression For Smoking Smoking Risk Guidelines For Dyslipidemia Dyslipidemia Risk Guidelines For Diabetes Mellitus Diabetes Risk Guidelines For Obesity/Overweight Obesity/Overweight Risk Guidelines For Hypertension Hypertension Risk Guidelines For Sedentary Lifestyle Sedentary Lifestyle Risk Guidelines For Depression Depression Risk Guidelines Motivation Motivation to Participate On a scale of 1 to 10, how prepared are you to commit to attending program?: 10 What do you see as barriers to successfully being able to complete the program?: none What do you see as the benefits of succesfully completing the program? In other words, what do you hope to get out of participating in the program?: off of O@, increased stamina, less SOB Are there issues you are dealing with that will interfere with completing the program?: no Do you have a spouse or signficant other, family or friends who will help support you to complete the program?: yes
[2023-12-14 10:16] VITALS: PULSE 102; O2SAT 96
[2023-12-14 10:22] VITALS: BP 106/70; BMI 25.4
--- NOTE | 2023-12-14 10:53 | PCM.PR.TP ---
General Information2 General Information Admitting Diagnosis: Pulmonary arterial hypertension Personal Learning Style/Barriers Personal Learning Style:: Audio/Visual Barriers to Learning: None Stage of change r/t lifestyle modifications: Action Education/Goals [place] Patient Goals: Increase muscle strength: Initial Assessment, Experience less dyspnea: Initial Assessment, Improve energy level: Initial Assessment, Improve the ability to cope with ADLs: Initial Assessment, Improve knowledge of lung disease: Initial Assessment, Increase knowledge of oxygen use: Initial Assessment, Control panic/anxiety: Initial Assessment, Improve my quality of life: Initial Assessment and Reduce Stress/relaxation techniques: Initial Assessment Exercise - Initial Assessment Visit Date of Eval: 12/14/23 (initial eval ) Problem/Goals Problems: Deconditioning, No regular exercise, Knowledge deficit exercise guidelines and Knowledge deficit exercise safety Goals:: Aerobic exercise 30-60 mins x 12 weeks [36 sessions] Physician Prescribed Exercise Modalities: Treadmill, Rower, [employer] AD-7, [employer] Stepper, [employer] Pro-II Ergometer and [employer] Lateral [place] Frequency (days/week): 3 Duration (Minutes):: 30-45 Intensity: 60-80% of age predicted maximum heart rate reserve Current METSs:: 2 Minimum SpO2 with exercise: 96 Current Minutes of Exercise: 15 Plan Plan and Plan to Review:: Benefits of exercise, Core components of exercise, How to measure dyspnea level, How to monitor dyspnea level, Exercise intensity, Exercise safety guideline, Home exercise guidelines and Elie: 3-4/11-13 Home Exercise Mode: Walking Nutrition/Wt Mgmt - Initial Visit Date of Eval: 12/14/23 (initial eval ) Weight Management Admit Height:: 5 ft 4 in Admit Weight:: 148 lb Admit BMI:: 25.4 Intervention Referral to dietitian:: No Will attend diet classes:: Yes Intervention/Plan: Instruct on ideal BMI & set weight loss goal w/patient, Assist pt to ID & incorporate diet changes for weight loss by S9, Refer to Structured Weight Loss program as appropriate, Encourage goal of using 250-300dcal per session for weight loss and Other additional plan/interventions Plan Nutrition Plan: Yes: Review BMI or WC & identify target wt & strategies for wt control, Yes: Nutrition education class:, Yes: Medication education class [Prednisone]:, Yes: Weight control education class:, Yes: Education re: Need for ongoing weight monitoring, Yes: Food diary: and Yes: Physical activity log: Nutrition/Wt Mgmt - 30-Day Weight Management Height: 5 ft 4 in Weight:: 148 lb BMI: 25.4 Nutrition/Wt Mgmt - 60-Day Weight Management Height: 5 ft 4 in Weight:: 148 lb BMI: 25.4 Nutrition/Wt Mgmt - 90-Day Weight Management Height: 5 ft 4 in Weight:: 148 lb BMI: 25.4 Nutrition/Wt Mgmt - Final Weight Management Height: 5 ft 4 in Weight:: 148 lb BMI: 25.4 Psychosocial - Initial Assess Visit Date of Eval: 12/14/23 (initial eval ) Problems/Goals History of Emotional Disorders: Anxious Intervention/Plan: See List Interventions/Plan:: Assess stressors,coping strategies & signs of derpression on admission, Instruct/assist pt to develop coping & personal stress Mgt strategies, Refer to Behavioral Health if appropriate, Refer to Physician if appropriate, Instruct patient to recognize signs & symptoms of depression, Instruct patient to recog and Other additional plan/intervention Comments:: Pt is on [facility] Psychosocial - 30-Day Problems/Goals History of Emotional Disorders: Anxious Plan Interventions/Plan:: Assess stressors,coping strategies & signs of derpression on admission, Instruct/assist pt to develop coping & personal stress Mgt strategies, Refer to Behavioral Health if appropriate, Refer to Physician if appropriate, Instruct patient to recognize signs & symptoms of depression, Instruct patient to recog and Other additional plan/intervention Comments:: Pt is on meds Psychosocial - 60-Day Problems/Goals History of Emotional Disorders: Anxious Plan Interventions/Plan:: Assess stressors,coping strategies & signs of derpression on admission, Instruct/assist pt to develop coping & personal stress Mgt strategies, Refer to Behavioral Health if appropriate, Refer to Physician if appropriate, Instruct patient to recognize signs & symptoms of depression, Instruct patient to recog and Other additional plan/intervention Comments:: Pt is on meds Psychosocial - 90-Day Problems/Goals History of Emotional Disorders: Anxious Plan Interventions/Plan:: Assess stressors,coping strategies & signs of derpression on admission, Instruct/assist pt to develop coping & personal stress Mgt strategies, Refer to Behavioral Health if appropriate, Refer to Physician if appropriate, Instruct patient to recognize signs & symptoms of depression, Instruct patient to recog and Other additional plan/intervention Comments:: Pt is on meds Psychosocial - Final Assess Problems/Goals History of Emotional Disorders: Anxious Plan Interventions/Plan:: Assess stressors,coping strategies & signs of derpression on admission, Instruct/assist pt to develop coping & personal stress Mgt strategies, Refer to Behavioral Health if appropriate, Refer to Physician if appropriate, Instruct patient to recognize signs & symptoms of depression, Instruct patient to recog and Other additional plan/intervention Comments:: Pt is on meds Oxygen & Oxygen Titration Init Visit Date of Eval: 12/14/23 (initial eval ) Initial Assessment Oxygen on Admission: Oxygen w/activity SpO2:: 96 Patient Reports:: Hospitalized in the past 12 months [list how many times] (1) Plans Plan: Train appropriate O2 use with exercise Reviewed prescribed medications:: Purpose, Schedule, Side effects and Importance of compliance Oxygen & Oxygen Titration 30D Reassessment SpO2:: 96 Oxygen & Oxygen Titration 60D Reassessment SpO2:: 96 Oxygen & Oxygen Titration 90D Reassessment SpO2:: 96 Oxygen & Oxygen Titration LAMONTE Reassessment SpO2:: 96 Core Components - Initial Visit Date of Eval: 12/14/23 (initial eval ) Hypertension BP: 106/70 [place] [employer] Hypertension Guidelines Outcomes/Goals: Able to verbalize/achieve optimal blood pressure <130/80, Incorporates diet changes & exercise for blood pressure control by DC and Other additional outcomes/goals Exacerbation Mgmt & Airway Clearance Patient Reports:: Hospitalized in the past 12 months [list how many times] (1) Plan: Train appropriate O2 use with exercise Medication Reviewed prescribed medications:: Purpose, Schedule, Side effects and Importance of compliance Diabetes Diabetes:: No Referral to dietitian:: No Will attend diet classes:: Yes Heart Failure Ejection fraction %:: 55 Core Components - 30 DAYS Hypertension Resting Blood Pressure:: 106/70 [place] [employer] Hypertension Guidelines Outcomes/Goals: Able to verbalize/achieve optimal blood pressure <130/80, Incorporates diet changes & exercise for blood pressure control by DC and Other additional outcomes/goals Diabetes Diabetes:: No Core Components - 60 DAYS Hypertension Resting Blood Pressure:: 106/70 [place] [employer] Hypertension Guidelines Outcomes/Goals: Able to verbalize/achieve optimal blood pressure <130/80, Incorporates diet changes & exercise for blood pressure control by DC and Other additional outcomes/goals Diabetes Diabetes:: No Core Components - 90 DAYS Hypertension Resting Blood Pressure:: 106/70 [place] [employer] Hypertension Guidelines Outcomes/Goals: Able to verbalize/achieve optimal blood pressure <130/80, Incorporates diet changes & exercise for blood pressure control by DC and Other additional outcomes/goals Diabetes Diabetes:: No Core Components - Final Hypertension Resting Blood Pressure:: 106/70 [place] [employer] Hypertension Guidelines Outcomes/Goals: Able to verbalize/achieve optimal blood pressure <130/80, Incorporates diet changes & exercise for blood pressure control by DC and Other additional outcomes/goals Diabetes Diabetes:: No Patient Health Questionnaire PHQ-9 Screening Initial Assessment: 1. Little interest or pleasure in doing things: Not at all 2. Feeling down, depressed, or hopeless: Several days 3. Trouble falling or staying asleep, or sleeping too much: Several days 4. Feeling tired or having little energy: Several days 5. Poor appetite or overeating: Not at all 6. Feeling bad about yourself -- or that you are a failure or have let yourself or your family down: Several days 7. Trouble concentrating on things, such as reading the newspaper or watching television: Not at all 8. Moving or speaking so slowly that other people could have noticed. Or the opposite - being so fidgety or restless that you have been moving around a lot more than usual: Not at all 9. Thoughts that you would be better off , or of hurting yourself in some way: Not at all How difficult have these problems made it for you to do your work, take care of things at home, or get along with other people?: Somewhat difficult Total Score: 4 Knowledge Questionaire (BCKQ) Information Information: [place] COPD Knowledge Questionnaire (BCKQ) This questionnaire is designed to find out what you know about your lung problem. It should be completed without help form anyone else. This usually takes between 10 and 20 minutes. Your answers will help us to find out what information you need to help you to understand and manage your lung condition. [place] which you think is the correct answer. COPD Assessment Test [CAT] Questions Never cough = 0, Cough all the time = 5: 1 No phlegm = 0, Chest full of phlegm = 5: 0 No chest tightness = 0, Chest very tight = 5: 1 No breathless w/exertion = 0, Very breathless w/exertion = 5: 3 No limitations w/activity = 0, Very limited w/activity = 5: 2 Confident leaving home = 0, Not at all confident = 5: 3 Sleep soundly = 0, Don't sleep soundly = 5: 1 Lots of energy = 0, No energy at all = 5: 2 Total CAT score:: 13 Self-Efficacy 6-Item Scale Initial Assessment: We would like to know how confident you are in doing certain activities. Please select your confidence level for: Fatigue Select Number: 6 Physical Discomfort or Pain Select Number: 9 Emotional Distress Select Number: 5 Other Symptoms or Health Problems Select Number: 6 Different Tasks and Activities Select Number: 7 Medication Select Number: 7 Total Score:: 6 Nutrition Survey Nutrition Survey Instructions Scoring Instructions Nutrition Survey Initial: Have you lost >10 lbs over the past 2 months without trying?: No Are you following a special diet at home for diabetes, low fat, or low salt?: Yes Are you interested in meeting with a dietitian for help understanding your diet?: Yes Do you eat less than 3 meals a day?: No Do you eat fatty meats (horne, sausage, ribs, etc), fried foods, desserts, large amounts of salad dressings, margarine, butter, or cheese most days?: No Do you have food allergies? [Enter types in comment field]: No Do you eat in restaurants more than 3 times a week?: No Do you season food with salt, seasoning salt, or garlic salt?: No Do you used canned, boxed, frozen meals, or soups, seasoning packets?: No Total Score:: 2
[2023-12-14 11:09] VITALS: O2SAT 96
[2023-12-14 11:17] VITALS: BP 106/70; BMI 25.4
== END | disposition home or self-care (01) ==
LOC: PR 09:58
PROVIDERS: PCP Family Medicine
DX: I27.20 Pulmonary hypertension, unspecified (principal)

== ENCOUNTER → 2023-12-28 | Outpatient (CLI) | payer OTHER, SELFPAY ==
[2023-12-14 11:17] VITALS: BMI 25.4
--- NOTE | 2023-12-28 13:07 | BI_ITS ---
MAMMOGRAPHY - BILATERAL SCREENING REASON FOR EXAM: Female, 33 years old. Routine annual screening examination. PERTINENT HISTORY: Grandmother with breast cancer. Aunt with breast cancer. TECHNIQUE: Digital bilateral breast seb (3D mammographic acquisition) in the CC and MLO projections. 2-D mediolateral oblique (MLO) and craniocaudad (CC) views of both breasts were obtained. CAD: Full Field Digital Mammography with Computer Added Detection was performed. COMPARISON: Comparison is made with prior study dated December 28, 2018. FINDINGS: Breast Composition: The breasts are extremely dense, which lowers the sensitivity of mammography. There are no dominant masses or suspicious calcifications. No other significant abnormalities are identified. There has been no significant change since the prior study. BI/SCRN MAMM (CAD)W/SEB BILAT IMPRESSION: Stable bilateral screening mammogram. Yearly follow-up mammogram recommended. (A) ASSESSMENT CATEGORY: BIRADS Category 1: Negative. A letter regarding these results will be sent to the patient by the facility within 30 days. Approximately 10% of breast cancers are not detected by mammography. A normal mammogram should not delay biopsy of a clinically suspicious abnormality. [id number] Electronically Signed: Anant Aguiar MD at 14:52 EDT ,
== END | disposition home or self-care (01) ==
LOC: OPBI 13:07
PROVIDERS: PCP Family Medicine; Referring Provider Nurse Practitioner Women's Health; Visit Provider Nurse Practitioner Women's Health
DX: Z12.31 Encounter for screening mammogram for malignant neoplasm of breast (principal)
CPT/HCPCS: 77063; 77067

== ENCOUNTER 2024-01-03 07:51 | Emergency (ER) | payer OTHER, SELFPAY ==
[2023-12-14 11:17] VITALS: BMI 25.4
[2024-01-03 07:51] VITALS: BP 117/71; PULSE 82; RESP 14; TEMP 36.3; O2SAT 98; BMI 26.0
--- NOTE | 2024-01-03 08:02 | EX.ED.UPPERE ---
HPI History of Present Illness HPI Narrative: 33-year-old female complaining of mild swelling to her left hand with discomfort to her left long and ring finger. Denies any fall injury or trauma. She went to sleep with her daughter last night had a stuffed animal tag wrapped around her hand. When she awoke it was off her hand but she noticed swelling and discomfort. Patient is right-hand dominant. No prior history of surgery or injury to her left hand. Chief Complaint: Upper Extremity Injury Informant: patient Occured/Mechanism Mechanism/Context: No injury and No blunt trauma Onset/Context/Timing Onset: Today Timing: Continuous Quality of Pain: Dull Current Severity: Mild Maximum Severity: Mild Associated Symptoms Associated Symptoms: Negative for Parasthesia, Weakness or Loss of Funtion Narrative Narrative: 33-year-old female [id number] complaining of discomfort to her left long and ring finger. After having a stuffed animal tag wrapped around it last night. 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 Dysphonia Cough, unspecified Dyspnea, unspecified Pulmonary hypertension Adjustment disorder Arrhythmogenic right ventricular cardiomyopathy delivery delivered Acute upper respiratory infection Raynaud disease Anxiety Rapid palpitations Tachycardia Home Medications ?Medication ?Instructions ?Recorded ?Last Taken ?Type lorazepam 1 mg tablet (Ativan) 1 mg PO TID PRN anxiety #10 tabs 01/26/23 Unknown Rx dapagliflozin propanediol 10 mg 10 mg PO DAILY #90 tabs 05/18/23 Unknown Rx tablet (Farxiga) lorazepam 1 mg tablet 1 mg PO DAILY PRN anxiety #15 tabs 05/21/23 Unknown Rx spironolactone 50 mg tablet 50 mg PO BID #180 tabs 05/25/23 Unknown Rx levothyroxine 50 mcg tablet 50 mcg PO DAILY #90 tabs 05/29/23 Unknown Rx sildenafil 50 mg tablet 80 mg (1.6 x 50 mg) PO TID #90 tabs 06/10/23 Unknown Rx ambrisentan 5 mg tablet 10 mg PO DAILY 08/24/23 Unknown History levothyroxine 75 mcg tablet 75 mcg PO DAILY #90 tabs 08/24/23 Unknown Rx escitalopram oxalate 20 mg tablet 20 mg PO DAILY #90 tabs 08/27/23 Unknown Rx Allergy/AdvReac Type Severity Reaction Status Date / Time Penicillins Allergy Hives Verified 01/03/24 07:52 Environmental Allergies: AdvReac Intermediate Hives Verified 01/03/24 07:52 Uncoded Family History Mother Pernicious anemia Breast cancer Grandfather Pernicious anemia Grandmother Breast cancer Surgical History S/P section [place] teeth extracted Social History adopted: No household members: spouse and children housing: house number of children: 1 current occupational status: employed 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 current occupational exposures/hazards: No pets and animals: Yes (Not managing the litterbox) pets and animals: cat(s) and dog(s) history of recent travel: Yes (- January 03) out of country: Yes sexually active: Yes Smoking Status: Never smoker second hand exposure: No alcohol intake: former details: socially substance use type: does not use well-balanced diet: daily or most days caffeine: No eating out: 1-3 times/week during the past year weight has: remained stable what type of physical activity do you participate in: walking frequency: 1-2 times per week duration: 45-60 minutes/day rachid/methodist: Anglican seatbelt use: always do you feel safe at home: Yes additional social history: - [facility] group ROS ROS ED ROS Narrative Denies any recent illness. No fever. Review of Systems ROS Unobtainable: Denies due to encephalopathy Constitutional Constitutional ED: Denies fever(s) Eyes Eyes: Denies blurry vision ENT ENT ED: Denies ear pain Cardiovascular Cardiovascular: Denies chest pain Respiratory/Chest Respiratory/Chest: Denies cough Gastrointestinal Gastrointestinal: Denies abdominal pain Genitourinary Genitourinary ED: Denies dysuria Musculoskeletal Musculoskeletal: Denies back pain Integumentary Denies abscess Neurologic Neurologic: Denies headache(s) Psychiatric Psychiatric: Denies anxiety Endocrine Endocrinology: Denies cold intolerance Hematologic/Lymphatic Hematologic/Lymphatic: Denies easy bleeding, easy bruising or lymphadenopathy Allergic/Immunologic Allergic/Immunologic ED: Denies mouth swelling, tongue swelling or urticaria EXAM Physical Exam Narrative Exam Narrative: Well-appearing 33-year-old female. Vital signs stable afebrile. H EENT exam unremarkable. Lungs clear. Heart regular rhythm no murmur. Abdomen soft nontender. Moving all 4 extremities. Neurovascular intact. Awake and alert. Specifically left wrist nontender. Normal radial pulse. No swelling. Normal flexion extension of the wrist. Left hand minimal swelling of the left ring and small finger. No signs of any type of insect bite or local allergic reaction. No redness or warmth. She has full flexion and full extension of all digits of her left hand. There is no lymphangitic streaking. There is absolutely no signs of trauma. No bony tenderness or deformity. She has normal touch sensation to all fingers and normal cap refill to all digits of the hand. Currently there is no drooling or any tourniquets. Const Vital Signs: 01/03/24 07:51 Temperature 97.3 F L Temperature Source Temporal Pulse Rate 82 Respiratory Rate 14 Blood Pressure 117/71 Blood Pressure Mean 86 Pulse Ox 98 Oxygen Delivery Method Room Air Positive well nourished and well developed; Negative for obese, cachectic, contractures or unkempt General Appearance ED: well developed; Negative for unkempt, cachectic, contractures, cyanotic or diaphoretic Nutritional Appearance: Negative for cachectic or obese HEENT Reports moist mucous membranes normocephalic and atraumatic; Negative for trauma or tenderness Eyes PERRL and EOMs intact bilaterally General Eye ED: Negative for other Neck full ROM and supple General: Negative for tenderness Lymph Lymphatic: Negative for other Chest Wall inspection of chest normal and palpation of chest normal Chest: Negative for other Resp normal respiratory effort and clear to auscultation bilaterally Effort and Inspection: Negative for pain with movement Auscultation: Negative for rales, rhonchi, wheezes or diminished lung sounds Cardio regular rate, regular rhythm, S1 normal heart sound, S2 normal heart sound and no murmurs Rate: Negative for bradycardia or tachycardic Rhythm: Negative for abnormal rhythm GI non-tender, non-distended and no masses Inspection: Negative for abdominal distention Auscultation: normoactive bowel sounds Palpation: soft; Negative for tender, guarding or rebound tenderness present Back/Spine no CVA tenderness General Back: Negative for CVA tenderness Cervical Spine: Negative for cervical spine tenderness Thoracic Spine / Upper Back: Negative for thoracic spinal tenderness Lumbar Spine / Lower Back: Negative for lumbar spinal tenderness Extremity normal to inspection and full ROM Extremity Narrative: Minimal swelling of the left ring and long finger. No redness. No warmth. No signs of trauma. No bony deformity or tenderness. Full flexion and extension. Normal capillary refill. Normal touch sensation. No signs of any type of allergic reaction or infection. No bee stings or insect bites. Neuro oriented x3, CN's II-XII intact bilaterally, moves all extremities, no focal motor deficits and no sensory deficits noted Sensorium / Orientation: alert, oriented to person, oriented to place and oriented to time; Negative for orientation impaired, lethargic or stuporous Motor Exam: strength 5/5 throughout Psych mental status grossly normal Appearance: Negative for unkempt Attitude: No agitated Mood & Affect: Negative for depressed, anxious or tearful Skin General Skin Exam: Negative for petechiae Lesions: no lesions Rashes: no rashes Trauma: no lacerations or abrasions; Negative for abrasion or laceration Discharge Plan Triage Chief Complaint: Upper Extremity Injury ED Provider: Bob Ward Dx/Rx/DC Orders Clinical Impression: Localized swelling on left hand Prescriptions: No Action lorazepam 1 mg tablet 1 mg PO DAILY PRN (Reason: anxiety) Qty: 15 1RF ambrisentan 5 mg tablet 10 mg PO DAILY levothyroxine 75 mcg tablet 75 mcg PO DAILY Qty: 90 3RF escitalopram oxalate 20 mg tablet 20 mg PO DAILY Qty: 90 1RF lorazepam [Ativan] 1 mg tablet 1 mg PO TID PRN (Reason: anxiety) Qty: 10 0RF Farxiga 10 mg tablet 10 mg PO DAILY Qty: 90 3RF spironolactone 50 mg tablet 50 mg PO BID Qty: 180 3RF levothyroxine 50 mcg tablet 50 mcg PO DAILY Qty: 90 3RF sildenafil 50 mg tablet 80 mg PO TID Qty: 90 0RF Rx Instructions: prescribed by [facility] Primary Care Provider: Manda Figueroa Referrals: Manda Figueroa MD [Primary Care Provider] - As Needed Activity Restrictions/Additional Instructions: There are no signs of infection or trauma. Most likely what was wrapped around her hand temporally or lightly cut off the circulation you have swelling. This should get better in the next 1 to 2 days. Ice and elevate your hand a day for 30 minutes at a time to decrease pain and swelling. Motrin, Advil or ibuprofen for pain and swelling. Leave all the jewelry off your hand until it is back to normal. Follow-up if not improving Print Language: Armenian Disposition Disposition: Home, Self Care
[2024-01-03 08:07] VITALS: BP 129/78; PULSE 64; RESP 18; TEMP 36.6; O2SAT 99
== END 2024-01-03 08:23 | disposition home or self-care (01) ==
LOC: ED 08:13
PROVIDERS: Emergency Provider Emergency Medicine; PCP Family Medicine; Visit Provider Emergency Medicine
DX: M79.89 Other specified soft tissue disorders (principal)
CPT/HCPCS: 99282

== ENCOUNTER 2024-01-04 10:15 | Outpatient (RCR) | payer OTHER, SELFPAY ==
[2023-12-14 11:17] VITALS: BMI 25.4
== END 2024-01-13 23:59 ==
LOC: PR 10:15
PROVIDERS: PCP Family Medicine
DX: I27.21 Secondary pulmonary arterial hypertension (principal); I50.810 Right heart failure, unspecified; R06.02 Shortness of breath
CPT/HCPCS: 97150; G0239

== ENCOUNTER 2024-02-12 10:15 | Outpatient (RCR) | payer OTHER, SELFPAY ==
[2023-12-14 11:17] VITALS: BMI 25.4
--- NOTE | 2024-01-14 07:39 | PR.ITP_ITS ---
Exercise - Initial Assessment Visit Session Number:: 6 Physician Prescribed Exercise Modalities: Treadmill, Schwinn Airdyne AD-7 and SciFit Stepper Current METSs:: 2.9 Target HR:: 141 (113-141) Current RPD:: 2-3 Maximum Exercise HR:: 145 Resting Blood Pressure: 88/42 Maximum Exercise Blood Pressure: 112/60 Minimum SpO2 with exercise: 85 EKG Type: ST with rare PAC Nutrition/Wt Mgmt - Initial Visit Session Number:: 6 Weight Management Admit Height:: 5 ft 4 in Admit Weight:: 148 lb Admit BMI:: 25.4 Nutrition/Wt Mgmt - 30-Day Visit Date of Eval: 01/14/24 Session Number:: 6 Weight Management Height: 5 ft 4 in Weight:: 148 lb BMI: 25.4 Weight Goals Progress:: Progressing Nutrition/Wt Mgmt - 60-Day Visit Session Number:: 6 Weight Management Height: 5 ft 4 in Weight:: 148 lb BMI: 25.4 Nutrition/Wt Mgmt - 90-Day Visit Session Number:: 6 Weight Management Height: 5 ft 4 in Weight:: 148 lb BMI: 25.4 Nutrition/Wt Mgmt - Final Visit Session Number:: 6 Weight Management Height: 5 ft 4 in Weight:: 148 lb BMI: 25.4 Psychosocial - Initial Assess Visit Session Number:: 6 Problems/Goals History of Emotional Disorders: Anxious Psychosocial Goals: 2. Identifies personal stressors & states the strategies for managing, 3. Identifies activities to decrease isolation and/or symptoms of, 4. Improved psychosocial coping skills., 5. Verbalizes coping strategies., 6. Adequate treatment of depression. and 7. Improved Q.O.L. Intervention/Plan: See List Interventions/Plan:: Assess stressors,coping strategies & signs of derpression on admission, Instruct/assist pt to develop coping & personal stress Mgt strategies, Refer to Behavioral Health if appropriate, Refer to Physician if appropriate, Instruct patient to recognize signs & symptoms of depression, Instruct patient to recog and Other additional plan/intervention Comments:: pt is on lexapro 20 mg daily and ativan 1 mg as needed Psychosocial - 30-Day Visit Date of Eval: 01/14/24 Session Number:: 6 Problems/Goals History of Emotional Disorders: Anxious Psychosocial Goals: 2. Identifies personal stressors & states the strategies for managing, 3. Identifies activities to decrease isolation and/or symptoms of, 4. Improved psychosocial coping skills., 5. Verbalizes coping strategies., 6. Adequate treatment of depression. and 7. Improved Q.O.L. Plan Interventions/Plan:: Assess stressors,coping strategies & signs of derpression on admission, Instruct/assist pt to develop coping & personal stress Mgt strategies, Refer to Behavioral Health if appropriate, Refer to Physician if appropriate, Instruct patient to recognize signs & symptoms of depression, Instruct patient to recog and Other additional plan/intervention Comments:: pt is on lexapro 20 mg daily and ativan 1 mg as needed Psychosocial - 60-Day Visit Session Number:: 6 Problems/Goals History of Emotional Disorders: Anxious Psychosocial Goals: 2. Identifies personal stressors & states the strategies for managing, 3. Identifies activities to decrease isolation and/or symptoms of, 4. Improved psychosocial coping skills., 5. Verbalizes coping strategies., 6. Adequate treatment of depression. and 7. Improved Q.O.L. Plan Interventions/Plan:: Assess stressors,coping strategies & signs of derpression on admission, Instruct/assist pt to develop coping & personal stress Mgt strategies, Refer to Behavioral Health if appropriate, Refer to Physician if appropriate, Instruct patient to recognize signs & symptoms of depression, Instruct patient to recog and Other additional plan/intervention Comments:: pt is on lexapro 20 mg daily and ativan 1 mg as needed Psychosocial - 90-Day Visit Session Number:: 6 Problems/Goals History of Emotional Disorders: Anxious Psychosocial Goals: 2. Identifies personal stressors & states the strategies for managing, 3. Identifies activities to decrease isolation and/or symptoms of, 4. Improved psychosocial coping skills., 5. Verbalizes coping strategies., 6. Adequate treatment of depression. and 7. Improved Q.O.L. Plan Interventions/Plan:: Assess stressors,coping strategies & signs of derpression on admission, Instruct/assist pt to develop coping & personal stress Mgt strategies, Refer to Behavioral Health if appropriate, Refer to Physician if appropriate, Instruct patient to recognize signs & symptoms of depression, Instruct patient to recog and Other additional plan/intervention Comments:: pt is on lexapro 20 mg daily and ativan 1 mg as needed Psychosocial - Final Assess Visit Session Number:: 6 Problems/Goals History of Emotional Disorders: Anxious Psychosocial Goals: 2. Identifies personal stressors & states the strategies for managing, 3. Identifies activities to decrease isolation and/or symptoms of, 4. Improved psychosocial coping skills., 5. Verbalizes coping strategies., 6. Adequate treatment of depression. and 7. Improved Q.O.L. Plan Interventions/Plan:: Assess stressors,coping strategies & signs of derpression on admission, Instruct/assist pt to develop coping & personal stress Mgt strategies, Refer to Behavioral Health if appropriate, Refer to Physician if appropriate, Instruct patient to recognize signs & symptoms of depression, Instruct patient to recog and Other additional plan/intervention Comments:: pt is on lexapro 20 mg daily and ativan 1 mg as needed Oxygen & Oxygen Titration Init Visit Session Number:: 6 Initial Assessment SpO2:: 85 Oxygen & Oxygen Titration 30D Visit Date of Eval: 01/14/24 Session Number:: 6 Reassessment SpO2:: 85 Oxygen & Oxygen Titration 60D Visit Date of Eval: 01/14/24 Session Number:: 6 Reassessment SpO2:: 85 Oxygen & Oxygen Titration 90D Visit Date of Eval: 01/14/24 Session Number:: 6 Reassessment SpO2:: 85 Oxygen & Oxygen Titration LAMONTE Visit Date of Eval: 01/14/24 Session Number:: 6 Reassessment SpO2:: 85 Core Components - Initial Visit Session Number:: 6 Hypertension BP: 88/42 [place] [employer] Hypertension Guidelines Blood Pressure: 112/60 Outcomes/Goals: Able to verbalize/achieve optimal blood pressure <130/80, Incorporates diet changes & exercise for blood pressure control by DC and Other additional outcomes/goals Tobacco - Initial Assessment Tobacco Program Goals Do you have family support?: Yes Tobacco Use: Non-smoker Diabetes Diabetes:: No Core Components - 30 DAYS Visit Date of Eval: 01/14/24 Session Number:: 6 Hypertension Resting Blood Pressure:: 88/42 [place] [employer] Hypertension Guidelines Peak Exercise Blood Pressure:: 112/60 Outcomes/Goals: Able to verbalize/achieve optimal blood pressure <130/80, Incorporates diet changes & exercise for blood pressure control by DC and Other additional outcomes/goals Interventions/plan: Instruct on optimal blood pressure, hypertension & medications, Instruct on effects of sodium, alcohol, stress, exercise &hyper tension and Other additional plan/interventions 30 day Reassessments:: Met Tobacco - 30-Day Tobacco Program Goals Learning Barriers: Participates in education Do you have family support?: Yes Tobacco Use: Non-smoker Exacerbation Mgmt & Airway Clearance Reassessment: Demonstrates knowledge of O2 Rx at rest, Demonstrates knowledge of O2 Rx with exercise, Using O2 as prescribed, Has home O2 as prescribed and Uses port O2 as prescribed Medication Medication list reviewed:: Yes Taking medications 100% of the time:: Met Diabetes Diabetes:: No Core Components - 60 DAYS Visit Session Number:: 6 Hypertension Resting Blood Pressure:: 88/42 [place] [employer] Hypertension Guidelines Peak Exercise Blood Pressure:: 112/60 Outcomes/Goals: Able to verbalize/achieve optimal blood pressure <130/80, Incorporates diet changes & exercise for blood pressure control by DC and Other additional outcomes/goals Interventions/plan: Instruct on optimal blood pressure, hypertension & medications, Instruct on effects of sodium, alcohol, stress, exercise &hypertension and Other additional plan/interventions 60 day Reassessments:: Met Tobacco - 60-Day Tobacco Program Goals Learning Barriers: Participates in education Do you have family support?: Yes Tobacco Use: Non-smoker Exacerbation Mgmt & Airway Clearance Reassessment: Demonstrates knowledge of O2 Rx at rest, Demonstrates knowledge of O2 Rx with exercise, Using O2 as prescribed, Has home O2 as prescribed and Uses port O2 as prescribed Medication Taking medications 100% of the time:: Met Diabetes Diabetes:: No Core Components - 90 DAYS Visit Session Number:: 6 Hypertension Resting Blood Pressure:: 88/42 [place] [employer] Hypertension Guidelines Peak Exercise Blood Pressure:: 112/60 Outcomes/Goals: Able to verbalize/achieve optimal blood pressure <130/80, Incorporates diet changes & exercise for blood pressure control by DC and Other additional outcomes/goals Interventions/plan: Instruct on optimal blood pressure, hypertension & medications, Instruct on effects of sodium, alcohol, stress, exercise &hypertension and Other additional plan/interventions 90 day Reassessments:: Met Tobacco - 90-Day Tobacco Program Goals Learning Barriers: Participates in education Do you have family support?: Yes Tobacco Use: Non-smoker Diabetes Diabetes:: No Core Components - Final Visit Session Number:: 6 Hypertension Resting Blood Pressure:: 88/42 [place] [employer] Hypertension Guidelines Peak Exercise Blood Pressure:: 112/60 Outcomes/Goals: Able to verbalize/achieve optimal blood pressure <130/80, Incorporates diet changes & exercise for blood pressure control by DC and Other additional outcomes/goals Tobacco - Final Tobacco Program Goals Learning Barriers: Participates in education Do you have family support?: Yes Tobacco Use: Non-smoker Diabetes Diabetes:: No Patient Health Questionnaire PHQ-9 Screening 30-Day Re-eval Assessment: 1. Ashli interest or pleasure in doing things: Not at all 2. Feeling down, depressed, or hopeless: Several days 3. Trouble falling or staying asleep, or sleeping too much: Several days 4. Feeling tired or having little energy: Several days 5. Poor appetite or overeating: Not at all 6. Feeling bad about yourself -- or that you are a failure or have let yourself or your family down: Several days 7. Trouble concentrating on things, such as reading the newspaper or watching television: Not at all 8. Moving or speaking so slowly that other people could have noticed. Or the opposite - being so fidgety or restless that you have been moving around a lot more than usual: Not at all 9. Thoughts that you would be better off , or of hurting yourself in some way: Not at all How difficult have these problems made it for you to do your work, take care of things at home, or get along with other people?: Somewhat difficult Total Score: 4 Knowledge Questionaire (BCKQ) Information Information: [place] COPD Knowledge Questionnaire (BCKQ) This questionnaire is designed to find out what you know about your lung problem. It should be completed without help form anyone else. This usually takes between 10 and 20 minutes. Your answers will help us to find out what information you need to help you to understand and manage your lung condition. Alejandro the beaver which you think is the correct answer. Self-Efficacy 6-Item Scale 30-Day Re-eval Assessment: We would like to know how confident you are in doing certain activities. Please select your confidence level for: Fatigue Select Number: 6 Physical Discomfort or Pain Select Number: 9 Emotional Distress Select Number: 5 Other Symptoms or Health Problems Select Number: 6 Different Tasks and Activities Select Number: 7 Medication Select Number: 7 Total Score:: 6 Nutrition Survey Nutrition Survey Instructions Scoring Instructions
[2024-01-14 07:50] VITALS: BP 88/42; O2SAT 85; BMI 25.4
[2024-01-14 08:09] VITALS: BP 112/60; BP 88/42
== END 2024-02-13 23:59 ==
LOC: PR 10:15
PROVIDERS: PCP Family Medicine
DX: I27.21 Secondary pulmonary arterial hypertension (principal); I50.810 Right heart failure, unspecified; R06.02 Shortness of breath
CPT/HCPCS: 97150; G0239

== ENCOUNTER 2024-03-11 10:15 | Outpatient (RCR) | payer OTHER, SELFPAY ==
[2024-01-14 07:50] VITALS: BMI 25.4
[2024-02-14 00:43] VITALS: BP 112/60; BP 88/42; BMI 25.4
--- NOTE | 2024-02-16 11:07 | PCM.PR.TP ---
Exercise - Initial Assessment Visit Session Number:: 21 Physician Prescribed Exercise Modalities: Treadmill, Schwinn Airdyne AD-7 and Sci[employer] Stepper Target HR:: 141 (113-141) Current RPD:: 2 Maximum Exercise HR:: 122 Resting Blood Pressure: 98/62 Maximum Exercise Blood Pressure: 98/68 Minimum SpO2 with exercise: 92 EKG Type: NSR to ST Nutrition/Wt Mgmt - Initial Visit Session Number:: 21 Weight Management Admit Height:: 5 ft 4 in Admit Weight:: 148 lb Admit BMI:: 25.4 Nutrition/Wt Mgmt - 30-Day Visit Date of Eval: 02/16/24 Session Number:: 21 Weight Management Height: 5 ft 4 in Weight:: 148 lb BMI: 25.4 Nutrition/Wt Mgmt - 60-Day Visit Date of Eval: 02/16/24 Session Number:: 21 Weight Management Height: 5 ft 4 in Weight:: 148 lb BMI: 25.4 Weight Goals Progress:: Goal met Nutrition/Wt Mgmt - 90-Day Visit Session Number:: 21 Weight Management Height: 5 ft 4 in Weight:: 148 lb BMI: 25.4 Weight Goals Progress:: Goal met Nutrition/Wt Mgmt - Final Visit Session Number:: 21 Weight Management Height: 5 ft 4 in Weight:: 148 lb BMI: 25.4 Psychosocial - Initial Assess Visit Session Number:: 21 Problems/Goals History of Emotional Disorders: Anxious (pt is on lexapro 20 mg daily and ativan 1 mg as needed) Psychosocial Goals: 1. Patient is free from overwhelming symtoms of depression (or anxiety, 2. Identifies personal stressors & states the strategies for managing, 3. Identifies activities to decrease isolation and/or symptoms of, 4. Improved psychosocial coping skills., 5. Verbalizes coping strategies., 6. Adequate treatment of depression. and 7. Improved Q.O.L. Referral to Behavioral Health PS - Interventions: Yes: Attend Stress Management Classes Intervention/Plan: See List Interventions/Plan:: Assess stressors,coping strategies & signs of derpression on admission, Instruct/assist pt to develop coping & personal stress Mgt strategies, Refer to Behavioral Health if appropriate, Refer to Physician if appropriate, Instruct patient to recognize signs & symptoms of depression, Instruct patient to recog and Other additional plan/intervention Psychosocial - 30-Day Visit Date of Eval: 02/16/24 Session Number:: 21 Problems/Goals History of Emotional Disorders: Anxious (pt is on lexapro 20 mg daily and ativan 1 mg as needed) Psychosocial Goals: 1. Patient is free from overwhelming symtoms of depression (or anxiety, 2. Identifies personal stressors & states the strategies for managing, 3. Identifies activities to decrease isolation and/or symptoms of, 4. Improved psychosocial coping skills., 5. Verbalizes coping strategies., 6. Adequate treatment of depression. and 7. Improved Q.O.L. Referral to Behavioral Health PS - Interventions: Yes: Attend Stress Management Classes Plan Interventions/Plan:: Assess stressors,coping strategies & signs of derpression on admission, Instruct/assist pt to develop coping & personal stress Mgt strategies, Refer to Behavioral Health if appropriate, Refer to Physician if appropriate, Instruct patient to recognize signs & symptoms of depression, Instruct patient to recog and Other additional plan/intervention Psychosocial - 60-Day Visit Date of Eval: 02/16/24 Session Number:: 21 Problems/Goals History of Emotional Disorders: Anxious (pt is on lexapro 20 mg daily and ativan 1 mg as needed) Psychosocial Goals: 1. Patient is free from overwhelming symtoms of depression (or anxiety, 2. Identifies personal stressors & states the strategies for managing, 3. Identifies activities to decrease isolation and/or symptoms of, 4. Improved psychosocial coping skills., 5. Verbalizes coping strategies., 6. Adequate treatment of depression. and 7. Improved Q.O.L. Depression:: Anxiety Referral to Behavioral Health PS - Interventions: Yes: Attend Stress Management Classes Plan Interventions/Plan:: Assess stressors,coping strategies & signs of derpression on admission, Instruct/assist pt to develop coping & personal stress Mgt strategies, Refer to Behavioral Health if appropriate, Refer to Physician if appropriate, Instruct patient to recognize signs & symptoms of depression, Instruct patient to recog and Other additional plan/intervention Psychosocial - 90-Day Visit Session Number:: 21 Problems/Goals History of Emotional Disorders: Anxious (pt is on lexapro 20 mg daily and ativan 1 mg as needed) Psychosocial Goals: 1. Patient is free from overwhelming symtoms of depression (or anxiety, 2. Identifies personal stressors & states the strategies for managing, 3. Identifies activities to decrease isolation and/or symptoms of, 4. Improved psychosocial coping skills., 5. Verbalizes coping strategies., 6. Adequate treatment of depression. and 7. Improved Q.O.L. Depression:: Anxiety Referral to Behavioral Health PS - Interventions: Yes: Attend Stress Management Classes Plan Interventions/Plan:: Assess stressors,coping strategies & signs of derpression on admission, Instruct/assist pt to develop coping & personal stress Mgt strategies, Refer to Behavioral Health if appropriate, Refer to Physician if appropriate, Instruct patient to recognize signs & symptoms of depression, Instruct patient to recog and Other additional plan/intervention Psychosocial - Final Assess Visit Session Number:: 21 Problems/Goals History of Emotional Disorders: Anxious (pt is on lexapro 20 mg daily and ativan 1 mg as needed) Psychosocial Goals: 1. Patient is free from overwhelming symtoms of depression (or anxiety, 2. Identifies personal stressors & states the strategies for managing, 3. Identifies activities to decrease isolation and/or symptoms of, 4. Improved psychosocial coping skills., 5. Verbalizes coping strategies., 6. Adequate treatment of depression. and 7. Improved Q.O.L. Depression:: Anxiety Referral to Behavioral Health PS - Interventions: Yes: Attend Stress Management Classes Plan Interventions/Plan:: Assess stressors,coping strategies & signs of derpression on admission, Instruct/assist pt to develop coping & personal stress Mgt strategies, Refer to Behavioral Health if appropriate, Refer to Physician if appropriate, Instruct patient to recognize signs & symptoms of depression, Instruct patient to recog and Other additional plan/intervention Oxygen & Oxygen Titration Init Visit Session Number:: 21 Initial Assessment SpO2:: 92 Oxygen & Oxygen Titration 30D Visit Date of Eval: 02/16/24 Session Number:: 21 Reassessment SpO2:: 92 Oxygen & Oxygen Titration 60D Visit Date of Eval: 02/16/24 Session Number:: 21 Reassessment Reassessment- 60 Days: Demonstrate knowledge of O2 Rx at rest & w/exercise, Using O2 as Rx'd and Has home O2 as Rx'd SpO2:: 92 Oxygen & Oxygen Titration 90D Visit Date of Eval: 02/16/24 Session Number:: 21 Reassessment SpO2:: 92 Oxygen & Oxygen Titration LAMONTE Visit Date of Eval: 02/16/24 Session Number:: 21 Reassessment SpO2:: 92 Core Components - Initial Visit Session Number:: 21 Hypertension BP: 98/62 [employer] Hypertension Guidelines Blood Pressure: 98/68 Outcomes/Goals: Able to verbalize/achieve optimal blood pressure <130/80, Incorporates diet changes & exercise for blood pressure control by DC and Other additional outcomes/goals Tobacco - Initial Assessment Tobacco Program Goals Stages of Change:: Action Do you have family support?: Yes Tobacco Use: Non-smoker Gave Education Materials For:: Tobacco Triggers, Pulmonary Disease, Risk Factors, Breathing Techniques, Medical Compliance, Pulmonary A&P, Exacerbation Signs & Symptoms and Stress & Relaxation Diabetes Diabetes:: No Core Components - 30 DAYS Visit Date of Eval: 02/16/24 Session Number:: 21 Hypertension Resting Blood Pressure:: 98/62 [employer] Hypertension Guidelines Peak Exercise Blood Pressure:: 98/68 Change in medication: No Outcomes/Goals: Able to verbalize/achieve optimal blood pressure <130/80, Incorporates diet changes & exercise for blood pressure control by DC and Other additional outcomes/goals Interventions/plan: Instruct on optimal blood pressure, hypertension & medications, Instruct on effects of sodium, alcohol, stress, exercise &hypertension and Other additional plan/interventions 30 day Reassessments:: Met Tobacco - 30-Day Tobacco Program Goals Stages of Change:: Action Learning Barriers: Participates in education Do you have family support?: Yes Tobacco Use: Non-smoker Gave Education Materials For:: Tobacco Triggers, Pulmonary Disease, Risk Factors, Breathing Techniques, Medical Compliance, Pulmonary A&P, Exacerbation Signs & Symptoms and Stress & Relaxation 30-day Reassessments:: Progressing Reassessment Notes & Comments:: Pt attends and participates in education Exacerbation Mgmt & Airway Clearance Reassessment: Demonstrates knowledge of O2 Rx at rest, Demonstrates knowledge of O2 Rx with exercise and Using O2 as prescribed Bronchial Hygiene Plan: Yes: Pt demonstrates correctly for effective cough, Yes: Pt demo correct for CPT, Yes: Pt demo correct for device, Yes: Pt demo correct for NS nasal spray, Yes: Pt demo correct for sputum management, Yes: Pt demo correct for improved hydration, Yes: Pt demo correct for hand hygiene, Yes: Pt demo correct for evalute sputum, Yes: Pt demo correct for verbalize when to call MD and Yes: Pt demo correct for cleaning of respiratory equipment Medication Taking medications 100% of the time:: Met Diabetes Diabetes:: No Core Components - 60 DAYS Visit Date of Eval: 02/16/24 Session Number:: 21 Hypertension Resting Blood Pressure:: 98/62 [employer] Hypertension Guidelines Peak Exercise Blood Pressure:: 98/68 Change in medication: No Outcomes/Goals: Able to verbalize/achieve optimal blood pressure <130/80, Incorporates diet changes & exercise for blood pressure control by DC and Other additional outcomes/goals Interventions/plan: Instruct on optimal blood pressure, hypertension & medications, Instruct on effects of sodium, alcohol, stress, exercise &hypertension and Other additional plan/interventions 60 day Reassessments:: Met Tobacco - 60-Day Tobacco Program Goals Stages of Change:: Action Learning Barriers: Participates in education Do you have family support?: Yes Tobacco Use: Non-smoker Gave Education Materials For:: Tobacco Triggers, Pulmonary Disease, Risk Factors, Breathing Techniques, Medical Compliance, Pulmonary A&P, Exacerbation Signs & Symptoms and Stress & Relaxation 60-day Reassessments:: Progressing Reassessment Notes & Comments:: Pt attends and participates in education Exacerbation Mgmt & Airway Clearance Reassessment: Demonstrates knowledge of O2 Rx at rest, Demonstrates knowledge of O2 Rx with exercise and Using O2 as prescribed Bronchial Hygiene Plan: Yes: Pt demonstrates correctly for effective cough, Yes: Pt demo correct for CPT, Yes: Pt demo correct for device, Yes: Pt demo correct for NS nasal spray, Yes: Pt demo correct for sputum management, Yes: Pt demo correct for improved hydration, Yes: Pt demo correct for hand hygiene, Yes: Pt demo correct for evalute sputum, Yes: Pt demo correct for verbalize when to call MD and Yes: Pt demo correct for cleaning of respiratory equipment Medication Medication list reviewed:: Yes Taking medications 100% of the time:: Met Taking medications 100% of the time:: Met 60-day Reassessments:: Met Diabetes Diabetes:: No Core Components - 90 DAYS Visit Session Number:: 21 Hypertension Resting Blood Pressure:: 98/62 [employer] Hypertension Guidelines Peak Exercise Blood Pressure:: 98/68 Outcomes/Goals: Able to verbalize/achieve optimal blood pressure <130/80, Incorporates diet changes & exercise for blood pressure control by DC and Other additional outcomes/goals Interventions/plan: Instruct on optimal blood pressure, hypertension & medications, Instruct on effects of sodium, alcohol, stress, exercise &hypertension and Other additional plan/interventions 90 day Reassessments:: Met Tobacco - 90-Day Tobacco Program Goals Stages of Change:: Action Learning Barriers: Participates in education Do you have family support?: Yes Tobacco Use: Non-smoker Gave Education Materials For:: Tobacco Triggers, Pulmonary Disease, Risk Factors, Breathing Techniques, Medical Compliance, Pulmonary A&P, Exacerbation Signs & Symptoms and Stress & Relaxation 90-day Reassessments:: Progressing Reassessment Notes & Comments:: Pt attends and participates in education Exacerbation Mgmt & Airway Clearance Bronchial Hygiene Plan: Yes: Pt demonstrates correctly for effective cough, Yes: Pt demo correct for CPT, Yes: Pt demo correct for device, Yes: Pt demo correct for NS nasal spray, Yes: Pt demo correct for sputum management, Yes: Pt demo correct for improved hydration, Yes: Pt demo correct for hand hygiene, Yes: Pt demo correct for evalute sputum, Yes: Pt demo correct for verbalize when to call MD and Yes: Pt demo correct for cleaning of respiratory equipment Diabetes Diabetes:: No Core Components - Final Visit Session Number:: 21 Hypertension Resting Blood Pressure:: 98/62 [employer] Hypertension Guidelines Peak Exercise Blood Pressure:: 98/68 Outcomes/Goals: Able to verbalize/achieve optimal blood pressure <130/80, Incorporates diet changes & exercise for blood pressure control by DC and Other additional outcomes/goals Tobacco - Final Tobacco Program Goals Stages of Change:: Action Learning Barriers: Participates in education Do you have family support?: Yes Tobacco Use: Non-smoker Exacerbation Mgmt & Airway Clearance Bronchial Hygiene Plan: Yes: Pt demonstrates correctly for effective cough, Yes: Pt demo correct for CPT, Yes: Pt demo correct for device, Yes: Pt demo correct for NS nasal spray, Yes: Pt demo correct for sputum management, Yes: Pt demo correct for improved hydration, Yes: Pt demo correct for hand hygiene, Yes: Pt demo correct for evalute sputum, Yes: Pt demo correct for verbalize when to call MD and Yes: Pt demo correct for cleaning of respiratory equipment Diabetes Diabetes:: No Patient Health Questionnaire PHQ-9 Screening 60-Day Re-eval Assessment: 1. Little interest or pleasure in doing things: Not at all 2. Feeling down, depressed, or hopeless: Several days 3. Trouble falling or staying asleep, or sleeping too much: Several days 4. Feeling tired or having little energy: Several days 5. Poor appetite or overeating: Not at all 6. Feeling bad about yourself -- or that you are a failure or have let yourself or your family down: Several days 7. Trouble concentrating on things, such as reading the newspaper or watching television: Not at all 8. Moving or speaking so slowly that other people could have noticed. Or the opposite - being so fidgety or restless that you have been moving around a lot more than usual: Not at all 9. Thoughts that you would be better off , or of hurting yourself in some way: Not at all How difficult have these problems made it for you to do your work, take care of things at home, or get along with other people?: Somewhat difficult Total Score: 4 Knowledge Questionaire (BCKQ) Information Information: [place] COPD Knowledge Questionnaire (BCKQ) This questionnaire is designed to find out what you know about your lung problem. It should be completed without help form anyone else. This usually takes between 10 and 20 minutes. Your answers will help us to find out what information you need to help you to understand and manage your lung condition. Ale[place] [employer] [place] which you think is the correct answer. Self-Efficacy 6-Item Scale 60-Day Re-eval Assessment: We would like to know how confident you are in doing certain activities. Please select your confidence level for: Fatigue Select Number: 6 Physical Discomfort or Pain Select Number: 9 Emotional Distress Select Number: 5 Other Symptoms or Health Problems Select Number: 6 Different Tasks and Activities Select Number: 7 Medication Select Number: 7 Total Score:: 6 Nutrition Survey Nutrition Survey Instructions Scoring Instructions
[2024-02-16 11:17] VITALS: BP 98/62; O2SAT 92; BMI 25.4
[2024-02-16 11:22] VITALS: BP 98/62; BP 98/68
== END 2024-03-14 23:59 ==
LOC: PR 10:15
PROVIDERS: PCP Family Medicine
DX: I50.810 Right heart failure, unspecified; I27.21 Secondary pulmonary arterial hypertension; R06.02 Shortness of breath
CPT/HCPCS: 97150; G0239

== ENCOUNTER 2024-04-01 09:45 | Outpatient (RCR) | payer OTHER, SELFPAY ==
[2024-02-16 11:17] VITALS: BMI 25.4
[2024-03-15 00:20] VITALS: BP 112/60; BP 88/42; BMI 25.4
--- NOTE | 2024-03-15 07:14 | PR.ITP_ITS ---
Exercise - Initial Assessment Visit Session Number:: 30 Physician Prescribed Exercise Modalities: Treadmill, [employer]ird[employer] AD-7 and [employer] Stepper Current METSs:: 4 Target HR:: 150 (113-150) Current RPD:: 2-3 Maximum Exercise HR:: 139 Resting Blood Pressure: 92/44 Maximum Exercise Blood Pressure: 102/70 Minimum SpO2 with exercise: 88 EKG Type: NSR to ST Nutrition/Wt Mgmt - Initial Visit Session Number:: 30 Weight Management Admit Height:: 5 ft 4 in Admit Weight:: 148 lb Admit BMI:: 25.4 Nutrition/Wt Mgmt - 30-Day Visit Date of Eval: 03/15/24 Session Number:: 30 Weight Management Height: 5 ft 4 in Weight:: 148 lb BMI: 25.4 Nutrition/Wt Mgmt - 60-Day Visit Session Number:: 30 Weight Management Height: 5 ft 4 in Weight:: 148 lb BMI: 25.4 Weight Goals Progress:: Goal met Nutrition/Wt Mgmt - 90-Day Visit Date of Eval: 03/15/24 Session Number:: 30 Weight Management Height: 5 ft 4 in Weight:: 148 lb BMI: 25.4 Weight Goals Progress:: Goal met Nutrition/Wt Mgmt - Final Visit Session Number:: 30 Weight Management Height: 5 ft 4 in Weight:: 148 lb BMI: 25.4 Psychosocial - Initial Assess Visit Session Number:: 30 Problems/Goals History of Emotional Disorders: Anxious (pt is on lexapro) Psychosocial Test Tool Used:: Pulmonary QOL and PHQ-9 Questionnaire Referral to Behavioral Health PS - Interventions: Yes: Attend Stress Management Classes Intervention/Plan: See List Interventions/Plan:: Assess stressors,coping strategies & signs of derpression on admission, Instruct/assist pt to develop coping & personal stress Mgt strategies, Refer to Behavioral Health if appropriate, Refer to Physician if appropriate, Instruct patient to recognize signs & symptoms of depression, Instruct patient to recog and Other additional plan/intervention Psychosocial - 30-Day Visit Date of Eval: 03/15/24 Session Number:: 30 Problems/Goals History of Emotional Disorders: Anxious (pt is on lexapro) Psychosocial Test Tool Used:: Pulmonary QOL and PHQ-9 Questionnaire Referral to Behavioral Health PS - Interventions: Yes: Attend Stress Management Classes Plan Interventions/Plan:: Assess stressors,coping strategies & signs of derpression on admission, Instruct/assist pt to develop coping & personal stress Mgt strategies, Refer to Behavioral Health if appropriate, Refer to Physician if appropriate, Instruct patient to recognize signs & symptoms of depression, Instr uct patient to recog and Other additional plan/intervention Psychosocial - 60-Day Visit Session Number:: 30 Problems/Goals History of Emotional Disorders: Anxious (pt is on lexapro) Psychosocial Test Tool Used:: Pulmonary QOL and PHQ-9 Questionnaire Referral to Behavioral Health PS - Interventions: Yes: Attend Stress Management Classes Plan Interventions/Plan:: Assess stressors,coping strategies & signs of derpression on admission, Instruct/assist pt to develop coping & personal stress Mgt strategies, Refer to Behavioral Health if appropriate, Refer to Physician if appropriate, Instruct patient to recognize signs & symptoms of depression, Instruct patient to recog and Other additional plan/intervention Psychosocial - 90-Day Visit Date of Eval: 03/15/24 Session Number:: 30 Problems/Goals History of Emotional Disorders: Anxious (pt is on lexapro) Psychosocial Test Tool Used:: Pulmonary QOL and PHQ-9 Questionnaire Referral to Behavioral Health PS - Interventions: Yes: Attend Stress Management Classes Plan Interventions/Plan:: Assess stressors,coping strategies & signs of derpression on admission, Instruct/assist pt to develop coping & personal stress Mgt strategies, Refer to Behavioral Health if appropriate, Refer to Physician if appropriate, Instruct patient to recognize signs & symptoms of depression, Instruct patient to recog and Other additional plan/intervention Psychosocial - Final Assess Visit Session Number:: 30 Problems/Goals History of Emotional Disorders: Anxious (pt is on lexapro) Psychosocial Test Tool Used:: Pulmonary QOL and PHQ-9 Questionnaire Referral to Behavioral Health PS - Interventions: Yes: Attend Stress Management Classes Plan Interventions/Plan:: Assess stressors,coping strategies & signs of derpression on admission, Instruct/assist pt to develop coping & personal stress Mgt strategies, Refer to Behavioral Health if appropriate, Refer to Physician if appropriate, Instruct patient to recognize signs & symptoms of depression, Instruct patient to recog and Other additional plan/intervention Oxygen & Oxygen Titration Init Visit Session Number:: 30 Initial Assessment SpO2:: 88 Oxygen & Oxygen Titration 30D Visit Date of Eval: 03/15/24 Session Number:: 30 Reassessment SpO2:: 88 Oxygen & Oxygen Titration 60D Visit Date of Eval: 03/15/24 Session Number:: 30 Reassessment SpO2:: 88 Oxygen & Oxygen Titration 90D Visit Date of Eval: 03/15/24 Session Number:: 30 Reassessment Oxygen & Oxygen Titration 90 days: Oxygen w/activity SpO2:: 88 Oxygen & Oxygen Titration LAMONTE Visit Date of Eval: 03/15/24 Session Number:: 30 Reassessment SpO2:: 88 Core Components - Initial Visit Session Number:: 30 Hypertension BP: 92/44 [place] [employer] Hypertension Guidelines Blood Pressure: 102/70 Outcomes/Goals: Able to verbalize/achieve optimal blood pressure <130/80, Incorporates diet changes & exercise for blood pressure control by DC and Other additional outcomes/goals Tobacco - Initial Assessment Tobacco Program Goals Tobacco Use: Non-smoker Diabetes Diabetes:: No Core Components - 30 DAYS Visit Date of Eval: 03/15/24 Session Number:: 30 Hypertension Resting Blood Pressure:: 92/44 [place] [employer] Hypertension Guidelines Peak Exercise Blood Pressure:: 102/70 Outcomes/Goals: Able to verbalize/achieve optimal blood pressure <130/80, Incorporates diet changes & exercise for blood pressure control by DC and Other additional outcomes/goals Interventions/plan: Instruct on optimal blood pressure, hypertension & medications, Instruct on effects of sodium, alcohol, stress, exercise &hypertension and Other additional plan/interventions 30 day Reassessments:: Met Tobacco - 30-Day Tobacco Program Goals Tobacco Use: Non-smoker Exacerbation Mgmt & Airway Clearance Bronchial Hygiene Plan: Yes: Pt demonstrates correctly for effective cough, Yes: Pt demo correct for CPT, Yes: Pt demo correct for device, Yes: Pt demo correct for NS nasal spray, Yes: Pt demo correct for sputum management, Yes: Pt demo correct for improved hydration, Yes: Pt demo correct for hand hygiene, Yes: Pt demo correct for evalute sputum, Yes: Pt demo correct for verbalize when to call MD and Yes: Pt demo correct for cleaning of respiratory equipment Medication Medication reassessment: Yes: Pt demonstrates correct technique timing for MDI, Yes: Pt demonstrates correct technique timing for DPI, Yes: Pt demonstrates correct technique timing for NEB and Yes: Pt demonstrates correct technique timing for spacer Diabetes Diabetes:: No Core Components - 60 DAYS Visit Session Number:: 30 Hypertension Resting Blood Pressure:: 92/44 [place] [employer] Hypertension Guidelines Peak Exercise Blood Pressure:: 102/70 Outcomes/Goals: Able to verbalize/achieve optimal blood pressure <130/80, Incorporates diet changes & exercise for blood pressure control by DC and Other additional outcomes/goals Interventions/plan: Instruct on optimal blood pressure, hypertension & medications, Instruct on effects of sodium, alcohol, stress, exercise &hyperten keon and Other additional plan/interventions 60 day Reassessments:: Met Tobacco - 60-Day Tobacco Program Goals Tobacco Use: Non-smoker Exacerbation Mgmt & Airway Clearance Bronchial Hygiene Plan: Yes: Pt demonstrates correctly for effective cough, Yes: Pt demo correct for CPT, Yes: Pt demo correct for device, Yes: Pt demo correct for NS nasal spray, Yes: Pt demo correct for sputum management, Yes: Pt demo correct for improved hydration, Yes: Pt demo correct for hand hygiene, Yes: Pt demo correct for evalute sputum, Yes: Pt demo correct for verbalize when to call MD and Yes: Pt demo correct for cleaning of respiratory equipment Medication Medication reassessment: Yes: Pt demonstrates correct technique timing for MDI, Yes: Pt demonstrates correct technique timing for DPI, Yes: Pt demonstrates co rrect technique timing for NEB and Yes: Pt demonstrates correct technique timing for spacer Diabetes Diabetes:: No Core Components - 90 DAYS Visit Date of Eval: 03/15/24 Session Number:: 30 Hypertension Resting Blood Pressure:: 92/44 [place] [employer] Hypertension Guidelines Peak Exercise Blood Pressure:: 102/70 Outcomes/Goals: Able to verbalize/achieve optimal blood pressure <130/80, Incorporates diet changes & exercise for blood pressure control by DC and Other additional outcomes/goals Interventions/plan: Instruct on optimal blood pressure, hypertension & medications, Instruct on effects of sodium, alcohol, stress, exercise &hypertension and Other additional plan/interventions 90 day Reassessments:: Met Tobacco - 90-Day Tobacco Program Goals Tobacco Use: Non-smoker Exacerbation Mgmt & Airway Clearance Reassessment: Demonstrates knowledge of O2 Rx at rest, Demonstrates knowledge of O2 Rx with exercise, Using O2 as prescribed, Has home O2 as prescribed and Uses port O2 as prescribed Bronchial Hygiene Plan: Yes: Pt demonstrates correctly for effective cough, Yes: Pt demo correct for CPT, Yes: Pt demo correct for device, Yes: Pt demo correct for NS nasal spray, Yes: Pt demo correct for sputum management, Yes: Pt demo correct for improved hydration, Yes: Pt demo correct for hand hygiene, Yes: Pt demo correct for evalute sputum, Yes: Pt demo correct for verbalize when to call MD and Yes: Pt demo correct for cleaning of respiratory equipment Medication Medication list reviewed:: Yes Taking medications 100% of the time:: Met Medication reassessment: Yes: Pt demonstrates correct technique timing for MDI, Yes: Pt demonstrates correct technique timing for DPI, Yes: Pt demonstrates correct technique timing for NEB and Yes: Pt demonstrates correct technique timing for spacer Diabetes Diabetes:: No Core Components - Final Visit Session Number:: 30 Hypertension Resting Blood Pressure:: 92/44 [place] [employer] Hypertension Guidelines Peak Exercise Blood Pressure:: 102/70 Outcomes/Goals: Able to verbalize/achieve optimal blood pressure <130/80, Incorporates diet changes & exercise for blood pressure control by DC and Other additional outcomes/goals Tobacco - Final Tobacco Program Goals Tobacco Use: Non-smoker Exacerbation Mgmt & Airway Clearance Bronchial Hygiene Plan: Yes: Pt demonstrates correctly for effective cough, Yes: Pt demo correct for CPT, Yes: Pt demo correct for device, Yes: Pt demo correct for NS nasal spray, Yes: Pt demo correct for sputum management, Yes: Pt demo correct for improved hydration, Yes: Pt demo correct for hand hygiene, Yes: Pt demo correct for evalute sputum, Yes: Pt demo correct for verbalize when to call MD and Yes: Pt demo correct for cleaning of respiratory equipment Medication Medication reassessment: Yes: Pt demonstrates correct technique timing for MDI, Yes: Pt demonstrates correct technique timing for DPI, Yes: Pt demonstrates correct technique timing for NEB and Yes: Pt demonstrates correct technique timing for spacer Diabetes Diabetes:: No Patient Health Questionnaire PHQ-9 Screening 90-Day Re-eval Assessment: 1. Little interest or pleasure in doing things: Not at all 2. Feeling down, depressed, or hopeless: Several days 3. Trouble falling or staying asleep, or sleeping too much: Several days 4. Feeling tired or having little energy: Several days 5. Poor appetite or overeating: Not at all 6. Feeling bad about yourself -- or that you are a failure or have let yourself or your family down: Several days 7. Trouble concentrating on things, such as reading the newspaper or watching television: Not at all 8. Moving or speaking so slowly that other people could have noticed. Or the opposite - being so fidgety or restless that you have been moving around a lot more than usual: Not at all 9. Thoughts that you would be better off , or of hurting yourself in some way: Not at all How difficult have these problems made it for you to do your work, take care of things at home, or get along with other people?: Somewhat difficult Total Score: 4 Knowledge Questionaire (BCKQ) Information Information: [place] COPD Knowledge Questionnaire (BCKQ) This questionnaire is designed to find out what you know about your lung problem. It should be completed without help form anyone else. This usually takes between 10 and 20 minutes. Your answers will help us to find out what information you need to help you to understand and manage your lung condition. [place] which you think is the correct answer. Self-Efficacy 6-Item Scale 90-Day Re-eval Assessment: We would like to know how confident you are in doing certain activities. Please select your confidence level for: Fatigue Select Number: 6 Physical Discomfort or Pain Select Number: 9 Emotional Distress Select Number: 5 Other Symptoms or Health Problems Select Number: 6 Different Tasks and Activities Select Number: 7 Medication Select Number: 7 Total Score:: 6 Nutrition Survey Nutrition Survey Instructions Scoring Instructions
[2024-03-15 07:23] VITALS: BP 102/70; BP 92/44; O2SAT 88; BMI 25.4
--- NOTE | 2024-04-14 10:58 | PR.ITP_ITS ---
Exercise - Initial Assessment Visit Session Number:: 32 Physician Prescribed Exercise Modalities: Treadmill, [employer] Airdyne AD-7 and [employer] Stepper Current METSs:: 4 Resting Blood Pressure: 88/62 Maximum Exercise Blood Pressure: 92/64 Minimum SpO2 with exercise: 88 EKG Type: NSR to ST Nutrition/Wt Mgmt - Initial Visit Session Number:: 32 Weight Management Admit Height:: 5 ft 4 in Admit Weight:: 148 lb Admit BMI:: 25.4 Nutrition/Wt Mgmt - 30-Day Visit Session Number:: 32 Weight Management Height: 5 ft 4 in Weight:: 148 lb BMI: 25.4 Nutrition/Wt Mgmt - 60-Day Visit Session Number:: 32 Weight Management Height: 5 ft 4 in Weight:: 148 lb BMI: 25.4 Nutrition/Wt Mgmt - 90-Day Visit Session Number:: 32 Weight Management Height: 5 ft 4 in Weight:: 148 lb BMI: 25.4 Nutrition/Wt Mgmt - Final Visit Date of Eval: 04/14/24 Session Number:: 32 Weight Management Height: 5 ft 4 in Weight:: 148 lb BMI: 25.4 Weight Goals Progress:: Goal met Psychosocial - Initial Assess Visit Session Number:: 32 Problems/Goals History of Emotional Disorders: Anxious (Pt is on lexapro and doing well) Psychosocial Goals: 1. Patient is free from overwhelming symtoms of depression (or anxiety, 2. Identifies personal stressors & states the strategies for managing, 3. Identifies activities to decrease isolation and/or symptoms of, 4. Improved psychosocial coping skills., 5. Verbalizes coping strategies., 6. Adequate treatment of depression. and 7. Improved Q.O.L. Psychosocial Test Tool Used:: Pulmonary QOL and PHQ-9 Questionnaire Referral to Behavioral Health PS - Interventions: Yes: Attend Stress Management Classes Intervention/Plan: See List Interventions/Plan:: Assess stressors,coping strategies & signs of derpression on admission, Instruct/assist pt to develop coping & personal stress Mgt strategies, Refer to Behavioral Health if appropriate, Refer to Physician if appropriate, Instruct patient to recognize signs & symptoms of depression, Instruct patient to recog and Other additional plan/intervention Psychosocial - 30-Day Visit Session Number:: 32 Problems/Goals History of Emotional Disorders: Anxious (Pt is on lexapro and doing well) Psychosocial Goals: 1. Patient is free from overwhelming symtoms of depression (or anxiety, 2. Identifies personal stressors & states the strategies for managing, 3. Identifies activities to decrease isolation and/or symptoms of, 4. Improved psychosocial coping skills., 5. Verbalizes coping strategies., 6. Adequate treatment of depression. and 7. Improved Q.O.L. Psychosocial Test Tool Used:: Pulmonary QOL and PHQ-9 Questionnaire Referral to Behavioral Health PS - Interventions: Yes: Attend Stress Management Classes Plan Interventions/Plan:: Assess stressors,coping strategies & signs of derpression on admission, Instruct/assist pt to develop coping & personal stress Mgt strategies, Refer to Behavioral Health if appropriate, Refer to Physician if appropriate, Instruct patient to recognize signs & symptoms of depression, Instruct patient to recog and Other additional plan/intervention Psychosocial - 60-Day Visit Session Number:: 32 Problems/Goals History of Emotional Disorders: Anxious (Pt is on lexapro and doing well) Psychosocial Goals: 1. Patient is free from overwhelming symtoms of depression (or anxiety, 2. Identifies personal stressors & states the strategies for managing, 3. Identifies activities to decrease isolation and/or symptoms of, 4. Improved psychosocial coping skills., 5. Verbalizes coping strategies., 6. Adequate treatment of depression. and 7. Improved Q.O.L. Depression:: Anxiety Psychosocial Test Tool Used:: Pulmonary QOL and PHQ-9 Questionnaire Referral to Behavioral Health PS - Interventions: Yes: Attend Stress Management Classes Plan Interventions/Plan:: Assess stressors,coping strategies & signs of derpression on admission, Instruct/assist pt to develop coping & personal stress Mgt strategies, Refer to Behavioral Health if appropriate, Refer to Physician if appropriate, Instruct patient to recognize signs & symptoms of depression, Instruct patient to recog and Other additional plan/intervention Psychosocial - 90-Day Visit Session Number:: 32 Problems/Goals History of Emotional Disorders: Anxious (Pt is on lexapro and doing well) Psychosocial Goals: 1. Patient is free from overwhelming symtoms of depression (or anxiety, 2. Identifies personal stressors & states the strategies for managing, 3. Identifies activities to decrease isolation and/or symptoms of, 4. Improved psychosocial coping skills., 5. Verbalizes coping strategies., 6. Adequate treatment of depression. and 7. Improved Q.O.L. Depression:: Anxiety Psychosocial Test Tool Used:: Pulmonary QOL and PHQ-9 Questionnaire Referral to Behavioral Health PS - Interventions: Yes: Attend Stress Management Classes Plan Interventions/Plan:: Assess stressors,coping strategies & signs of derpression on admission, Instruct/assist pt to develop coping & personal stress Mgt strategies, Refer to Behavioral Health if appropriate, Refer to Physician if appropriate, Instruct patient to recognize signs & symptoms of depression, Instruct patient to recog and Other additional plan/intervention Psychosocial - Final Assess Visit Date of Eval: 04/14/24 Session Number:: 32 Problems/Goals History of Emotional Disorders: Anxious (Pt is on lexapro and doing well) Psychosocial Goals: 1. Patient is free from overwhelming symtoms of depression (or anxiety, 2. Identifies personal stressors & states the strategies for managing, 3. Identifies activities to decrease isolation and/or symptoms of, 4. Improved psychosocial coping skills., 5. Verbalizes coping strategies., 6. Adequate treatment of depression. and 7. Improved Q.O.L. Depression:: Anxiety Psychosocial Test Tool Used:: Pulmonary QOL and PHQ-9 Questionnaire Referral to Behavioral Health PS - Interventions: Yes: Attend Stress Management Classes Plan Interventions/Plan:: Assess stressors,coping strategies & signs of derpression on admission, Instruct/assist pt to develop coping & personal stress Mgt strategies, Refer to Behavioral Health if appropriate, Refer to Physician if appropriate, Instruct patient to recognize signs & symptoms of depression, Instruct patient to recog and Other additional plan/intervention Oxygen & Oxygen Titration Init Visit Session Number:: 32 Initial Assessment SpO2:: 88 Oxygen & Oxygen Titration 30D Visit Session Number:: 32 Reassessment SpO2:: 88 Oxygen & Oxygen Titration 60D Visit Session Number:: 32 Reassessment SpO2:: 88 Oxygen & Oxygen Titration 90D Visit Session Number:: 32 Reassessment SpO2:: 88 Oxygen & Oxygen Titration LAMONTE Visit Session Number:: 32 Reassessment SpO2:: 88 Core Components - Initial Visit Session Number:: 32 Hypertension BP: 88/62 [place] [employer] Hypertension Guidelines Blood Pressure: 92/64 Outcomes/Goals: Able to verbalize/achieve optimal blood pressure <130/80, Incorporates diet changes & exercise for blood pressure control by DC and Other additional outcomes/goals Tobacco - Initial Assessment Tobacco Program Goals Do you have family support?: Yes Tobacco Use: Non-smoker Core Components - 30 DAYS Visit Session Number:: 32 Hypertension Resting Blood Pressure:: 88/62 [place] [employer] Hypertension Guidelines Peak Exercise Blood Pressure:: 92/64 Outcomes/Goals: Able to verbalize/achieve optimal blood pressure <130/80, Incorporates diet changes & exercise for blood pressure control by DC and Other additional outcomes/goals Tobacco - 30-Day Tobacco Program Goals Learning Barriers: Participates in education Do you have family support?: Yes Tobacco Use: Non-smoker Exacerbation Mgmt & Airway Clearance Bronchial Hygiene Plan: Yes: Pt demonstrates correctly for effective cough, Yes: Pt demo correct for CPT, Yes: Pt demo correct for device, Yes: Pt demo correct for NS nasal spray, Yes: Pt demo correct for sputum management, Yes: Pt demo correct for improved hydration, Yes: Pt demo correct for hand hygiene, Yes: Pt demo correct for evalute sputum, Yes: Pt demo correct for verbalize when to call MD and Yes: Pt demo correct for cleaning of respiratory equipment Core Components - 60 DAYS Visit Session Number:: 32 Hypertension Resting Blood Pressure:: 88/62 [place] [employer] Hypertension Guidelines Peak Exercise Blood Pressure:: 92/64 Outcomes/Goals: Able to verbalize/achieve optimal blood pressure <130/80, Incorporates diet changes & exercise for blood pressure control by DC and Other additional outcomes/goals Tobacco - 60-Day Tobacco Program Goals Learning Barriers: Participates in education Do you have family support?: Yes Tobacco Use: Non-smoker Exacerbation Mgmt & Airway Clearance Bronchial Hygiene Plan: Yes: Pt demonstrates correctly for effective cough, Yes: Pt demo correct for CPT, Yes: Pt demo correct for device, Yes: Pt demo correct for NS nasal spray, Yes: Pt demo correct for sputum management, Yes: Pt demo correct for improved hydration, Yes: Pt demo correct for hand hygiene, Yes: Pt demo correct for evalute sputum, Yes: Pt demo correct for verbalize when to call MD and Yes: Pt demo correct for cleaning of respiratory equipment Core Components - 90 DAYS Visit Session Number:: 32 Hypertension Resting Blood Pressure:: 88/62 [place] [employer] Hypertension Guidelines Peak Exercise Blood Pressure:: 92/64 Outcomes/Goals: Able to verbalize/achieve optimal blood pressure <130/80, Incorporates diet changes & exercise for blood pressure control by DC and Other additional outcomes/goals Tobacco - 90-Day Tobacco Program Goals Learning Barriers: Participates in education Do you have family support?: Yes Tobacco Use: Non-smoker Exacerbation Mgmt & Airway Clearance Bronchial Hygiene Plan: Yes: Pt demonstrates correctly for effective cough, Yes: Pt demo correct for CPT, Yes: Pt demo correct for device, Yes: Pt demo correct for NS nasal spray, Yes: Pt demo correct for sputum management, Yes: Pt demo correct for improved hydration, Yes: Pt demo correct for hand hygiene, Yes: Pt demo correct for evalute sputum, Yes: Pt demo correct for verbalize when to call MD and Yes: Pt demo correct for cleaning of respiratory equipment Core Components - Final Visit Date of Eval: 04/14/24 Session Number:: 32 Hypertension Resting Blood Pressure:: 88/62 [place] [employer] Hypertension Guidelines Peak Exercise Blood Pressure:: 92/64 Outcomes/Goals: Able to verbalize/achieve optimal blood pressure <130/80, Incorporates diet changes & exercise for blood pressure control by DC and Other additional outcomes/goals Tobacco - Final Tobacco Program Goals Learning Barriers: Participates in education Do you have family support?: Yes Tobacco Use: Non-smoker Exacerbation Mgmt & Airway Clearance Final Assessment: Demonstrates knowledge of O2 Rx at rest, Demonstrates knowledge of O2 Rx with exercise and Using O2 as prescribed Bronchial Hygiene Plan: Yes: Pt demonstrates correctly for effective cough, Yes: Pt demo correct for CPT, Yes: Pt demo correct for device, Yes: Pt demo correct for NS nasal spray, Yes: Pt demo correct for sputum management, Yes: Pt demo correct for improved hydration, Yes: Pt demo correct for hand hygiene, Yes: Pt demo correct for evalute sputum, Yes: Pt demo correct for verbalize when to call MD and Yes: Pt demo correct for cleaning of respiratory equipment Medication Medication list reviewed:: Yes Taking medications 100% of the time:: Met Patient Health Questionnaire PHQ-9 Screening Discharge Assessment: 1. Little interest or pleasure in doing things: Not at all 2. Feeling down, depressed, or hopeless: Several days 3. Trouble falling or staying asleep, or sleeping too much: Several days 4. Feeling tired or having little energy: Several days 5. Poor appetite or overeating: Not at all 6. Feeling bad about yourself -- or that you are a failure or have let yourself or your family down: Several days 7. Trouble concentrating on things, such as reading the newspaper or watching television: Not at all 8. Moving or speaking so slowly that other people could have noticed. Or the opposite - being so fidgety or restless that you have been moving around a lot more than usual: Not at all 9. Thoughts that you would be better off , or of hurting yourself in some way: Not at all How difficult have these problems made it for you to do your work, take care of things at home, or get along with other people?: Somewhat difficult Total Score: 4 Knowledge Questionaire (BCKQ) Information Information: [place] COPD Knowledge Questionnaire (BCKQ) This questionnaire is designed to find out what you know about your lung problem. It should be completed without help form anyone else. This usually takes between 10 and 20 minutes. Your answers will help us to find out what information you need to help you to understand and manage your lung condition. [facility] [employer] which you think is the correct answer. Self-Efficacy 6-Item Scale Discharge Assessment: We would like to know how confident you are in doing certain activities. Please select your confidence level for: Fatigue Select Number: 6 Physical Discomfort or Pain Select Number: 9 Emotional Distress Select Number: 5 Other Symptoms or Health Problems Select Number: 6 Different Tasks and Activities Select Number: 7 Medication Select Number: 7 Total Score:: 6 Nutrition Survey Nutrition Survey Instructions Scoring Instructions
[2024-04-14 11:12] VITALS: BP 88/62; BP 92/64; O2SAT 88; BMI 25.4
== END 2024-04-14 23:59 ==
LOC: PR 09:45
PROVIDERS: PCP Family Medicine
DX: I27.21 Secondary pulmonary arterial hypertension (principal); I50.810 Right heart failure, unspecified; R06.02 Shortness of breath
CPT/HCPCS: 97150; G0239

== ENCOUNTER 2024-06-07 08:00 | Outpatient (RCR) | payer OTHER, SELFPAY ==
[2024-04-14 11:12] VITALS: BMI 25.4
== END 2024-06-14 23:59 ==
LOC: PR 08:00
PROVIDERS: PCP Family Medicine; Referring Provider Internal Medicine Pulmonary Disease; Visit Provider Internal Medicine Pulmonary Disease
DX: I27.21 Secondary pulmonary arterial hypertension (principal); I50.810 Right heart failure, unspecified; R06.02 Shortness of breath

== ENCOUNTER 2024-06-16 05:52 | Outpatient (RCR) | payer SELFPAY ==
[2024-04-14 11:12] VITALS: BMI 25.4
== END 2024-07-15 23:59 | disposition home or self-care (01) ==
LOC: PR 05:52
PROVIDERS: PCP Family Medicine; Referring Provider Internal Medicine Pulmonary Disease; Visit Provider Internal Medicine Pulmonary Disease
DX: Z00.00 Encounter for general adult medical examination without abnormal findings (principal)

== ENCOUNTER 2024-07-19 06:07 | Outpatient (RCR) | payer SELFPAY ==
[2024-04-14 11:12] VITALS: BMI 25.4
== END 2024-08-12 23:59 ==
LOC: PR 06:07
PROVIDERS: PCP Family Medicine; Referring Provider Internal Medicine Pulmonary Disease; Visit Provider Internal Medicine Pulmonary Disease
DX: Z00.00 Encounter for general adult medical examination without abnormal findings (principal)

== ENCOUNTER 2024-12-13 06:23 | Outpatient (RCR) | payer SELFPAY ==
[2024-04-14 11:12] VITALS: BMI 25.4
== END 2025-01-12 23:59 ==
LOC: PR 06:23
PROVIDERS: PCP Family Medicine; Referring Provider Internal Medicine Pulmonary Disease; Visit Provider Internal Medicine Pulmonary Disease
DX: Z00.00 Encounter for general adult medical examination without abnormal findings (principal)

== ENCOUNTER → 2025-01-13 | Outpatient (CLI) | payer OTHER, SELFPAY ==
[2024-04-14 11:12] VITALS: BMI 25.4
[2025-01-13 14:13] LABS: Vitamin B12 520 pg/mL (180-914)
== END | disposition home or self-care (01) ==
LOC: LAB 12:33
PROVIDERS: Referring Provider Internal Medicine Endocrinology, Diabetes & Metabolism; Visit Provider Internal Medicine Endocrinology, Diabetes & Metabolism
DX: E03.8 Other specified hypothyroidism (principal); E06.3 Autoimmune thyroiditis
CPT/HCPCS: 36415; 82607; 84439; 84443